=== PATIENT | male | born 1975 | race Caucasian/White ===

== ENCOUNTER 2016-06-30 02:16 | Inpatient (IN) ==
--- NOTE | 2016-06-30 02:20 | Emergency Department Note ---
Disposition Clinical Impression: Chronic schizophrenia Disposition: Still a Patient Condition: Fair Instructions: Depression (ED), Suicide Prevention for Adults (ED) Referrals: NO,PCP [Primary Care Provider] - Time of Disposition: 05:16 Psych HPI - General Chief Complaint: ED Psychiatric Symptoms Stated Complaint: psych Time Seen by Provider: 06/30/16 02:18 Source: patient Mode of arrival: private vehicle Limitations: no limitations Nursing Notes Reviewed: Yes Vital Signs Reviewed: Yes - History of Present Illness HPI Narrative: 40-year-old male presents to the emergency department with psychiatric complaints. Denies any suicidal or homicidal ideation. Patient states he is "having a rough time." Pt complaint: feels depressed, anxiety If medical clearance, reason: psychiatric condition Onset (ago): day(s) Duration: constant, getting worse History of similar episodes: Yes Improves with: none Worsens with: none Context: recent alcohol abuse Alleged intoxication: Yes Associated Psychiatric Symptoms: suicidal ideation, homicidal ideation, racing thoughts, anxiety Associated symptoms: Reports: denies other symptoms Traumatic symptoms: denies traumatic injury Treatments prior to arrival: none Self harm or harm to others: admits thoughts of self harm, admits thoughts of harming others - Related Data Previous Rx's Medication Instructions Recorded Naproxen [Naprosyn] 500 mg PO BID #20 tablet 06/19/15 Beclomethasone Diprop 40mcg [QVAR 2 puff IH BIDR inhaler 02/24/16 40 mcg] Methimazole [Tapazole] 5 mg PO DAILY #30 tablet 02/24/16 Pyridostigmine Br [Mestinon] 60 mg PO Q8HR #90 tablet 02/24/16 DiphenhydraMINE [Benadryl] 50 mg PO Q4HR #40 capsule 02/25/16 PredniSONE [Prednisone] 50 mg PO DAILY 5 Days 02/25/16 EPINEPHrine [Epipen] 0.3 mg IM ONCE PRN #1 kit 06/08/16 PredniSONE [Prednisone] 50 mg PO DAILY #5 tablet 06/08/16 Allergies Allergy/AdvReac Type Severity Reaction Status Date / Time Penicillins Allergy Hives Verified 06/08/16 19:49 codeine AdvReac Vomiting Verified 06/08/16 19:49 All systems ED: reviewed and negative except as stated. Constitutional: Denies: fever, chills Cardiovascular: Denies: chest pain Respiratory: Denies: cough, dyspnea, wheezes Gastrointestinal: Denies: abdominal pain, nausea, vomiting Musculoskeletal: Denies: back pain, neck pain Integumentary: Denies: rash, abrasion, lesions Neurological: Denies: headache Psychiatric: Reports: anxiety, depression, suicidal thoughts, homicidal thoughts Past Medical History - Past Medical History Attestation: Yes The following information was validated with the patient. Source: patient, nursing notes reviewed Medical history: Reports: hypertension, thyroid disease Surgical history: Reports: cholecystectomy Psychiatric history: Reports: prior suicide attempt, previous psychiatric hospitalization, other - Social History Smoking Status: Current every day smoker Smokeless Tobacco Status: Yes Alcohol use: Reports: occasionally Drug use: Reports: marijuana Physical Exam - General Limitations: altered mental status (slightly intoxicated with alcohol) General appearance: alert, in no apparent distress - Head Head exam: atraumatic, normocephalic, normal inspection - Eye Eye exam: Present: normal appearance, PERRL - Neck Neck exam: Present: normal inspection, full ROM, trachea midline - Chest Chest inspection: Present: normal inspection, symmetric chest wall rise - Respiratory Respiratory exam: Present: normal lung sounds bilaterally. Absent: respiratory distress - Cardiovascular Cardiovascular exam: Present: regular rate, normal rhythm, normal heart sounds - Extremities Exam Extremities exam: Present: normal inspection, full ROM. Absent: tenderness, pedal edema - Expanded Lower Extremity Exam Gait: observed and normal - Back Exam Back exam: Present: normal inspection, full ROM. Absent: tenderness - Neurological Exam Neurological exam: Present: alert, oriented X3 - Psychiatric Psychiatric exam: Present: depressed, agitated, anxious, homicidal ideation, suicidal ideation - Skin Skin exam: Present: warm, dry, intact, normal color Course Course Narrative: 40-year-old male with multiple delusions associated with the free m[employer] and other cult beliefs has multiple complaints and what appears to be multiple delusions. It is unsure if the patient is actually having delusions versus significant threats of harm to himself and his family. Patient has been seen here in the emergency department several times before for similar symptoms. He states that he has been abstaining from alcohol but drank this evening secondary to these recent concerns of threatening behavior. He denies any recent head trauma. He denies any recent illnesses. He does admit to smoking marijuana and drinking alcohol. He denies any current suicidal ideation, however throughout our discussions has stated that he does feel "everybody might be better off if I was gone." Additionally he notes "I do not know if I should just off myself or start a war with them." Workup here in the ER has been benign. Patient has an elevated blood alcohol level 182. Plan to redraw at 0 8:30 this morning. I have talked to the patient several times at the bedside and have informed him of the plan and care. Patient has verbalized understanding and agreement, however does remain agitated at times. Sedative medications and been ordered. Patient is compliant , however does appear to be a risk to staff. Patient feels extremely uncomfortable with security and police walking past the bedside, verbalized to them the importance of avoidance of this patient as long as he remains compliant and nonthreatening.[id number] Vital Signs Temperature 97.9 F 06/30/16 02:18 Pulse Rate 125 06/30/16 02:18 Respiratory Rate 18 06/30/16 02:18 Blood Pressure 132/89 06/30/16 02:18 O2 Sat by Pulse Oximetry 96 06/30/16 02:18 Temperature 97.9 F 06/30/16 02:18 Pulse Rate 106 06/30/16 04:30 Respiratory Rate 18 06/30/16 04:30 Blood Pressure 120/80 06/30/16 04:30 O2 Sat by Pulse Oximetry 96 06/30/16 04:30 Oxygen Delivery Oxygen Delivery Room Air Psych - Lab Data Lab results reviewed: Yes I reviewed the patient's lab results. Result diagrams: 06/30/16 02:48 06/30/16 02:48 Lab Results 06/30/16 06/30/16 06/30/16 Range/Units 02:47 02:47 02:48 WBC 11.8 H (4.3-11.1) K/mcL RBC 4.83 (4.19-5.50) M/mcL Hgb 14.5 (12.9-16.9) g/dL Hct 42.5 (37.5-50.1) % MCV 88.0 (83.0-100.0) fL MCH 30.0 (28.0-33.3) pg MCHC 34.1 (31.6-35.5) g/dL RDW 13.7 (11.5-14.5) % Plt Count 467 H (140-400) K/mcL MPV 10.1 (9.4-12.4) fL Immature Gran % 0.8 (0-4) % Seg Neutrophils % 59.8 % Lymphocytes % 33.2 % Monocytes % 4.4 % Eosinophils % 1.2 % Basophils % 0.6 % Neutrophils # 7.1 (1.6-8.9) K/mcL Lymphocytes # 3.9 (0.6-4.6) K/mcL Monocytes # 0.5 (0.0-1.3) K/mcL Eosinophils # 0.1 (0.0-0.6) K/mcL Basophils # 0.1 (0.0-0.2) K/mcL Sodium (136-145) mEq/L Potassium (3.5-4.5) mEq/L Chloride (98-109) mEq/L Carbon Dioxide (19-29) mEq/L BUN (8-26) mg/dL Creatinine (0.72-1.25) mg/dL Est GFR ( Amer) (> 60) Est GFR (Non-Af Amer) (> 60) BUN/Creatinine Ratio (6-26) Glucose (70-99) mg/dL Calculated Osmolality (280-300) Calcium (8.6-10.8) mg/dL Total Bilirubin (0.2-1.2) mg/dL Direct Bilirubin (0.0-0.5) mg/dL Indirect Bilirubin (0.0-1.2) mg/dL AST (5-34) Units/L ALT (0-55) Units/L Alkaline Phosphatase (38-126) Units/L Serum Total Protein (6.0-8.3) g/dL Albumin (3.5-5.0) g/dL Globulin (2.4-3.5) g/dL Albumin/Globulin Ratio (1.1-2.2) TSH (0.350-4.840) mcIU/mL Urine Color Yellow (Yellow) Urine Clarity Clear (Clear) Urine pH 5.5 (5.0-8.0) pH Units Ur Specific [place] 1.014 (1.010-1.025) Urine Protein Negative (Neg-Trace) mg/dL Urine Glucose (UA) Normal (Normal) mg/dL Urine Ketones Negative (Negative) mg/dL Urine Blood Negative (Negative) Urine Nitrite Negative (Negative) Urine Bilirubin Negative (Negative) Urine Urobilinogen Normal (Normal) mg/dL Ur Leukocyte Esterase Negative (Negative) Salicylates (15-30) mg/dL Urine Opiates Screen Negative (Wgnypr=440) ng/mL Acetaminophen (10-30) mcg/mL Ur Barbiturates Screen Negative (Htfylx=871) ng/mL Ur Phencyclidine Scrn Negative (Cutoff=25) ng/mL Ur Amphetamines Screen Negative (Ppacrx=5740) ng/mL U Benzodiazepines Scrn Negative (Egktpt=675) ng/mL Urine Cocaine Screen Negative (Cutoff= 300) ng/mL U Marijuana (THC) Screen Positive H (Cutoff = 50) ng/mL Ethyl Alcohol (0-10) mg/dL 06/30/16 Range/Units 02:48 WBC (4.3-11.1) K/mcL RBC (4.19-5.50) M/mcL Hgb (12.9-16.9) g/dL Hct (37.5-50.1) % MCV (83.0-100.0) fL MCH (28.0-33.3) pg MCHC (31.6-35.5) g/dL RDW (11.5-14.5) % Plt Count (140-400) K/mcL MPV (9.4-12.4) fL Immature Gran % (0-4) % Seg Neutrophils % % Lymphocytes % % Monocytes % % Eosinophils % % Basophils % % Neutrophils # (1.6-8.9) K/mcL Lymphocytes # (0.6-4.6) K/mcL Monocytes # (0.0-1.3) K/mcL Eosinophils # (0.0-0.6) K/mcL Basophils # (0.0-0.2) K/mcL Sodium 141 (136-145) mEq/L Potassium 3.7 (3.5-4.5) mEq/L Chloride 108 (98-109) mEq/L Carbon Dioxide 23 (19-29) mEq/L BUN 8 (8-26) mg/dL Creatinine 0.78 (0.72-1.25) mg/dL Est GFR ( Amer) > 60 (> 60) Est GFR (Non-Af Amer) > 60 (> 60) BUN/Creatinine Ratio 10 (6-26) Glucose 114 H (70-99) mg/dL Calculated Osmolality 291 (280-300) Calcium 9.3 (8.6-10.8) mg/dL Total Bilirubin 0.5 (0.2-1.2) mg/dL Direct Bilirubin 0.2 (0.0-0.5) mg/dL Indirect Bilirubin 0.3 (0.0-1.2) mg/dL AST 286 H (5-34) Units/L ALT 364 H (0-55) Units/L Alkaline Phosphatase 82 (38-126) Units/L Serum Total Protein 7.9 (6.0-8.3) g/dL Albumin 3.8 (3.5-5.0) g/dL Globulin 4.1 H (2.4-3.5) g/dL Albumin/Globulin Ratio 0.9 L (1.1-2.2) TSH 0.473 (0.350-4.840) mcIU/mL Urine Color (Yellow) Urine Clarity (Clear) Urine pH (5.0-8.0) pH Units Ur Specific [place] (1.010-1.025) Urine Protein (Neg-Trace) mg/dL Urine Glucose (UA) (Normal) mg/dL Urine Ketones (Negative) mg/dL Urine Blood (Negative) Urine Nitrite (Negative) Urine Bilirubin (Negative) Urine Urobilinogen (Normal) mg/dL Ur Leukocyte Esterase (Negative) Salicylates < 5.0 L (15-30) mg/dL Urine Opiates Screen (Obxmdw=206) ng/mL Acetaminophen < 1.0 L (10-30) mcg/mL Ur Barbiturates Screen (Dtcvsl=824) ng/mL Ur Phencyclidine Scrn (Cutoff=25) ng/mL Ur Amphetamines Screen (Braeei=5241) ng/mL U Benzodiazepines Scrn (Bydhkr=913) ng/mL Urine Cocaine Screen (Cutoff= 300) ng/mL U Marijuana (THC) Screen (Cutoff = 50) ng/mL Ethyl Alcohol 182 H (0-10) mg/dL Psychiatric Medical Clearance - Medical Clearance Checklist Medical History: No Social History Section defined Current Vitals: Last Vital Signs Temp 97.9 F 06/30/16 02:18 Pulse 106 06/30/16 04:30 Resp 18 06/30/16 04:30 BP 120/80 06/30/16 04:30 Pulse Ox 96 06/30/16 04:30 Psychiatric Lab Panel: Drug Levels and Toxicity 06/30/16 06/30/16 02:47 02:48 Urine Opiates Screen Negative Acetaminophen < 1.0 L Ur Barbiturates Screen Negative Ur Phencyclidine Scrn Negative Ur Amphetamines Screen Negative U Benzodiazepines Scrn Negative Urine Cocaine Screen Negative U Marijuana (THC) Screen Positive H Ethyl Alcohol 182 H Abnormal Labs: Abnormal lab results WBC 11.8 K/mcL (4.3-11.1) H 06/30/16 02:48 Plt Count 467 K/mcL (140-400) H 06/30/16 02:48 Glucose 114 mg/dL (70-99) H 06/30/16 02:48 AST 286 Units/L (5-34) H 06/30/16 02:48 ALT 364 Units/L (0-55) H 06/30/16 02:48 Globulin 4.1 g/dL (2.4-3.5) H 06/30/16 02:48 Albumin/Globulin Ratio 0.9 (1.1-2.2) L 06/30/16 02:48 Salicylates < 5.0 mg/dL (15-30) L 06/30/16 02:48 Acetaminophen < 1.0 mcg/mL (10-30) L 06/30/16 02:48 U Marijuana (THC) Screen Positive ng/mL (Cutoff = 50) H 06/30/16 02:47 Ethyl Alcohol 182 mg/dL (0-10) H 06/30/16 02:48 Statement of Medical Clearance: I have evaluated the patient, reviewed diagnostic information, and certify that the patient's medical condition is sufficiently stable that transfer to the psychiatric unit does not pose a significant risk of deterioration.
[2016-06-30 02:58] LABS: Bilirubin,Urine Negative (Negative); Blood,Urine Negative (Negative); Clarity,Urine Clear (Clear); Color,Urine Yellow (Yellow); Glucose,Urine (UA) Normal (Normal); Ketones,Urine Negative (Negative); Leukocyte Esterase,Urine Negative (Negative); Nitrite,Urine Negative (Negative); PH,Urine 5.5 pH Units (5.0-8.0); Protein,Urine Negative (Neg-Trace); Specific Gravity,Urine 1.014 (1.010-1.025); Urobilinogen,Urine Normal (Normal)
[2016-06-30 03:00] LABS: Amphetamine Screen,Urine Negative ng/mL (Cutoff=1000); Barbiturate Screen,Urine Negative ng/mL (Cutoff=200); Benzodiazepines Screen,Urine Negative ng/mL (Cutoff=200); Cannabinoid Screen,Urine Positive ng/mL (Cutoff = 50); Cocaine Screen,Urine Negative ng/mL (Cutoff= 300); Opiate Screen,Urine Negative ng/mL (Cutoff=300); Phencyclidine Screen,Urine Negative ng/mL (Cutoff=25)
[2016-06-30 03:04] LABS: Basophils # 0.1 K/mcL (0.0-0.2); Basophils % 0.6 %; Eosinophils # 0.1 K/mcL (0.0-0.6); Eosinophils % 1.2 %; Hematocrit 42.5 % (37.5-50.1); Hemoglobin 14.5 g/dL (12.9-16.9); Immature Granulocytes % 0.8 % (0-4); Lymphocytes # 3.9 K/mcL (0.6-4.6); Lymphocytes % 33.2 %; Mean Corpuscular HGB Conc 34.1 g/dL (31.6-35.5); Mean Platelet Volume 10.1 fL (9.4-12.4); Monocytes # 0.5 K/mcL (0.0-1.3); Monocytes % 4.4 %; Neutrophils # 7.1 K/mcL (1.6-8.9); Platelet Count 467 K/mcL (140-400); Red Blood Count 4.83 M/mcL (4.19-5.50); Red Cell Distribution Width 13.7 % (11.5-14.5); Segmented Neutrophils % 59.8 %
--- NOTE | 2016-06-30 03:19 | Emergency Department Note ---
START Narrative - START START: I examined this patient and my medical decision-making was reviewed with the DOG TR[employer]ENNEL MANAGER/PA/Advanced Practice Nurse/Resident Physician. I agree with the documented findings, disposition and treatment plan as described except to the extent set forth below. ED attending note: Patient seen with ED PA, YVETTE VERMA. Please see a copy of his note for details of the H&P, evaluation, management and disposition of this patient. We independently had [id number] contact with the patient Briefly: A 40-year-old male consulted to the expressing suicidal ideations. Neurologically nonfocal, afebrile. Physical examination is benign. Tox screen positive for THC. He admits to marijuana use. Patient will get medically cleared and then will have a consultation by the mental health service. Disposition pending. Patient stable
[2016-06-30 03:20] LABS: Acetaminophen < 1.0 mcg/mL (10-30); BUN/Creatinine Ratio 10 (6-26); Blood Urea Nitrogen 8 mg/dL (8-26); Calcium 9.3 mg/dL (8.6-10.8); Carbon Dioxide 23 mEq/L (19-29); Chloride 108 mEq/L (98-109); Ethanol 182 mg/dL (0-10); Glucose 114 mg/dL (70-99); Osmolality,Calculated 291 (280-300); Potassium 3.7 mEq/L (3.5-4.5); Salicylate < 5.0 mg/dL (15-30); Sodium 141 mEq/L (136-145); eGFR For African Americans > 60 (> 60); eGFR For Non-African Americans > 60 (> 60)
[2016-06-30 03:40] LABS: Alanine Aminotransferase 364 Units/L (0-55); Albumin 3.8 g/dL (3.5-5.0); Albumin/Globulin Ratio 0.9 (1.1-2.2); Alkaline Phosphatase 82 Units/L (38-126); Aspartate Amino Transferase 286 Units/L (5-34); Bilirubin,Direct 0.2 mg/dL (0.0-0.5); Bilirubin,Indirect 0.3 mg/dL (0.0-1.2); Bilirubin,Total 0.5 mg/dL (0.2-1.2); Globulin 4.1 g/dL (2.4-3.5); Total Protein 7.9 g/dL (6.0-8.3)
[2016-06-30 04:00] LABS: Thyroid Stimulating Hormone 0.473 mcIU/mL (0.350-4.840)
[2016-06-30] MEDS ORDERED: *HR* LORazepam 1 MG TABLET PO ONE (04:14)
--- NOTE | 2016-06-30 07:10 | Emergency Department Note ---
Disposition Clinical Impression: Chronic schizophrenia Disposition: Admitted As Inpatient Condition: Fair Time of Disposition: 12:00 Psych HPI - General Chief Complaint: ED Psychiatric Symptoms Stated Complaint: psych Time Seen by Provider: 06/30/16 02:18 Source: patient Mode of arrival: private vehicle Limitations: altered mental status Nursing Notes Reviewed: Yes Vital Signs Reviewed: Yes - History of Present Illness HPI Narrative: This is continuation of care from previous providers. Please merge these notes. There is no change in patient's condition. He remains cooperative at this time, sleeping in the room. Pt complaint: suicidal ideation, feels depressed, medical clearance request Duration: constant, getting worse Improves with: none Worsens with: none Associated symptoms: Reports: denies other symptoms Treatments prior to arrival: none - Related Data Home Medications Medication Instructions Recorded Confirmed Metoprolol XL (24 HR) Succ [Toprol 50 mg PO DAILY 06/30/16 06/30/16 XL] Mometasone Furoate [Asmanex Hfa] 2 puff IH BID 06/30/16 06/30/16 Previous Rx's Medication Instructions Recorded Methimazole [Tapazole] 5 mg PO DAILY #30 tablet 02/24/16 Pyridostigmine Br [Mestinon] 60 mg PO Q8HR #90 tablet 02/24/16 Allergies Allergy/AdvReac Type Severity Reaction Status Date / Time Penicillins Allergy Hives Verified 06/08/16 19:49 codeine AdvReac Vomiting Verified 06/08/16 19:49 Constitutional: Denies: fever, chills Cardiovascular: Denies: chest pain Respiratory: Denies: cough, dyspnea, wheezes Gastrointestinal: Denies: abdominal pain, nausea, vomiting Musculoskeletal: Denies: back pain, neck pain Integumentary: Denies: rash, abrasion, lesions Neurological: Denies: headache Psychiatric: Reports: anxiety, depression, suicidal thoughts, homicidal thoughts Past Medical History - Past Medical History Attestation: Yes The following information was validated with the patient. Source: patient, nursing notes reviewed Medical history: Reports: hypertension, thyroid disease Surgical history: Reports: cholecystectomy Psychiatric history: Reports: prior suicide attempt, previous psychiatric hospitalization, other - Social History Smoking Status: Current every day smoker Smokeless Tobacco Status: Yes Alcohol use: Reports: occasionally Drug use: Reports: marijuana Physical Exam - General Limitations: altered mental status (slightly intoxicated with alcohol) General appearance: alert, in no apparent distress - Head Head exam: atraumatic, normocephalic, normal inspection - Eye Eye exam: Present: normal appearance, PERRL, EOMI - ENT ENT exam: normal exam, normal oropharynx, mucous membranes moist - Neck Neck exam: Present: normal inspection, full ROM, trachea midline - Chest Chest inspection: Present: normal inspection, symmetric chest wall rise - Respiratory Respiratory exam: Present: normal lung sounds bilaterally - Cardiovascular Cardiovascular exam: Present: regular rate, normal rhythm, normal heart sounds - Extremities Exam Extremities exam: Present: normal inspection, full ROM. Absent: tenderness, pedal edema Course Vital Signs Temperature 97.9 F 06/30/16 02:18 Pulse Rate 125 06/30/16 02:18 Respiratory Rate 18 06/30/16 02:18 Blood Pressure 132/89 06/30/16 02:18 O2 Sat by Pulse Oximetry 96 06/30/16 02:18 Temperature 98.4 F 06/30/16 13:57 Pulse Rate 79 06/30/16 13:57 Respiratory Rate 20 06/30/16 13:57 Blood Pressure 114/76 06/30/16 13:57 O2 Sat by Pulse Oximetry 95 06/30/16 08:34 Oxygen Delivery Oxygen Delivery Room Air Psych - [facility] Narrative Medical decision making narrative: Spoke with Lb from [facility]. Patient is well known to them on the inpatient psych unit. Dr. Etienne, psychiatrist, was advised of patient's condition and he will follow the patient if we admit to the hospital for pancreatitis. His liver enzymes are elevated and at this time he is not having any pain. Will obtain Lipase first before decision to admit is determined. Discussed elevated liver enzymes with patient. He advised that he had abdominal pain 2-3 days ago, "that doubled me over", now having minimal epigastric pain with palpation, no radiation. [address] Merritt and he advised to have [facility] evaluate patient as the patient does not have pancreatitis. I spoke with Lb from [facility] and she will come and evaluate patient. 1100 - Lab Data Result diagrams: 06/30/16 02:48 06/30/16 02:48 Lab Results 06/30/16 06/30/16 06/30/16 Range/Units 02:47 02:47 02:48 WBC 11.8 H (4.3-11.1) K/mcL RBC 4.83 (4.19-5.50) M/mcL Hgb 14.5 (12.9-16.9) g/dL Hct 42.5 (37.5-50.1) % MCV 88.0 (83.0-100.0) fL MCH 30.0 (28.0-33.3) pg MCHC 34.1 (31.6-35.5) g/dL RDW 13.7 (11.5-14.5) % Plt Count 467 H (140-400) K/mcL MPV 10.1 (9.4-12.4) fL Immature Gran % 0.8 (0-4) % Seg Neutrophils % 59.8 % Lymphocytes % 33.2 % Monocytes % 4.4 % Eosinophils % 1.2 % Basophils % 0.6 % Neutrophils # 7.1 (1.6-8.9) K/mcL Lymphocytes # 3.9 (0.6-4.6) K/mcL Monocytes # 0.5 (0.0-1.3) K/mcL Eosinophils # 0.1 (0.0-0.6) K/mcL Basophils # 0.1 (0.0-0.2) K/mcL Sodium (136-145) mEq/L Potassium (3.5-4.5) mEq/L Chloride (98-109) mEq/L Carbon Dioxide (19-29) mEq/L BUN (8-26) mg/dL Creatinine (0.72-1.25) mg/dL Est GFR ( Amer) (> 60) Est GFR (Non-Af Amer) (> 60) BUN/Creatinine Ratio (6-26) Glucose (70-99) mg/dL Calculated Osmolality (280-300) Calcium (8.6-10.8) mg/dL Total Bilirubin (0.2-1.2) mg/dL Direct Bilirubin (0.0-0.5) mg/dL Indirect Bilirubin (0.0-1.2) mg/dL AST (5-34) Units/L ALT (0-55) Units/L Alkaline Phosphatase (38-126) Units/L Serum Total Protein (6.0-8.3) g/dL Albumin (3.5-5.0) g/dL Globulin (2.4-3.5) g/dL Albumin/Globulin Ratio (1.1-2.2) Lipase (8-78) Units/L TSH (0.350-4.840) mcIU/mL Urine Color Yellow (Yellow) Urine Clarity Clear (Clear) Urine pH 5.5 (5.0-8.0) pH Units Ur Specific [place] 1.014 (1.010-1.025) Urine Protein Negative (Neg-Trace) mg/dL Urine Glucose (UA) Normal (Normal) mg/dL Urine Ketones Negative (Negative) mg/dL Urine Blood Negative (Negative) Urine Nitrite Negative (Negative) Urine Bilirubin Negative (Negative) Urine Urobilinogen Normal (Normal) mg/dL Ur Leukocyte Esterase Negative (Negative) Salicylates (15-30) mg/dL Urine Opiates Screen Negative (Ffboel=317) ng/mL Acetaminophen (10-30) mcg/mL Ur Barbiturates Screen Negative (Vgfxyn=272) ng/mL Ur Phencyclidine Scrn Negative (Cutoff=25) ng/mL Ur Amphetamines Screen Negative (Pfqwod=6953) ng/mL U Benzodiazepines Scrn Negative (Zweris=940) ng/mL Urine Cocaine Screen Negative (Cutoff= 300) ng/mL U Marijuana (THC) Screen Positive H (Cutoff = 50) ng/mL Ethyl Alcohol (0-10) mg/dL 06/30/16 06/30/16 06/30/16 Range/Units 02:48 02:49 08:38 WBC (4.3-11.1) K/mcL RBC (4.19-5.50) M/mcL Hgb (12.9-16.9) g/dL Hct (37.5-50.1) % MCV (83.0-100.0) fL MCH (28.0-33.3) pg MCHC (31.6-35.5) g/dL RDW (11.5-14.5) % Plt Count (140-400) K/mcL MPV (9.4-12.4) fL Immature Gran % (0-4) % Seg Neutrophils % % Lymphocytes % % Monocytes % % Eosinophils % % Basophils % % Neutrophils # (1.6-8.9) K/mcL Lymphocytes # (0.6-4.6) K/mcL Monocytes # (0.0-1.3) K/mcL Eosinophils # (0.0-0.6) K/mcL Basophils # (0.0-0.2) K/mcL Sodium 141 (136-145) mEq/L Potassium 3.7 (3.5-4.5) mEq/L Chloride 108 (98-109) mEq/L Carbon Dioxide 23 (19-29) mEq/L BUN 8 (8-26) mg/dL Creatinine 0.78 (0.72-1.25) mg/dL Est GFR ( Amer) > 60 (> 60) Est GFR (Non-Af Amer) > 60 (> 60) BUN/Creatinine Ratio 10 (6-26) Glucose 114 H (70-99) mg/dL Calculated Osmolality 291 (280-300) Calcium 9.3 (8.6-10.8) mg/dL Total Bilirubin 0.5 (0.2-1.2) mg/dL Direct Bilirubin 0.2 (0.0-0.5) mg/dL Indirect Bilirubin 0.3 (0.0-1.2) mg/dL AST 286 H (5-34) Units/L ALT 364 H (0-55) Units/L Alkaline Phosphatase 82 (38-126) Units/L Serum Total Protein 7.9 (6.0-8.3) g/dL Albumin 3.8 (3.5-5.0) g/dL Globulin 4.1 H (2.4-3.5) g/dL Albumin/Globulin Ratio 0.9 L (1.1-2.2) Lipase (8-78) Units/L TSH 0.473 (0.350-4.840) mcIU/mL Urine Color (Yellow) Urine Clarity (Clear) Urine pH (5.0-8.0) pH Units Ur Specific [place] (1.010-1.025) Urine Protein (Neg-Trace) mg/dL Urine Glucose (UA) (Normal) mg/dL Urine Ketones (Negative) mg/dL Urine Blood (Negative) Urine Nitrite (Negative) Urine Bilirubin (Negative) Urine Urobilinogen (Normal) mg/dL Ur Leukocyte Esterase (Negative) Salicylates < 5.0 L (15-30) mg/dL Urine Opiates Screen (Ifichg=020) ng/mL Acetaminophen < 1.0 L (10-30) mcg/mL Ur Barbiturates Screen (Qbawbe=087) ng/mL Ur Phencyclidine Scrn (Cutoff=25) ng/mL Ur Amphetamines Screen (Vcbqby=9811) ng/mL U Benzodiazepines Scrn (Vysptw=542) ng/mL Urine Cocaine Screen (Cutoff= 300) ng/mL U Marijuana (THC) Screen (Cutoff = 50) ng/mL Ethyl Alcohol 182 H 178 H 51 H (0-10) mg/dL 06/30/16 Range/Units 08:38 WBC (4.3-11.1) K/mcL RBC (4.19-5.50) M/mcL Hgb (12.9-16.9) g/dL Hct (37.5-50.1) % MCV (83.0-100.0) fL MCH (28.0-33.3) pg MCHC (31.6-35.5) g/dL RDW (11.5-14.5) % Plt Count (140-400) K/mcL MPV (9.4-12.4) fL Immature Gran % (0-4) % Seg Neutrophils % % Lymphocytes % % Monocytes % % Eosinophils % % Basophils % % Neutrophils # (1.6-8.9) K/mcL Lymphocytes # (0.6-4.6) K/mcL Monocytes # (0.0-1.3) K/mcL Eosinophils # (0.0-0.6) K/mcL Basophils # (0.0-0.2) K/mcL Sodium (136-145) mEq/L Potassium (3.5-4.5) mEq/L Chloride (98-109) mEq/L Carbon Dioxide (19-29) mEq/L BUN (8-26) mg/dL Creatinine (0.72-1.25) mg/dL Est GFR ( Amer) (> 60) Est GFR (Non-Af Amer) (> 60) BUN/Creatinine Ratio (6-26) Glucose (70-99) mg/dL Calculated Osmolality (280-300) Calcium (8.6-10.8) mg/dL Total Bilirubin (0.2-1.2) mg/dL Direct Bilirubin (0.0-0.5) mg/dL Indirect Bilirubin (0.0-1.2) mg/dL AST (5-34) Units/L ALT (0-55) Units/L Alkaline Phosphatase (38-126) Units/L Serum Total Protein (6.0-8.3) g/dL Albumin (3.5-5.0) g/dL Globulin (2.4-3.5) g/dL Albumin/Globulin Ratio (1.1-2.2) Lipase 81 H (8-78) Units/L TSH (0.350-4.840) mcIU/mL Urine Color (Yellow) Urine Clarity (Clear) Urine pH (5.0-8.0) pH Units Ur Specific [place] (1.010-1.025) Urine Protein (Neg-Trace) mg/dL Urine Glucose (UA) (Normal) mg/dL Urine Ketones (Negative) mg/dL Urine Blood (Negative) Urine Nitrite (Negative) Urine Bilirubin (Negative) Urine Urobilinogen (Normal) mg/dL Ur Leukocyte Esterase (Negative) Salicylates (15-30) mg/dL Urine Opiates Screen (Rbrkuc=464) ng/mL Acetaminophen (10-30) mcg/mL Ur Barbiturates Screen (Yvkjnt=339) ng/mL Ur Phencyclidine Scrn (Cutoff=25) ng/mL Ur Amphetamines Screen (Xfxdxz=6283) ng/mL U Benzodiazepines Scrn (Otsugk=979) ng/mL Urine Cocaine Screen (Cutoff= 300) ng/mL U Marijuana (THC) Screen (Cutoff = 50) ng/mL Ethyl Alcohol (0-10) mg/dL Psychiatric Medical Clearance - Medical Clearance Checklist Does the patient have a NEW psychiatric condition?: No Any abnormalities indicating possible medical illness?: No Any history of medical issues?: No Medical History: No Social History Section defined Any abnormal vital signs prior to transfer?: No Current Vitals: Last Vital Signs Temp 98.4 F 06/30/16 13:57 Pulse 79 06/30/16 13:57 Resp 20 06/30/16 13:57 BP 114/76 06/30/16 13:57 Pulse Ox 95 06/30/16 08:34 Is the patient intoxicated or cognitively impaired?: Yes (will redraw Blood alcohol at 0830) Psychiatric Lab Panel: Drug Levels and Toxicity 06/30/16 06/30/16 06/30/16 02:47 02:48 02:49 Urine Opiates Screen Negative Acetaminophen < 1.0 L Ur Barbiturates Screen Negative Ur Phencyclidine Scrn Negative Ur Amphetamines Screen Negative U Benzodiazepines Scrn Negative Urine Cocaine Screen Negative U Marijuana (THC) Screen Positive H Ethyl Alcohol 182 H 178 H 06/30/16 08:38 Urine Opiates Screen Acetaminophen Ur Barbiturates Screen Ur Phencyclidine Scrn Ur Amphetamines Screen U Benzodiazepines Scrn Urine Cocaine Screen U Marijuana (THC) Screen Ethyl Alcohol 51 H Any abnormalities on the physical exam?: No Any abnormal labs?: Yes (elevated Blood alcohol initial draw ) Abnormal Labs: Abnormal lab results WBC 11.8 K/mcL (4.3-11.1) H 06/30/16 02:48 Plt Count 467 K/mcL (140-400) H 06/30/16 02:48 Glucose 114 mg/dL (70-99) H 06/30/16 02:48 AST 286 Units/L (5-34) H 06/30/16 02:48 ALT 364 Units/L (0-55) H 06/30/16 02:48 Globulin 4.1 g/dL (2.4-3.5) H 06/30/16 02:48 Albumin/Globulin Ratio 0.9 (1.1-2.2) L 06/30/16 02:48 Lipase 81 Units/L (8-78) H 06/30/16 08:38 Salicylates < 5.0 mg/dL (15-30) L 06/30/16 02:48 Acetaminophen < 1.0 mcg/mL (10-30) L 06/30/16 02:48 U Marijuana (THC) Screen Positive ng/mL (Cutoff = 50) H 06/30/16 02:47 Ethyl Alcohol 51 mg/dL (0-10) H 06/30/16 08:38 Does the patient require durable medical equiptment?: No Is the patient ambulatory?: Yes Is the patient a fall risk?: No Statement of Medical Clearance: I have evaluated the patient, reviewed diagnostic information, and certify that the patient's medical condition is sufficiently stable that transfer to the psychiatric unit does not pose a significant risk of deterioration. Attestation Statement - Attestation Attestation: Patient was seen with physician general office assistant. I reviewed the history, physical, assessment and plan, and agree with the findings. Patient was signed out as having been seen and waiting for admission to psychiatry department after alcohol was negative. There was some confusion during his stay with an area pancreatitis. His labs and exam do not support those findings. Psychiatry evaluated the patient, and agreed to admit him. Patient was admitted to psychiatric department for further evaluation and treatment in stable condition.
[2016-06-30] MEDS ORDERED: 0.9 % Sodium Chloride 1,000 ML IVC SCH (10:15)
[2016-06-30] MEDS ORDERED: Ibuprofen 400 MG TABLET PO PRN (13:48)
[2016-06-30] MEDS ORDERED: MOM Conc 10 ML UD.LIQ PO PRN (13:48)
[2016-06-30] MEDS ORDERED: *HR* LORazepam 2 MG/ML VIAL IM PRN (13:48)
[2016-06-30] MEDS ORDERED: *HR* LORazepam 1 MG TABLET PO PRN (13:48)
[2016-06-30] MEDS ORDERED: Haloperidol Lactate 5 MG/ML VIAL IM PRN (13:48)
[2016-06-30] MEDS: Nicotine 21 MG PATCH.TD24 TD SCH (15:26)
[2016-06-30] MEDS: methIMAzole 5 MG TABLET PO SCH (15:26)
[2016-06-30] MEDS ORDERED: Pyridostigmine Br 60 MG TABLET PO SCH (16:00)
[2016-06-30] MEDS: Pyridostigmine Br 60 MG TABLET PO SCH (23:16)
[2016-07-01] MEDS: Beclomethasone 80mcg MDI IH SCH ×3 (03:52→22:03)
[2016-07-01] MEDS: Nicotine 21 MG PATCH.TD24 TD SCH (08:23)
[2016-07-01] MEDS: methIMAzole 5 MG TABLET PO SCH (08:24)
[2016-07-01] MEDS: Metoprolol XL (24 HR) Succ 50 MG TAB.ER.24H PO SCH (08:24)
[2016-07-01] MEDS: Pyridostigmine Br 60 MG TABLET PO SCH ×3 (08:24→22:03)
--- NOTE | 2016-07-01 10:51 | Psychiatry History & Physical ---
Date of Encounter: 07/01/16 Time of Encounter: 10:51 History of Present Illness Patient Stated Chief Complaint: people trying to kill me Medicare Admission Attestation: For traditional Medicare patients the provided hospital inpatient services are reasonable and necessary and in the case of services not specified as inpatient -only under 42 CFR 419.22 (n), that they are appropriately provided as inpatient services in accordance 42 CFR 412.3. For Critical Access Hospital the patient may reasonably be expected to be discharged or transferred to a hospital within 96 hours after admission to the Critical Access Hospital. Admitted From: Emergency Dept History of Present Illness: Mr. Jalloh is a 40 year old male admitted from the emergency department where he presented there with some complaints including paranoid delusions and suicidal ideation and homicidal ideation. Patient believed that she is monitored by a group of people called "masons" and they may plan to kill him and his family there is no evidence to this points however he is occupied and thinking about hurting himself or killing somebody else. Patient has history of schizophrenia and bipolar disorder has been noncompliant with medication treatment for several months also he has been hospitalized in the past and attempted suicide in the past. He complained of poor sleep and anxiety preoccupation with this group. Patient also shows some somatic preoccupation token about being diagnosed with myasthenia gravis and thyroid problems. Past Med Surg Social Fam HX - Past Medical History Medical history: hypertension, thyroid disease - Past Psychiatric History Psychiatric history: Reports: prior suicide attempt, schizophrenia, previous psychiatric hospitalization Family psychiatric history: Unknown Family History of Suicide: Unknown - Past Surgical History Surgical History: cholecystectomy - Social History Smoking Status: Current every day smoker Smokeless Tobacco Status: Yes Alcohol use: occasionally Drug use: marijuana Medications & Allergies Methimazole [Tapazole] 5 mg PO DAILY #30 tablet 02/24/16 [Rx] Pyridostigmine Br [Mestinon] 60 mg PO Q8HR #90 tablet 02/24/16 [Rx] Metoprolol XL (24 HR) Succ [Toprol XL] 50 mg PO DAILY 06/30/16 [History] Mometasone Furoate [Asmanex Hfa] 2 puff IH BID 06/30/16 [History] Allergies Penicillins Allergy (Verified 06/08/16 19:49) Hives codeine Adverse Reaction (Verified 06/08/16 19:49) Vomiting Review of Systems Psychiatric: Reports: anxiety, suicidal ideation, homicidal ideation, confusion , hopelessness, irritability Mental Status Exam Patient orientation: Yes Person, Yes Time, Yes Place Level of alertness: Alert Patient appearance: Appropriate, Well Groomed Behavior: cooperative, anxious, restless, guarded, suspicious Psychomotor activity: Increased Eye contact: Minimal Contact Mood description: Anxious, Labile Affect description: labile, dysphoric, anxious Speech pattern: Disorganized, Excessive, Pressured Speech volume: Normal Thought process: Loose Associations, Tangential, Disorganized, Racing, Evasive Thought content: Yes Suicidal ideation, Yes Homicidal ideation, Yes Overt delusions, Yes Paranoid delusion Perceptual disturbances: Yes Auditory hallucinations Attention span: Unable to Sustain Attention Memory description: Remote Intact Patient reliability: Questionable Historian Intelligence estimate: Average Judgment: Limited Insight: Minimal Results - Vital Signs Vital signs: Temp Pulse Resp BP Pulse Ox 98 F 90 16 126/78 95 07/01/16 08:25 07/01/16 08:25 07/01/16 08:25 07/01/16 08:25 06/30/16 08:34 - Labs Labs: Laboratory Last Values WBC 11.8 K/mcL (4.3-11.1) H 06/30/16 02:48 RBC 4.83 M/mcL (4.19-5.50) 06/30/16 02:48 Hgb 14.5 g/dL (12.9-16.9) 06/30/16 02:48 Hct 42.5 % (37.5-50.1) 06/30/16 02:48 MCV 88.0 fL (83.0-100.0) 06/30/16 02:48 MCH 30.0 pg (28.0-33.3) 06/30/16 02:48 MCHC 34.1 g/dL (31.6-35.5) 06/30/16 02:48 RDW 13.7 % (11.5-14.5) 06/30/16 02:48 Plt Count 467 K/mcL (140-400) H 06/30/16 02:48 MPV 10.1 fL (9.4-12.4) 06/30/16 02:48 Immature Gran % 0.8 % (0-4) 06/30/16 02:48 Seg Neutrophils % 59.8 % 06/30/16 02:48 Lymphocytes % 33.2 % 06/30/16 02:48 Monocytes % 4.4 % 06/30/16 02:48 Eosinophils % 1.2 % 06/30/16 02:48 Basophils % 0.6 % 06/30/16 02:48 Neutrophils # 7.1 K/mcL (1.6-8.9) 06/30/16 02:48 Lymphocytes # 3.9 K/mcL (0.6-4.6) 06/30/16 02:48 Monocytes # 0.5 K/mcL (0.0-1.3) 06/30/16 02:48 Eosinophils # 0.1 K/mcL (0.0-0.6) 06/30/16 02:48 Basophils # 0.1 K/mcL (0.0-0.2) 06/30/16 02:48 Sodium 141 mEq/L (136-145) 06/30/16 02:48 Potassium 3.7 mEq/L (3.5-4.5) 06/30/16 02:48 Chloride 108 mEq/L (98-109) 06/30/16 02:48 Carbon Dioxide 23 mEq/L (19-29) 06/30/16 02:48 BUN 8 mg/dL (8-26) 06/30/16 02:48 Creatinine 0.78 mg/dL (0.72-1.25) 06/30/16 02:48 Est GFR ( Amer) > 60 (> 60) 06/30/16 02:48 Est GFR (Non-Af Amer) > 60 (> 60) 06/30/16 02:48 BUN/Creatinine Ratio 10 (6-26) 06/30/16 02:48 Glucose 114 mg/dL (70-99) H 06/30/16 02:48 Calculated Osmolality 291 (280-300) 06/30/16 02:48 Calcium 9.3 mg/dL (8.6-10.8) 06/30/16 02:48 Total Bilirubin 0.5 mg/dL (0.2-1.2) 06/30/16 02:48 Direct Bilirubin 0.2 mg/dL (0.0-0.5) 06/30/16 02:48 Indirect Bilirubin 0.3 mg/dL (0.0-1.2) 06/30/16 02:48 AST 286 Units/L (5-34) H 06/30/16 02:48 ALT 364 Units/L (0-55) H 06/30/16 02:48 Alkaline Phosphatase 82 Units/L (38-126) 06/30/16 02:48 Serum Total Protein 7.9 g/dL (6.0-8.3) 06/30/16 02:48 Albumin 3.8 g/dL (3.5-5.0) 06/30/16 02:48 Globulin 4.1 g/dL (2.4-3.5) H 06/30/16 02:48 Albumin/Globulin Ratio 0.9 (1.1-2.2) L 06/30/16 02:48 Lipase 81 Units/L (8-78) H 06/30/16 08:38 TSH 0.473 mcIU/mL (0.350-4.840) 06/30/16 02:48 Urine Color Yellow (Yellow) 06/30/16 02:47 Urine Clarity Clear (Clear) 06/30/16 02:47 Urine pH 5.5 pH Units (5.0-8.0) 06/30/16 02:47 Ur Specific [place] 1.014 (1.010-1.025) 06/30/16 02:47 Urine Protein Negative mg/dL (Neg-Trace) 06/30/16 02:47 Urine Glucose (UA) Normal mg/dL (Normal) 06/30/16 02:47 Urine Ketones Negative mg/dL (Negative) 06/30/16 02:47 Urine Blood Negative (Negative) 06/30/16 02:47 Urine Nitrite Negative (Negative) 06/30/16 02:47 Urine Bilirubin Negative (Negative) 06/30/16 02:47 Urine Urobilinogen Normal mg/dL (Normal) 06/30/16 02:47 Ur Leukocyte Esterase Negative (Negative) 06/30/16 02:47 Salicylates < 5.0 mg/dL (15-30) L 06/30/16 02:48 Urine Opiates Screen Negative ng/mL (Wlitir=010) 06/30/16 02:47 Acetaminophen < 1.0 mcg/mL (10-30) L 06/30/16 02:48 Ur Barbiturates Screen Negative ng/mL (Utlemh=375) 06/30/16 02:47 Ur Phencyclidine Scrn Negative ng/mL (Cutoff=25) 06/30/16 02:47 Ur Amphetamines Screen Negative ng/mL (Blcjvh=7917) 06/30/16 02:47 U Benzodiazepines Scrn Negative ng/mL (Dnoyhy=555) 06/30/16 02:47 Urine Cocaine Screen Negative ng/mL (Cutoff= 300) 06/30/16 02:47 U Marijuana (THC) Screen Positive ng/mL (Cutoff = 50) H 06/30/16 02:47 Ethyl Alcohol 51 mg/dL (0-10) H 06/30/16 08:38 Assessment and Plan (1) Chronic schizophrenia Current visit: Yes Status: Acute Plan: Admit inpatient for safety and stabilization, Close observation, Suicide Precautions per unit protocol, Encourage participation in unit milieu, Group Therapy, Monitor sleep, Monitor appetite Additional Plan: Treatment plan: Patient is experiencing delusional thinking paranoia having trouble with sleep has been noncompliant with medication. At this time I will start patient on Abilify 10 mg daily benefits and side effects discussed with the patient is agreeable to start. Other medication when necessary we will continue. Risks, benefits, side effects, alternatives discussed w/pt: Yes Patient agreeable to treatment: Yes
[2016-07-01] MEDS: ARIPiprazole 10 MG TABLET PO SCH (12:44)
[2016-07-01] MEDS ORDERED: methIMAzole 5 MG TABLET PO SCH (13:53)
[2016-07-01] MEDS: Nicotine 2 MG GUM BC PRN (14:29)
[2016-07-01] MEDS: traZODone 50 MG TABLET PO PRN (23:34)
[2016-07-02] MEDS: Pyridostigmine Br 60 MG TABLET PO SCH ×3 (07:16→23:04)
[2016-07-02] MEDS: Mag Hydrox/Al Hydrox/Simeth 30 ML UDC PO PRN (09:18)
[2016-07-02] MEDS: Beclomethasone 80mcg MDI IH SCH ×2 (09:19→23:05)
[2016-07-02] MEDS: methIMAzole 5 MG TABLET PO SCH (09:19)
[2016-07-02] MEDS: Metoprolol XL (24 HR) Succ 50 MG TAB.ER.24H PO SCH (09:19)
[2016-07-02] MEDS: ARIPiprazole 10 MG TABLET PO SCH (09:53)
--- NOTE | 2016-07-02 13:20 | Internal Medicine Consult Note ---
Date of Encounter: 07/02/16 Time of Encounter: 12:45 Internal Medicine - CN: HPI - Data of Consult Patient: new to practice Consult date: 07/02/16 Requesting Physician: Alberto Etienne MD - Consult Narrative Reason for consult: Elevated LFTs History of present illness: Mr. Jalloh is a 40 year old male who is admitted to [facility] mental health unit. Consult for elevated LFTs. Pt reports that he has had sharp, stabbing epigastric pain "that sometimes doubles me over" 3-4x/week for about a year. Sometimes food makes it worse and he reports n/v "at times". Pt denies alcohol intake for 2 years, but prior to that he drank whiskey, moonshine, and beer daily for 5 years. He describes intake as "excessive". Pt also reports fatigue as a symptom. - Constitutional Constitutional: fatigue, no chills, no fever(s), no night sweats - Cardiovascular Cardiovascular ROS IM: no chest pain, no dyspnea, no palpitations - Respiratory Respiratory: no cough, no dyspnea, no wheezing, no chest congestion, no pain with cough - Gastrointestinal Gastrointestinal: abdominal pain, dyspepsia, nausea, vomiting, no change in bowel habits, no coffee ground emesis, no diarrhea - Musculoskeletal Musculoskeletal ROS IM: back pain Additional comments: Pt states that while he was in retirement for 90 days that he had the worst back pain of his life, but has resolved since release on 06/06/16. Pt states that the pain was mid-back, but wasn't always associated with the epigastric pain. - Integumentary Integumentary IM: no pruritus, no rash Past Med Surg Social Fam HX - Past Medical History Medical history: hypertension, thyroid disease Psychiatric history: prior suicide attempt, schizophrenia, previous psychiatric hospitalization - Past Surgical History Surgical History: cholecystectomy - Social History Smoking Status: Current every day smoker Packs per day: 0 Smokeless Tobacco Status: Yes Alcohol use: occasionally Drug use: marijuana Internal Medicine - CN: Meds Methimazole [Tapazole] 5 mg PO DAILY #30 tablet 02/24/16 [Rx] Pyridostigmine Br [Mestinon] 60 mg PO Q8HR #90 tablet 02/24/16 [Rx] Metoprolol XL (24 HR) Succ [Toprol XL] 50 mg PO DAILY 06/30/16 [History] Mometasone Furoate [Asmanex Hfa] 2 puff IH BID 06/30/16 [History] Allergies Penicillins Allergy (Verified 06/08/16 19:49) Hives codeine Adverse Reaction (Verified 06/08/16 19:49) Vomiting Internal Medicine - CN: Exam - Constitutional Vitals: Temp Pulse Resp BP Pulse Ox 97.9 F 57 16 114/67 95 07/02/16 09:05 07/02/16 09:05 07/02/16 09:05 07/02/16 09:05 06/30/16 08:34 General appearance IM: Present: A&O X 3, no acute distress - Head Head exam: Present: normal inspection - Neck Neck exam general surgery: Present: full ROM, normal inspection. Absent: tenderness, thyromegaly - Respiratory Respiratory exam: Absent: accessory muscle use, chest wall tenderness, rales, wheezes - Cardiovascular Cardiovascular exam IM: Present: RRR, +S1, +S2. Absent: clicks, diastolic murmur, JVD, tachycardia - GI/Abdominal GI/Abdominal exam IM: Present: firm, normal bowel sounds, tenderness. Absent: pulsatile mass Additional comments: Pt with tenderness to epigastric area with palpation. - Expanded GI/Abdominal Exam GI/Abdominal exam: Absent: Ortiz's sign, Rovsing's sign, tenderness at McBurney 's Point - Extremities Exam Extremities exam IM: Absent: pedal edema - Back Exam Back exam: Absent: CVA tenderness (L), CVA tenderness (R) - Neurological Exam Neurological exam: Present: alert, oriented X3 Internal Medicine - CN: Reslt - Labs CBC & Chem 7: 07/02/16 13:48 07/02/16 13:48 - Assessment and Plan (1) Abdominal pain Current Visit: Yes Status: Chronic Assessment and plan: Pt reports 1 year history of abd pain, as per HPI. AST 286 u/L, Alt 364 u/L, Amylase 70 u/L WNL, and Lipase only slightly elevated at 81 u/L on admission. Repeat labs today including CBC, chemistry, LFTs and lipase reviewed. Improving tranaminitis. Lipase WNL. Abd is not acute on exam, epigastric pain probably due to GERD. Pt is on maalox, continue same. Recommend trial of H2 neo. There is no [facility] or surgical intervention needed at this time. Thank you for your consult, please consult us prn. Qualifiers: Abdominal location: epigastric Qualified Code(s): R10.13 - Epigastric pain Consult Discharge Plan - Plan Referrals: [facility] [Outside] - 07/15/16 9:30 am (The above appointment is with Shreya Yang, counselor at [facility]. Your first appointment will be very thorough and the total appointment time will take between two and three hours. You will be completing paperwork, meeting with a counselor and a nurse, and developing a treatment plan. You will receive follow- up appointments for on-going services , which could include counseling and community support. Please bring the following with you to your first visit to the clinic: 1) proof of household income (two consecutive pay stubs, social security award letter, bank statement , statement letter from [facility], child support statement, IRS 1040 or W2 form, or a statement from the person who financially supports you stating they help provide for your basic needs), 2) proof of residency (drivers license, a piece of mail showing your address, a statement from person you live with verifying you live at their address), 3) your social security number, and 4) your insurance card (if you have commercial insurance you must call to obtain a prior authorization number before you arrive to your first appointment). If you do not bring these items, you will not be seen.) [facility] [Outside] - 08/08/16 9:00 am (The above appointment is with psychiatric prescriber, Dr. Finch. Please arrive 15 minutes early for this appointment to complete paperwork. You may contact the office regularly to check for cancellations that may allow you to be seen sooner by the psychiatric prescriber.) Dejan May, PAC [Physician Firer [employer]] -
[2016-07-02 14:07] LABS: Basophils % 0.5 %; Eosinophils # 0.2 K/mcL (0.0-0.6); Eosinophils % 2.7 %; Hematocrit 40.9 % (37.5-50.1); Hemoglobin 13.8 g/dL (12.9-16.9); Immature Granulocytes % 0.5 % (0-4); Lymphocytes # 2.5 K/mcL (0.6-4.6); Mean Corpuscular HGB Conc 33.7 g/dL (31.6-35.5); Mean Corpuscular Hemoglobin 29.9 pg (28.0-33.3); Mean Corpuscular Volume 88.7 fL (83.0-100.0); Mean Platelet Volume 10.5 fL (9.4-12.4); Monocytes # 0.9 K/mcL (0.0-1.3); Monocytes % 10.2 %; Neutrophils # 4.9 K/mcL (1.6-8.9); Platelet Count 405 K/mcL (140-400); Red Blood Count 4.61 M/mcL (4.19-5.50); Red Cell Distribution Width 13.6 % (11.5-14.5); Segmented Neutrophils % 57.1 %
[2016-07-02 14:21] LABS: Alanine Aminotransferase 281 Units/L (0-55); Albumin 3.6 g/dL (3.5-5.0); Alkaline Phosphatase 87 Units/L (38-126); Aspartate Amino Transferase 153 Units/L (5-34); BUN/Creatinine Ratio 14 (6-26); Bilirubin,Total 0.6 mg/dL (0.2-1.2); Blood Urea Nitrogen 10 mg/dL (8-26); Calcium 9.7 mg/dL (8.6-10.8); Carbon Dioxide 28 mEq/L (19-29); Chloride 101 mEq/L (98-109); Globulin 3.7 g/dL (2.4-3.5); Glucose 78 mg/dL (70-99); Lipase 53 Units/L (8-78); Osmolality,Calculated 282 (280-300); Potassium 4.5 mEq/L (3.5-4.5); Sodium 137 mEq/L (136-145); Total Protein 7.3 g/dL (6.0-8.3); eGFR For African Americans > 60 (> 60); eGFR For Non-African Americans > 60 (> 60)
--- NOTE | 2016-07-02 16:02 | Psychiatry Progress Note ---
Date of Encounter: 07/02/16 Time of Encounter: 15:59 Subjective Interval history: Patient is seen for follow-up. Patient self report patient has been complaining of nausea and vomiting and medical consult was requested to evaluate his elevated LFTs. Results of the relapse are pending.. Patient to feel irritable and asked for medication to relax and he was advised to ask nursing staff to get when necessary medication. Otherwise he is not sharing any delusional thinking or paranoia as he did before he seemed guarded. Review of Systems Psychiatric: Reports: anxiety, suicidal ideation, homicidal ideation, hopelessness, irritability Objective: Exam Patient orientation: Yes Person, Yes Time, Yes Place Level of alertness: Alert Patient appearance: Appropriate, Well Groomed Behavior: cooperative, anxious, restless, guarded, suspicious Psychomotor activity: Increased Eye contact: Minimal Contact Mood description: Anxious, Labile Affect description: labile, dysphoric, anxious Speech pattern: Disorganized, Excessive, Pressured Speech volume: Normal Thought process: Loose Associations, Tangential, Disorganized, Racing, Evasive Thought content: Yes Suicidal ideation, Yes Homicidal ideation, Yes Overt delusions, Yes Paranoid delusion Perceptual disturbances: Yes Auditory hallucinations Judgment: Limited Insight: Minimal Results - Vital Signs Vital Signs: Temp Pulse Resp BP Pulse Ox 97.9 F 57 16 114/67 95 07/02/16 09:05 07/02/16 09:05 07/02/16 09:05 07/02/16 09:05 06/30/16 08:34 - Labs Labs: Laboratory Results - last 24 hr 07/02/16 07/02/16 13:48 13:48 WBC 8.6 RBC 4.61 Hgb 13.8 Hct 40.9 MCV 88.7 MCH 29.9 MCHC 33.7 RDW 13.6 Plt Count 405 H MPV 10.5 Immature Gran % 0.5 Seg Neutrophils % 57.1 Lymphocytes % 29.0 Monocytes % 10.2 Eosinophils % 2.7 Basophils % 0.5 Neutrophils # 4.9 Lymphocytes # 2.5 Monocytes # 0.9 Eosinophils # 0.2 Basophils # 0.0 Sodium 137 Potassium 4.5 Chloride 101 Carbon Dioxide 28 BUN 10 Creatinine 0.74 Est GFR ( Amer) > 60 Est GFR (Non-Af Amer) > 60 BUN/Creatinine Ratio 14 Glucose 78 Calculated Osmolality 282 Calcium 9.7 Total Bilirubin 0.6 AST 153 H ALT 281 H Alkaline Phosphatase 87 Serum Total Protein 7.3 Albumin 3.6 Globulin 3.7 H Albumin/Globulin Ratio 1.0 L Lipase 53 Assessment and Plan (1) Chronic schizophrenia Current visit: Yes Status: Acute Plan: Continue hospitalization, Close observation, Suicide Precautions per unit protocol, Encourage participation in unit milieu, Group Therapy, Monitor sleep, Monitor appetite Additional Plan: Patient was started on Abilify 10 mg yesterday to help with his psychotic symptoms and paranoia denied any side effects from the medicine and his compliance. Risks, benefits, side effects, alternatives discussed w/pt: Yes Patient agreeable to treatment: Yes (2) Cannabis abuse Current visit: Yes Status: Acute Plan: Continue hospitalization, Close observation, Suicide Precautions per unit protocol, Encourage participation in unit milieu, Group Therapy, Monitor sleep, Monitor appetite Risks, benefits, side effects, alternatives discussed w/pt: Yes Patient agreeable to treatment: Yes Consult Discharge Plan - Plan Referrals: [facility] [Outside] - 07/15/16 9:30 am (The above appointment is with Shreya Yang, counselor at [facility]. Your first appointment will be very thorough and the total appointment time will take between two and three hours. You will be completing paperwork, meeting with a counselor and a nurse, and developing a treatment plan. You will receive follow- up appointments for on-going services , which could include counseling and community support. Please bring the following with you to your first visit to the clinic: 1) proof of household income (two consecutive pay stubs, social security award letter, bank statement , statement letter from [facility], child support statement, IRS 1040 or W2 form, or a statement from the person who financially supports you stating they help provide for your basic needs), 2) proof of residency (drivers license, a piece of mail showing your address, a statement from person you live with verifying you live at their address), 3) your social security number, and 4) your insurance card (if you have commercial insurance you must call to obtain a prior authorization number before you arrive to your first appointment). If you do not bring these items, you will not be seen.) [facility] [Outside] - 08/08/16 9:00 am (The above appointment is with psychiatric prescriber, Dr. Finch. Please arrive 15 minutes early for this appointment to complete paperwork. You may contact the office regularly to check for cancellations that may allow you to be seen sooner by the psychiatric prescriber.) Dejan May, JOEY [Physician Security Administrator] - 07/10/16 10:30 am (The above appointment is with ABY Garzon at [facility]. This appointment is to establish you with a primary care provider. If you have needs related to psychiatric medication and/or Vivitrol, you will be assessed for these as well. Please arrive 15 minutes early to complete paperwork. Please bring your insurance card, photo ID and list of current medications to your first appointment.)
[2016-07-02] MEDS: *HR* LORazepam 1 MG TABLET PO PRN ×2 (16:54→23:05)
[2016-07-02] MEDS: Nicotine 2 MG GUM BC PRN (19:49)
[2016-07-03] MEDS: Pyridostigmine Br 60 MG TABLET PO SCH ×3 (07:10→22:11)
[2016-07-03] MEDS: methIMAzole 5 MG TABLET PO SCH (09:50)
[2016-07-03] MEDS: Metoprolol XL (24 HR) Succ 50 MG TAB.ER.24H PO SCH (09:50)
[2016-07-03] MEDS: Beclomethasone 80mcg MDI IH SCH ×2 (09:50→22:11)
[2016-07-03] MEDS: ARIPiprazole 10 MG TABLET PO SCH (09:50)
[2016-07-03] MEDS: *HR* LORazepam 1 MG TABLET PO PRN (10:08)
[2016-07-03] MEDS: Nicotine 2 MG GUM BC PRN (13:07)
--- NOTE | 2016-07-03 13:44 | Psychiatry Progress Note ---
Date of Encounter: 07/03/16 Time of Encounter: 13:41 Subjective Interval history: Patient is here for follow-up.. The nursing staff reported that she has been having complaint nausea and vomiting he was seen by medical consult and there were no recommendation changes ordered. Today patient told me that he believed that the Abilify medication is causing his nausea and vomiting also he had nausea and vomiting prior to admission. Discussed with him the benefit of the medication and he did not show interest and continues to the medicine however he was less paranoid and less preoccupied with his delusion and paranoia. Review of Systems Psychiatric: Reports: anxiety, suicidal ideation, homicidal ideation, hopelessness, irritability Objective: Exam Patient orientation: Yes Person, Yes Time, Yes Place Level of alertness: Alert Patient appearance: Appropriate, Well Groomed Behavior: cooperative, anxious, restless, guarded, suspicious Psychomotor activity: Increased Eye contact: Minimal Contact Mood description: Anxious, Labile Affect description: labile, dysphoric, anxious Speech pattern: Disorganized, Excessive, Pressured Speech volume: Normal Thought process: Loose Associations, Tangential, Disorganized, Racing, Evasive Thought content: Yes Suicidal ideation, Yes Homicidal ideation, Yes Overt delusions, Yes Paranoid delusion Perceptual disturbances: Yes Auditory hallucinations Judgment: Limited Insight: Minimal Results - Vital Signs Vital Signs: Temp Pulse Resp BP Pulse Ox 97.4 F L 71 16 109/67 95 07/03/16 08:49 07/03/16 08:49 07/03/16 08:49 07/03/16 08:49 06/30/16 08:34 - Labs Labs: Laboratory Results - last 24 hr 07/02/16 07/02/16 13:48 13:48 WBC 8.6 RBC 4.61 Hgb 13.8 Hct 40.9 MCV 88.7 MCH 29.9 MCHC 33.7 RDW 13.6 Plt Count 405 H MPV 10.5 Immature Gran % 0.5 Seg Neutrophils % 57.1 Lymphocytes % 29.0 Monocytes % 10.2 Eosinophils % 2.7 Basophils % 0.5 Neutrophils # 4.9 Lymphocytes # 2.5 Monocytes # 0.9 Eosinophils # 0.2 Basophils # 0.0 Sodium 137 Potassium 4.5 Chloride 101 Carbon Dioxide 28 BUN 10 Creatinine 0.74 Est GFR ( Amer) > 60 Est GFR (Non-Af Amer) > 60 BUN/Creatinine Ratio 14 Glucose 78 Calculated Osmolality 282 Calcium 9.7 Total Bilirubin 0.6 AST 153 H ALT 281 H Alkaline Phosphatase 87 Serum Total Protein 7.3 Albumin 3.6 Globulin 3.7 H Albumin/Globulin Ratio 1.0 L Lipase 53 Assessment and Plan (1) Chronic schizophrenia Current visit: Yes Status: Acute Additional Plan: At this time I will discontinue Abilify because of the patient complaining of nausea and vomiting and is not interested and taking on new medication at this time he will be monitored after discontinuation of Abilify. Risks, benefits, side effects, alternatives discussed w/pt: Yes Patient agreeable to treatment: Yes Consult Discharge Plan - Plan Referrals: [facility] [Outside] - 07/15/16 9:30 am (The above appointment is with Shreya Yang, counselor at [facility]. Your first appointment will be very thorough and the total appointment time will take between two and three hours. You will be completing paperwork, meeting with a counselor and a nurse, and developing a treatment plan. You will receive follow- up appointments for on-going services , which could include counseling and community support. Please bring the following with you to your first visit to the clinic: 1) proof of household income (two consecutive pay stubs, social security award letter, bank statement , statement letter from [facility], child support statement, IRS 1040 or W2 form, or a statement from the person who financially supports you stating they help provide for your basic needs), 2) proof of residency (drivers license, a piece of mail showing your address, a statement from person you live with verifying you live at their address), 3) your social security number, and 4) your insurance card (if you have commercial insurance you must call to obtain a prior authorization number before you arrive to your first appointment). If you do not bring these items, you will not be seen.) [facility] [Outside] - 08/08/16 9:00 am (The above appointment is with psychiatric prescriber, Dr. Finch. Please arrive 15 minutes early for this appointment to complete paperwork. You may contact the office regularly to check for cancellations that may allow you to be seen sooner by the psychiatric prescriber.) Dejan May, PAC [Physician Captain [employer]ishing [employer]] - 07/10/16 10:30 am (The above appointment is with ABY Garzon at [facility]. This appointment is to establish you with a primary care provider. If you have needs related to psychiatric medication and/or Vivitrol, you will be assessed for these as well. Please arrive 15 minutes early to complete paperwork. Please bring your insurance card, photo ID and list of current medications to your first appointment.)
[2016-07-03] MEDS: Mag Hydrox/Al Hydrox/Simeth 30 ML UDC PO PRN ×2 (13:58→20:39)
[2016-07-04] MEDS: Pyridostigmine Br 60 MG TABLET PO SCH ×3 (06:43→22:17)
[2016-07-04] MEDS: Metoprolol XL (24 HR) Succ 50 MG TAB.ER.24H PO SCH (08:57)
[2016-07-04] MEDS: methIMAzole 5 MG TABLET PO SCH (08:57)
[2016-07-04] MEDS: Beclomethasone 80mcg MDI IH SCH ×2 (09:46→22:17)
[2016-07-04] MEDS: *HR* LORazepam 1 MG TABLET PO PRN ×3 (09:52→22:17)
--- NOTE | 2016-07-04 10:47 | Discharge Summary ---
Date of Encounter: 07/05/16 Time of Encounter: 10:04 Diagnosis - Discharge Diagnosis (1) Chronic schizophrenia Priority: Primary Status: Acute (2) Acute psychosis Priority: Secondary Status: Acute Medications - Discharge Medications Prescriptions: Gabapentin [Neurontin] 200 mg PO TID #90 capsule Methimazole [Tapazole] 5 mg PO DAILY #30 tablet 02/24/16 [Rx] Pyridostigmine Br [Mestinon] 60 mg PO Q8HR #90 tablet 02/24/16 [Rx] Metoprolol XL (24 HR) Succ [Toprol Xl] 50 mg PO DAILY 06/30/16 [History] Mometasone Furoate [Asmanex Hfa] 2 puff IH BID 06/30/16 [History] Gabapentin [Neurontin] 200 mg PO TID #90 capsule 07/05/16 [Rx] Allergies Penicillins Allergy (Verified 06/08/16 19:49) Hives codeine Adverse Reaction (Verified 06/08/16 19:49) Vomiting Results Procedures and tests throughout hospitalization: Completed Lab Orders Category Date Time Status CBC [Complete Blood Count] [HEME] Stat Lab 07/02/16 13:48 Completed Comprehensive Metabolic Panel Stat Lab 07/02/16 13:48 Completed Lipase Stat Lab 07/02/16 13:48 Completed Provider Date of admission: 06/30/16 12:20 Primary care physician: PCP NO Consults: 07/02/16 11:00 Consult to Hospitalist [CONS] Routine Consulting Provider: Hospitalist [facility] Reason for Consult: elevated LFTS and [id number] Time Notified: 11:05 Call Completed: Yes Discharging clinician: Alberto Etienne Assessment and Plan - Patient/Caregiver Discharge Instructions Activity: resume usual activities as tolerated Diet: regular diet - Follow up Plan Follow up with: [facility] [Outside] - 07/15/16 9:30 am (The above appointment is with Shreya Yang, counselor at [facility]. Your first appointment will be very thorough and the total appointment time will take between two and three hours. You will be completing paperwork, meeting with a counselor and a nurse, and developing a treatment plan. You will receive follow- up appointments for on-going services , which could include counseling and community support. Please bring the following with you to your first visit to the clinic: 1) proof of household income (two consecutive pay stubs, social security award letter, bank statement , statement letter from [facility], child support statement, IRS 1040 or W2 form, or a statement from the person who financially supports you stating they help provide for your basic needs), 2) proof of residency (drivers license, a piece of mail showing your address, a statement from person you live with verifying you live at their address), 3) your social security number, and 4) your insurance card (if you have commercial insurance you must call to obtain a prior authorization number before you arrive to your first appointment). If you do not bring these items, you will not be seen.) [facility] [Outside] - 08/08/16 9:00 am (The above appointment is with psychiatric prescriber, Dr. Finch. Please arrive 15 minutes early for this appointment to complete paperwork. You may contact the office regularly to check for cancellations that may allow you to be seen sooner by the psychiatric prescriber.) Dejan May PAC [Physician Tobacco Sweeper] - 07/10/16 10:30 am (The above appointment is with ABY Garzon at [facility]. This appointment is to establish you with a primary care provider. If you have needs related to psychiatric medication and/or Vivitrol, you will be assessed for these as well. Please arrive 15 minutes early to complete paperwork. Please bring your insurance card, photo ID and list of current medications to your first appointment.) Disposition: Home, Self-Care Hospital Course Hospital course: Mr. Jalloh is a 40 year old male admitted from the emergency room for evaluation paranoia delusion and suicidal and homicidal ideation. For details of the admission please see H&P. After admission patient was started on Abilify 10 mg to address his delusions. Patient did not tolerate the medication and complained of nausea and vomiting, medical consultation was requested to evaluate his condition in addition to elevated LFTs did medical consultation provided no recommendation. Abilify was discontinued and he was started on gabapentin 200 mg 3 times a day patient tolerated this medication and felt it is controlling his anxiety and denied any problem or side effects on the medicine. Patient participated in activities on the unit and was compliant with his medication. Prior to discharge patient was medically stable, denied any suicidal or homicidal ideation did not present any delusional content he was anxious to be discharged and continue his outpatient follow-up is planned. - Time Spent with Patient Total time spent providing and/or coordinating discharge services: Less than 30 minutes Quality - Multiple Antipsychotics Patient discharged on 2 or more antipsychotic medications: No Procedures - Procedures Procedures: Medication Management, Crisis Stabilization, Supportive Therapy, Group Therapy, Psychoeducational Therapy Mental Status Exam - Mental Status Exam Patient orientation: Yes Person, Yes Time, Yes Place Level of alertness: Alert Patient appearance: Appropriate, Well Groomed Behavior: cooperative, anxious, guarded, suspicious Psychomotor activity: Increased Eye contact: Maintains Eye Contact Mood description: Anxious Affect description: dysphoric, anxious Speech pattern: Normal rate, Normal rhythm, Disorganized Speech Volume: Normal Thought process: Logical, Goal Oriented, Tangential Thought Content: No Suicidal ideation, No Homicidal ideation, No Overt delusions Perceptual Disturbances: No Auditory hallucinations Judgment: Good Insight: Partial
--- NOTE | 2016-07-04 10:51 | Psychiatry Progress Note ---
Date of Encounter: 07/04/16 Time of Encounter: 10:48 Subjective Interval history: Patient is seen for follow-up. The nursing staff report the patient had not had any nausea or vomiting episodes after discontinuation of Abilify. Otherwise he is participating in groups and denies any problem with his sleep. His discharge plans are made for follow-up as outpatient. He continued to ask for medication to help with his agitation or impulse control. In the past he was on Lamictal but has not been taking it. I discussed with him trial treatments with gabapentin and he is agreeable. Benefits and side effects were discussed. Review of Systems Psychiatric: Reports: anxiety, homicidal ideation, irritability, mood swings Objective: Exam Patient orientation: Yes Person, Yes Time, Yes Place Level of alertness: Alert Patient appearance: Appropriate, Well Groomed Behavior: cooperative, anxious, restless, guarded, suspicious Psychomotor activity: Normal Eye contact: Minimal Contact Mood description: Anxious, Labile Affect description: labile, dysphoric, anxious Speech pattern: Normal rate, Clear, Coherent, Disorganized, Limited Speech volume: Normal Thought process: Tangential, Racing, Evasive Thought content: No Suicidal ideation, No Homicidal ideation, Yes Overt delusions, Yes Paranoid delusion Perceptual disturbances: Yes Auditory hallucinations Judgment: Fair Insight: Partial Results - Vital Signs Vital Signs: Temp Pulse Resp BP Pulse Ox 97.8 F 75 18 115/78 95 07/04/16 08:27 07/04/16 08:27 07/04/16 08:27 07/04/16 08:27 06/30/16 08:34 Assessment and Plan (1) Chronic schizophrenia Current visit: Yes Status: Acute Plan: Continue hospitalization, Close observation, Suicide Precautions per unit protocol, Encourage participation in unit milieu, Group Therapy, Monitor sleep, Monitor appetite Additional Plan: Patient did not tolerate Abilify he had nausea and vomiting and Abilify was discontinued. At this time I will start patient on gabapentin 200 mg twice daily to help his anxiety and mood swings. Benefits and side effects were discussed. Risks, benefits, side effects, alternatives discussed w/pt: Yes Patient agreeable to treatment: Yes Consult Discharge Plan - Plan Referrals: [facility] [Outside] - 07/15/16 9:30 am (The above appointment is with Shreya Yang, counselor at [facility]. Your first appointment will be very thorough and the total appointment time will take between two and three hours. You will be completing paperwork, meeting with a counselor and a nurse, and developing a treatment plan. You will receive follow- up appointments for on-going services , which could include counseling and community support. Please bring the following with you to your first visit to the clinic: 1) proof of household income (two consecutive pay stubs, social security award letter, bank statement , statement letter from [facility], child support statement, IRS 1040 or W2 form, or a statement from the person who financially supports you stating they help provide for your basic needs), 2) proof of residency (drivers license, a piece of mail showing your address, a statement from person you live with verifying you live at their address), 3) your social security number, and 4) your insurance card (if you have commercial insurance you must call to obtain a prior authorization number before you arrive to your first appointment). If you do not bring these items, you will not be seen.) [facility] [Outside] - 08/08/16 9:00 am (The above appointment is with psychiatric prescriber, Dr. Finch. Please arrive 15 minutes early for this appointment to complete paperwork. You may contact the office regularly to check for cancellations that may allow you to be seen sooner by the psychiatric prescriber.) Dejan May, JOEY [Physician Per[employer]able Fruit Inspector] - 07/10/16 10:30 am (The above appointment is with ABY Garzon at [facility]. This appointment is to establish you with a primary care provider. If you have needs related to psychiatric medication and/or Vivitrol, you will be assessed for these as well. Please arrive 15 minutes early to complete paperwork. Please bring your insurance card, photo ID and list of current medications to your first appointment.)
[2016-07-04] MEDS: Gabapentin 100 MG CAPSULE PO SCH ×3 (11:37→20:13)
[2016-07-04] MEDS: Nicotine 2 MG GUM BC PRN ×2 (12:40→18:57)
[2016-07-04] MEDS: traZODone 50 MG TABLET PO PRN (23:13)
[2016-07-05] MEDS: Pyridostigmine Br 60 MG TABLET PO SCH (06:48)
[2016-07-05] MEDS: methIMAzole 5 MG TABLET PO SCH (09:04)
[2016-07-05] MEDS: Metoprolol XL (24 HR) Succ 50 MG TAB.ER.24H PO SCH (09:04)
[2016-07-05] MEDS: Gabapentin 100 MG CAPSULE PO SCH (09:04)
[2016-07-05] MEDS: Beclomethasone 80mcg MDI IH SCH (09:06)
[2016-07-05] MEDS: *HR* LORazepam 1 MG TABLET PO PRN (09:39)
[2016-07-05 12:01] VITALS: BP 104/68
== END 2016-07-05 13:10 | disposition home or self-care (01) | DRG 750 ==
LOC: EMEROO 02:16 → 1ANU 12:20
PROVIDERS: ADMIT Psychiatry & Neurology Psychiatry; ATTEND Psychiatry & Neurology Psychiatry

== ENCOUNTER 2016-09-16 15:45 | Inpatient (IN) ==
[2016-09-16 16:13] LABS: Basophils # 0.1 K/mcL (0.0-0.2); Basophils % 0.7 %; Eosinophils # 0.2 K/mcL (0.0-0.6); Hematocrit 40.7 % (37.5-50.1); Hemoglobin 13.8 g/dL (12.9-16.9); Immature Granulocytes % 0.1 % (0-4); Immature Platelets 5.7 % (1.1-6.1); Lymphocytes # 3.7 K/mcL (0.6-4.6); Lymphocytes % 42.1 %; Mean Corpuscular HGB Conc 33.9 g/dL (31.6-35.5); Mean Corpuscular Hemoglobin 28.9 pg (28.0-33.3); Mean Corpuscular Volume 85.3 fL (83.0-100.0); Mean Platelet Volume 10.4 fL (9.4-12.4); Monocytes # 0.8 K/mcL (0.0-1.3); Monocytes % 8.7 %; Platelet Count 373 K/mcL (140-400); Red Blood Count 4.77 M/mcL (4.19-5.50); Red Cell Distribution Width 13.1 % (11.5-14.5); Segmented Neutrophils % 46.4 %
[2016-09-16 16:32] LABS: BUN/Creatinine Ratio 12 (6-26); Blood Urea Nitrogen 10 mg/dL (8-26); Carbon Dioxide 19 mEq/L (19-29); Chloride 107 mEq/L (98-109); Glucose 100 mg/dL (70-99); Osmolality,Calculated 287 (280-300); Potassium 3.4 mEq/L (3.5-4.5); Sodium 139 mEq/L (136-145); eGFR For African Americans > 60 (> 60); eGFR For Non-African Americans > 60 (> 60)
[2016-09-16 16:34] LABS: Acetaminophen < 1.0 mcg/mL (10-30); Ethanol < 10 mg/dL (0-10); Salicylate < 5.0 mg/dL (15-30)
[2016-09-16] MEDS ORDERED: *HR* LORazepam 1 MG TABLET PO ONE ×3 (16:35→20:38)
[2016-09-16] MEDS ORDERED: Nicotine 21 MG PATCH.TD24 TD STA (16:35)
[2016-09-16 17:30] LABS: Bilirubin,Urine Small (Negative); Blood,Urine Negative (Negative); Clarity,Urine Clear (Clear); Color,Urine Yellow (Yellow); Glucose,Urine (UA) Normal (Normal); Ketones,Urine Trace mg/dL (Negative); Leukocyte Esterase,Urine Negative (Negative); Nitrite,Urine Negative (Negative); PH,Urine 6.5 pH Units (5.0-8.0); Protein,Urine Negative (Neg-Trace); Specific Gravity,Urine 1.022 (1.010-1.025); Urobilinogen,Urine Normal (Normal)
[2016-09-16 17:37] LABS: Amphetamine Screen,Urine Positive ng/mL (Cutoff=1000); Barbiturate Screen,Urine Negative ng/mL (Cutoff=200); Benzodiazepines Screen,Urine Negative ng/mL (Cutoff=200); Cannabinoid Screen,Urine Positive ng/mL (Cutoff = 50); Cocaine Screen,Urine Positive ng/mL (Cutoff= 300); Opiate Screen,Urine Negative ng/mL (Cutoff=300); Phencyclidine Screen,Urine Negative ng/mL (Cutoff=25)
--- NOTE | 2016-09-16 18:52 | Emergency Department Note ---
Disposition Clinical Impression: Bipolar disorder Qualifiers: Active/Remission status: currently active Current bipolar episode type: manic Current episode severity: moderate Qualified Code(s): F31.12 - Bipolar disorder , current episode manic without psychotic features, moderate Disposition: Admitted As Inpatient Condition: Good Time of Disposition: 18:54 Psych HPI - General Chief Complaint: ED Psychiatric Symptoms Stated Complaint: Psych Eval Time Seen by Provider: 09/16/16 16:08 Source: patient, EMS, police Nursing Notes Reviewed: Yes Vital Signs Reviewed: Yes - History of Present Illness HPI Narrative: Patient presents to emergency room acutely manic. Says that people are in the room that are not present and are telling him things that do not exist. Onset (ago): day(s) Improves with: none Worsens with: none Context: not taking psychiatric medications Associated Psychiatric Symptoms: none Associated symptoms: Reports: denies other symptoms Traumatic symptoms: denies traumatic injury Treatments prior to arrival: none - Related Data Home Medications Medication Instructions Recorded Confirmed Metoprolol XL (24 HR) Succ [Toprol 50 mg PO DAILY 06/30/16 09/16/16 Xl] Mometasone Furoate [Asmanex Hfa] 2 puff IH BID 06/30/16 09/17/16 Albuterol Sulfate [Ventolin Hfa] 2 puff IH Q4H PRN 09/16/16 09/16/16 EPINEPHrine [Epipen] 0.3 mg IM ONCE PRN 09/16/16 09/16/16 Pantoprazole Sodium [Protonix] 40 mg PO DAILY 09/16/16 09/16/16 Previous Rx's Medication Instructions Recorded Methimazole [Tapazole] 5 mg PO DAILY #30 tablet 02/24/16 Pyridostigmine Br [Mestinon] 60 mg PO Q8HR #90 tablet 02/24/16 Allergies Allergy/AdvReac Type Severity Reaction Status Date / Time Penicillins Allergy Hives Verified 06/08/16 19:49 codeine AdvReac Vomiting Verified 06/08/16 19:49 All systems ED: reviewed and negative except as stated. Constitutional: Denies: fever, chills, weakness Cardiovascular: Denies: chest pain, palpitations Respiratory: Denies: cough, dyspnea, wheezes Gastrointestinal: Denies: abdominal pain, nausea, vomiting Psychiatric: Reports: auditory hallucinations, visual hallucinations. Denies: suicidal thoughts, homicidal thoughts Past Medical History - Past Medical History Attestation: Yes The following information was validated with the patient. Source: patient Medical history: Reports: hypertension, thyroid disease, other Surgical history: Reports: cholecystectomy Psychiatric history: Reports: prior suicide attempt, schizophrenia, previous psychiatric hospitalization - Social History Smoking Status: Current every day smoker Smokeless Tobacco Status: Yes Alcohol use: Reports: occasionally Drug use: Reports: marijuana, methamphetamine Physical Exam - General Limitations: no limitations General appearance: alert, anxious - Head Head exam: atraumatic, normocephalic - Chest Chest inspection: Present: normal inspection, symmetric chest wall rise - Respiratory Respiratory exam: Present: normal lung sounds bilaterally - Cardiovascular Cardiovascular exam: Present: regular rate, normal rhythm, normal heart sounds - Abdominal Exam Abdominal exam: Present: soft, Non-Tender - Extremities Exam Extremities exam: Present: normal inspection, full ROM. Absent: tenderness - Neurological Exam Neurological exam: Present: alert - Skin Skin exam: Present: warm, dry, intact, normal color Course Course Narrative: Patient seen and examined at the time of arrival. See history of present illness. 40-year-old male presents emergency room in custody of the police for evaluation of manic episodes. Has not been taking his medications. No other acute medical issues at this time. Medical clearance to be completed. Vital signs reviewed and are stable. Physical exam is benign. Disposition treatment course to be completed by Dr. Agustin Vital Signs Temperature 98.5 F 09/16/16 15:50 Pulse Rate 99 09/16/16 15:50 Respiratory Rate 20 09/16/16 15:50 Blood Pressure 142/100 09/16/16 15:50 O2 Sat by Pulse Oximetry 98 09/16/16 15:50 Temperature 98.9 F 09/17/16 21:00 Pulse Rate 72 09/17/16 21:00 Respiratory Rate 14 09/17/16 21:00 Blood Pressure 98/60 09/17/16 21:00 O2 Sat by Pulse Oximetry 99 09/16/16 20:36 Oxygen Delivery Oxygen Delivery Room Air Psych - MDM Narrative Medical decision making narrative: manic episode - Lab Data Result diagrams: 09/16/16 16:05 09/16/16 16:05 Lab Results 09/16/16 09/16/16 09/16/16 Range/Units 16:05 16:05 17:06 WBC 8.7 (4.3-11.1) K/mcL RBC 4.77 (4.19-5.50) M/mcL Hgb 13.8 (12.9-16.9) g/dL Hct 40.7 (37.5-50.1) % MCV 85.3 (83.0-100.0) fL MCH 28.9 (28.0-33.3) pg MCHC 33.9 (31.6-35.5) g/dL RDW 13.1 (11.5-14.5) % Plt Count 373 (140-400) K/mcL MPV 10.4 (9.4-12.4) fL Immature Gran % 0.1 (0-4) % Seg Neutrophils % 46.4 % Lymphocytes % 42.1 % Monocytes % 8.7 % Eosinophils % 2.0 % Basophils % 0.7 % Neutrophils # 4.0 (1.6-8.9) K/mcL Lymphocytes # 3.7 (0.6-4.6) K/mcL Monocytes # 0.8 (0.0-1.3) K/mcL Eosinophils # 0.2 (0.0-0.6) K/mcL Basophils # 0.1 (0.0-0.2) K/mcL Immature Plt Fraction 5.7 (1.1-6.1) % Sodium 139 (136-145) mEq/L Potassium 3.4 L (3.5-4.5) mEq/L Chloride 107 (98-109) mEq/L Carbon Dioxide 19 (19-29) mEq/L BUN 10 (8-26) mg/dL Creatinine 0.82 (0.72-1.25) mg/dL Est GFR ( Amer) > 60 (> 60) Est GFR (Non-Af Amer) > 60 (> 60) BUN/Creatinine Ratio 12 (6-26) Glucose 100 H (70-99) mg/dL Calculated Osmolality 287 (280-300) Calcium 10.0 (8.6-10.8) mg/dL Urine Color Yellow (Yellow) Urine Clarity Clear (Clear) Urine pH 6.5 (5.0-8.0) pH Units Ur Specific [place] 1.022 (1.010-1.025) Urine Protein Negative (Neg-Trace) mg/dL Urine Glucose (UA) Normal (Normal) mg/dL Urine Ketones Trace H (Negative) mg/dL Urine Blood Negative (Negative) Urine Nitrite Negative (Negative) Urine Bilirubin Small H (Negative) Urine Urobilinogen Normal (Normal) mg/dL Ur Leukocyte Esterase Negative (Negative) Salicylates < 5.0 L (15-30) mg/dL Urine Opiates Screen (Ednjhn=211) ng/mL Acetaminophen < 1.0 L (10-30) mcg/mL Ur Barbiturates Screen (Kvtkrh=574) ng/mL Ur Phencyclidine Scrn (Cutoff=25) ng/mL Ur Amphetamines Screen (Ihxxac=6420) ng/mL U Benzodiazepines Scrn (Jqytnk=886) ng/mL Urine Cocaine Screen (Cutoff= 300) ng/mL U Marijuana (THC) Screen (Cutoff = 50) ng/mL Ethyl Alcohol < 10 (0-10) mg/dL 09/16/16 Range/Units 17:06 WBC (4.3-11.1) K/mcL RBC (4.19-5.50) M/mcL Hgb (12.9-16.9) g/dL Hct (37.5-50.1) % MCV (83.0-100.0) fL MCH (28.0-33.3) pg MCHC (31.6-35.5) g/dL RDW (11.5-14.5) % Plt Count (140-400) K/mcL MPV (9.4-12.4) fL Immature Gran % (0-4) % Seg Neutrophils % % Lymphocytes % % Monocytes % % Eosinophils % % Basophils % % Neutrophils # (1.6-8.9) K/mcL Lymphocytes # (0.6-4.6) K/mcL Monocytes # (0.0-1.3) K/mcL Eosinophils # (0.0-0.6) K/mcL Basophils # (0.0-0.2) K/mcL Immature Plt Fraction (1.1-6.1) % Sodium (136-145) mEq/L Potassium (3.5-4.5) mEq/L Chloride (98-109) mEq/L Carbon Dioxide (19-29) mEq/L BUN (8-26) mg/dL Creatinine (0.72-1.25) mg/dL Est GFR ( Amer) (> 60) Est GFR (Non-Af Amer) (> 60) BUN/Creatinine Ratio (6-26) Glucose (70-99) mg/dL Calculated Osmolality (280-300) Calcium (8.6-10.8) mg/dL Urine Color (Yellow) Urine Clarity (Clear) Urine pH (5.0-8.0) pH Units Ur Specific [place] (1.010-1.025) Urine Protein (Neg-Trace) mg/dL Urine Glucose (UA) (Normal) mg/dL Urine Ketones (Negative) mg/dL Urine Blood (Negative) Urine Nitrite (Negative) Urine Bilirubin (Negative) Urine Urobilinogen (Normal) mg/dL Ur Leukocyte Esterase (Negative) Salicylates (15-30) mg/dL Urine Opiates Screen Negative (Svfxob=628) ng/mL Acetaminophen (10-30) mcg/mL Ur Barbiturates Screen Negative (Zzgkdt=154) ng/mL Ur Phencyclidine Scrn Negative (Cutoff=25) ng/mL Ur Amphetamines Screen Positive H (Nzkubl=0155) ng/mL U Benzodiazepines Scrn Negative (Kiqvjy=769) ng/mL Urine Cocaine Screen Positive H (Cutoff= 300) ng/mL U Marijuana (THC) Screen Positive H (Cutoff = 50) ng/mL Ethyl Alcohol (0-10) mg/dL Psychiatric Medical Clearance - Medical Clearance Checklist Does the patient have a NEW psychiatric condition?: No Any abnormalities indicating possible medical illness?: No Any history of medical issues?: No Medical History: No Social History Section defined Any abnormal vital signs prior to transfer?: No Current Vitals: Last Vital Signs Temp 98.9 F 09/17/16 21:00 Pulse 72 09/17/16 21:00 Resp 14 09/17/16 21:00 BP 98/60 09/17/16 21:00 Pulse Ox 99 09/16/16 20:36 Is the patient intoxicated or cognitively impaired?: No Any abnormalities on the physical exam?: No Any abnormal labs?: No Abnormal Labs: Abnormal lab results Potassium 3.4 mEq/L (3.5-4.5) L 09/16/16 16:05 Glucose 100 mg/dL (70-99) H 09/16/16 16:05 Urine Ketones Trace mg/dL (Negative) H 09/16/16 17:06 Urine Bilirubin Small (Negative) H 09/16/16 17:06 Salicylates < 5.0 mg/dL (15-30) L 09/16/16 16:05 Acetaminophen < 1.0 mcg/mL (10-30) L 09/16/16 16:05 Ur Amphetamines Screen Positive ng/mL (Sarezx=7543) H 09/16/16 17:06 Urine Cocaine Screen Positive ng/mL (Cutoff= 300) H 09/16/16 17:06 U Marijuana (THC) Screen Positive ng/mL (Cutoff = 50) H 09/16/16 17:06 Does the patient require durable medical equiptment?: No Is the patient ambulatory?: Yes Is the patient a fall risk?: No Has the patient been medically cleared?: No Any acute medical condition require Tx prior to transfer?: No Attestation Statement - Attestation Attestation: I, Abisai Agustin, examined this patient and my medical decision-making was reviewed with the GRAVEL INSPECTOR/PA/Advanced Practice Nurse/Resident Physician. I agree with the documented findings, disposition and treatment plan as described except to the extent set forth below. 40-year-old male presents to emergency Department in a manic episode with visual hallucinations. Patient states he sees people walking around his backyard, he has tried to gallop them to go away but they do not speak back to him. Patient believes he is the target of the [employer] which is located in [facility]. Patient feels like his life is in danger while at home. Patient denies fever, chills, nausea, vomiting, chest pain, shortness of breath , headache. Patient does admit to using methamphetamines and polysubstance abuse within the past few weeks. Patient states that he had to do this to " play along" with the drug dealers in the area. Patient admits to having history of bipolar disorder but denies a history of schizophrenia. Patient is very anxious and agitated in emergency department. On physical exam he has no focal neurologic deficits. There is no evidence of clonus or rigidity. Patient was medically cleared, was seen by behavioral health who recommended admission to the hospital. Patient is comfortable with this plan.
[2016-09-16] MEDS ORDERED: Mag Hydrox/Al Hydrox/Simeth 30 ML UDC PO PRN (22:22)
[2016-09-16] MEDS ORDERED: *HR* LORazepam 1 MG TABLET PO PRN (22:22)
[2016-09-16] MEDS ORDERED: Acetaminophen 325 MG TABLET PO PRN (22:22)
[2016-09-16] MEDS ORDERED: MOM Conc 10 ML UD.LIQ PO PRN (22:22)
[2016-09-16] MEDS ORDERED: Haloperidol Lactate 5 MG/ML VIAL IM PRN (22:22)
[2016-09-16] MEDS ORDERED: *HR* LORazepam 2 MG/ML VIAL IM PRN (22:22)
[2016-09-16] MEDS: traZODone 50 MG TABLET PO PRN (23:21)
[2016-09-17] MEDS: Nicotine 21 MG PATCH.TD24 TD SCH ×2 (10:14→14:35)
--- NOTE | 2016-09-17 14:08 | Psychiatry History & Physical ---
Date of Encounter: 09/18/16 Time of Encounter: 13:30 History of Present Illness Patient Stated Chief Complaint: Suicidal and homicidal Medicare Admission Attestation: For traditional Medicare patients the provided hospital inpatient services are reasonable and necessary and in the case of services not specified as inpatient -only under 42 CFR 419.22 (n), that they are appropriately provided as inpatient services in accordance 42 CFR 412.3. For Critical Access Hospital the patient may reasonably be expected to be discharged or transferred to a hospital within 96 hours after admission to the Critical Access Hospital. Admitted From: Emergency Dept History of Present Illness: Mr. Jalloh is a 40 year old male admitted from the emergency department for evaluation of psychosis paranoia suicidal homicidal ideation, tox screen was positive for cocaine, amphetamine and THC. Patient is known to us and his most recent admission was in 2016 where he presented in a similar fashion and was discharged on medication including gabapentin and the follow-up plan he did not follow up or continue his medication and he is making excuses that she did not have transportation for the appointment. Patient also continue to ask me if I can give him Ritalin because he believes it helps him and I explained several times to him that this medication is not recommended for his condition. Patient is disorganized and paranoid he described his fear of being killed or kill somebody he believes there are people who are planning to kill him and kill his family he continue to be occupied with his stories and believe that she is helping the police arresting the bad lorna's. He reported poor sleep, irritability and anger and feeling paranoid and suspicious. Past Med Surg Social Fam HX - Past Medical History Medical history: hypertension, thyroid disease, other - Past Psychiatric History Psychiatric history: Reports: prior suicide attempt, schizophrenia, previous psychiatric hospitalization Past psychiatric history details: Most recent hospitalization 06/30/2016 for similar presentation - Past Surgical History Surgical History: cholecystectomy - Social History Smoking Status: Current every day smoker Smokeless Tobacco Status: Yes Alcohol use: occasionally Drug use: cocaine, marijuana, methamphetamine Medications & Allergies Methimazole [Tapazole] 5 mg PO DAILY #30 tablet 02/24/16 [Rx] Pyridostigmine Br [Mestinon] 60 mg PO Q8HR #90 tablet 02/24/16 [Rx] Metoprolol XL (24 HR) Succ [Toprol Xl] 50 mg PO DAILY 06/30/16 [History] Mometasone Furoate [Asmanex Hfa] 2 puff IH BID 06/30/16 [History] Albuterol Sulfate [Ventolin Hfa] 2 puff IH Q4H PRN 09/16/16 [History] EPINEPHrine [Epipen] 0.3 mg IM ONCE PRN 09/16/16 [History] Pantoprazole Sodium [Protonix] 40 mg PO DAILY 09/16/16 [History] Allergies Penicillins Allergy (Verified 06/08/16 19:49) Hives codeine Adverse Reaction (Verified 06/08/16 19:49) Vomiting Review of Systems Psychiatric: Reports: suicidal ideation, homicidal ideation, irritability, other (Paranoid delusion) Mental Status Exam Patient orientation: Yes Person, Yes Time, Yes Place Level of alertness: Alert Patient appearance: Appropriate, Well Groomed Behavior: cooperative, anxious, agitated, suspicious, talkative Psychomotor activity: Increased Eye contact: Maintains Eye Contact Mood description: Angry, Anxious, Labile, Irritable Affect description: congruent with mood, labile, dysphoric Speech pattern: Normal rate, Normal rhythm, Normal tone, Disorganized, Pressured Speech volume: Normal Thought process: Tangential, Flight of Ideas, Thought Blocking, Disorganized, Racing Thought content: Yes Suicidal ideation, Yes Homicidal ideation, Yes Overt delusions, Yes Ideas of reference, Yes Preoccupation, Yes Paranoid delusion, Yes Grandiose delusion, Yes Obsessive thoughts Perceptual disturbances: Yes Auditory hallucinations, Yes Visual hallucinations Attention span: Unable to Focus Memory description: Recent Impaired, Remote Impaired Patient reliability: Not Reliable Historian Intelligence estimate: Below Average Judgment: Limited Insight: Partial Results - Vital Signs Vital signs: Temp Pulse Resp BP Pulse Ox 97.4 F L 85 0 0/0 99 09/16/16 22:40 09/16/16 22:40 09/16/16 23:04 09/16/16 23:04 09/16/16 20:36 - Labs Labs: Laboratory Last Values WBC 8.7 K/mcL (4.3-11.1) 09/16/16 16:05 RBC 4.77 M/mcL (4.19-5.50) 09/16/16 16:05 Hgb 13.8 g/dL (12.9-16.9) 09/16/16 16:05 Hct 40.7 % (37.5-50.1) 09/16/16 16:05 MCV 85.3 fL (83.0-100.0) 09/16/16 16:05 MCH 28.9 pg (28.0-33.3) 09/16/16 16:05 MCHC 33.9 g/dL (31.6-35.5) 09/16/16 16:05 RDW 13.1 % (11.5-14.5) 09/16/16 16:05 Plt Count 373 K/mcL (140-400) 09/16/16 16:05 MPV 10.4 fL (9.4-12.4) 09/16/16 16:05 Immature Gran % 0.1 % (0-4) 09/16/16 16:05 Seg Neutrophils % 46.4 % 09/16/16 16:05 Lymphocytes % 42.1 % 09/16/16 16:05 Monocytes % 8.7 % 09/16/16 16:05 Eosinophils % 2.0 % 09/16/16 16:05 Basophils % 0.7 % 09/16/16 16:05 Neutrophils # 4.0 K/mcL (1.6-8.9) 09/16/16 16:05 Lymphocytes # 3.7 K/mcL (0.6-4.6) 09/16/16 16:05 Monocytes # 0.8 K/mcL (0.0-1.3) 09/16/16 16:05 Eosinophils # 0.2 K/mcL (0.0-0.6) 09/16/16 16:05 Basophils # 0.1 K/mcL (0.0-0.2) 09/16/16 16:05 Immature Plt Fraction 5.7 % (1.1-6.1) 09/16/16 16:05 Sodium 139 mEq/L (136-145) 09/16/16 16:05 Potassium 3.4 mEq/L (3.5-4.5) L 09/16/16 16:05 Chloride 107 mEq/L (98-109) 09/16/16 16:05 Carbon Dioxide 19 mEq/L (19-29) 09/16/16 16:05 BUN 10 mg/dL (8-26) 09/16/16 16:05 Creatinine 0.82 mg/dL (0.72-1.25) 09/16/16 16:05 Est GFR ( Amer) > 60 (> 60) 09/16/16 16:05 Est GFR (Non-Af Amer) > 60 (> 60) 09/16/16 16:05 BUN/Creatinine Ratio 12 (6-26) 09/16/16 16:05 Glucose 100 mg/dL (70-99) H 09/16/16 16:05 Calculated Osmolality 287 (280-300) 09/16/16 16:05 Calcium 10.0 mg/dL (8.6-10.8) 09/16/16 16:05 Urine Color Yellow (Yellow) 09/16/16 17:06 Urine Clarity Clear (Clear) 09/16/16 17:06 Urine pH 6.5 pH Units (5.0-8.0) 09/16/16 17:06 Ur Specific [place] 1.022 (1.010-1.025) 09/16/16 17:06 Urine Protein Negative mg/dL (Neg-Trace) 09/16/16 17:06 Urine Glucose (UA) Normal mg/dL (Normal) 09/16/16 17:06 Urine Ketones Trace mg/dL (Negative) H 09/16/16 17:06 Urine Blood Negative (Negative) 09/16/16 17:06 Urine Nitrite Negative (Negative) 09/16/16 17:06 Urine Bilirubin Small (Negative) H 09/16/16 17:06 Urine Urobilinogen Normal mg/dL (Normal) 09/16/16 17:06 Ur Leukocyte Esterase Negative (Negative) 09/16/16 17:06 Salicylates < 5.0 mg/dL (15-30) L 09/16/16 16:05 Urine Opiates Screen Negative ng/mL (Fpjznv=338) 09/16/16 17:06 Acetaminophen < 1.0 mcg/mL (10-30) L 09/16/16 16:05 Ur Barbiturates Screen Negative ng/mL (Ozeptq=311) 09/16/16 17:06 Ur Phencyclidine Scrn Negative ng/mL (Cutoff=25) 09/16/16 17:06 Ur Amphetamines Screen Positive ng/mL (Yqjvgw=6269) H 09/16/16 17:06 U Benzodiazepines Scrn Negative ng/mL (Oolmwz=642) 09/16/16 17:06 Urine Cocaine Screen Positive ng/mL (Cutoff= 300) H 09/16/16 17:06 U Marijuana (THC) Screen Positive ng/mL (Cutoff = 50) H 09/16/16 17:06 Ethyl Alcohol < 10 mg/dL (0-10) 09/16/16 16:05 Assessment and Plan (1) Paranoid type schizophrenia, chronic state with acute exacerbation Current visit: Yes Status: Acute Plan: Admit inpatient for safety and stabilization, Close observation, Suicide Precautions per unit protocol, Encourage participation in unit milieu, Group Therapy, Monitor sleep, Monitor appetite Additional Plan: Patient refuse to be on antipsychotics claiming he had side effects. We will start him on gabapentin 300 mg 3 times a day and Klonopin 1 mg 3 times daily and will continue to monitor Risks, benefits, side effects, alternatives discussed w/pt: Yes Patient agreeable to treatment: Yes (Refused treatment with antipsychotics) Estimated Length of Stay (Days): 5 (2) Polysubstance dependence Current visit: Yes Status: Acute Plan: Admit inpatient for safety and stabilization, Close observation, Suicide Precautions per unit protocol, Encourage participation in unit milieu, Group Therapy, Monitor sleep, Monitor appetite Additional Plan: Referral to rehabilitation from drugs including amphetamine, cocaine, THC. Patient is not agreeable Risks, benefits, side effects, alternatives discussed w/pt: Yes Patient agreeable to treatment: No
[2016-09-17] MEDS: Gabapentin 300 MG CAPSULE PO SCH ×2 (14:21→21:17)
[2016-09-17] MEDS ORDERED: *HR* EPINEPHrine 0.3 MG/0.3 ML (PEN) IM PRN (17:05)
[2016-09-17] MEDS: clonazePAM 1 MG TABLET PO PRN (17:21)
[2016-09-17] MEDS: methIMAzole 5 MG TABLET PO SCH (17:21)
[2016-09-17] MEDS: Metoprolol XL (24 HR) Succ 50 MG TAB.ER.24H PO SCH (17:21)
[2016-09-17] MEDS: Pyridostigmine Br 60 MG TABLET PO SCH (21:17)
[2016-09-17] MEDS: traZODone 50 MG TABLET PO PRN (21:17)
[2016-09-17] MEDS: Beclomethasone 80mcg MDI IH SCH (21:17)
[2016-09-18] MEDS: methIMAzole 5 MG TABLET PO SCH (08:46)
[2016-09-18] MEDS: Metoprolol XL (24 HR) Succ 50 MG TAB.ER.24H PO SCH (08:46)
[2016-09-18] MEDS: Gabapentin 300 MG CAPSULE PO SCH ×3 (08:46→21:04)
[2016-09-18] MEDS: Beclomethasone 80mcg MDI IH SCH ×3 (08:46→22:44)
[2016-09-18] MEDS: Nicotine 21 MG PATCH.TD24 TD SCH (08:47)
[2016-09-18] MEDS: clonazePAM 1 MG TABLET PO PRN ×3 (08:50→19:32)
[2016-09-18] MEDS: Pyridostigmine Br 60 MG TABLET PO SCH ×3 (09:22→22:50)
--- NOTE | 2016-09-18 14:44 | Psychiatry Progress Note ---
Date of Encounter: 09/18/16 Time of Encounter: 13:45 Subjective Interval history: Patient seen for follow-up. Self-report U continue to be occupied was paranoia and delusions about being followed by people who want to kill him. Patient continued to repeate a story about his fear for himself and for his family. He reports no major change from taking the medication although by staff report that he is less anxious and he had adequate sleep . patient acknowledges that he was using different drugs and substances before coming to hospital and realizes this may interfere with his treatment and delay results. He endorsed suicidal and homicidal ideation on and off he denies any intent to harm anyone at this time . Review of Systems Psychiatric: Reports: suicidal ideation, homicidal ideation, irritability, other (Paranoid delusion) Objective: Exam Patient orientation: Yes Person, Yes Time, Yes Place Level of alertness: Alert Patient appearance: Appropriate, Well Groomed Behavior: cooperative, anxious, suspicious, talkative Psychomotor activity: Increased Eye contact: Maintains Eye Contact Mood description: Anxious, Labile, Irritable Affect description: congruent with mood, labile, dysphoric Speech pattern: Normal rate, Normal rhythm, Normal tone, Disorganized, Pressured Speech volume: Normal Thought process: Tangential, Flight of Ideas, Thought Blocking, Disorganized, Racing Thought content: Yes Suicidal ideation, Yes Homicidal ideation, Yes Overt delusions, Yes Ideas of reference, Yes Preoccupation, Yes Paranoid delusion, Yes Grandiose delusion, Yes Obsessive thoughts Perceptual disturbances: Yes Auditory hallucinations, Yes Visual hallucinations Judgment: Limited Insight: Partial Results - Vital Signs Vital Signs: Temp Pulse Resp BP Pulse Ox 97.4 F L 80 16 110/76 99 09/18/16 08:46 09/18/16 08:46 09/18/16 08:46 09/18/16 08:46 09/16/16 20:36 Assessment and Plan (1) Paranoid type schizophrenia, chronic state with acute exacerbation Current visit: Yes Status: Acute Plan: Continue hospitalization, Close observation, Suicide Precautions per unit protocol, Encourage participation in unit milieu, Group Therapy, Monitor sleep, Monitor appetite Additional Plan: Patient reports history of positive response to Wellbutrin in the past. We will start him on Wellbutrin SR 150 mg daily and we will monitor. Risks, benefits, side effects, alternatives discussed w/pt: Yes Patient agreeable to treatment: Yes (Refused treatment with antipsychotics) (2) Polysubstance dependence Current visit: Yes Status: Acute Risks, benefits, side effects, alternatives discussed w/pt: Yes Patient agreeable to treatment: No Consult Discharge Plan - Plan Referrals: NO,PCP [Primary Care Provider] -
[2016-09-18] MEDS: BuPROPion SR (12 HR) 150 MG TABLET PO SCH (15:42)
[2016-09-18] MEDS: traZODone 50 MG TABLET PO PRN (21:04)
[2016-09-19] MEDS: Gabapentin 300 MG CAPSULE PO SCH ×2 (09:14→15:09)
[2016-09-19] MEDS: Nicotine 21 MG PATCH.TD24 TD SCH (09:14)
[2016-09-19] MEDS: BuPROPion SR (12 HR) 150 MG TABLET PO SCH (09:15)
[2016-09-19] MEDS: Metoprolol XL (24 HR) Succ 50 MG TAB.ER.24H PO SCH (09:15)
[2016-09-19] MEDS: methIMAzole 5 MG TABLET PO SCH (09:15)
[2016-09-19] MEDS: Beclomethasone 80mcg MDI IH SCH (09:15)
[2016-09-19] MEDS: Pyridostigmine Br 60 MG TABLET PO SCH ×2 (09:18→14:15)
[2016-09-19 09:28] VITALS: BP 106/66
[2016-09-19] MEDS: clonazePAM 1 MG TABLET PO PRN ×2 (09:54→14:15)
--- NOTE | 2016-09-19 13:54 | Psychiatry Progress Note ---
Date of Encounter: 09/19/16 Time of Encounter: 13:48 Subjective Interval history: Patient seen for follow-up. Staff reports he is less anxious and sleeping for extended time. He is tolerating his medication and denied any side effects ,he is not showing irritability or agitation. His delusional speech continued but less pressured. I discussed was the treatment team patient history of noncompliance and we are trying to find ways to improve his compliance. Patient did not give permission to protective services social worker to contact his family. He is not making any suicidal or homicidal threats but continued to be paranoid and refusing to take any antipsychotics. We will continue to stabilize him. Patient was anxious and irritable and was seen by and staff several times he was vague would not explain his reason for an anxiety and asking for medication, he was given several when necessary's to help him relax and he insisted on being discharged. Review of Systems Psychiatric: Reports: suicidal ideation, homicidal ideation, irritability, other (Paranoid delusion) Objective: Exam Patient orientation: Yes Person, Yes Time, Yes Place Level of alertness: Alert Patient appearance: Appropriate, Well Groomed Behavior: cooperative, anxious, suspicious, talkative Psychomotor activity: Increased Eye contact: Maintains Eye Contact Mood description: Anxious, Labile, Irritable Affect description: congruent with mood, labile, dysphoric Speech pattern: Normal rate, Normal rhythm, Normal tone, Disorganized, Pressured Speech volume: Normal Thought process: Tangential, Flight of Ideas, Thought Blocking, Disorganized, Racing Thought content: No Suicidal ideation, No Homicidal ideation, Yes Overt delusions, Yes Ideas of reference, Yes Preoccupation, Yes Paranoid delusion, Yes Grandiose delusion, Yes Obsessive thoughts Perceptual disturbances: No Auditory hallucinations, No Visual hallucinations Judgment: Limited Insight: Partial Results - Vital Signs Vital Signs: Temp Pulse Resp BP Pulse Ox 97.9 F 88 16 106/66 99 09/19/16 09:00 09/19/16 09:00 09/19/16 09:00 09/19/16 09:00 09/16/16 20:36 Assessment and Plan (1) Paranoid type schizophrenia, chronic state with acute exacerbation Status: Acute Plan: Continue hospitalization, Close observation, Suicide Precautions per unit protocol, Encourage participation in unit milieu, Group Therapy, Monitor sleep, Monitor appetite Risks, benefits, side effects, alternatives discussed w/pt: Yes Patient agreeable to treatment: No (Refused treatment with antipsychotics ) (2) Polysubstance dependence Status: Acute Plan: Continue hospitalization, Close observation, Suicide Precautions per unit protocol, Encourage participation in unit milieu, Group Therapy, Monitor sleep, Monitor appetite Additional Plan: We will increase Wellbutrin to Wellbutrin sr 150 mg twice daily to improve patient's response and help him stay away from stimulants drugs Risks, benefits, side effects, alternatives discussed w/pt: Yes Patient agreeable to treatment: No Consult Discharge Plan - Plan Instructions: Bipolar Disorder (DC), Depression (DC), Schizophrenia (DC) Additional Instructions: You are eligible for transportation to your medical appointments through [facility]. To set up your ride, call [phone] Friday through Friday from 8am - 5pm. Four (4) business days notice is required for your transportation to be scheduled. Referrals: [facility] [Outside] - 09/26/16 10:30 am (The above appointment is with Shreya Yang, counselor at [facility]. Your first appointment will be very thorough and the total appointment time will take between two and three hours. You will be completing paperwork, meeting with a counselor and a nurse, and developing a treatment plan. You will receive follow- up appointments for on-going services , which could include counseling and community support. Please bring the following with you to your first visit to the clinic: 1) proof of household income (two consecutive pay stubs, social security award letter, bank statement , statement letter from [facility], child support statement, IRS 1040 or W2 form, or a statement from the person who financially supports you stating they help provide for your basic needs), 2) proof of residency (drivers license, a piece of mail showing your address, a statement from person you live with verifying you live at their address), 3) your social security card, 4) photo ID, and 5) your insurance card (if you have commercial insurance you must call to obtain a prior authorization number before you arrive to your first appointment). If you do not bring these items, you will not be seen.) [facility] [Outside] - 10/22/16 3:00 pm (The above appointment is with Dr. Finch, psychiatrist. Please arrive 15 minutes early for this appointment to complete paperwork. If you cannot keep this appointment, please call with at least 24 hours notice. Due to a prior no-show, if you no-show this appointment you may not be rescheduled in the future.)
[2016-09-19] MEDS ORDERED: hydrOXYzine pamoate 25 MG CAPSULE PO PRN (14:26)
[2016-09-19] MEDS ORDERED: OLANZapine 10 MG TAB.RAPDIS PO ONE (15:01)
[2016-09-19] MEDS ORDERED: BuPROPion SR (12 HR) 150 MG TABLET PO SCH (21:00)
--- NOTE | 2016-09-20 09:28 | Discharge Summary ---
Date of Encounter: 09/19/16 Time of Encounter: 16:45 Diagnosis - Discharge Diagnosis (1) Paranoid type schizophrenia, chronic state with acute exacerbation Status: Acute (2) Polysubstance dependence Status: Acute Medications - Discharge Medications Methimazole [Tapazole] 5 mg PO DAILY #30 tablet 02/24/16 [Rx] Pyridostigmine Br [Mestinon] 60 mg PO Q8HR #90 tablet 02/24/16 [Rx] Metoprolol XL (24 HR) Succ [Toprol Xl] 50 mg PO DAILY 06/30/16 [History] Mometasone Furoate [Asmanex Hfa] 2 puff IH BID 06/30/16 [History] Albuterol Sulfate [Ventolin Hfa] 2 puff IH Q4H PRN 09/16/16 [History] EPINEPHrine [Epipen] 0.3 mg IM ONCE PRN 09/16/16 [History] Pantoprazole Sodium [Protonix] 40 mg PO DAILY 09/16/16 [History] Allergies Penicillins Allergy (Verified 06/08/16 19:49) Hives codeine Adverse Reaction (Verified 06/08/16 19:49) Vomiting Provider Date of admission: 09/16/16 22:19 Primary care physician: PCP NO Discharging clinician: Alberto Etienne Assessment and Plan - Patient/Caregiver Discharge Instructions Activity: resume usual activities as tolerated Diet: regular diet Additional Instructions: You are eligible for transportation to your medical appointments through [facility]. To set up your ride, call [phone] Friday through Friday from 8am - 5pm. Four (4) business days notice is required for your transportation to be scheduled. - Follow up Plan Follow up with: [facility] [Outside] - 09/26/16 10:30 am (The above appointment is with Shreya Yang, counselor at [facility]. Your first appointment will be very thorough and the total appointment time will take between two and three hours. You will be completing paperwork, meeting with a counselor and a nurse, and developing a treatment plan. You will receive follow- up appointments for on-going services , which could include counseling and community support. Please bring the following with you to your first visit to the clinic: 1) proof of household income (two consecutive pay stubs, social security award letter, bank statement , statement letter from [facility], child support statement, IRS 1040 or W2 form, or a statement from the person who financially supports you stating they help provide for your basic needs), 2) proof of residency (drivers license, a piece of mail showing your address, a statement from person you live with verifying you live at their address), 3) your social security card, 4) photo ID, and 5) your insurance card (if you have commercial insurance you must call to obtain a prior authorization number before you arrive to your first appointment). If you do not bring these items, you will not be seen.) [facility] [Outside] - 10/22/16 3:00 pm (The above appointment is with Dr. Finch, psychiatrist. Please arrive 15 minutes early for this appointment to complete paperwork. If you cannot keep this appointment, please call with at least 24 hours notice. Due to a prior no-show, if you no-show this appointment you may not be rescheduled in the future.) Functional capacity at discharge: independent ambulation Overall status at discharge: Stable Disposition: Home, Self-Care Hospital Course Hospital course: Mr. Jalloh is a 40 year old male admitted from the emergency room for evaluation SUICIDAL or homicidal ideation and paranoid delusions. For details of admission please see H&P On the unit patient was uncooperative with treatment plan refused to be on any antipsychotics claiming to have reactions. He was placed on gabapentin and the dose was increased to 300 mg 3 times a day and Klonopin 1 mg 3 times a day as needed and Ace on with added Wellbutrin SR 150 mg twice a day. Patient tolerated the medication but he was asking for more benzodiazepine claiming feeling angry. Patient refused to allow social media executive to contacts with family or other facilities for information to help was evaluation. He was reported by nursing staff acting inappropriate with female patients on the unit . On September 19 in the afternoon patient insisted on being discharged and refuses any suggestion to continue his stabilization and stated that he was concern about his family and he will. I met with him and the social media executive and the refinery operator reforming unit and was discussed with him that staying in the hospital is the safest option for him however he insisted on being discharged and was discharged stable condition. He denied any suicidal or homicidal ideation and was planning to continue his medication and to follow up his outpatient treatment. - Time Spent with Patient Total time spent providing and/or coordinating discharge services: Less than 30 minutes Quality - Multiple Antipsychotics Patient discharged on 2 or more antipsychotic medications: No Procedures - Procedures Procedures: Medication Management, Crisis Stabilization, Supportive Therapy, Group Therapy, Psychoeducational Therapy Mental Status Exam - Mental Status Exam Patient orientation: Yes Person, Yes Time, Yes Place Level of alertness: Alert Patient appearance: Appropriate, Well Groomed Behavior: cooperative, anxious, suspicious, talkative Psychomotor activity: Increased Eye contact: Maintains Eye Contact Mood description: Anxious, Labile Affect description: congruent with mood, euthymic Speech pattern: Normal rate, Normal rhythm, Normal tone Speech Volume: Normal Thought process: Tangential, Flight of Ideas, Thought Blocking, Disorganized, Racing Thought Content: No Suicidal ideation, No Homicidal ideation Perceptual Disturbances: No Auditory hallucinations, No Visual hallucinations Judgment: Limited Insight: Partial
== END 2016-09-19 17:15 | disposition home or self-care (01) | DRG 750 ==
LOC: EMEROO 15:45 → 1ANU 22:19
PROVIDERS: ADMIT Psychiatry & Neurology Psychiatry; ATTEND Psychiatry & Neurology Psychiatry

== ENCOUNTER 2016-11-26 22:27 | Inpatient (IN) ==
[2016-11-26] MEDS ORDERED: *HR* LORazepam 2 MG/ML VIAL IM ONE (22:52)
[2016-11-26 23:09] LABS: Basophils # 0.1 K/mcL (0.0-0.2); Basophils % 0.5 %; Eosinophils # 0.5 K/mcL (0.0-0.6); Eosinophils % 3.1 %; Hematocrit 39.1 % (37.5-50.1); Hemoglobin 13.5 g/dL (12.9-16.9); Immature Granulocytes % 0.6 % (0-4); Lymphocytes # 4.6 K/mcL (0.6-4.6); Lymphocytes % 26.7 %; Mean Corpuscular HGB Conc 34.5 g/dL (31.6-35.5); Mean Corpuscular Volume 83.9 fL (83.0-100.0); Mean Platelet Volume 10.1 fL (9.4-12.4); Monocytes # 1.7 K/mcL (0.0-1.3); Monocytes % 9.9 %; Neutrophils # 10.1 K/mcL (1.6-8.9); Platelet Count 368 K/mcL (140-400); Red Blood Count 4.66 M/mcL (4.19-5.50); Red Cell Distribution Width 13.2 % (11.5-14.5); Segmented Neutrophils % 59.2 %
--- NOTE | 2016-11-26 23:24 | Emergency Department Note ---
START Narrative - START START: I examined this patient and my medical decision-making was reviewed with the SALES OPERATIONS SPECIALIST/PA/Advanced Practice Nurse/Resident Physician. I agree with the documented findings, disposition and treatment plan as described except to the extent set forth below. ED attending note: Patient seen with emergency medicine resident Dr. Tran. Please see a copy of his note for details of the H&P, evaluation, management and disposition of this patient. We independently had [id number] contact with the patient Briefly: A 41-year-old male brought in by EMS for suicidal ideation. He has multiple prior visits for mental health-related issues including suicidal ideation substance abuse and addiction. History of violent behavior in the past. Patient was escorted in by edema police officers. We used a chemical calming agents of intramuscular Khanh lamp to help provide the patient some more comfort. Patient is currently awake and alert at baseline mental status GCS 15. Neurological mental medical clearance and evaluation by mental health services for disposition. Patient stable
[2016-11-26 23:25] LABS: Alanine Aminotransferase 80 Units/L (0-55); Albumin/Globulin Ratio 1.1 (1.1-2.2); Alkaline Phosphatase 66 Units/L (38-126); Aspartate Amino Transferase 71 Units/L (5-34); BUN/Creatinine Ratio 21 (6-26); Bilirubin,Direct 0.2 mg/dL (0.0-0.5); Bilirubin,Indirect 0.4 mg/dL (0.0-1.2); Bilirubin,Total 0.6 mg/dL (0.2-1.2); Blood Urea Nitrogen 19 mg/dL (8-26); Calcium 9.4 mg/dL (8.6-10.8); Carbon Dioxide 24 mEq/L (19-29); Chloride 104 mEq/L (98-109); Globulin 3.6 g/dL (2.4-3.5); Glucose 95 mg/dL (70-99); Osmolality,Calculated 290 (280-300); Potassium 3.6 mEq/L (3.5-4.5); Sodium 139 mEq/L (136-145); Total Protein 7.6 g/dL (6.0-8.3); eGFR For African Americans > 60 (> 60); eGFR For Non-African Americans > 60 (> 60)
[2016-11-26 23:26] LABS: Acetaminophen < 1.0 mcg/mL (10-30); Ethanol < 10 mg/dL (0-10); Salicylate < 5.0 mg/dL (15-30)
[2016-11-27] MEDS ORDERED: *HR* Midazolam HCl 5 MG/ML VIAL IVP ONE (00:46)
[2016-11-27 01:13] LABS: Bilirubin,Urine Negative (Negative); Blood,Urine Negative (Negative); Clarity,Urine Clear (Clear); Color,Urine Dark Yellow (Yellow); Glucose,Urine (UA) Normal (Normal); Ketones,Urine Trace mg/dL (Negative); Leukocyte Esterase,Urine Negative (Negative); Nitrite,Urine Negative (Negative); PH,Urine 5.5 pH Units (5.0-8.0); Protein,Urine Negative (Neg-Trace); Specific Gravity,Urine 1.029 (1.010-1.025); Urobilinogen,Urine Normal (Normal)
[2016-11-27 01:20] LABS: Amphetamine Screen,Urine Negative ng/mL (Cutoff=1000); Barbiturate Screen,Urine Negative ng/mL (Cutoff=200); Benzodiazepines Screen,Urine Negative ng/mL (Cutoff=200); Cannabinoid Screen,Urine Negative ng/mL (Cutoff = 50); Cocaine Screen,Urine Negative ng/mL (Cutoff= 300); Opiate Screen,Urine Negative ng/mL (Cutoff=300); Phencyclidine Screen,Urine Negative ng/mL (Cutoff=25)
--- NOTE | 2016-11-27 01:37 | Emergency Department Note ---
Disposition Clinical Impression: Intentional overdose of drug in tablet form, Suicide attempt Disposition: Admitted As Inpatient Condition: Fair Referrals: NO,PCP [Primary Care Provider] - Forms: ED Satisfaction Letter Psych HPI - General Chief Complaint: ED Psychiatric Symptoms Stated Complaint: SI Time Seen by Provider: 11/26/16 22:52 Source: patient, EMS Nursing Notes Reviewed: Yes Vital Signs Reviewed: Yes - History of Present Illness HPI Narrative: Jorge is a 41-year-old male with a known history of psychiatric illness, aggressive behavior and attempted overdose who presents to the ED after calling police stating he took up to 100 gabapentin and a handful of Wellbutrin in a suicide attempt. He informs me he was trying to kill himself as it "would make everyone happy." He reports attempted overdose in the past by taking pills. He denies any drug or alcohol ingestion recently. Currently he states he feels tingly in his fingertips and has a rapid heart beat but no other symptoms. He denies any abdominal pain, nausea or vomiting. Denies any headache, numbness or weakness in the extremities. - Related Data Home Medications Medication Instructions Recorded Confirmed Metoprolol XL (24 HR) Succ [Toprol 50 mg PO DAILY 06/30/16 09/16/16 Xl] Mometasone Furoate [Asmanex Hfa] 2 puff IH BID 06/30/16 09/17/16 Albuterol Sulfate [Ventolin Hfa] 2 puff IH Q4H PRN 09/16/16 09/16/16 EPINEPHrine [Epipen] 0.3 mg IM ONCE PRN 09/16/16 09/16/16 Pantoprazole Sodium [Protonix] 40 mg PO DAILY 09/16/16 09/16/16 Previous Rx's Medication Instructions Recorded Pyridostigmine Br [Mestinon] 60 mg PO Q8HR #90 tablet 02/24/16 methIMAzole [Tapazole] 5 mg PO DAILY #30 tablet 02/24/16 Tramadol HCl [Ultram] 50 mg PO TID #14 tab 11/15/16 Allergies Allergy/AdvReac Type Severity Reaction Status Date / Time Penicillins Allergy Hives Verified 11/26/16 22:29 codeine AdvReac Vomiting Verified 11/26/16 22:29 All systems ED: reviewed and negative except as stated. Eyes: Denies: vision change Cardiovascular: Reports: palpitations. Denies: chest pain Respiratory: Denies: cough, dyspnea Gastrointestinal: Denies: abdominal pain, nausea, vomiting Musculoskeletal: Denies: back pain, neck pain Neurological: Denies: headache, weakness, numbness Past Medical History - Past Medical History Medical history: Reports: hypertension, thyroid disease, other Surgical history: Reports: cholecystectomy Psychiatric history: Reports: depression, prior suicide attempt, schizophrenia, previous psychiatric hospitalization - Social History Smoking Status: Current every day smoker Smokeless Tobacco Status: No Alcohol use: Reports: occasionally Drug use: Reports: cocaine, marijuana, methamphetamine Physical Exam General: Presents by EMS and police escort, he standing and ambulating independently Cardiovascular: Tachycardic around 125 S1, S2. No murmurs, rubs or gallops. Respiratory: Breath sounds clear bilaterally. No wheezing, rales or rhonchi. No resp distress Abdomen: Soft, nontender. No guarding, rebound or rigidity. Normal bowel sounds throughout. No palpable organomegaly Eyes: Conjunctiva clear, pupils equally round and reactive to light, no nystagmus HENT: Normocephalic, no signs of head injury. No oral mucosal lesions. Moist mucous membranes Neuro: He does seem a bit confused but can answer all 3 questions appropriately. No numbness or weakness in the extremities. Stands independently. Awake and alert. GCS 14 with mild confusion Musculoskeletal: No joint tenderness or swelling Skin: No lesions, no signs of self-harm Psych: Confused, occasionally aggressive, tangential speech, rapid speech - General Limitations: no limitations General appearance: alert Course Course Narrative: Presents after intentional overdose. He took up to 100 gabapentin and a handful of Wellbutrin in a suicide attempt. I spoke with poison control who states Wellbutrin can cause seizure up to 24 hours after intervention initially monitored overnight. She states gabapentin cause GI symptoms but is relatively benign. They will follow up with the patient the morning. Patient has been in the ED for 4 hours and was given a total of 6 mg of IV Ativan with good response. His heart rate is down. He is more calm. Denies any new symptoms. However, he does read use repeat EKG at this time. Plan to admit for overdose for further monitoring and management. Discussed with the on-call hospitalist who accepts for admission. Patient will need a sitter and further psychiatric evaluation once medically cleared Vital Signs Temperature 98.7 F 11/26/16 22:29 Pulse Rate 129 11/26/16 22:29 Respiratory Rate 18 11/26/16 22:29 Blood Pressure 139/81 11/26/16 22:29 O2 Sat by Pulse Oximetry 96 11/26/16 22:29 Temperature 98.7 F 11/26/16 22:29 Pulse Rate 129 11/26/16 22:29 Respiratory Rate 18 11/26/16 22:29 Blood Pressure 139/81 11/26/16 22:29 O2 Sat by Pulse Oximetry 96 11/26/16 22:29 Oxygen Delivery Oxygen Delivery Room Air Psych - Lab Data Result diagrams: 11/26/16 23:00 11/26/16 23:00 Lab Results 11/26/16 11/26/16 11/27/16 Range/Units 23:00 23:00 01:01 WBC 17.1 H (4.3-11.1) K/mcL RBC 4.66 (4.19-5.50) M/mcL Hgb 13.5 (12.9-16.9) g/dL Hct 39.1 (37.5-50.1) % MCV 83.9 (83.0-100.0) fL MCH 29.0 (28.0-33.3) pg MCHC 34.5 (31.6-35.5) g/dL RDW 13.2 (11.5-14.5) % Plt Count 368 (140-400) K/mcL MPV 10.1 (9.4-12.4) fL Immature Gran % 0.6 (0-4) % Seg Neutrophils % 59.2 % Lymphocytes % 26.7 % Monocytes % 9.9 % Eosinophils % 3.1 % Basophils % 0.5 % Neutrophils # 10.1 H (1.6-8.9) K/mcL Lymphocytes # 4.6 (0.6-4.6) K/mcL Monocytes # 1.7 H (0.0-1.3) K/mcL Eosinophils # 0.5 (0.0-0.6) K/mcL Basophils # 0.1 (0.0-0.2) K/mcL Sodium 139 (136-145) mEq/L Potassium 3.6 (3.5-4.5) mEq/L Chloride 104 (98-109) mEq/L Carbon Dioxide 24 (19-29) mEq/L BUN 19 (8-26) mg/dL Creatinine 0.91 (0.72-1.25) mg/dL Est GFR ( Amer) > 60 (> 60) Est GFR (Non-Af Amer) > 60 (> 60) BUN/Creatinine Ratio 21 (6-26) Glucose 95 (70-99) mg/dL Calculated Osmolality 290 (280-300) Calcium 9.4 (8.6-10.8) mg/dL Total Bilirubin 0.6 (0.2-1.2) mg/dL Direct Bilirubin 0.2 (0.0-0.5) mg/dL Indirect Bilirubin 0.4 (0.0-1.2) mg/dL AST 71 H (5-34) Units/L ALT 80 H (0-55) Units/L Alkaline Phosphatase 66 (38-126) Units/L Serum Total Protein 7.6 (6.0-8.3) g/dL Albumin 4.0 (3.5-5.0) g/dL Globulin 3.6 H (2.4-3.5) g/dL Albumin/Globulin Ratio 1.1 (1.1-2.2) Urine Color Dark Yellow (Yellow) Urine Clarity Clear (Clear) Urine pH 5.5 (5.0-8.0) pH Units Ur Specific [place] 1.029 H (1.010-1.025) Urine Protein Negative (Neg-Trace) mg/dL Urine Glucose (UA) Normal (Normal) mg/dL Urine Ketones Trace H (Negative) mg/dL Urine Blood Negative (Negative) Urine Nitrite Negative (Negative) Urine Bilirubin Negative (Negative) Urine Urobilinogen Normal (Normal) mg/dL Ur Leukocyte Esterase Negative (Negative) Salicylates < 5.0 L (15-30) mg/dL Urine Opiates Screen (Noahvp=822) ng/mL Acetaminophen < 1.0 L (10-30) mcg/mL Ur Barbiturates Screen (Vllraa=533) ng/mL Ur Phencyclidine Scrn (Cutoff=25) ng/mL Ur Amphetamines Screen (Auseit=3731) ng/mL U Benzodiazepines Scrn (Xcrono=935) ng/mL Urine Cocaine Screen (Cutoff= 300) ng/mL U Marijuana (THC) Screen (Cutoff = 50) ng/mL Ethyl Alcohol < 10 (0-10) mg/dL 11/27/16 Range/Units 01:01 WBC (4.3-11.1) K/mcL RBC (4.19-5.50) M/mcL Hgb (12.9-16.9) g/dL Hct (37.5-50.1) % MCV (83.0-100.0) fL MCH (28.0-33.3) pg MCHC (31.6-35.5) g/dL RDW (11.5-14.5) % Plt Count (140-400) K/mcL MPV (9.4-12.4) fL Immature Gran % (0-4) % Seg Neutrophils % % Lymphocytes % % Monocytes % % Eosinophils % % Basophils % % Neutrophils # (1.6-8.9) K/mcL Lymphocytes # (0.6-4.6) K/mcL Monocytes # (0.0-1.3) K/mcL Eosinophils # (0.0-0.6) K/mcL Basophils # (0.0-0.2) K/mcL Sodium (136-145) mEq/L Potassium (3.5-4.5) mEq/L Chloride (98-109) mEq/L Carbon Dioxide (19-29) mEq/L BUN (8-26) mg/dL Creatinine (0.72-1.25) mg/dL Est GFR ( Amer) (> 60) Est GFR (Non-Af Amer) (> 60) BUN/Creatinine Ratio (6-26) Glucose (70-99) mg/dL Calculated Osmolality (280-300) Calcium (8.6-10.8) mg/dL Total Bilirubin (0.2-1.2) mg/dL Direct Bilirubin (0.0-0.5) mg/dL Indirect Bilirubin (0.0-1.2) mg/dL AST (5-34) Units/L ALT (0-55) Units/L Alkaline Phosphatase (38-126) Units/L Serum Total Protein (6.0-8.3) g/dL Albumin (3.5-5.0) g/dL Globulin (2.4-3.5) g/dL Albumin/Globulin Ratio (1.1-2.2) Urine Color (Yellow) Urine Clarity (Clear) Urine pH (5.0-8.0) pH Units Ur Specific [place] (1.010-1.025) Urine Protein (Neg-Trace) mg/dL Urine Glucose (UA) (Normal) mg/dL Urine Ketones (Negative) mg/dL Urine Blood (Negative) Urine Nitrite (Negative) Urine Bilirubin (Negative) Urine Urobilinogen (Normal) mg/dL Ur Leukocyte Esterase (Negative) Salicylates (15-30) mg/dL Urine Opiates Screen Negative (Gzpxgw=308) ng/mL Acetaminophen (10-30) mcg/mL Ur Barbiturates Screen Negative (Jtnfpl=695) ng/mL Ur Phencyclidine Scrn Negative (Cutoff=25) ng/mL Ur Amphetamines Screen Negative (Mcozgd=6651) ng/mL U Benzodiazepines Scrn Negative (Ldghgz=030) ng/mL Urine Cocaine Screen Negative (Cutoff= 300) ng/mL U Marijuana (THC) Screen Negative (Cutoff = 50) ng/mL Ethyl Alcohol (0-10) mg/dL - EKG Data EKG results narrative: EKG shows sinus tachycardia with a rate of 135 bpm. QTC is [address] changes. No ischemic T-wave changes. Previous EKG on 11/16/16 shows similar wave morphology without any acute ischemic changes. Psychiatric Medical Clearance - Medical Clearance Checklist Medical History: No Social History Section defined Current Vitals: Last Vital Signs Temp 98.7 F 11/26/16 22:29 Pulse 129 11/26/16 22:29 Resp 18 11/26/16 22:29 BP 139/81 11/26/16 22:29 Pulse Ox 96 11/26/16 22:29 Psychiatric Lab Panel: Drug Levels and Toxicity 11/26/16 11/27/16 23:00 01:01 Urine Opiates Screen Negative Acetaminophen < 1.0 L Ur Barbiturates Screen Negative Ur Phencyclidine Scrn Negative Ur Amphetamines Screen Negative U Benzodiazepines Scrn Negative Urine Cocaine Screen Negative U Marijuana (THC) Screen Negative Ethyl Alcohol < 10 Abnormal Labs: Abnormal lab results WBC 17.1 K/mcL (4.3-11.1) H 11/26/16 23:00 Neutrophils # 10.1 K/mcL (1.6-8.9) H 11/26/16 23:00 Monocytes # 1.7 K/mcL (0.0-1.3) H 11/26/16 23:00 AST 71 Units/L (5-34) H 11/26/16 23:00 ALT 80 Units/L (0-55) H 11/26/16 23:00 Globulin 3.6 g/dL (2.4-3.5) H 11/26/16 23:00 Ur Specific [place] 1.029 (1.010-1.025) H 11/27/16 01:01 Urine Ketones Trace mg/dL (Negative) H 11/27/16 01:01 Salicylates < 5.0 mg/dL (15-30) L 11/26/16 23:00 Acetaminophen < 1.0 mcg/mL (10-30) L 11/26/16 23:00 Statement of Medical Clearance: I have evaluated the patient, reviewed diagnostic information, and certify that the patient's medical condition is sufficiently stable that transfer to the psychiatric unit does not pose a significant risk of deterioration.
[2016-11-27] MEDS ORDERED: Ziprasidone injection 20 MG/ML VIAL IM ONE ×2 (03:05→03:18)
[2016-11-27] MEDS ORDERED: *HR* Midazolam HCl 5 MG/5 ML VIAL IVP ONE (03:06)
[2016-11-27] MEDS ORDERED: *HR* Midazolam HCl 2 MG/2 ML VIAL ONE (03:18)
[2016-11-27] MEDS ORDERED: Water for inj. (sterile) 10 ML IV ONE (03:19)
[2016-11-27] MEDS ORDERED: diazePAM 10 MG/2 ML SYRINGE IVP ONE (08:09)
[2016-11-27] MEDS ORDERED: Ondansetron 4 MG/2 ML VIAL IVP PRN (08:14)
--- NOTE | 2016-11-27 08:26 | Electrocardiograph Report ---
[address] [address] Test Date: 2016-11-26 Pat Name: Jorge Jalloh Department: 104 Room: 3B Gender: M Director Consumer Affairs: LEON : 1975 Requested By: Charlie Tran Order Number: [id number] Reading MD: Florin Correia MD Measurements Intervals [place] Rate: 135 P: 48 AK: 136 QRS: 1 QRSD: 84 T: 57 QT: 365 QTc: 444 Interpretive Statements SINUS TACHYCARDIA Electronically Signed On 11-27-2016 8:25:07 EDT by Florin Correia MD
--- NOTE | 2016-11-27 09:05 | Internal Med History&Physical ---
Date of Encounter: 11/27/16 Time of Encounter: 09:01 Assessment and Plan (1) Tobacco abuse Current visit: Yes Status: Acute We will prescribe nicotine replacement therapy. (2) DVT prophylaxis Current visit: Yes Status: Acute Fully ambulatory. No additional intervention needed. (3) Suicidal ideation Current visit: No Status: Acute One-to-one safety observation. Psychiatry consult. Involuntary commitment. (4) Depression Current visit: No Status: Acute Consult psychiatry. Hold all antidepressant medication for now. Qualifiers: Depression Type: major depressive disorder Major depression recurrence: recurrent Active/Remission status: currently active Major depression episode severity: severe Psychotic features: without psychotic features Qualified Code(s): F33.2 - Major depressive disorder, recurrent severe without psychotic features (5) Methamphetamine abuse Current visit: No Status: Acute (6) Intentional overdose of drug in tablet form Current visit: Yes Status: Acute Poison controlled was consulted from the ED. They recommended monitoring for seizures which could be secondary to Wellbutrin of overdose. Monitor mental status closely which could be depressed with gabapentin. (7) Suicide attempt Current visit: Yes Status: Acute Patient expresses suicidal ideation while I interviewed him. He is at very high self risk. I discussed the case with psychiatry. We will consult psychiatry. Constant direct one-to-one safety observation. I have filed involuntary commitment due to need for psychiatric treatment paperwork. He has high elopement risk. Internal Medicine - H&P: HPI Chief complaint: Drug overdose Admitted From: Emergency Dept Plans for Post Hospital Care: Transfer Psych Facility History of present illness: Mr. Jalloh is a 41 year old male with past psychiatric history significant for depression with suicidal attempts and aggressive behavior who was brought to the emergency department after he called [place] police department stating that he took a bunch of pills with the intention to end his life. He reported taking 100 tablets of gabapentin and Wellbutrin in a suicidal attempt. He currently tells me that he wants to [place] before and finish what he started. He wants to take an overdose of medication to end his life. He appears severely depressed and tearful. He has been agitated and security is at the bedside. History obtained from the patient is limited by agitation. He denies chest pain shortness of breath, nausea vomiting and abdominal pain. A 10 point review of systems was otherwise negative. Family history could not be obtained due to agitation. Social history: He reports being a nonsmoker but chews tobacco, denies excessive alcohol use. Denies intravenous drug use but states he uses methamphetamine and has been 40 days clean. Past Med Surg Social Fam HX - Past Medical History Medical history: hypertension, thyroid disease, other Psychiatric history: depression, prior suicide attempt, schizophrenia, previous psychiatric hospitalization - Past Surgical History Surgical History: cholecystectomy - Social History Smoking Status: Current every day smoker Smokeless Tobacco Status: No Alcohol use: occasionally Drug use: cocaine, marijuana, methamphetamine - Family History Father History Unknown: Yes Internal Medicine - H&P: Meds Pyridostigmine Br [Mestinon] 60 mg PO Q8HR #90 tablet 02/24/16 [Rx] methIMAzole [Tapazole] 5 mg PO DAILY #30 tablet 02/24/16 [Rx] Metoprolol XL (24 HR) Succ [Toprol Xl] 50 mg PO DAILY 06/30/16 [History] Albuterol Sulfate [Ventolin Hfa] 2 puff IH Q4H PRN 09/16/16 [History] EPINEPHrine [Epipen] 0.3 mg IM ONCE PRN 09/16/16 [History] Pantoprazole Sodium [Protonix] 40 mg PO DAILY 09/16/16 [History] BuPROPion SR (12 HR) [Wellbutrin SR] 150 mg PO BID 11/27/16 [History] Diclofenac Sodium [Voltaren] 50 mg PO Q8HR 11/27/16 [History] Fluticasone Propionate [Flovent Hfa] 1 puff IH BID 11/27/16 [History] Gabapentin [Neurontin] 400 mg PO QAM 11/27/16 [History] Gabapentin [Neurontin] 800 mg PO BID 11/27/16 [History] Tramadol HCl [Ultram] 50 mg PO TID PRN 11/27/16 [History] Allergies Penicillins Allergy (Verified 11/26/16 22:29) Hives codeine Adverse Reaction (Verified 11/26/16 22:29) Vomiting All Systems PM: A 10-system review of systems was performed and is negative for pertinent findings except as documented above in the HPI. - Constitutional Vitals: Temp Pulse Resp BP Pulse Ox 97.7 F 97 16 103/68 96 11/27/16 07:17 11/27/16 07:17 11/27/16 07:17 11/27/16 07:17 11/27/16 07:17 General appearance: Present: A&O X 3 (Agitated and tearful) - Eye Eye exam: Present: PERRL, conjuntiva pink, sclera anicteric Pupils: Present: PERRL - Respiratory Respiratory exam: Present: CTAB. Absent: accessory muscle use, rales, rhonchi, wheezes - Cardiovascular Cardiovascular exam: Present: RRR, +S1, +S2. Absent: diastolic murmur, gallop, rubs, systolic murmur - GI/Abdominal GI/Abdominal exam: Present: normal bowel sounds, soft, no peritoneal signs. Absent: distended, tenderness - Extremities Exam Extremities exam: Present: warm, radial pulses palpable and symetrical. Absent : calf tenderness, cyanotic, pedal edema - Neurological Exam Neurological exam: Present: CN II-XII intact, oriented X3, no focal deficits. Absent: pronater drift, facial droop, speech deficit - Psychiatric Psychiatric exam: Present: agitated, anxious, depressed (Tearful), suicidal ideation (He expresses suicidal ideation intent and planning) - Skin Skin exam: Present: dry, intact Internal Med - H&P Results - Labs CBC & Chem 7: 11/26/16 23:00 11/26/16 23:00 - EKG Data -: EKG Interpreted by Myself (Sinus tachycardia [address] BPM. Nonspecific rate related ST changes)
[2016-11-27] MEDS: Acetaminophen 325 MG TABLET PO PRN ×2 (10:04→17:03)
[2016-11-27] MEDS: *HR* LORazepam 2 MG/ML VIAL IVP PRN ×3 (11:41→23:30)
[2016-11-27] MEDS ORDERED: Ziprasidone injection 20 MG/ML VIAL IM STA (11:53)
[2016-11-27] MEDS: *HR* HYDROcodone/Acet 5/325 mg TABLET PO PRN ×2 (12:08→18:28)
[2016-11-27] MEDS: Nicotine 14 MG PATCH.TD24 TD SCH (12:24)
--- NOTE | 2016-11-27 15:30 | Psychiatry Progress Note ---
Date of Encounter: 11/27/16 Time of Encounter: 14:45 Subjective Interval history: Patient was admitted for evaluation and treatment of overdose on gabapentin and Wellbutrin allegedly for suicide attempts. Psych consultation requested to evaluate patient's and recommend admission to psychiatry. At this time patient is lethargic and sleeping after being medicated for agitation with Geodon and Ativan. He could not be awakened to be evaluated. Nursing staff was advised to notify us when patient is alert to be evaluated. Also patient is being medicated stabilized from his overdose and the medical treatment team are not in contact with poison control center. Objective: Exam Additional observations: Patient is lethargic and sleepy could not be awakened. He was medicated prior to my visit. Results - Vital Signs Vital Signs: Temp Pulse Resp BP Pulse Ox 97.7 F 106 18 125/87 96 11/27/16 09:17 11/27/16 09:17 11/27/16 09:17 11/27/16 09:17 11/27/16 09:17 Assessment and Plan (1) Suicidal ideation Current visit: No Status: Acute Plan: Continue hospitalization, Close observation, Suicide Precautions per unit protocol, Encourage participation in unit milieu, Group Therapy, Monitor sleep, Monitor appetite Additional Plan: Patient will be evaluated when he is alert and awake and medically stable. We will follow. Consult Discharge Plan - Plan Referrals: NO,PCP [Primary Care Provider] -
--- NOTE | 2016-11-27 19:43 | Electrocardiograph Report ---
[address] [address] Test Date: 2016-11-27 Pat Name: Jorge Jalloh Department: 113 Room: [facility] Gender: M [employer]: [id number] : 1975 Requested By: Charlie Tran Order Number: [id number] Reading MD: Florin Correia MD Measurements Intervals [place] Rate: 90 P: 52 ID: [id number] QRS: 14 QRSD: 92 T: 30 QT: 365 QTc: 412 Interpretive Statements SINUS RHYTHM Electronically Signed On 11-27-2016 19:41:36 EDT by Florin Correia MD
[2016-11-28] MEDS: *HR* HYDROcodone/Acet 5/325 mg TABLET PO PRN ×2 (00:31→08:30)
[2016-11-28] MEDS ORDERED: Ziprasidone injection 20 MG/ML VIAL IM ONE ×3 (02:37→09:25)
[2016-11-28] MEDS ORDERED: diazePAM 10 MG/2 ML SYRINGE IVP ONE (03:08)
[2016-11-28] MEDS ORDERED: diazePAM 10 MG/2 ML SYRINGE ONE ×2 (03:10→03:15)
[2016-11-28 06:29] LABS: Basophils # 0.1 K/mcL (0.0-0.2); Basophils % 0.6 %; Eosinophils # 0.8 K/mcL (0.0-0.6); Eosinophils % 6.6 %; Hematocrit 38.2 % (37.5-50.1); Immature Granulocytes % 0.3 % (0-4); Lymphocytes # 2.7 K/mcL (0.6-4.6); Lymphocytes % 22.7 %; Mean Corpuscular Hemoglobin 28.9 pg (28.0-33.3); Mean Corpuscular Volume 84.9 fL (83.0-100.0); Mean Platelet Volume 10.5 fL (9.4-12.4); Monocytes # 0.8 K/mcL (0.0-1.3); Monocytes % 6.8 %; Neutrophils # 7.5 K/mcL (1.6-8.9); Platelet Count 319 K/mcL (140-400); Red Cell Distribution Width 13.2 % (11.5-14.5)
[2016-11-28 06:46] LABS: BUN/Creatinine Ratio 14 (6-26); Blood Urea Nitrogen 11 mg/dL (8-26); Calcium 9.5 mg/dL (8.6-10.8); Carbon Dioxide 23 mEq/L (19-29); Chloride 102 mEq/L (98-109); Glucose 89 mg/dL (70-99); Osmolality,Calculated 281 (280-300); Potassium 3.6 mEq/L (3.5-4.5); Sodium 136 mEq/L (136-145); eGFR For African Americans > 60 (> 60); eGFR For Non-African Americans > 60 (> 60)
[2016-11-28 06:54] VITALS: BP 138/94
[2016-11-28] MEDS: Nicotine 14 MG PATCH.TD24 TD SCH (07:51)
[2016-11-28] MEDS: *HR* LORazepam 2 MG/ML VIAL IVP PRN (07:58)
--- NOTE | 2016-11-28 09:28 | Discharge Summary ---
Date of Encounter: 11/28/16 Time of Encounter: 08:45 - Discharge Diagnosis (1) Intentional overdose of drug in tablet form Priority: Primary Status: Acute (2) Suicide attempt Priority: Primary Status: Acute (3) Suicidal ideation Priority: Primary Status: Acute Comments: patient will not answer questions directly. Seen by Psychiatry who have accepted him down on their inpatient unit. Patient is medically cleared. (4) Depression Priority: Secondary Status: Chronic Qualifiers: Depression Type: major depressive disorder Major depression recurrence: recurrent Active/Remission status: currently active Major depression episode severity: severe Psychotic features: without psychotic features Qualified Code(s): F33.2 - Major depressive disorder, recurrent severe without psychotic features (5) Acute psychosis Priority: Primary Status: Acute (6) Mood disorder Priority: Secondary Status: Chronic (7) Methamphetamine abuse Priority: Secondary Status: Chronic Comments: Tox screen negative (8) Cannabis abuse Priority: Secondary Status: Chronic (9) Personality disorder Priority: Secondary Status: Chronic (10) Intermittent explosive disorder Priority: Secondary Status: Chronic (11) Chronic schizophrenia Priority: Secondary Status: Chronic (12) Bipolar disorder Priority: Secondary Status: Chronic (13) Paranoid type schizophrenia, chronic state with acute exacerbation Priority: Secondary Status: Chronic (14) Polysubstance dependence Priority: Secondary Status: Chronic (15) Tobacco abuse Priority: Secondary Status: Chronic (16) DVT prophylaxis Priority: Primary Status: Acute Comments: Observation patient. Up ad ozzie. - Discharge Medications Home Medications: Pyridostigmine Br [Mestinon] 60 mg PO Q8HR #90 tablet 02/24/16 [Rx] methIMAzole [Tapazole] 5 mg PO DAILY #30 tablet 02/24/16 [Rx] Metoprolol XL (24 HR) Succ [Toprol Xl] 50 mg PO DAILY 06/30/16 [History] Albuterol Sulfate [Ventolin Hfa] 2 puff IH Q4H PRN 09/16/16 [History] EPINEPHrine [Epipen] 0.3 mg IM ONCE PRN 09/16/16 [History] Pantoprazole Sodium [Protonix] 40 mg PO DAILY 09/16/16 [History] BuPROPion SR (12 HR) [Wellbutrin SR] 150 mg PO BID 11/27/16 [History] Diclofenac Sodium [Voltaren] 50 mg PO Q8HR 11/27/16 [History] Fluticasone Propionate [Flovent Hfa] 1 puff IH BID 11/27/16 [History] Gabapentin [Neurontin] 400 mg PO QAM 11/27/16 [History] Gabapentin [Neurontin] 800 mg PO BID 11/27/16 [History] Allergies/Adverse Reactions: Allergies Penicillins Allergy (Verified 11/26/16 22:29) Hives codeine Adverse Reaction (Verified 11/26/16 22:29) Vomiting Date of admission: 11/27/16 08:14 Primary care physician: PCP NO Consults: 11/27/16 08:19 Consult to Psychiatry [CONS] Stat Consulting Provider: Psychiatry [facility] Reason for Consult: OD on medication and siucidal ideation Time Notified: 08:20 Call Completed: Yes Discharging clinician: Johana Rogers (transferring down to Psych 1A) Anticipated date of discharge: 11/28/16 - Patient Status Disposition: Transfer Psychiatric Hosp Condition: Fair Functional capacity at discharge: independent ambulation Overall status at discharge: patient is progressing back to baseline - Discharge Instructions Follow Up With: NO,PCP [Primary Care Provider] - Additional Instructions: Transferring to inpatient psychiatry - Diet and Activity Activity: increase activity as tolerated Diet: regular diet Hospital course: Mr. Jalloh is a 41 year old male with significant past medical history of psychiatric issues including schizophrenia, previous psychiatric hospitalization , prior suicide attempt, aggressive behavior. Patient presented to the emergency department after he called the [place] [employer] stating that he took a bunch of pills with the intention to end his life. Patient stating that he took 100 tablets of gabapentin and a handful of Wellbutrin in an attempt to kill himself. Tox screen in the emergency department was negative -patient stating he has a history of IV drug abuse and methamphetamine abuse but states that he has been clean for 40 days prior to presentation. Patient was admitted to the hospitalist service for further evaluation and management. Poison control was on board during this admission. Recommendation was to watch the patient for seizure-like activity as this is a possibility for 24 hours after Wellbutrin ingestion. Poison control also stated the gabapentin could cause GI symptoms but stated this were benign. While in the emergency department and while admitted, patient required IV Ativan and IM Geodon due to violent outbursts in order to ensure patient and staff safety. He was admitted and observed overnight and he had no seizure-like activity. Psychiatry was brought on board and accepted him down in the inpatient psychiatric unit. Regarding suicidal ideation, patient refused to answer questions. Patient would continually walk around the unit and point at certain staff members and accuses them of "being in on it." Of note, OARRS report was reviewed. On , he was given 180 tablets of gabapentin 400 mg. No other current controlled substance prescriptions. He was discharged down to 1A inpatient psychiatric unit in stable condition. - Time Spent with Patient Total time spent providing and/or coordinating discharge services: - Constitutional Vitals: Temp Pulse Resp BP Pulse Ox 97.3 F L 91 16 138/94 95 11/28/16 06:52 11/28/16 06:52 11/28/16 06:52 11/28/16 06:52 11/28/16 06:52 General appearance: Present: disheveled, A&O X 3 (Agitated and tearful). Absent : cooperative, answers questions appropriately - Head Head exam: Present: atraumatic, normocephalic - Eye Eye exam: Present: PERRL, conjuntiva pink, sclera anicteric Pupils: Present: PERRL - Neck Neck exam general surgery: Present: supple, trachea midline. Absent: lymphadenopathy - Respiratory Respiratory exam: Present: CTAB. Absent: accessory muscle use, rales, respiratory distress, rhonchi, wheezes - Cardiovascular Cardiovascular exam: Present: RRR, +S1, +S2. Absent: diastolic murmur, gallop, rubs, systolic murmur - GI/Abdominal GI/Abdominal exam: Present: normal bowel sounds, soft, no peritoneal signs. Absent: distended, tenderness - Extremities Exam Extremities exam: Present: warm, radial pulses palpable and symetrical. Absent : calf tenderness, cyanotic, pedal edema - Neurological Exam Neurological exam: Present: alert, CN II-XII intact, normal gait, oriented X3, no focal deficits, strengths equal and symetr throughout. Absent: pronater drift, facial droop, speech deficit - Psychiatric Psychiatric exam: Present: agitated, anxious, manic, suicidal ideation. Absent : normal affect, normal mood - Expanded Psychiatric Exam Focused psych exam: Present: delusional, flight of ideas, loose associations, paranoid, perseverating, pressured speech, psychomotor agitation, restlessness - Skin Skin exam: Present: dry, intact, normal color, warm
== END 2016-11-28 12:25 | DRG 812 ==
LOC: EMEROO 22:27 → 3BNU 22:27
PROVIDERS: ADMIT Internal Medicine; ATTEND Nurse Practitioner Family

== ENCOUNTER 2016-11-28 12:05 | Inpatient (IN) ==
[2016-11-28] MEDS ORDERED: traZODone 50 MG TABLET PO PRN (12:59)
[2016-11-28] MEDS ORDERED: Haloperidol Lactate 5 MG/ML VIAL IM PRN (12:59)
[2016-11-28] MEDS ORDERED: *HR* LORazepam 2 MG/ML VIAL IM PRN (12:59)
[2016-11-28] MEDS ORDERED: Nicotine 2 MG GUM BC PRN (12:59)
[2016-11-28] MEDS ORDERED: Ibuprofen 400 MG TABLET PO PRN (12:59)
[2016-11-28] MEDS ORDERED: MOM Conc 10 ML UD.LIQ PO PRN (12:59)
[2016-11-28] MEDS ORDERED: Mag Hydrox/Al Hydrox/Simeth 30 ML UDC PO PRN (12:59)
[2016-11-28] MEDS ORDERED: Gabapentin 400 MG CAPSULE PO SCH (15:00)
[2016-11-28] MEDS: Pyridostigmine Br 60 MG TABLET PO SCH (17:40)
[2016-11-28] MEDS: Ziprasidone injection 20 MG/ML VIAL IM PRN (20:03)
[2016-11-28] MEDS: BuPROPion SR (12 HR) 150 MG TABLET PO SCH (20:49)
[2016-11-28] MEDS: hydrOXYzine pamoate 25 MG CAPSULE PO PRN (20:49)
[2016-11-28] MEDS: Beclomethasone 80mcg MDI IH SCH (21:16)
[2016-11-29] MEDS: Pyridostigmine Br 60 MG TABLET PO SCH ×3 (02:01→17:33)
[2016-11-29] MEDS: methIMAzole 5 MG TABLET PO SCH (08:46)
[2016-11-29] MEDS: Metoprolol XL (24 HR) Succ 50 MG TAB.ER.24H PO SCH (08:46)
[2016-11-29] MEDS: BuPROPion SR (12 HR) 150 MG TABLET PO SCH ×2 (08:46→17:42)
[2016-11-29] MEDS: Gabapentin 400 MG CAPSULE PO SCH ×4 (08:46→21:34)
[2016-11-29] MEDS ORDERED: Gabapentin 400 MG CAPSULE PO SCH (09:00)
[2016-11-29] MEDS: clonazePAM 1 MG TABLET PO PRN ×2 (10:36→21:34)
[2016-11-29] MEDS: Ziprasidone 20 MG CAPSULE PO PRN ×2 (10:55→23:03)
[2016-11-29] MEDS: *HR* LORazepam 1 MG TABLET PO PRN ×2 (11:11→23:06)
--- NOTE | 2016-11-29 12:09 | Psychiatry History & Physical ---
Date of Encounter: 11/29/16 Time of Encounter: 09:30 History of Present Illness Patient Stated Chief Complaint: Suicidal and homicidal ideation Medicare Admission Attestation: For traditional Medicare patients the provided hospital inpatient services are reasonable and necessary and in the case of services not specified as inpatient -only under 42 CFR 419.22 (n), that they are appropriately provided as inpatient services in accordance 42 CFR 412.3. For Critical Access Hospital the patient may reasonably be expected to be discharged or transferred to a hospital within 96 hours after admission to the Critical Access Hospital. Admitted From: Intrahospital Transfer (3B 52) History of Present Illness: Mr. Jalloh is a 41 year old male admitted from the medical for evaluation and treatment suicidal or homicidal ideation status post overdose on gabapentin and Wellbutrin suicide attempt. Patient had long history of psychiatric treatment diagnosis of bipolar schizoaffective disorder and long history of substance abuse including opiates and THC, benzodiazepine and methamphetamine. On the medical floor patient was seen in consultation and consultation follow-up , he was agitated and combative and threatening to leave the hospital AMA and requirements staff and security to keep him safe and controlled his behavior in addition to medication Geodon and Ativan. Patient continued to endorse suicidal ideation and intent to kill himself in different ways, also he threatened to kill certain people but would not reveal who they are. Past Med Surg Social Fam HX - Past Medical History Medical history: hypertension, thyroid disease, other - Past Psychiatric History Psychiatric history: Reports: bipolar, depression, prior suicide attempt, previous psychiatric hospitalization - Past Surgical History Surgical History: cholecystectomy - Social History Smoking Status: Current every day smoker Smokeless Tobacco Status: No Alcohol use: occasionally Drug use: cocaine, marijuana, methamphetamine Medications & Allergies Pyridostigmine Br [Mestinon] 60 mg PO Q8HR #90 tablet 02/24/16 [Rx] methIMAzole [Tapazole] 5 mg PO DAILY #30 tablet 02/24/16 [Rx] Metoprolol XL (24 HR) Succ [Toprol Xl] 50 mg PO DAILY 06/30/16 [History] Albuterol Sulfate [Ventolin Hfa] 2 puff IH Q4H PRN 09/16/16 [History] EPINEPHrine [Epipen] 0.3 mg IM ONCE PRN 09/16/16 [History] Pantoprazole Sodium [Protonix] 40 mg PO DAILY 09/16/16 [History] BuPROPion SR (12 HR) [Wellbutrin SR] 150 mg PO BID 11/27/16 [History] Diclofenac Sodium [Voltaren] 50 mg PO Q8HR 11/27/16 [History] Fluticasone Propionate [Flovent Hfa] 1 puff IH BID 11/27/16 [History] Gabapentin [Neurontin] 400 mg PO QAM 11/27/16 [History] Gabapentin [Neurontin] 800 mg PO BID 11/27/16 [History] Allergies Penicillins Allergy (Verified 11/26/16 22:29) Hives codeine Adverse Reaction (Verified 11/26/16 22:29) Vomiting Review of Systems Psychiatric: Reports: suicidal ideation, homicidal ideation, irritability Mental Status Exam Patient orientation: Yes Person, Yes Time, Yes Place Level of alertness: Alert Patient appearance: Appropriate, Unkempt, Bizarre Behavior: calm, cooperative, agitated, uncooperative, suspicious Psychomotor activity: Increased Eye contact: Minimal Contact Mood description: Angry, Anxious, Irritable Affect description: congruent with mood, labile, dysphoric Speech pattern: Normal rate, Normal rhythm, Normal tone, Rambling, Includes Profanity Speech volume: Loud Thought process: Linear, Goal Oriented Thought content: Yes Suicidal ideation, Yes Homicidal ideation, No Overt delusions Perceptual disturbances: No Auditory hallucinations, No Visual hallucinations Attention span: Capable of Focused Attention Memory description: Grossly Intact Patient reliability: Reliable Historian Intelligence estimate: Average Judgment: Limited Insight: Partial Results - Vital Signs Vital signs: Temp Pulse Resp BP 96.8 F L 91 18 122/88 11/29/16 09:00 11/29/16 09:00 11/29/16 09:00 11/29/16 09:00 Assessment and Plan (1) Bipolar disorder Current visit: No Status: Chronic Plan: Admit inpatient for safety and stabilization, Close observation, Suicide Precautions per unit protocol, Encourage participation in unit milieu, Group Therapy, Monitor sleep, Monitor appetite Additional Plan: Will restart medication and continue to monitor patient Risks, benefits, side effects, alternatives discussed w/pt: Yes Patient agreeable to treatment: Yes Estimated Length of Stay (Days): 5 Qualifiers: Active/Remission status: currently active Current bipolar episode type: depressed Current episode severity: severe Psychotic features: with psychotic features Qualified Code(s): F31.5 - Bipolar disorder, current episode depressed, severe, with psychotic features (2) Cannabis abuse Current visit: No Status: Chronic Plan: Admit inpatient for safety and stabilization, Close observation, Suicide Precautions per unit protocol, Encourage participation in unit milieu, Group Therapy, Monitor sleep, Monitor appetite
[2016-11-29] MEDS: Beclomethasone 80mcg MDI IH SCH ×2 (13:55→21:35)
[2016-11-29] MEDS: Ziprasidone injection 20 MG/ML VIAL IM PRN (14:37)
[2016-11-29] MEDS ORDERED: *HR* LORazepam 2 MG/ML VIAL IM ONE (14:37)
[2016-11-29] MEDS ORDERED: BuPROPion SR (12 HR) 150 MG TABLET PO SCH (21:00)
[2016-11-29] MEDS: hydrOXYzine pamoate 25 MG CAPSULE PO PRN (23:05)
[2016-11-30] MEDS: Pyridostigmine Br 60 MG TABLET PO SCH ×3 (00:23→15:22)
[2016-11-30] MEDS: BuPROPion SR (12 HR) 150 MG TABLET PO SCH ×3 (00:24→15:22)
[2016-11-30] MEDS: methIMAzole 5 MG TABLET PO SCH (08:38)
[2016-11-30] MEDS: Gabapentin 400 MG CAPSULE PO SCH (08:39)
[2016-11-30] MEDS: Metoprolol XL (24 HR) Succ 50 MG TAB.ER.24H PO SCH (08:39)
[2016-11-30] MEDS: clonazePAM 1 MG TABLET PO PRN ×2 (08:41→16:09)
[2016-11-30] MEDS: Beclomethasone 80mcg MDI IH SCH ×2 (09:34→21:02)
--- NOTE | 2016-11-30 10:04 | Psychiatry Progress Note ---
Date of Encounter: 11/30/16 Time of Encounter: 09:57 Subjective Interval history: Client reports he is no longer suicidal. Reports his OD and hanging attempt "were stupid things to do." Staff here are very familiar with him. Report he has been here 11 times in addition to multiple hospitalizations elsewhere. Staff feel comfortable contacting this lead technical writer for an order to reinstate 1:1 if it is discontinued at this time. Client is certainly at risk for suicide given his anger, impulsivity, drug use, and just by virtue of being male. However, he is future oriented, wants to go to [facility], and wants to start AOD counseling. Called the music sound light technician himself after taking pills at home. Recent attempts are likely disingenuous but he is still a risk given factors identified above. Will D/C 1:1 monitoring for now but still keep a close eye on him. Sleeping and eating well. Asking for controlled substances like Ritalin, Adderall, and Ativan. Refusing other medication interventions including but not limited to Depakote, Tegretol, Trileptal, Risperdal, Geodon, Abilify, all SSRIs, Buspar, and Vistaril. Agreeable to increase in Neurontin to help with mood stabilization. Review of Systems Constitutional: Denies: fever, chills Eyes: Denies: eye pain Ears, Nose, Throat: Denies: ear pain, hearing loss Cardiovascular: Denies: chest pain, palpitations, dyspnea on exertion Respiratory: Denies: cough, dyspnea Gastrointestinal: Denies: abdominal pain, nausea, vomiting, diarrhea Genitourinary male: Denies: urgency, dysuria Musculoskeletal: Denies: joint swelling, joint pain Integumentary: Denies: rash, lesions Neurological: Denies: headache, weakness, numbness, memory loss Psychiatric: Reports: suicidal ideation, homicidal ideation, irritability Endocrine: Denies: fatigue, heat or cold intolerance Hematologic/Lymphatic: Denies: easy bleeding, easy bruising Allergic/Immunologic: Denies: facial swelling, urticaria Objective: Exam Patient orientation: Yes Person, Yes Time, Yes Place Level of alertness: Alert Patient appearance: Appropriate Behavior: cooperative, restless Psychomotor activity: Normal Eye contact: Maintains Eye Contact Mood description: Angry, Irritable Affect description: congruent with mood Speech pattern: Normal rate, Normal rhythm, Normal tone Speech volume: Normal Thought process: Linear, Goal Oriented Thought content: No Suicidal ideation, No Homicidal ideation, No Overt delusions Perceptual disturbances: No Auditory hallucinations, No Visual hallucinations Judgment: Poor Insight: Minimal Results - Vital Signs Vital Signs: Temp Pulse Resp BP 98 F 91 18 114/82 11/29/16 21:00 11/29/16 21:00 11/29/16 21:00 11/29/16 21:00 Assessment and Plan (1) Suicidal ideation Current visit: No Status: Acute Plan: Continue hospitalization, Close observation, Suicide Precautions per unit protocol, Encourage participation in unit milieu, Group Therapy, Monitor sleep, Monitor appetite, Secure weapons Risks, benefits, side effects, alternatives discussed w/pt: Yes Patient agreeable to treatment: Yes Consult Discharge Plan - Plan [facility] 10:00 am (The above appointment is with Eulalia Dowling. Please bring the following with you to your first visit to the clinic: 1) proof of household income (two consecutive pay stubs, social security award letter, bank statement, statement letter from [facility], child support statement, IRS 1040 or W2 form, or a statement from the person who financially supports you stating they help provide for your basic needs), 2) proof of residency (drivers license, a piece of mail showing your address, a statement from person you live with verifying you live at their address), 3) your social security card, 4) photo ID, and 5) your insurance card (if you have commercial insurance you must call to obtain a prior authorization number before you arrive to your first appointment). If you do not bring these items, you will not be seen.)
[2016-11-30] MEDS: Ziprasidone 20 MG CAPSULE PO PRN ×2 (11:15→15:22)
[2016-11-30] MEDS: *HR* LORazepam 1 MG TABLET PO PRN ×2 (11:15→15:23)
[2016-11-30] MEDS: Gabapentin 300 MG CAPSULE PO SCH ×2 (15:22→21:01)
[2016-11-30] MEDS: hydrOXYzine pamoate 25 MG CAPSULE PO PRN (15:25)
[2016-11-30] MEDS ORDERED: Melatonin 3 MG TABLET PO PRN (22:07)
[2016-12-01] MEDS: Pyridostigmine Br 60 MG TABLET PO SCH ×2 (01:06→08:34)
[2016-12-01] MEDS: Metoprolol XL (24 HR) Succ 50 MG TAB.ER.24H PO SCH (08:34)
[2016-12-01] MEDS: BuPROPion SR (12 HR) 150 MG TABLET PO SCH (08:34)
[2016-12-01] MEDS: Gabapentin 300 MG CAPSULE PO SCH (08:35)
[2016-12-01 08:37] VITALS: BP 104/71
[2016-12-01] MEDS: clonazePAM 1 MG TABLET PO PRN (09:31)
[2016-12-01] MEDS: Beclomethasone 80mcg MDI IH SCH (09:31)
[2016-12-01] MEDS: methIMAzole 5 MG TABLET PO SCH (09:34)
--- NOTE | 2016-12-01 10:42 | Discharge Summary ---
Date of Encounter: 12/01/16 Time of Encounter: 10:35 Diagnosis - Discharge Diagnosis (1) Suicidal ideation Status: Acute Medications - Discharge Medications Prescriptions: BuPROPion SR (12 HR) [Wellbutrin SR] 150 mg PO 0900,1600 #60 tablet.er clonazePAM [Klonopin] 1 mg PO BID PRN #30 tablet PRN Reason: Anxiety Gabapentin [Neurontin] 600 mg PO TID #180 capsule Pyridostigmine Br [Mestinon] 60 mg PO Q8HR #90 tablet 02/24/16 [Rx] methIMAzole [Tapazole] 5 mg PO DAILY #30 tablet 02/24/16 [Rx] Metoprolol XL (24 HR) Succ [Toprol Xl] 50 mg PO DAILY 06/30/16 [History] Albuterol Sulfate [Ventolin Hfa] 2 puff IH Q4H PRN 09/16/16 [History] EPINEPHrine [Epipen] 0.3 mg IM ONCE PRN 09/16/16 [History] Pantoprazole Sodium [Protonix] 40 mg PO DAILY 09/16/16 [History] Diclofenac Sodium [Voltaren] 50 mg PO Q8HR 11/27/16 [History] Fluticasone Propionate [Flovent Hfa] 1 puff IH BID 11/27/16 [History] BuPROPion SR (12 HR) [Wellbutrin SR] 150 mg PO 0900,1600 #60 tablet.er 12/01/16 [Rx] Gabapentin [Neurontin] 600 mg PO TID #180 capsule 12/01/16 [Rx] clonazePAM [Klonopin] 1 mg PO BID PRN #30 tablet 12/01/16 [Rx] Allergies Penicillins Allergy (Verified 11/26/16 22:29) Hives codeine Adverse Reaction (Verified 11/26/16 22:29) Vomiting Provider Date of admission: 11/28/16 12:10 Primary care physician: PCP NO Discharging clinician: Maddison Pham Assessment and Plan - Patient/Caregiver Discharge Instructions Activity: resume usual activities as tolerated Diet: regular diet - Follow up Plan [facility]: [facility] - 12/10/16 10:00 am (The above appointment is with Eulalia Dowling. Please bring the following with you to your first visit to the clinic: 1) proof of household income (two consecutive pay stubs, social security award letter, bank statement, statement letter from [facility], child support statement, IRS 1040 or W2 form, or a statement from the person who financially supports you stating they help provide for your basic needs), 2) proof of residency (drivers license, a piece of mail showing your address, a statement from person you live with verifying you live at their address), 3) your social security card, 4) photo ID, and 5) your insurance card (if you have commercial insurance you must call to obtain a prior authorization number before you arrive to your first appointment). If you do not bring these items, you will not be seen.) Functional capacity at discharge: independent ambulation Overall status at discharge: Stable Disposition: Home, Self-Care Hospital Course Hospital course: Mr. Jalloh is a 41 year old male who was admitted secondary to SI. Agitated and threatening most of his stay. Never physically violent. Most of his presentation was for show. Placed on a 1:1 initially as he was observed making a noose out of a sheet in his room. 1:1 discontinued after Jorge became annoyed with the close observation and promised not to engage in suicidal gestures anymore. Worked himself up so that he could get prn injections. This worked for a day but he calmed down once he realized staff were only going to give him oral prns. Very familiar to staff on the unit. Frequent utilizer of psychiatric services. Multiple prior admissions. Has multiple people in the area he can stay with-parents, friends, and a girlfriend. Not a candidate for shelters or residential treatment given sex offender status. Already has a follow up appointment in place as he was recently inpatient at [facility] and they arranged his aftercare. Plans to seek treatment for AOD through [facility] and reported he has done this is the past. Denying SI on day of discharge. Knows how to access emergency services should SI return and he has no problem doing this. - Time Spent with Patient Total time spent providing and/or coordinating discharge services: Quality - Multiple Antipsychotics Patient discharged on 2 or more antipsychotic medications: No Procedures - Procedures Procedures: Medication Management, Crisis Stabilization, Supportive Therapy, Group Therapy Mental Status Exam - Mental Status Exam Patient orientation: Yes Person, Yes Time, Yes Place Level of alertness: Alert Patient appearance: Appropriate, Well-nourished Behavior: restless Psychomotor activity: Normal Eye contact: Maintains Eye Contact Mood description: Irritable Affect description: congruent with mood Speech pattern: Normal rate, Normal rhythm, Normal tone Speech Volume: Normal Thought process: Linear, Goal Oriented Thought Content: No Suicidal ideation, No Homicidal ideation, No Overt delusions Perceptual Disturbances: No Auditory hallucinations, No Visual hallucinations Judgment: Limited Insight: Minimal
== END 2016-12-01 11:35 | disposition home or self-care (01) | DRG 753 ==
LOC: SUATTDRO 12:10 → 1ANU 12:10
PROVIDERS: ADMIT Psychiatry & Neurology Psychiatry; ATTEND Psychiatry & Neurology Psychiatry

== ENCOUNTER 2016-12-01 15:26 | Inpatient (IN) ==
--- NOTE | 2016-12-01 16:26 | Emergency Department Note ---
Overdose - Lab Data Result diagrams: 12/01/16 16:37 12/01/16 16:37 Lab Results 12/01/16 12/01/16 12/01/16 Range/Units 16:18 16:18 16:37 WBC 11.8 H (4.3-11.1) K/mcL RBC 4.93 (4.19-5.50) M/mcL Hgb 14.1 (12.9-16.9) g/dL Hct 41.7 (37.5-50.1) % MCV 84.6 (83.0-100.0) fL MCH 28.6 (28.0-33.3) pg MCHC 33.8 (31.6-35.5) g/dL RDW 13.3 (11.5-14.5) % Plt Count 388 (140-400) K/mcL MPV 9.9 (9.4-12.4) fL Immature Gran % 0.7 (0-4) % Seg Neutrophils % 56.2 % Lymphocytes % 29.2 % Monocytes % 5.4 % Eosinophils % 7.4 % Basophils % 1.1 % Neutrophils # 6.7 (1.6-8.9) K/mcL Lymphocytes # 3.5 (0.6-4.6) K/mcL Monocytes # 0.6 (0.0-1.3) K/mcL Eosinophils # 0.9 H (0.0-0.6) K/mcL Basophils # 0.1 (0.0-0.2) K/mcL Sodium (136-145) mEq/L Potassium (3.5-4.5) mEq/L Chloride (98-109) mEq/L Carbon Dioxide (19-29) mEq/L BUN (8-26) mg/dL Creatinine (0.72-1.25) mg/dL Est GFR ( Amer) (> 60) Est GFR (Non-Af Amer) (> 60) BUN/Creatinine Ratio (6-26) Glucose (70-99) mg/dL Calculated Osmolality (280-300) Calcium (8.6-10.8) mg/dL Total Bilirubin (0.2-1.2) mg/dL Direct Bilirubin (0.0-0.5) mg/dL Indirect Bilirubin (0.0-1.2) mg/dL AST (5-34) Units/L ALT (0-55) Units/L Alkaline Phosphatase (38-126) Units/L Serum Total Protein (6.0-8.3) g/dL Albumin (3.5-5.0) g/dL Globulin (2.4-3.5) g/dL Albumin/Globulin Ratio (1.1-2.2) Urine Color Yellow (Yellow) Urine Clarity Clear (Clear) Urine pH 7.0 (5.0-8.0) pH Units Ur Specific [place] 1.014 (1.010-1.025) Urine Protein Negative (Neg-Trace) mg/dL Urine Glucose (UA) Normal (Normal) mg/dL Urine Ketones Negative (Negative) mg/dL Urine Blood Negative (Negative) Urine Nitrite Negative (Negative) Urine Bilirubin Negative (Negative) Urine Urobilinogen Normal (Normal) mg/dL Ur Leukocyte Esterase Negative (Negative) Salicylates (15-30) mg/dL Urine Opiates Screen Negative (Dmdzah=541) ng/mL Acetaminophen (10-30) mcg/mL Ur Barbiturates Screen Negative (Genqoa=333) ng/mL Ur Phencyclidine Scrn Negative (Cutoff=25) ng/mL Ur Amphetamines Screen Negative (Zxtadw=1200) ng/mL U Benzodiazepines Scrn Positive H (Rztcyi=379) ng/mL Urine Cocaine Screen Negative (Cutoff= 300) ng/mL U Marijuana (THC) Screen Negative (Cutoff = 50) ng/mL Ethyl Alcohol (0-10) mg/dL 12/01/16 Range/Units 16:37 WBC (4.3-11.1) K/mcL RBC (4.19-5.50) M/mcL Hgb (12.9-16.9) g/dL Hct (37.5-50.1) % MCV (83.0-100.0) fL MCH (28.0-33.3) pg MCHC (31.6-35.5) g/dL RDW (11.5-14.5) % Plt Count (140-400) K/mcL MPV (9.4-12.4) fL Immature Gran % (0-4) % Seg Neutrophils % % Lymphocytes % % Monocytes % % Eosinophils % % Basophils % % Neutrophils # (1.6-8.9) K/mcL Lymphocytes # (0.6-4.6) K/mcL Monocytes # (0.0-1.3) K/mcL Eosinophils # (0.0-0.6) K/mcL Basophils # (0.0-0.2) K/mcL Sodium 138 (136-145) mEq/L Potassium 4.2 (3.5-4.5) mEq/L Chloride 104 (98-109) mEq/L Carbon Dioxide 24 (19-29) mEq/L BUN 13 (8-26) mg/dL Creatinine 0.91 (0.72-1.25) mg/dL Est GFR ( Amer) > 60 (> 60) Est GFR (Non-Af Amer) > 60 (> 60) BUN/Creatinine Ratio 14 (6-26) Glucose 85 (70-99) mg/dL Calculated Osmolality 285 (280-300) Calcium 10.2 (8.6-10.8) mg/dL Total Bilirubin 0.4 (0.2-1.2) mg/dL Direct Bilirubin 0.2 (0.0-0.5) mg/dL Indirect Bilirubin 0.2 (0.0-1.2) mg/dL AST 80 H (5-34) Units/L ALT 109 H (0-55) Units/L Alkaline Phosphatase 64 (38-126) Units/L Serum Total Protein 7.9 (6.0-8.3) g/dL Albumin 4.1 (3.5-5.0) g/dL Globulin 3.8 H (2.4-3.5) g/dL Albumin/Globulin Ratio 1.1 (1.1-2.2) Urine Color (Yellow) Urine Clarity (Clear) Urine pH (5.0-8.0) pH Units Ur Specific [place] (1.010-1.025) Urine Protein (Neg-Trace) mg/dL Urine Glucose (UA) (Normal) mg/dL Urine Ketones (Negative) mg/dL Urine Blood (Negative) Urine Nitrite (Negative) Urine Bilirubin (Negative) Urine Urobilinogen (Normal) mg/dL Ur Leukocyte Esterase (Negative) Salicylates < 5.0 L (15-30) mg/dL Urine Opiates Screen (Anpawm=801) ng/mL Acetaminophen < 1.0 L (10-30) mcg/mL Ur Barbiturates Screen (Exuree=561) ng/mL Ur Phencyclidine Scrn (Cutoff=25) ng/mL Ur Amphetamines Screen (Tpllbc=4076) ng/mL U Benzodiazepines Scrn (Esuqel=662) ng/mL Urine Cocaine Screen (Cutoff= 300) ng/mL U Marijuana (THC) Screen (Cutoff = 50) ng/mL Ethyl Alcohol < 10 (0-10) mg/dL Overdose HPI - General Chief Complaint: ED Overdose Stated Complaint: OD Time Seen by Provider: 12/01/16 15:50 Source: patient, EMS Mode of arrival: ambulatory Limitations: altered mental status Nursing Notes Reviewed: Yes Vital Signs Reviewed: Yes - History of Present Illness HPI Narrative: She presents to the emergency department stating that he took an overdose of Klonopin 1 mg #30, Wellbutrin 150 mg XR #13, any's also stated that he obtained Percocet and Vicodin from the street and also took some of those but he is unsure as to how manymedications he took. He was just released from one a psychiatric unit this morning and indeed the Klonopin prescription is new and it the bottle was completely empty. None of the ingestion of medications were was observed by anyone. He became combative and abusive at home with serous department was called and devang was then called after that. He states that he wants to he would try to kill himself by taking the medications he is agitated he is cooperative at times he was combative with the EMS personnel on the way in to the hospital. We contacted poison control and they advised that he would need to be observed for 24 hours for possible seizure activity because of the overdose. However the Klonopin and Wellbutrin combination makes him at low risk. Pt Subjective Complaint: intentional overdose Onset (ago): Just [employer] Intent: suicide attempt Associated symptoms: depression Treatments Prior to Arrival: none - Related Data Home Medications Medication Instructions Recorded Confirmed Metoprolol XL (24 HR) Succ [Toprol 50 mg PO DAILY 06/30/16 11/28/16 Xl] Albuterol Sulfate [Ventolin Hfa] 2 puff IH Q4H PRN 09/16/16 11/28/16 EPINEPHrine [Epipen] 0.3 mg IM ONCE PRN 09/16/16 11/28/16 Pantoprazole Sodium [Protonix] 40 mg PO DAILY 09/16/16 11/28/16 Diclofenac Sodium [Voltaren] 50 mg PO Q8HR 11/27/16 11/28/16 Fluticasone Propionate [Flovent 1 puff IH BID 11/27/16 11/28/16 Hfa] Previous Rx's Medication Instructions Recorded Pyridostigmine Br [Mestinon] 60 mg PO Q8HR #90 tablet 02/24/16 methIMAzole [Tapazole] 5 mg PO DAILY #30 tablet 02/24/16 BuPROPion SR (12 HR) [Wellbutrin 150 mg PO 0900,1600 #60 tablet.er 12/01/16 SR] Gabapentin [Neurontin] 600 mg PO TID #180 capsule 12/01/16 clonazePAM [Klonopin] 1 mg PO BID PRN #30 tablet 12/01/16 Allergies Allergy/AdvReac Type Severity Reaction Status Date / Time Penicillins Allergy Hives Verified 11/26/16 22:29 codeine AdvReac Vomiting Verified 11/26/16 22:29 All systems ED: reviewed and negative except as stated. Constitutional: Denies: fever, chills, weakness, weight change Past Medical History - Past Medical History Attestation: Yes The following information was validated with the patient. Source: patient, nursing notes reviewed Medical history: Reports: hypertension, thyroid disease, other Surgical history: Reports: cholecystectomy Psychiatric history: Reports: depression, prior suicide attempt, schizophrenia, previous psychiatric hospitalization - Social History Smoking Status: Current every day smoker Smokeless Tobacco Status: No Alcohol use: Reports: occasionally Drug use: Reports: cocaine, marijuana, methamphetamine Physical Exam - General Limitations: altered mental status General appearance: anxious - Head Head exam: atraumatic, normocephalic, normal inspection - Eye Eye exam: Present: normal appearance, PERRL, EOMI - Neck Neck exam: Present: normal inspection, full ROM, trachea midline - Chest Chest inspection: Present: normal inspection, symmetric chest wall rise - Respiratory Respiratory exam: Present: normal lung sounds bilaterally - Cardiovascular Cardiovascular exam: Present: regular rate, normal rhythm, normal heart sounds - Abdominal Exam Abdominal exam: Present: soft, Non-Tender. Absent: tenderness, distention, guarding, rebound, rigidity - Extremities Exam Extremities exam: Present: normal inspection, full ROM. Absent: tenderness, pedal edema - Back Exam Back exam: Present: normal inspection, full ROM. Absent: tenderness - Neurological Exam Neurological exam: Present: alert, oriented X3, CN II-XII intact, normal gait, reflexes normal - Psychiatric Psychiatric exam: Present: depressed, agitated, anxious, suicidal ideation - Skin Skin exam: Present: warm, dry, intact, normal color Course - Consultations Consultation #1: spoke with Lia Nicole, hospitalist, she will accept for 24 obs for seizure precautions. Time: 17:42 Vital Signs Temperature 98.3 F 12/01/16 15:27 Pulse Rate 97 12/01/16 15:27 Respiratory Rate 20 12/01/16 15:27 Blood Pressure 122/66 12/01/16 15:27 O2 Sat by Pulse Oximetry 97 12/01/16 15:27 Temperature 98.3 F 12/01/16 17:41 Pulse Rate 97 12/01/16 17:41 Respiratory Rate 20 12/01/16 18:34 Blood Pressure 120/89 12/01/16 18:34 O2 Sat by Pulse Oximetry 97 12/01/16 17:41 Oxygen Delivery Oxygen Delivery Room Air Disposition Clinical Impression: Suicide attempt by multiple drug overdose Qualifiers: Encounter type: initial encounter Qualified Code(s): T50.902A - Poisoning by unspecified drugs, medicaments and biological substances, intentional self-harm , initial encounter Disposition: Admitted As Inpatient Condition: Fair Time of Disposition: 19:02
[2016-12-01 16:42] LABS: Bilirubin,Urine Negative (Negative); Blood,Urine Negative (Negative); Clarity,Urine Clear (Clear); Color,Urine Yellow (Yellow); Glucose,Urine (UA) Normal (Normal); Ketones,Urine Negative (Negative); Leukocyte Esterase,Urine Negative (Negative); Nitrite,Urine Negative (Negative); Protein,Urine Negative (Neg-Trace); Specific Gravity,Urine 1.014 (1.010-1.025); Urobilinogen,Urine Normal (Normal)
[2016-12-01 16:47] LABS: Amphetamine Screen,Urine Negative ng/mL (Cutoff=1000); Barbiturate Screen,Urine Negative ng/mL (Cutoff=200); Benzodiazepines Screen,Urine Positive ng/mL (Cutoff=200); Cannabinoid Screen,Urine Negative ng/mL (Cutoff = 50); Cocaine Screen,Urine Negative ng/mL (Cutoff= 300); Opiate Screen,Urine Negative ng/mL (Cutoff=300); Phencyclidine Screen,Urine Negative ng/mL (Cutoff=25)
[2016-12-01 16:48] LABS: Basophils # 0.1 K/mcL (0.0-0.2); Basophils % 1.1 %; Eosinophils # 0.9 K/mcL (0.0-0.6); Eosinophils % 7.4 %; Hematocrit 41.7 % (37.5-50.1); Hemoglobin 14.1 g/dL (12.9-16.9); Immature Granulocytes % 0.7 % (0-4); Lymphocytes # 3.5 K/mcL (0.6-4.6); Lymphocytes % 29.2 %; Mean Corpuscular HGB Conc 33.8 g/dL (31.6-35.5); Mean Corpuscular Hemoglobin 28.6 pg (28.0-33.3); Mean Corpuscular Volume 84.6 fL (83.0-100.0); Mean Platelet Volume 9.9 fL (9.4-12.4); Monocytes # 0.6 K/mcL (0.0-1.3); Monocytes % 5.4 %; Neutrophils # 6.7 K/mcL (1.6-8.9); Platelet Count 388 K/mcL (140-400); Red Blood Count 4.93 M/mcL (4.19-5.50); Red Cell Distribution Width 13.3 % (11.5-14.5); Segmented Neutrophils % 56.2 %
[2016-12-01 17:04] LABS: Alanine Aminotransferase 109 Units/L (0-55); Albumin 4.1 g/dL (3.5-5.0); Albumin/Globulin Ratio 1.1 (1.1-2.2); Alkaline Phosphatase 64 Units/L (38-126); Aspartate Amino Transferase 80 Units/L (5-34); BUN/Creatinine Ratio 14 (6-26); Bilirubin,Direct 0.2 mg/dL (0.0-0.5); Bilirubin,Indirect 0.2 mg/dL (0.0-1.2); Bilirubin,Total 0.4 mg/dL (0.2-1.2); Blood Urea Nitrogen 13 mg/dL (8-26); Calcium 10.2 mg/dL (8.6-10.8); Carbon Dioxide 24 mEq/L (19-29); Chloride 104 mEq/L (98-109); Globulin 3.8 g/dL (2.4-3.5); Glucose 85 mg/dL (70-99); Osmolality,Calculated 285 (280-300); Potassium 4.2 mEq/L (3.5-4.5); Sodium 138 mEq/L (136-145); Total Protein 7.9 g/dL (6.0-8.3); eGFR For African Americans > 60 (> 60); eGFR For Non-African Americans > 60 (> 60)
[2016-12-01 17:23] LABS: Ethanol < 10 mg/dL (0-10); Salicylate < 5.0 mg/dL (15-30)
[2016-12-01] MEDS ORDERED: OLANZapine 10 MG TAB.RAPDIS PO STA (17:27)
[2016-12-01] MEDS ORDERED: OLANZapine 10 MG VIAL IM ONE (17:33)
[2016-12-01 18:11] LABS: Acetaminophen < 1.0 mcg/mL (10-30)
[2016-12-01] MEDS ORDERED: Naloxone 0.4 MG/ML INJ IVP PRN (21:04)
--- NOTE | 2016-12-01 21:09 | Internal Med History&Physical ---
Date of Encounter: 12/01/16 Time of Encounter: 20:30 Assessment and Plan (1) Suicide attempt by multiple drug overdose Current visit: Yes Status: Acute Pt apparently had overdose of Klonopin 1 mg #30, Wellbutrin 150 mg XR #13. Will monitor for seizures; suicide precautions. Psychiatry consult Qualifiers: Encounter type: initial encounter Qualified Code(s): T50.902A - Poisoning by unspecified drugs, medicaments and biological substances, intentional self- harm, initial encounter (2) Combative behavior Current visit: Yes Status: Acute Pt was given zyprexa in the ER. WIll monitor and provide supportive care. may need restraints (Apprently was combative during his recent hospitalization (3) Bipolar disorder Current visit: Yes Status: Chronic Psychiatry consult Qualifiers: Active/Remission status: currently active Current bipolar episode type: depressed Current episode severity: severe Psychotic features: with psychotic features Qualified Code(s): F31.5 - Bipolar disorder, current episode depressed, severe, with psychotic features (4) Polysubstance dependence Current visit: Yes Status: Chronic Supportive care (5) Tobacco abuse Current visit: Yes Status: Chronic Will student services counselor when the pt is awake and co-operative Internal Medicine - H&P: HPI Chief complaint: Overdose of medications Admitted From: Emergency Dept Plans for Post Hospital Care: Transfer Psych Facility History of present illness: Pt was given Zyprexa in the ER and is somnolent and not responsive to verbal stimuli. Hx is obtained from the reviewing the ER notes and prior admission records. Mr. Jalloh is a 41 year old male with h/o bipolar disorder and cannabis abuse and recent hospitalization and discharged today from psychiatry unit (1A) . he was discharged home with klonipin. He presented to the ER with h/o an overdose of Klonopin 1 mg #30, Wellbutrin 150 mg XR #13. He apparently obtained Percocet and Vicodin from the street and also took some of those but he is unsure as to how many medications he took. He apparently was combative and abusive at home. He was combative in the ER and was given Zyprexa and was started on restraints. ER physician contacted poison control and they advised to observe the pt for 24 hours for possible seizure activity because of the overdose. However the Klonopin and Wellbutrin combination makes him at low risk. He is admitted to the hospitalist service for further management. Past Med Surg Social Fam HX - Past Medical History Medical history: hypertension, thyroid disease, other Psychiatric history: depression, prior suicide attempt, schizophrenia, previous psychiatric hospitalization - Past Surgical History Surgical History: cholecystectomy - Social History Smoking Status: Current every day smoker Smokeless Tobacco Status: No Alcohol use: occasionally Drug use: cocaine, marijuana, methamphetamine - Additional Family History Additional family history: Could not obtain family Hx due to mental state ? somnulent Internal Medicine - H&P: Meds Pyridostigmine Br [Mestinon] 60 mg PO Q8HR #90 tablet 02/24/16 [Rx] methIMAzole [Tapazole] 5 mg PO DAILY #30 tablet 02/24/16 [Rx] Metoprolol XL (24 HR) Succ [Toprol Xl] 50 mg PO DAILY 06/30/16 [History] Albuterol Sulfate [Ventolin Hfa] 2 puff IH Q4H PRN 09/16/16 [History] EPINEPHrine [Epipen] 0.3 mg IM ONCE PRN 09/16/16 [History] Pantoprazole Sodium [Protonix] 40 mg PO DAILY 09/16/16 [History] Diclofenac Sodium [Voltaren] 50 mg PO Q8HR 11/27/16 [History] Fluticasone Propionate [Flovent Hfa] 1 puff IH BID 11/27/16 [History] BuPROPion SR (12 HR) [Wellbutrin SR] 150 mg PO 0900,1600 #60 tablet.er 12/01/16 [Rx] Gabapentin [Neurontin] 600 mg PO TID #180 capsule 12/01/16 [Rx] clonazePAM [Klonopin] 1 mg PO BID PRN #30 tablet 12/01/16 [Rx] Allergies Penicillins Allergy (Verified 11/26/16 22:29) Hives codeine Adverse Reaction (Verified 11/26/16 22:29) Vomiting ROS unobtainable: due to mental status - Constitutional Vitals: Temp Pulse Resp BP Pulse Ox 96.7 F L 82 15 103/67 95 12/01/16 21:00 12/01/16 21:00 12/01/16 21:00 12/01/16 21:00 12/01/16 21:00 Exam: General: Patient is sedated. Not responsive to verbal stimuli HEENT: Oral mucosa is dry. No conjunctival palor or scleral icterus Neck: No obvious neck swellings Lungs: Clear to auscultation Cardiac: Regular rate and rhythm. No significant murmurs Abdomen: Soft, non tender. Bowel sounds present Genitourinary: No coreas catheter Neurological: Patient is sedated. Not responsive to verbal stimuli Psych: Patient is sedated. Not responsive to verbal stimuli Extremities: no significant leg edema Skin: No generalized rash Internal Med - H&P Results - Labs CBC & Chem 7: 12/01/16 16:37 12/01/16 16:37 - EKG Data -: EKG Interpreted by Myself EKG shows normal: sinus rhythm - EKG Data EKG comments: RBBB, QTc: 380 ms 12/02/16 08:48
[2016-12-01] MEDS ORDERED: 0.9 % Sodium Chloride 1,000 ML IVC SCH (21:15)
[2016-12-02 03:09] VITALS: BP 117/74
[2016-12-02] MEDS ORDERED: HydrOXYzine 100 MG/2 ML VIAL IM ONE (04:17)
[2016-12-02] MEDS ORDERED: Haloperidol Lactate 5 MG/ML VIAL IM ONE (04:17)
[2016-12-02] MEDS ORDERED: Haloperidol Lactate 5 MG/ML VIAL IVP PRN (08:15)
[2016-12-02] MEDS ORDERED: Metoprolol XL (24 HR) Succ 50 MG TAB.ER.24H PO SCH (09:00)
[2016-12-02] MEDS ORDERED: methIMAzole 5 MG TABLET PO SCH (09:00)
[2016-12-02] MEDS ORDERED: Beclomethasone 40mcg MDI IH SCH (09:00)
[2016-12-02 13:28] LABS: Alanine Aminotransferase 106 Units/L (0-55); Albumin 3.6 g/dL (3.5-5.0); Albumin/Globulin Ratio 1.1 (1.1-2.2); Alkaline Phosphatase 62 Units/L (38-126); Aspartate Amino Transferase 78 Units/L (5-34); BUN/Creatinine Ratio 13 (6-26); Bilirubin,Total 0.6 mg/dL (0.2-1.2); Blood Urea Nitrogen 12 mg/dL (8-26); Calcium 9.4 mg/dL (8.6-10.8); Carbon Dioxide 25 mEq/L (19-29); Chloride 108 mEq/L (98-109); Globulin 3.4 g/dL (2.4-3.5); Glucose 99 mg/dL (70-99); Osmolality,Calculated 292 (280-300); Potassium 4.1 mEq/L (3.5-4.5); Sodium 141 mEq/L (136-145); eGFR For African Americans > 60 (> 60); eGFR For Non-African Americans > 60 (> 60)
--- NOTE | 2016-12-02 14:38 | Consult Note ---
Date of Encounter: 12/02/16 Time of Encounter: 14:26 Assessment & Recommendation (1) Suicidal ideation Current visit: No Status: Acute Assessment & Recommendation: Will clear from Psychiatry standpoint.....legal consequences cannot be enforced if he remains on a pink slip. Still needs medically cleared due to elevated liver enzymes. Best plan of action would be to have a mental health case opened with [employer] while client is incarcerated. Mr. Jalloh would benefit from case management and the hospital would benefit from having community providers who know Mr. Jalloh. Coordinating between inpatient and outpatient providers will be essential in his case. Mr. Jalloh will continue his current pattern of behaviors provided he knows he can get what he wants (injections, hospital admission) by acting out. However, with a coordinated plan of care between a community based mental health agency and ER/ inpatient services hopefully the cycle can be broken. History of Present Illness Requesting Physician: Arleth Duque MD Reason for consult: overdose History of present illness: Mr. Jalloh is a 41 year old male who was discharged from yesterday. After discharge he apparently overdosed on his prescribed Klonopin. Called emergency services himself (overdose unwitnessed). Admitted to a medical floor. Has been threatening and combative since arrival. Currently in restraints. On eval today he is sedated but cooperative. He denies SI. Doesn' t know why he took overdose. Asking to leave. No psychosis. Presentation is highly behavioral. There have been several meetings today between legal administration, medical personnel, and law enforcement as to best plan of action. Mr. Jalloh has been in and out of the hospital both here and the [facility] area for months/years. He presents to ERs and becomes agitated in order to obtain injections. Denies SI/HI when he wants to leave and then repeats cycle. Lack of consequences has reinforced this pattern. He is very high risk as he will often overdose or act aggressively in order to get his needs met. While this usually lands him in the hospital it could certainly have the unintended consequence of injury or . However, allowing his current pattern of behavior to continue is creating risk to other patients, staff, and the system at large. Medical staff are currently documenting all of the threats he is making (telling staff he will wait for them in the parking lot , will follow them home, etc.). May end up charged with a Felony. Assisted has been updated as to his behavior and at this time they are willing to take him and try to maintain him if charges are pressed (historically Mr. Jalloh will endorse SI while incarcerated and end up back in the hospital). CC: Arleth Duque MD Past Med Surg Social Fam HX - Past Medical History Medical history: hypertension, thyroid disease, other - Past Psychiatric History Psychiatric history: Reports: prior suicide attempt, previous psychiatric hospitalization Family psychiatric history: Unknown Family History of Suicide: Unknown - Past Surgical History Surgical History: cholecystectomy - Social History Smoking Status: Current every day smoker Smokeless Tobacco Status: No Alcohol use: occasionally Drug use: cocaine, marijuana, methamphetamine Medications & Allergies Pyridostigmine Br [Mestinon] 60 mg PO Q8HR #90 tablet 02/24/16 [Rx] methIMAzole [Tapazole] 5 mg PO DAILY #30 tablet 02/24/16 [Rx] Metoprolol XL (24 HR) Succ [Toprol Xl] 50 mg PO DAILY 06/30/16 [History] Albuterol Sulfate [Ventolin Hfa] 2 puff IH Q4H PRN 09/16/16 [History] EPINEPHrine [Epipen] 0.3 mg IM ONCE PRN 09/16/16 [History] Pantoprazole Sodium [Protonix] 40 mg PO DAILY 09/16/16 [History] Diclofenac Sodium [Voltaren] 50 mg PO Q8HR 11/27/16 [History] Fluticasone Propionate [Flovent Hfa] 1 puff IH BID 11/27/16 [History] BuPROPion SR (12 HR) [Wellbutrin SR] 150 mg PO 0900,1600 #60 tablet.er 12/01/16 [Rx] Gabapentin [Neurontin] 600 mg PO TID #180 capsule 12/01/16 [Rx] clonazePAM [Klonopin] 1 mg PO BID PRN #30 tablet 12/01/16 [Rx] Allergies Penicillins Allergy (Verified 11/26/16 22:29) Hives codeine Adverse Reaction (Verified 11/26/16 22:29) Vomiting Review of Systems Constitutional: Denies: fever, chills, weakness, weight change Eyes: Denies: eye pain, vision change Ears, Nose, Throat: Denies: ear pain, throat pain, dental pain, hearing loss, congestion Cardiovascular: Denies: chest pain, palpitations, dyspnea on exertion Respiratory: Denies: cough, dyspnea, wheezes Gastrointestinal: Denies: abdominal pain, nausea, vomiting, diarrhea, constipation Genitourinary male: Denies: urgency, dysuria, frequency, genital lesions Genitourinary female: Denies: urgency, dysuria, frequency, abnormal menses, dyspareunia Musculoskeletal: Denies: joint swelling, joint pain Integumentary: Denies: rash, lesions, pruritus Neurological: Denies: headache, weakness, numbness, memory loss Psychiatric: Reports: irritability, mood swings Endocrine: Denies: fatigue, heat or cold intolerance Hematologic/Lymphatic: Denies: easy bruising, lymphadenopathy Allergic/Immunologic: Denies: urticaria, itchy eyes Mental Status Exam Patient orientation: Yes Person, Yes Time, Yes Place Level of alertness: Sedated Patient appearance: Appropriate Behavior: agitated Psychomotor activity: Slowed Eye contact: Minimal Contact Mood description: Irritable Affect description: congruent with mood Speech pattern: Normal rate, Normal rhythm, Normal tone Speech volume: Soft/Quiet Thought process: Linear Thought content: No Suicidal ideation, No Homicidal ideation, No Overt delusions Perceptual disturbances: No Auditory hallucinations, No Visual hallucinations Attention span: Capable of Focused Attention Memory description: Grossly Intact Patient reliability: Questionable Historian Intelligence estimate: Below Average Judgment: Poor Insight: Minimal Results - Vital Signs Vital signs: Temp Pulse Resp BP Pulse Ox 97.5 F L 78 18 117/74 97 12/02/16 09:30 12/02/16 09:30 12/02/16 09:30 12/02/16 09:30 12/02/16 09:30 - Labs Labs: Laboratory Last Values WBC 11.8 K/mcL (4.3-11.1) H 12/01/16 16:37 RBC 4.93 M/mcL (4.19-5.50) 12/01/16 16:37 Hgb 14.1 g/dL (12.9-16.9) 12/01/16 16:37 Hct 41.7 % (37.5-50.1) 12/01/16 16:37 MCV 84.6 fL (83.0-100.0) 12/01/16 16:37 MCH 28.6 pg (28.0-33.3) 12/01/16 16:37 MCHC 33.8 g/dL (31.6-35.5) 12/01/16 16:37 RDW 13.3 % (11.5-14.5) 12/01/16 16:37 Plt Count 388 K/mcL (140-400) 12/01/16 16:37 MPV 9.9 fL (9.4-12.4) 12/01/16 16:37 Immature Gran % 0.7 % (0-4) 12/01/16 16:37 Seg Neutrophils % 56.2 % 12/01/16 16:37 Lymphocytes % 29.2 % 12/01/16 16:37 Monocytes % 5.4 % 12/01/16 16:37 Eosinophils % 7.4 % 12/01/16 16:37 Basophils % 1.1 % 12/01/16 16:37 Neutrophils # 6.7 K/mcL (1.6-8.9) 12/01/16 16:37 Lymphocytes # 3.5 K/mcL (0.6-4.6) 12/01/16 16:37 Monocytes # 0.6 K/mcL (0.0-1.3) 12/01/16 16:37 Eosinophils # 0.9 K/mcL (0.0-0.6) H 12/01/16 16:37 Basophils # 0.1 K/mcL (0.0-0.2) 12/01/16 16:37 Sodium 141 mEq/L (136-145) 12/02/16 12:19 Potassium 4.1 mEq/L (3.5-4.5) 12/02/16 12:19 Chloride 108 mEq/L (98-109) 12/02/16 12:19 Carbon Dioxide 25 mEq/L (19-29) 12/02/16 12:19 BUN 12 mg/dL (8-26) 12/02/16 12:19 Creatinine 0.93 mg/dL (0.72-1.25) 12/02/16 12:19 Est GFR ( Amer) > 60 (> 60) 12/02/16 12:19 Est GFR (Non-Af Amer) > 60 (> 60) 12/02/16 12:19 BUN/Creatinine Ratio 13 (6-26) 12/02/16 12:19 Glucose 99 mg/dL (70-99) 12/02/16 12:19 Calculated Osmolality 292 (280-300) 12/02/16 12:19 Calcium 9.4 mg/dL (8.6-10.8) 12/02/16 12:19 Total Bilirubin 0.6 mg/dL (0.2-1.2) 12/02/16 12:19 Direct Bilirubin 0.2 mg/dL (0.0-0.5) 12/01/16 16:37 Indirect Bilirubin 0.2 mg/dL (0.0-1.2) 12/01/16 16:37 AST 78 Units/L (5-34) H 12/02/16 12:19 ALT 106 Units/L (0-55) H 12/02/16 12:19 Alkaline Phosphatase 62 Units/L (38-126) 12/02/16 12:19 Serum Total Protein 7.0 g/dL (6.0-8.3) 12/02/16 12:19 Albumin 3.6 g/dL (3.5-5.0) 12/02/16 12:19 Globulin 3.4 g/dL (2.4-3.5) 12/02/16 12:19 Albumin/Globulin Ratio 1.1 (1.1-2.2) 12/02/16 12:19 Urine Color Yellow (Yellow) 12/01/16 16:18 Urine Clarity Clear (Clear) 12/01/16 16:18 Urine pH 7.0 pH Units (5.0-8.0) 12/01/16 16:18 Ur Specific [place] 1.014 (1.010-1.025) 12/01/16 16:18 Urine Protein Negative mg/dL (Neg-Trace) 12/01/16 16:18 Urine Glucose (UA) Normal mg/dL (Normal) 12/01/16 16:18 Urine Ketones Negative mg/dL (Negative) 12/01/16 16:18 Urine Blood Negative (Negative) 12/01/16 16:18 Urine Nitrite Negative (Negative) 12/01/16 16:18 Urine Bilirubin Negative (Negative) 12/01/16 16:18 Urine Urobilinogen Normal mg/dL (Normal) 12/01/16 16:18 Ur Leukocyte Esterase Negative (Negative) 12/01/16 16:18 Salicylates < 5.0 mg/dL (15-30) L 12/01/16 16:37 Urine Opiates Screen Negative ng/mL (Iaejsm=719) 12/01/16 16:18 Acetaminophen < 1.0 mcg/mL (10-30) L 12/01/16 16:37 Ur Barbiturates Screen Negative ng/mL (Fdwnem=168) 12/01/16 16:18 Ur Phencyclidine Scrn Negative ng/mL (Cutoff=25) 12/01/16 16:18 Ur Amphetamines Screen Negative ng/mL (Faszvp=2884) 12/01/16 16:18 U Benzodiazepines Scrn Positive ng/mL (Syybyp=323) H 12/01/16 16:18 Urine Cocaine Screen Negative ng/mL (Cutoff= 300) 12/01/16 16:18 U Marijuana (THC) Screen Negative ng/mL (Cutoff = 50) 12/01/16 16:18 Ethyl Alcohol < 10 mg/dL (0-10) 12/01/16 16:37 Specimen Rejected Clotted 12/02/16 12:19 Consult Discharge Plan - Plan Referrals: NO,PCP [Primary Care Provider] -
[2016-12-02] MEDS ORDERED: Pyridostigmine Br 60 MG TABLET PO SCH (16:00)
--- NOTE | 2016-12-02 16:03 | Discharge Summary ---
Date of Encounter: 12/02/16 Time of Encounter: 13:00 - Discharge Diagnosis (1) Drug overdose Priority: Primary Status: Acute Qualifiers: Encounter type: subsequent encounter Injury intent: intentional self-harm Qualified Code(s): T50.902D - Poisoning by unspecified drugs, medicaments and biological substances, intentional self-harm, subsequent encounter (2) Suicidal ideation Priority: Primary Status: Acute (3) Depression Priority: Secondary Status: Chronic Qualifiers: Depression Type: major depressive disorder Major depression recurrence: recurrent Active/Remission status: currently active Major depression episode severity: severe Psychotic features: without psychotic features Qualified Code(s): F33.2 - Major depressive disorder, recurrent severe without psychotic features (4) Mood disorder Priority: Secondary Status: Chronic (5) Personality disorder Priority: Secondary Status: Chronic (6) Intermittent explosive disorder Priority: Secondary Status: Chronic - Discharge Medications Home Medications: Pyridostigmine Br [Mestinon] 60 mg PO Q8HR #90 tablet 02/24/16 [Rx] methIMAzole [Tapazole] 5 mg PO DAILY #30 tablet 02/24/16 [Rx] Metoprolol XL (24 HR) Succ [Toprol Xl] 50 mg PO DAILY 06/30/16 [History] Albuterol Sulfate [Ventolin Hfa] 2 puff IH Q4H PRN 09/16/16 [History] EPINEPHrine [Epipen] 0.3 mg IM ONCE PRN 09/16/16 [History] Pantoprazole Sodium [Protonix] 40 mg PO DAILY 09/16/16 [History] Diclofenac Sodium [Voltaren] 50 mg PO Q8HR 11/27/16 [History] Fluticasone Propionate [Flovent Hfa] 1 puff IH BID 11/27/16 [History] BuPROPion SR (12 HR) [Wellbutrin SR] 150 mg PO 0900,1600 #60 tablet.er 12/01/16 [Rx] Gabapentin [Neurontin] 600 mg PO TID #180 capsule 12/01/16 [Rx] clonazePAM [Klonopin] 1 mg PO BID PRN #30 tablet 12/01/16 [Rx] Allergies/Adverse Reactions: Allergies Penicillins Allergy (Verified 11/26/16 22:29) Hives codeine Adverse Reaction (Verified 11/26/16 22:29) Vomiting Procedures/tests Complete & Pending: Procedures Performed prior 72 hours Category Date Time Status ECG 12 lead ECG [ECG] Routine Y 12/02/16 00:08 Completed - Notes to Outpatient Provider F/up AST/ALT, Hepatitis workup Date of admission: 12/01/16 21:04 Primary care physician: PCP NO Consults: 12/01/16 21:06 Consult to Psychiatry [CONS] Routine Consulting Provider: Donell Dukes Reason for Consult: Overdose of clonazepam Call Completed: No Discharging clinician: Arleth Duque Anticipated date of discharge: 12/02/16 - Patient Status Disposition: Home, Self-Care Condition: Fair Functional capacity at discharge: independent ambulation Overall status at discharge: patient is progressing back to baseline - Discharge Instructions Instructions: Suicide Prevention for Adults (DC), Suicide Prevention for Adults (GEN) Follow Up With: NO,PCP [Primary Care Provider] - Additional Instructions: F/up with [facility] as scheduled; patient requires close outpatient monitoring to prevent readmits; F/up with PCP in 2-3 weeks - Diet and Activity Activity: resume usual activities as tolerated Diet: advance to your usual diet, regular diet Hospital course: Mr. Jalloh is a 41 year old male with significant psychiatric history including mood disorder, intermittent explosive disorder, depression and suicidal ideation in the past, was admitted after presenting with reported overdose on benzodiazepines, unwitnessed. Poison control was contacted and recommended 24-hour observation. His labs were essentially normal except mildly elevated AST/ALT. Review of previous labs show that patient has had intermittent elevation in AST/ALT and he also has history of substance abuse, which could be contributing to this. Patient is noted to have extremely aggressive and violent outbursts while in the hospital, especially directed towards nursing staff/security staff. Previous notes from inpatient psychiatric report patient may be malingering just to get what he wants like IV medications and hospitalization. Patient was evaluated by psychiatry during this hospitalization and cleared for discharge with outpatient follow-up. Patient does require close outpatient follow-up and coordination between inpatient and outpatient care providers to avoid multiple hospitalizations with similar complaints. He needs to follow up with primary care provider for hyperthyroidism and to monitor his liver enzymes. - Time Spent with Patient Total time spent providing and/or coordinating discharge services: Greater than 30 minutes (45 min) - Constitutional Vitals: Temp Pulse Resp BP Pulse Ox 97.5 F L 78 18 117/74 97 12/02/16 09:30 12/02/16 09:30 12/02/16 09:30 12/02/16 09:30 12/02/16 09:30 General appearance: Present: A&O X 3 - Respiratory Respiratory exam: Present: CTAB. Absent: accessory muscle use, rales, rhonchi, wheezes - Cardiovascular Cardiovascular exam: Present: RRR, +S1, +S2. Absent: diastolic murmur, gallop, rubs, systolic murmur
--- NOTE | 2016-12-02 17:55 | Electrocardiograph Report ---
[place] [id number] Test Date: 2016-12-01 Pat Name: Jorge Jalloh Department: 105 Room: 3B22 Gender: M Stonemason: [place] : 1975 Requested By: Noreen Davey Order Number: [id number] Reading MD: Florin Correia MD Measurements Intervals [place] Rate: 97 P: 142 SC: 131 QRS: 173 QRSD: 94 T: 152 QT: 326 QTc: 380 Interpretive Statements SINUS RHYTHM ARM LEADS REVERSED Electronically Signed On 12-02-2016 17:52:58 EDT by Florin Correia MD
--- NOTE | 2016-12-02 18:02 | Electrocardiograph Report ---
[place] [id number] Test Date: 2016-12-02 Pat Name: Jorge Jalloh Department: 113 Room: 3B22 Gender: M Gyro Compass Tester: [id number] : 1975 Requested By: Renata Duque Order Number: [id number] Reading MD: Florin Correia MD Measurements Intervals [place] Rate: 96 P: 60 RI: 128 QRS: 6 QRSD: 105 T: 31 QT: 352 QTc: 406 Interpretive Statements SINUS RHYTHM BASELINE ARTIFACT Electronically Signed On 12-02-2016 18:00:20 EDT by Florin Correia MD
== END 2016-12-02 17:20 | disposition home or self-care (01) | DRG 812 ==
LOC: EMEROO 15:26 → 3BNU 15:26 → SUATTDRO 21:04
PROVIDERS: ADMIT Nurse Practitioner Family; ATTEND Internal Medicine

== ENCOUNTER 2016-12-05 09:26 | Observation (INO) ==
--- NOTE | 2016-12-05 09:34 | Emergency Department Note ---
Disposition Clinical Impression: Suicidal ideation Disposition: Still a Patient Condition: Fair Forms: ED Satisfaction Letter Time of Disposition: 11:08 Psych HPI - General Chief Complaint: ED Psychiatric Symptoms Stated Complaint: SI Time Seen by Provider: 12/05/16 09:28 Source: patient Mode of arrival: private vehicle Limitations: no limitations Nursing Notes Reviewed: Yes Vital Signs Reviewed: Yes - History of Present Illness HPI Narrative: 41-year-old male patient presents to the emergency department again with complaint of suicidal ideation. Patient is a frequent visitor of the emergency department who has chronic substance abuse issues. Patient states that he drank a fifth of whiskey and did meth yesterday and an attempt to hurt himself. He currently states that he does have fleeting suicidal ideations but denies any specific plan. This is not the first visit for this patient for this similar complaint. He has been evaluated extensively in the past. He has become agitated and angry with staff. Pt complaint: suicidal ideation ( ) If medical clearance, reason: intoxication Onset (ago): Just WE[employer] DRI[employer]PER[employer] CABLE TOOL Duration: intermittent History of similar episodes: Yes Improves with: none Worsens with: alcohol, drug use Context: recent alcohol abuse, recent drug abuse Alleged intoxication: Yes Associated Psychiatric Symptoms: suicidal ideation, racing thoughts Associated symptoms: Reports: denies other symptoms Traumatic symptoms: denies traumatic injury Treatments prior to arrival: none Self harm or harm to others: admits thoughts of self harm, denies thoughts of harming self/others - Related Data Home Medications Medication Instructions Recorded Confirmed Metoprolol XL (24 HR) Succ [Toprol 50 mg PO DAILY 06/30/16 12/02/16 Xl] Albuterol Sulfate [Ventolin Hfa] 2 puff IH Q4H PRN 09/16/16 12/02/16 EPINEPHrine [Epipen] 0.3 mg IM ONCE PRN 09/16/16 12/02/16 Pantoprazole Sodium [Protonix] 40 mg PO DAILY 09/16/16 12/02/16 Diclofenac Sodium [Voltaren] 50 mg PO Q8HR 11/27/16 12/02/16 Fluticasone Propionate [Flovent 1 puff IH BID 11/27/16 12/02/16 Hfa] Previous Rx's Medication Instructions Recorded Pyridostigmine Br [Mestinon] 60 mg PO Q8HR #90 tablet 02/24/16 methIMAzole [Tapazole] 5 mg PO DAILY #30 tablet 02/24/16 BuPROPion SR (12 HR) [Wellbutrin 150 mg PO 0900,1600 #60 tablet.er 12/01/16 SR] Gabapentin [Neurontin] 600 mg PO TID #180 capsule 12/01/16 clonazePAM [Klonopin] 1 mg PO BID PRN #30 tablet 12/01/16 Allergies Allergy/AdvReac Type Severity Reaction Status Date / Time Penicillins Allergy Hives Verified 12/02/16 22:22 codeine AdvReac Vomiting Verified 12/02/16 22:22 Past Medical History - Past Medical History Medical history: Reports: hypertension, thyroid disease, other Surgical history: Reports: cholecystectomy Psychiatric history: Reports: prior suicide attempt, previous psychiatric hospitalization - Social History Smoking Status: Current every day smoker Smokeless Tobacco Status: No Alcohol use: Reports: occasionally, recent Drug use: Reports: cocaine, marijuana, methamphetamine Course Course Narrative: Care transferred to Dr. Bearden and Dr. Nieves @ 1100. Psychiatric Medical Clearance - Medical Clearance Checklist Medical History: No Social History Section defined Statement of Medical Clearance: I have evaluated the patient, reviewed diagnostic information, and certify that the patient's medical condition is sufficiently stable that transfer to the psychiatric unit does not pose a significant risk of deterioration.
[2016-12-05 10:15] LABS: Basophils # 0.1 K/mcL (0.0-0.2); Basophils % 0.8 %; Eosinophils # 0.3 K/mcL (0.0-0.6); Eosinophils % 2.5 %; Hematocrit 46.6 % (37.5-50.1); Hemoglobin 15.4 g/dL (12.9-16.9); Immature Granulocytes % 0.4 % (0-4); Lymphocytes # 2.9 K/mcL (0.6-4.6); Lymphocytes % 28.8 %; Mean Corpuscular Hemoglobin 28.6 pg (28.0-33.3); Mean Corpuscular Volume 86.5 fL (83.0-100.0); Mean Platelet Volume 9.8 fL (9.4-12.4); Monocytes # 0.7 K/mcL (0.0-1.3); Monocytes % 7.3 %; Platelet Count 482 K/mcL (140-400); Red Blood Count 5.39 M/mcL (4.19-5.50); Red Cell Distribution Width 13.7 % (11.5-14.5); Segmented Neutrophils % 60.2 %
[2016-12-05 10:32] LABS: BUN/Creatinine Ratio 24 (6-26); Blood Urea Nitrogen 22 mg/dL (8-26); Calcium 9.7 mg/dL (8.6-10.8); Carbon Dioxide 24 mEq/L (19-29); Chloride 103 mEq/L (98-109); Ethanol 43 mg/dL (0-10); Glucose 92 mg/dL (70-99); Osmolality,Calculated 287 (280-300); Potassium 4.4 mEq/L (3.5-4.5); Sodium 137 mEq/L (136-145); eGFR For African Americans > 60 (> 60); eGFR For Non-African Americans > 60 (> 60)
[2016-12-05 10:34] LABS: Acetaminophen < 1.0 mcg/mL (10-30); Salicylate < 5.0 mg/dL (15-30)
[2016-12-05 10:37] LABS: Bilirubin,Urine Negative (Negative); Blood,Urine Negative (Negative); Clarity,Urine Clear (Clear); Color,Urine Dark Yellow (Yellow); Glucose,Urine (UA) Normal (Normal); Ketones,Urine 40 mg/dL (Negative); Leukocyte Esterase,Urine Negative (Negative); Nitrite,Urine Negative (Negative); PH,Urine 5.5 pH Units (5.0-8.0); Protein,Urine Negative (Neg-Trace); Specific Gravity,Urine 1.025 (1.010-1.025); Urobilinogen,Urine Normal (Normal)
[2016-12-05 11:15] LABS: Amphetamine Screen,Urine Positive ng/mL (Cutoff=1000); Barbiturate Screen,Urine Negative ng/mL (Cutoff=200); Benzodiazepines Screen,Urine Positive ng/mL (Cutoff=200); Cannabinoid Screen,Urine Positive ng/mL (Cutoff = 50); Cocaine Screen,Urine Negative ng/mL (Cutoff= 300); Opiate Screen,Urine Negative ng/mL (Cutoff=300); Phencyclidine Screen,Urine Negative ng/mL (Cutoff=25)
--- NOTE | 2016-12-05 11:22 | Emergency Department Note ---
Disposition Clinical Impression: Suicidal ideation, Visual hallucinations Disposition: Admitted As Inpatient Condition: Good Referrals: NO,PCP [Primary Care Provider] - Forms: ED Satisfaction Letter Psych HPI - General Chief Complaint: ED Psychiatric Symptoms Stated Complaint: SI Time Seen by Provider: 12/05/16 09:28 Source: patient Mode of arrival: private vehicle Limitations: no limitations Nursing Notes Reviewed: Yes Vital Signs Reviewed: Yes - History of Present Illness HPI Narrative: 41-year-old male presents to the ER with a chief complaint of attempted suicide last night as well as current suicidal ideation. Patient reports that last night he shot up 2 g of meth in his left arm took some Xanax and also drinks some alcohol in an attempt to harm himself. He states today that he still has thoughts of hurting himself but no specific plan. He reports visual hallucinations of seeing his girlfriend. He reports that he has been seen at this facility as well as many others for similar issues. He denies any recent changes in medications. No other complaints. Pt complaint: suicidal ideation Onset (ago): day(s) Duration: intermittent History of similar episodes: Yes Improves with: none Worsens with: alcohol, drug use Context: recent alcohol abuse, recent drug abuse Alleged intoxication: No Associated Psychiatric Symptoms: depression, suicidal ideation, visual hallucinations, anxiety Associated symptoms: Reports: denies other symptoms Traumatic symptoms: denies traumatic injury Treatments prior to arrival: none Self harm or harm to others: admits thoughts of self harm - Related Data Home Medications Medication Instructions Recorded Confirmed Metoprolol XL (24 HR) Succ [Toprol 50 mg PO DAILY 06/30/16 12/02/16 Xl] Albuterol Sulfate [Ventolin Hfa] 2 puff IH Q4H PRN 09/16/16 12/02/16 EPINEPHrine [Epipen] 0.3 mg IM ONCE PRN 09/16/16 12/02/16 Pantoprazole Sodium [Protonix] 40 mg PO DAILY 09/16/16 12/02/16 Diclofenac Sodium [Voltaren] 50 mg PO Q8HR 11/27/16 12/02/16 Fluticasone Propionate [Flovent 1 puff IH BID 11/27/16 12/02/16 Hfa] Previous Rx's Medication Instructions Recorded Pyridostigmine Br [Mestinon] 60 mg PO Q8HR #90 tablet 02/24/16 methIMAzole [Tapazole] 5 mg PO DAILY #30 tablet 02/24/16 BuPROPion SR (12 HR) [Wellbutrin 150 mg PO 0900,1600 #60 tablet.er 12/01/16 SR] Gabapentin [Neurontin] 600 mg PO TID #180 capsule 12/01/16 clonazePAM [Klonopin] 1 mg PO BID PRN #30 tablet 12/01/16 Allergies Allergy/AdvReac Type Severity Reaction Status Date / Time Penicillins Allergy Hives Verified 12/05/16 09:47 codeine AdvReac Vomiting Verified 12/05/16 09:47 All systems ED: reviewed and negative except as stated. Cardiovascular: Denies: chest pain Respiratory: Denies: dyspnea Gastrointestinal: Denies: abdominal pain Psychiatric: Reports: anxiety, depression, suicidal thoughts, visual hallucinations. Denies: homicidal thoughts, auditory hallucinations Past Medical History - Past Medical History Attestation: Yes The following information was validated with the patient. Source: patient Medical history: Reports: hypertension, thyroid disease, other Surgical history: Reports: cholecystectomy Psychiatric history: Reports: prior suicide attempt, previous psychiatric hospitalization - Social History Smoking Status: Current every day smoker Smokeless Tobacco Status: No Alcohol use: Reports: occasionally, recent Drug use: Reports: cocaine, marijuana, methamphetamine Physical Exam - General Limitations: no limitations General appearance: alert, in no apparent distress - Head Head exam: atraumatic, normocephalic, normal inspection - Eye Eye exam: Present: normal appearance, EOMI - ENT ENT exam: normal exam - Neck Neck exam: Present: normal inspection - Chest Chest inspection: Present: normal inspection, symmetric chest wall rise - Respiratory Respiratory exam: Present: normal lung sounds bilaterally - Cardiovascular Cardiovascular exam: Present: normal rhythm, tachycardia, normal heart sounds - Abdominal Exam Abdominal exam: Present: soft, Non-Tender. Absent: tenderness - Extremities Exam Extremities exam: Present: normal inspection, full ROM - Expanded Upper Extremity Exam Shoulder exam: Present: normal inspection, full ROM Arm exam: Present: normal inspection, full ROM Elbow exam: Present: normal inspection, full ROM Forearm/Wrist exam: Present: normal inspection, full ROM Hand exam: Present: normal inspection, full ROM - Expanded Lower Extremity Exam Hip/Pelvis exam: Present: normal inspection, full ROM Upper leg exam: Present: normal inspection, full ROM Knee exam: Present: normal inspection, full ROM Lower leg exam: Present: normal inspection, full ROM Ankle exam: Present: normal inspection, full ROM Foot/toe exam: Present: normal inspection, full ROM Neurovascular/Tendon exam: Absent: motor deficit, sensory deficit - Neurological Exam Neurological exam: Present: alert, other (Nonfocal neurologic exam. GCS 15. Moves all extremities.) - Psychiatric Psychiatric exam: Present: anxious - Skin Skin exam: Present: warm, dry, intact, normal color Course Course Narrative: Patient seen and examined. Vital signs reviewed. We will get medical clearance labs for psychiatric evaluation. Patient currently endorses suicidal thoughts and will be pink slipped. Vital Signs Temperature 97.8 F 12/05/16 09:27 Pulse Rate 109 12/05/16 09:27 Respiratory Rate 16 12/05/16 09:27 Blood Pressure 118/70 12/05/16 09:27 O2 Sat by Pulse Oximetry 96 12/05/16 09:27 Temperature 97.8 F 12/05/16 09:27 Pulse Rate 101 12/05/16 14:36 Respiratory Rate 16 12/05/16 14:36 Blood Pressure 111/70 12/05/16 14:36 O2 Sat by Pulse Oximetry 96 12/05/16 14:36 Oxygen Delivery Oxygen Delivery Room Air Psych - MDM Narrative Medical decision making narrative: 41-year-old male presents to the ER due to suicidal ideation and alleged suicide attempt last night. Medically cleared here and evaluated by psychiatric service. He is accepted by the psychiatric team for admission and for inpatient management. - Lab Data Lab results reviewed: Yes I reviewed the patient's lab results. Result diagrams: 12/05/16 10:07 12/05/16 10:07 Lab Results 12/05/16 12/05/16 12/05/16 Range/Units 10:07 10:07 10:25 WBC 9.9 (4.3-11.1) K/mcL RBC 5.39 (4.19-5.50) M/mcL Hgb 15.4 (12.9-16.9) g/dL Hct 46.6 (37.5-50.1) % MCV 86.5 (83.0-100.0) fL MCH 28.6 (28.0-33.3) pg MCHC 33.0 (31.6-35.5) g/dL RDW 13.7 (11.5-14.5) % Plt Count 482 H (140-400) K/mcL MPV 9.8 (9.4-12.4) fL Immature Gran % 0.4 (0-4) % Seg Neutrophils % 60.2 % Lymphocytes % 28.8 % Monocytes % 7.3 % Eosinophils % 2.5 % Basophils % 0.8 % Neutrophils # 6.0 (1.6-8.9) K/mcL Lymphocytes # 2.9 (0.6-4.6) K/mcL Monocytes # 0.7 (0.0-1.3) K/mcL Eosinophils # 0.3 (0.0-0.6) K/mcL Basophils # 0.1 (0.0-0.2) K/mcL Sodium 137 (136-145) mEq/L Potassium 4.4 (3.5-4.5) mEq/L Chloride 103 (98-109) mEq/L Carbon Dioxide 24 (19-29) mEq/L BUN 22 D (8-26) mg/dL Creatinine 0.90 (0.72-1.25) mg/dL Est GFR ( Amer) > 60 (> 60) Est GFR (Non-Af Amer) > 60 (> 60) BUN/Creatinine Ratio 24 (6-26) Glucose 92 (70-99) mg/dL Calculated Osmolality 287 (280-300) Calcium 9.7 (8.6-10.8) mg/dL Urine Color Dark Yellow (Yellow) Urine Clarity Clear (Clear) Urine pH 5.5 (5.0-8.0) pH Units Ur Specific [place] 1.025 (1.010-1.025) Urine Protein Negative (Neg-Trace) mg/dL Urine Glucose (UA) Normal (Normal) mg/dL Urine Ketones 40 H (Negative) mg/dL Urine Blood Negative (Negative) Urine Nitrite Negative (Negative) Urine Bilirubin Negative (Negative) Urine Urobilinogen Normal (Normal) mg/dL Ur Leukocyte Esterase Negative (Negative) Salicylates < 5.0 L (15-30) mg/dL Urine Opiates Screen (Vgsivu=672) ng/mL Acetaminophen < 1.0 L (10-30) mcg/mL Ur Barbiturates Screen (Goriaq=143) ng/mL Ur Phencyclidine Scrn (Cutoff=25) ng/mL Ur Amphetamines Screen (Muxyuo=2062) ng/mL U Benzodiazepines Scrn (Zrgffo=229) ng/mL Urine Cocaine Screen (Cutoff= 300) ng/mL U Marijuana (THC) Screen (Cutoff = 50) ng/mL Ethyl Alcohol 43 H (0-10) mg/dL 12/05/16 Range/Units 10:25 WBC (4.3-11.1) K/mcL RBC (4.19-5.50) M/mcL Hgb (12.9-16.9) g/dL Hct (37.5-50.1) % MCV (83.0-100.0) fL MCH (28.0-33.3) pg MCHC (31.6-35.5) g/dL RDW (11.5-14.5) % Plt Count (140-400) K/mcL MPV (9.4-12.4) fL Immature Gran % (0-4) % Seg Neutrophils % % Lymphocytes % % Monocytes % % Eosinophils % % Basophils % % Neutrophils # (1.6-8.9) K/mcL Lymphocytes # (0.6-4.6) K/mcL Monocytes # (0.0-1.3) K/mcL Eosinophils # (0.0-0.6) K/mcL Basophils # (0.0-0.2) K/mcL Sodium (136-145) mEq/L Potassium (3.5-4.5) mEq/L Chloride (98-109) mEq/L Carbon Dioxide (19-29) mEq/L BUN (8-26) mg/dL Creatinine (0.72-1.25) mg/dL Est GFR ( Amer) (> 60) Est GFR (Non-Af Amer) (> 60) BUN/Creatinine Ratio (6-26) Glucose (70-99) mg/dL Calculated Osmolality (280-300) Calcium (8.6-10.8) mg/dL Urine Color (Yellow) Urine Clarity (Clear) Urine pH (5.0-8.0) pH Units Ur Specific [place] (1.010-1.025) Urine Protein (Neg-Trace) mg/dL Urine Glucose (UA) (Normal) mg/dL Urine Ketones (Negative) mg/dL Urine Blood (Negative) Urine Nitrite (Negative) Urine Bilirubin (Negative) Urine Urobilinogen (Normal) mg/dL Ur Leukocyte Esterase (Negative) Salicylates (15-30) mg/dL Urine Opiates Screen Negative (Hvhpwq=042) ng/mL Acetaminophen (10-30) mcg/mL Ur Barbiturates Screen Negative (Vgzhgf=451) ng/mL Ur Phencyclidine Scrn Negative (Cutoff=25) ng/mL Ur Amphetamines Screen Positive H (Hbzuyu=2935) ng/mL U Benzodiazepines Scrn Positive H (Vgxdsx=254) ng/mL Urine Cocaine Screen Negative (Cutoff= 300) ng/mL U Marijuana (THC) Screen Positive H (Cutoff = 50) ng/mL Ethyl Alcohol (0-10) mg/dL Psychiatric Medical Clearance - Medical Clearance Checklist Medical History: No Social History Section defined Current Vitals: Last Vital Signs Temp 97.8 F 12/05/16 09:27 Pulse 101 12/05/16 14:36 Resp 16 12/05/16 14:36 BP 111/70 12/05/16 14:36 Pulse Ox 96 12/05/16 14:36 Psychiatric Lab Panel: Drug Levels and Toxicity 12/05/16 12/05/16 10:07 10:25 Urine Opiates Screen Negative Acetaminophen < 1.0 L Ur Barbiturates Screen Negative Ur Phencyclidine Scrn Negative Ur Amphetamines Screen Positive H U Benzodiazepines Scrn Positive H Urine Cocaine Screen Negative U Marijuana (THC) Screen Positive H Ethyl Alcohol 43 H Abnormal Labs: Abnormal lab results Plt Count 482 K/mcL (140-400) H 12/05/16 10:07 Urine Ketones 40 mg/dL (Negative) H 12/05/16 10:25 Salicylates < 5.0 mg/dL (15-30) L 12/05/16 10:07 Acetaminophen < 1.0 mcg/mL (10-30) L 12/05/16 10:07 Ur Amphetamines Screen Positive ng/mL (Mxaikd=8914) H 12/05/16 10:25 U Benzodiazepines Scrn Positive ng/mL (Clkmim=592) H 12/05/16 10:25 U Marijuana (THC) Screen Positive ng/mL (Cutoff = 50) H 12/05/16 10:25 Ethyl Alcohol 43 mg/dL (0-10) H 12/05/16 10:07 Attestation Statement - Attestation Attestation: I examined this patient and my medical decision-making was reviewed with the SAFETY DIRECTOR/PA/Advanced Practice Nurse/Resident Physician. I agree with the documented findings, disposition and treatment plan as described except to the extent set forth below. Patient to emergency Department with suicidal thoughts. Patient states he used methamphetamine and drank liquor to try to kill himself. Long-standing history of suicidal ideation and substance abuse. Exam nonfocal. Plan. Patient has been evaluated by [facility]. Awaiting placement. Patient admitted to [facility]
--- NOTE | 2016-12-05 15:52 | Psychiatry History & Physical ---
Date of Encounter: 12/05/16 Time of Encounter: 15:45 History of Present Illness Patient Stated Chief Complaint: suicidal ideation Medicare Admission Attestation: For traditional Medicare patients the provided hospital inpatient services are reasonable and necessary and in the case of services not specified as inpatient -only under 42 CFR 419.22 (n), that they are appropriately provided as inpatient services in accordance 42 CFR 412.3. For Critical Access Hospital the patient may reasonably be expected to be discharged or transferred to a hospital within 96 hours after admission to the Critical Access Hospital. Admitted From: Home Plans for Post Hospital Care: Home History of Present Illness: Mr. Jalloh is a 41 year old male who was admitted on an observational status after he re-presented to the ER endorsing SI. He was discharged from less then a week ago. Within hours of leaving he had taken all of his Klonopin and re-presented to the ER. Admitted to a medical floor and became so threatening the hospital debated pressing legal charges. He was discharged from the medical floor and then showed back up at the ER with meth in his system and a broken rib. Discharged again and now he is back with SI. Given his history Jorge is not welcome at any AOD treatment facilities nor any respite care beds. Staff are trying to get him an intake appointment with [facility] tomorrow. What he really needs is intensive outpatient services. He needs a community treatment team who knows him and can liaison with hospital staff to help Jorge stop his revolving door cycle. Discussed this with Jorge today. He is agreeable. Queried about his ability to be safe and he responded with "you won't have any trouble with me tonight." Plan will be to discharge him to intake appointment with [facility] tomorrow morning. Past Med Surg Social Fam HX - Past Medical History Medical history: hypertension, thyroid disease, other - Past Psychiatric History Psychiatric history: Reports: bipolar, prior suicide attempt, previous psychiatric hospitalization Family psychiatric history: Unknown Family History of Suicide: Unknown - Past Surgical History Surgical History: cholecystectomy - Social History Smoking Status: Current every day smoker Smokeless Tobacco Status: No Alcohol use: occasionally, recent Drug use: cocaine, marijuana, methamphetamine Medications & Allergies Pyridostigmine Br [Mestinon] 60 mg PO Q8HR #90 tablet 02/24/16 [Rx] methIMAzole [Tapazole] 5 mg PO DAILY #30 tablet 02/24/16 [Rx] Metoprolol XL (24 HR) Succ [Toprol Xl] 50 mg PO DAILY 06/30/16 [History] Albuterol Sulfate [Ventolin Hfa] 2 puff IH Q4H PRN 09/16/16 [History] EPINEPHrine [Epipen] 0.3 mg IM ONCE PRN 09/16/16 [History] Pantoprazole Sodium [Protonix] 40 mg PO DAILY 09/16/16 [History] Diclofenac Sodium [Voltaren] 50 mg PO BID 11/27/16 [History] Fluticasone Propionate [Flovent Hfa] 1 puff IH BID 11/27/16 [History] BuPROPion SR (12 HR) [Wellbutrin SR] 150 mg PO 0900,1600 #60 tablet.er 12/01/16 [Rx] clonazePAM [Klonopin] 1 mg PO BID PRN #30 tablet 12/01/16 [Rx] Gabapentin [Neurontin] 800 mg PO TID 12/05/16 [History] Allergies Penicillins Allergy (Verified 12/05/16 09:47) Hives codeine Adverse Reaction (Verified 12/05/16 09:47) Vomiting Review of Systems Constitutional: Denies: fever, chills, weakness, weight change Eyes: Denies: eye pain, vision change Ears, Nose, Throat: Denies: ear pain, throat pain, dental pain, hearing loss, congestion Cardiovascular: Denies: chest pain, palpitations, dyspnea on exertion Respiratory: Denies: cough, dyspnea, wheezes Gastrointestinal: Denies: abdominal pain, nausea, vomiting, diarrhea, constipation Genitourinary male: Denies: urgency, dysuria, frequency, genital lesions Genitourinary female: Denies: urgency, dysuria, frequency, abnormal menses, dyspareunia Musculoskeletal: Reports: other Integumentary: Denies: rash, lesions, pruritus Neurological: Denies: headache, weakness, numbness, memory loss Endocrine: Denies: fatigue, heat or cold intolerance Hematologic/Lymphatic: Denies: easy bruising, lymphadenopathy Allergic/Immunologic: Denies: urticaria, itchy eyes Mental Status Exam Patient orientation: Yes Person, Yes Time, Yes Place Level of alertness: Alert Patient appearance: Appropriate Behavior: calm, cooperative Psychomotor activity: Normal Eye contact: Maintains Eye Contact Mood description: Depressed Affect description: tearful Speech pattern: Normal rate, Normal rhythm, Normal tone Speech volume: Normal Thought process: Linear, Goal Oriented Thought content: No Suicidal ideation, No Homicidal ideation, No Overt delusions Perceptual disturbances: No Auditory hallucinations, No Visual hallucinations Attention span: Capable of Focused Attention Memory description: Grossly Intact Patient reliability: Questionable Historian Intelligence estimate: Average Judgment: Poor Insight: Minimal Exam - HEENT Head exam IM: Present: atraumatic Eye exam IM: Present: EOMI ENT exam IM: Present: mucous membranes moist - Neurological Neurological exam IM: Present: alert - Respiratory Respiratory exam IM: Present: CTAB - GI/Abdominal GI/Abdominal exam IM: Present: normal bowel sounds - Extremities Extremities exam IM: Present: full ROM - Skin Skin exam IM: Present: normal color Results - Vital Signs Vital signs: Temp Pulse Resp BP Pulse Ox 97.8 F 101 16 111/70 96 12/05/16 09:27 12/05/16 14:36 12/05/16 14:36 12/05/16 14:36 12/05/16 14:36 - Labs Labs: Laboratory Last Values WBC 9.9 K/mcL (4.3-11.1) 12/05/16 10:07 RBC 5.39 M/mcL (4.19-5.50) 12/05/16 10:07 Hgb 15.4 g/dL (12.9-16.9) 12/05/16 10:07 Hct 46.6 % (37.5-50.1) 12/05/16 10:07 MCV 86.5 fL (83.0-100.0) 12/05/16 10:07 MCH 28.6 pg (28.0-33.3) 12/05/16 10:07 MCHC 33.0 g/dL (31.6-35.5) 12/05/16 10:07 RDW 13.7 % (11.5-14.5) 12/05/16 10:07 Plt Count 482 K/mcL (140-400) H 12/05/16 10:07 MPV 9.8 fL (9.4-12.4) 12/05/16 10:07 Immature Gran % 0.4 % (0-4) 12/05/16 10:07 Seg Neutrophils % 60.2 % 12/05/16 10:07 Lymphocytes % 28.8 % 12/05/16 10:07 Monocytes % 7.3 % 12/05/16 10:07 Eosinophils % 2.5 % 12/05/16 10:07 Basophils % 0.8 % 12/05/16 10:07 Neutrophils # 6.0 K/mcL (1.6-8.9) 12/05/16 10:07 Lymphocytes # 2.9 K/mcL (0.6-4.6) 12/05/16 10:07 Monocytes # 0.7 K/mcL (0.0-1.3) 12/05/16 10:07 Eosinophils # 0.3 K/mcL (0.0-0.6) 12/05/16 10:07 Basophils # 0.1 K/mcL (0.0-0.2) 12/05/16 10:07 Sodium 137 mEq/L (136-145) 12/05/16 10:07 Potassium 4.4 mEq/L (3.5-4.5) 12/05/16 10:07 Chloride 103 mEq/L (98-109) 12/05/16 10:07 Carbon Dioxide 24 mEq/L (19-29) 12/05/16 10:07 BUN 22 mg/dL (8-26) D 12/05/16 10:07 Creatinine 0.90 mg/dL (0.72-1.25) 12/05/16 10:07 Est GFR ( Amer) > 60 (> 60) 12/05/16 10:07 Est GFR (Non-Af Amer) > 60 (> 60) 12/05/16 10:07 BUN/Creatinine Ratio 24 (6-26) 12/05/16 10:07 Glucose 92 mg/dL (70-99) 12/05/16 10:07 Calculated Osmolality 287 (280-300) 12/05/16 10:07 Calcium 9.7 mg/dL (8.6-10.8) 12/05/16 10:07 Urine Color Dark Yellow (Yellow) 12/05/16 10:25 Urine Clarity Clear (Clear) 12/05/16 10:25 Urine pH 5.5 pH Units (5.0-8.0) 12/05/16 10:25 Ur Specific [place] 1.025 (1.010-1.025) 12/05/16 10:25 Urine Protein Negative mg/dL (Neg-Trace) 12/05/16 10:25 Urine Glucose (UA) Normal mg/dL (Normal) 12/05/16 10:25 Urine Ketones 40 mg/dL (Negative) H 12/05/16 10:25 Urine Blood Negative (Negative) 12/05/16 10:25 Urine Nitrite Negative (Negative) 12/05/16 10:25 Urine Bilirubin Negative (Negative) 12/05/16 10:25 Urine Urobilinogen Normal mg/dL (Normal) 12/05/16 10:25 Ur Leukocyte Esterase Negative (Negative) 12/05/16 10:25 Salicylates < 5.0 mg/dL (15-30) L 12/05/16 10:07 Urine Opiates Screen Negative ng/mL (Ywwlwl=580) 12/05/16 10:25 Acetaminophen < 1.0 mcg/mL (10-30) L 12/05/16 10:07 Ur Barbiturates Screen Negative ng/mL (Icdjkg=149) 12/05/16 10:25 Ur Phencyclidine Scrn Negative ng/mL (Cutoff=25) 12/05/16 10:25 Ur Amphetamines Screen Positive ng/mL (Tlusqk=6290) H 12/05/16 10:25 U Benzodiazepines Scrn Positive ng/mL (Zgkfhc=793) H 12/05/16 10:25 Urine Cocaine Screen Negative ng/mL (Cutoff= 300) 12/05/16 10:25 U Marijuana (THC) Screen Positive ng/mL (Cutoff = 50) H 12/05/16 10:25 Ethyl Alcohol 43 mg/dL (0-10) H 12/05/16 10:07 Assessment and Plan (1) Bipolar disorder Current visit: No Status: Chronic Plan: Admit inpatient for safety and stabilization, Close observation, Suicide Precautions per unit protocol, Encourage participation in unit milieu, Group Therapy, Monitor sleep, Monitor appetite, Family/Supportive other meeting Risks, benefits, side effects, alternatives discussed w/pt: Yes Patient agreeable to treatment: Yes Plans for Post Hospital Care: Home Estimated Length of Stay (Days): 2 Qualifiers: Active/Remission status: currently active Current bipolar episode type: depressed Current episode severity: severe Psychotic features: without psychotic features Qualified Code(s): F31.4 - Bipolar disorder, current episode depressed, severe, without psychotic features
[2016-12-05] MEDS ORDERED: Haloperidol Lactate 5 MG/ML VIAL IM PRN (15:55)
[2016-12-05] MEDS ORDERED: Mag Hydrox/Al Hydrox/Simeth 30 ML UDC PO PRN (15:55)
[2016-12-05] MEDS ORDERED: Nicotine 2 MG GUM BC PRN (15:55)
[2016-12-05] MEDS ORDERED: hydrOXYzine pamoate 25 MG CAPSULE PO PRN (15:55)
[2016-12-05] MEDS ORDERED: Ibuprofen 400 MG TABLET PO PRN (15:55)
[2016-12-05] MEDS ORDERED: traZODone 50 MG TABLET PO PRN (15:55)
[2016-12-05] MEDS ORDERED: MOM Conc 10 ML UD.LIQ PO PRN (15:55)
[2016-12-05] MEDS: Gabapentin 400 MG CAPSULE PO SCH (20:57)
[2016-12-05] MEDS: Fluticasone Propionate Nasal 50 MCG/SPRAY BOTTLE NS SCH (20:58)
[2016-12-05] MEDS: Pyridostigmine Br 60 MG TABLET PO SCH (23:00)
[2016-12-06] MEDS: Gabapentin 400 MG CAPSULE PO SCH (08:01)
[2016-12-06] MEDS: Pyridostigmine Br 60 MG TABLET PO SCH (08:01)
[2016-12-06] MEDS: Fluticasone Propionate Nasal 50 MCG/SPRAY BOTTLE NS SCH (08:02)
[2016-12-06 08:06] VITALS: BP 128/80
[2016-12-06] MEDS ORDERED: methIMAzole 5 MG TABLET PO SCH (09:00)
[2016-12-06] MEDS ORDERED: Metoprolol XL (24 HR) Succ 50 MG TAB.ER.24H PO SCH (09:00)
[2016-12-06] MEDS ORDERED: BuPROPion SR (12 HR) 150 MG TABLET PO SCH (09:00)
--- NOTE | 2016-12-06 12:31 | Discharge Summary ---
Date of Encounter: 12/06/16 Time of Encounter: 12:26 Diagnosis - Discharge Diagnosis (1) Bipolar disorder Status: Chronic Qualifiers: Active/Remission status: currently active Current bipolar episode type: depressed Current episode severity: severe Psychotic features: without psychotic features Qualified Code(s): F31.4 - Bipolar disorder, current episode depressed, severe, without psychotic features Medications - Discharge Medications Pyridostigmine Br [Mestinon] 60 mg PO Q8HR #90 tablet 02/24/16 [Rx] methIMAzole [Tapazole] 5 mg PO DAILY #30 tablet 02/24/16 [Rx] Metoprolol XL (24 HR) Succ [Toprol Xl] 50 mg PO DAILY 06/30/16 [History] Albuterol Sulfate [Ventolin Hfa] 2 puff IH Q4H PRN 09/16/16 [History] EPINEPHrine [Epipen] 0.3 mg IM ONCE PRN 09/16/16 [History] Pantoprazole Sodium [Protonix] 40 mg PO DAILY 09/16/16 [History] Diclofenac Sodium [Voltaren] 50 mg PO BID 11/27/16 [History] Fluticasone Propionate [Flovent Hfa] 1 puff IH BID 11/27/16 [History] BuPROPion SR (12 HR) [Wellbutrin SR] 150 mg PO 0900,1600 #60 tablet.er 12/01/16 [Rx] clonazePAM [Klonopin] 1 mg PO BID PRN #30 tablet 12/01/16 [Rx] Gabapentin [Neurontin] 800 mg PO TID 12/05/16 [History] Allergies Penicillins Allergy (Verified 12/05/16 09:47) Hives codeine Adverse Reaction (Verified 12/05/16 09:47) Vomiting Provider Date of admission: 12/05/16 15:27 Primary care physician: PCP NO Discharging clinician: Maddison Pham Assessment and Plan - Patient/Caregiver Discharge Instructions Activity: resume usual activities as tolerated Diet: regular diet - Follow up Plan Follow up with: [facility] [Outside] - 12/06/16 9:00 am (The above appointment is with Lynnette Dowling counselor at [facility]. Your first appointment will be very thorough and you will be completing paperwork, meeting with a counselor, and developing a treatment plan for ongoing mental health and substance abuse services. You will receive follow- up appointments for on-going services, which could include case management, counseling, psychiatric medication management, Vivitrol, and other services deemed appropriate.) Overall status at discharge: Stable Disposition: Home, Self-Care Hospital Course Hospital course: Mr. Jalloh is a 41 year old male who was admitted overnight for observation after he presented to the ER with SI. Mr. Jalloh had been discharged from less then a week prior. He had also presented to the ER multiple times during the week after discharge and at one point he was admitted medically due to overdosing on his Klonopin. During his medical stay he had to be physically restrained as he became agitated and threatening toward the staff. It was discussed whether or not to press Felony charges against Mr. Jalloh at that time but he was discharged instead. He then re-presented to the ER and staff had several meetings as to the best way to intervene. Mr. Jalloh does not qualify for AOD treatment or respite care due to his criminal history. Staff talked to him about the necessity of outpatient community support and having a family caseworker to work with who might be able to intervene in times of crisis. Staff set up an intake appointment with [facility] for the morning after admission and Jorge was compliant with being discharged to that appointment. He had been cooperative overnight. He reported his baseline SI at the time of discharge and denied intent or plan. He seemed hopeful that there might be something in the community for him and he was future oriented thinking about the services he might be able to access. - Time Spent with Patient Total time spent providing and/or coordinating discharge services: Quality - Multiple Antipsychotics Patient discharged on 2 or more antipsychotic medications: No Procedures - Procedures Procedures: Medication Management, Crisis Stabilization, Supportive Therapy, Group Therapy Mental Status Exam - Mental Status Exam Patient orientation: Yes Person, Yes Time, Yes Place Level of alertness: Alert Patient appearance: Appropriate Behavior: calm, cooperative Psychomotor activity: Normal Eye contact: Maintains Eye Contact Mood description: Depressed Affect description: congruent with mood, full range Speech pattern: Normal rate, Normal rhythm, Normal tone Speech Volume: Normal Thought process: Linear, Goal Oriented Thought Content: Yes Suicidal ideation, No Homicidal ideation, No Overt delusions Perceptual Disturbances: No Auditory hallucinations, No Visual hallucinations Judgment: Limited Insight: Partial
== END 2016-12-06 08:16 | disposition home or self-care (01) ==
LOC: EMEROO 09:26 → 1ANU 09:26
PROVIDERS: ADMIT Psychiatry & Neurology Psychiatry; ATTEND Psychiatry & Neurology Psychiatry

== ENCOUNTER 2016-12-06 17:52 | Inpatient (IN) ==
[2016-12-06 19:13] LABS: Basophils % 0.3 %; Eosinophils # 0.3 K/mcL (0.0-0.6); Eosinophils % 2.3 %; Hematocrit 40.8 % (37.5-50.1); Immature Granulocytes % 0.3 % (0-4); Lymphocytes # 3.5 K/mcL (0.6-4.6); Lymphocytes % 30.1 %; Mean Corpuscular HGB Conc 34.3 g/dL (31.6-35.5); Mean Corpuscular Hemoglobin 29.1 pg (28.0-33.3); Mean Corpuscular Volume 84.8 fL (83.0-100.0); Mean Platelet Volume 9.8 fL (9.4-12.4); Monocytes # 0.6 K/mcL (0.0-1.3); Monocytes % 5.3 %; Neutrophils # 7.3 K/mcL (1.6-8.9); Platelet Count 432 K/mcL (140-400); Red Blood Count 4.81 M/mcL (4.19-5.50); Red Cell Distribution Width 13.2 % (11.5-14.5); Segmented Neutrophils % 61.7 %
[2016-12-06 19:30] LABS: Alanine Aminotransferase 76 Units/L (0-55); Albumin 3.8 g/dL (3.5-5.0); Alkaline Phosphatase 76 Units/L (38-126); Aspartate Amino Transferase 51 Units/L (5-34); BUN/Creatinine Ratio 11 (6-26); Bilirubin,Total 0.5 mg/dL (0.2-1.2); Calcium 9.5 mg/dL (8.6-10.8); Carbon Dioxide 20 mEq/L (19-29); Chloride 106 mEq/L (98-109); Globulin 3.9 g/dL (2.4-3.5); Glucose 132 mg/dL (70-99); Osmolality,Calculated 284 (280-300); Potassium 4.2 mEq/L (3.5-4.5); Sodium 137 mEq/L (136-145); Total Protein 7.7 g/dL (6.0-8.3); eGFR For African Americans > 60 (> 60); eGFR For Non-African Americans > 60 (> 60)
[2016-12-06 19:31] LABS: Acetaminophen < 1.0 mcg/mL (10-30); Blood Urea Nitrogen 8 mg/dL (8-26); Salicylate < 5.0 mg/dL (15-30)
[2016-12-06 19:32] LABS: Ethanol 140 mg/dL (0-10)
[2016-12-06 19:59] LABS: Bilirubin,Urine Negative (Negative); Clarity,Urine Clear (Clear); Color,Urine Yellow (Yellow); Glucose,Urine (UA) Normal (Normal); Ketones,Urine Negative (Negative)
[2016-12-06 20:00] LABS: Blood,Urine Negative (Negative); Leukocyte Esterase,Urine Negative (Negative); Nitrite,Urine Negative (Negative); PH,Urine 6.5 pH Units (5.0-8.0); Protein,Urine Negative (Neg-Trace); Specific Gravity,Urine 1.007 (1.010-1.025); Urobilinogen,Urine Normal (Normal)
[2016-12-06 20:00] LABS: Amphetamine Screen,Urine Negative ng/mL (Cutoff=1000); Barbiturate Screen,Urine Negative ng/mL (Cutoff=200); Benzodiazepines Screen,Urine Negative ng/mL (Cutoff=200); Cannabinoid Screen,Urine Negative ng/mL (Cutoff = 50); Cocaine Screen,Urine Negative ng/mL (Cutoff= 300); Opiate Screen,Urine Negative ng/mL (Cutoff=300); Phencyclidine Screen,Urine Negative ng/mL (Cutoff=25)
[2016-12-06] MEDS ORDERED: Acetaminophen 325 MG TABLET PO ONE (20:18)
[2016-12-06] MEDS ORDERED: *HR* LORazepam 1 MG TABLET PO ONE (21:14)
--- NOTE | 2016-12-06 21:31 | Emergency Department Note ---
Disposition Clinical Impression: Suicidal ideation Disposition: Admitted As Inpatient Condition: Fair Referrals: NO,PCP [Primary Care Provider] - Forms: ED Satisfaction Letter Time of Disposition: 03:17 Psych HPI - General Chief Complaint: ED Psychiatric Symptoms Stated Complaint: SI Time Seen by Provider: 12/06/16 20:18 Source: patient Mode of arrival: ambulatory Limitations: no limitations Nursing Notes Reviewed: Yes Vital Signs Reviewed: Yes - History of Present Illness HPI Narrative: 41-year-old male presents to the emergency department with suicidal ideation and "wants to get clean." Patient was recently admitted to our psychiatric facility and discharged home this morning. Patient has a long-standing history of substance abuse issues and states that he wants to get clean. His only known drug allergies are to penicillin and codeine. He is well-known to the emergency department. He is currently cool and calm, but does have a history of erratic behavior and anger issues. Pt complaint: suicidal ideation, feels depressed If medical clearance, reason: intoxication, psychiatric condition Onset (ago): week(s) Duration: constant, getting worse History of similar episodes: Yes Improves with: none Worsens with: none Context: recent alcohol abuse Alleged intoxication: Yes Associated Psychiatric Symptoms: suicidal ideation, racing thoughts Associated symptoms: Reports: denies other symptoms Traumatic symptoms: denies traumatic injury Treatments prior to arrival: none Self harm or harm to others: admits thoughts of self harm - Related Data Home Medications Medication Instructions Recorded Confirmed Metoprolol XL (24 HR) Succ [Toprol 50 mg PO DAILY 06/30/16 12/05/16 Xl] Albuterol Sulfate [Ventolin Hfa] 2 puff IH Q4H PRN 09/16/16 12/05/16 EPINEPHrine [Epipen] 0.3 mg IM ONCE PRN 09/16/16 12/05/16 Pantoprazole Sodium [Protonix] 40 mg PO DAILY 09/16/16 12/05/16 Diclofenac Sodium [Voltaren] 50 mg PO BID 11/27/16 12/05/16 Fluticasone Propionate [Flovent 1 puff IH BID 11/27/16 12/05/16 Hfa] Gabapentin [Neurontin] 800 mg PO TID 12/05/16 12/05/16 Previous Rx's Medication Instructions Recorded Pyridostigmine Br [Mestinon] 60 mg PO Q8HR #90 tablet 02/24/16 methIMAzole [Tapazole] 5 mg PO DAILY #30 tablet 02/24/16 BuPROPion SR (12 HR) [Wellbutrin 150 mg PO 0900,1600 #60 tablet.er 12/01/16 SR] clonazePAM [Klonopin] 1 mg PO BID PRN #30 tablet 12/01/16 Allergies Allergy/AdvReac Type Severity Reaction Status Date / Time Penicillins Allergy Hives Verified 12/06/16 18:31 codeine AdvReac Vomiting Verified 12/06/16 18:31 All systems ED: reviewed and negative except as stated. Constitutional: Denies: fever Cardiovascular: Denies: chest pain Respiratory: Denies: cough, dyspnea Gastrointestinal: Denies: abdominal pain, nausea, vomiting Musculoskeletal: Denies: back pain, neck pain Integumentary: Denies: rash, abrasion Neurological: Denies: headache Psychiatric: Reports: anxiety, depression, suicidal thoughts. Denies: homicidal thoughts, auditory hallucinations, visual hallucinations Endocrine: Denies: fatigue, heat or cold intolerance Past Medical History - Past Medical History Attestation: Yes The following information was validated with the patient. Source: patient, nursing notes reviewed Medical history: Reports: hypertension, thyroid disease, other Surgical history: Reports: cholecystectomy Psychiatric history: Reports: bipolar, prior suicide attempt, previous psychiatric hospitalization - Social History Smoking Status: Current every day smoker Smokeless Tobacco Status: No Alcohol use: Reports: occasionally, recent Drug use: Reports: cocaine, marijuana, methamphetamine, prescription drug abuse Physical Exam - General Limitations: no limitations General appearance: alert - Head Head exam: atraumatic, normocephalic, normal inspection - Eye Eye exam: Present: normal appearance, PERRL - Neck Neck exam: Present: normal inspection, full ROM, trachea midline - Chest Chest inspection: Present: normal inspection, symmetric chest wall rise - Respiratory Respiratory exam: Present: normal lung sounds bilaterally. Absent: respiratory distress - Cardiovascular Cardiovascular exam: Present: regular rate, normal rhythm, normal heart sounds - Extremities Exam Extremities exam: Present: normal inspection, full ROM. Absent: tenderness, pedal edema - Expanded Lower Extremity Exam Neurovascular/Tendon exam: Present: normal capillary refill, pulse deficit, motor deficit Gait: observed and normal - Back Exam Back exam: Present: normal inspection, full ROM. Absent: tenderness - Neurological Exam Neurological exam: Present: alert, oriented X3 - Psychiatric Psychiatric exam: Present: normal affect, normal mood - Skin Skin exam: Present: warm, dry, intact, normal color Course Vital Signs Temperature 97.8 F 12/06/16 18:31 Pulse Rate 96 12/06/16 18:31 Respiratory Rate 20 12/06/16 18:31 Blood Pressure 112/77 12/06/16 18:31 O2 Sat by Pulse Oximetry 96 12/06/16 18:31 Temperature 97.8 F 12/06/16 18:31 Pulse Rate 96 12/06/16 18:31 Respiratory Rate 20 12/06/16 18:31 Blood Pressure 112/77 12/06/16 18:31 O2 Sat by Pulse Oximetry 96 12/06/16 18:31 Oxygen Delivery Oxygen Delivery Room Air Psych - Lab Data Result diagrams: 12/06/16 19:07 12/06/16 19:07 Lab Results 12/06/16 12/06/16 12/06/16 Range/Units 18:36 19:07 19:07 WBC 11.8 H (4.3-11.1) K/mcL RBC 4.81 (4.19-5.50) M/mcL Hgb 14.0 (12.9-16.9) g/dL Hct 40.8 (37.5-50.1) % MCV 84.8 (83.0-100.0) fL MCH 29.1 (28.0-33.3) pg MCHC 34.3 (31.6-35.5) g/dL RDW 13.2 (11.5-14.5) % Plt Count 432 H (140-400) K/mcL MPV 9.8 (9.4-12.4) fL Immature Gran % 0.3 (0-4) % Seg Neutrophils % 61.7 % Lymphocytes % 30.1 % Monocytes % 5.3 % Eosinophils % 2.3 % Basophils % 0.3 % Neutrophils # 7.3 (1.6-8.9) K/mcL Lymphocytes # 3.5 (0.6-4.6) K/mcL Monocytes # 0.6 (0.0-1.3) K/mcL Eosinophils # 0.3 (0.0-0.6) K/mcL Basophils # 0.0 (0.0-0.2) K/mcL Sodium 137 (136-145) mEq/L Potassium 4.2 (3.5-4.5) mEq/L Chloride 106 (98-109) mEq/L Carbon Dioxide 20 (19-29) mEq/L BUN 8 D (8-26) mg/dL Creatinine 0.76 (0.72-1.25) mg/dL Est GFR ( Amer) > 60 (> 60) Est GFR (Non-Af Amer) > 60 (> 60) BUN/Creatinine Ratio 11 (6-26) Glucose 132 H (70-99) mg/dL Calculated Osmolality 284 (280-300) Calcium 9.5 (8.6-10.8) mg/dL Total Bilirubin 0.5 (0.2-1.2) mg/dL AST 51 H (5-34) Units/L ALT 76 H (0-55) Units/L Alkaline Phosphatase 76 (38-126) Units/L Serum Total Protein 7.7 (6.0-8.3) g/dL Albumin 3.8 (3.5-5.0) g/dL Globulin 3.9 H (2.4-3.5) g/dL Albumin/Globulin Ratio 1.0 L (1.1-2.2) Urine Color (Yellow) Urine Clarity (Clear) Urine pH (5.0-8.0) pH Units Ur Specific [place] (1.010-1.025) Urine Protein (Neg-Trace) mg/dL Urine Glucose (UA) (Normal) mg/dL Urine Ketones (Negative) mg/dL Urine Blood (Negative) Urine Nitrite (Negative) Urine Bilirubin (Negative) Urine Urobilinogen (Normal) mg/dL Ur Leukocyte Esterase (Negative) Ur Culture Indicated? (NO) Salicylates < 5.0 L (15-30) mg/dL Urine Opiates Screen Negative (Jmyezq=648) ng/mL Acetaminophen < 1.0 L (10-30) mcg/mL Ur Barbiturates Screen Negative (Yvpznv=885) ng/mL Ur Phencyclidine Scrn Negative (Cutoff=25) ng/mL Ur Amphetamines Screen Negative (Ebhyiq=9644) ng/mL U Benzodiazepines Scrn Negative (Exyghe=846) ng/mL Urine Cocaine Screen Negative (Cutoff= 300) ng/mL U Marijuana (THC) Screen Negative (Cutoff = 50) ng/mL Ethyl Alcohol 140 H (0-10) mg/dL 12/06/16 12/07/16 Range/Units 19:35 00:30 WBC (4.3-11.1) K/mcL RBC (4.19-5.50) M/mcL Hgb (12.9-16.9) g/dL Hct (37.5-50.1) % MCV (83.0-100.0) fL MCH (28.0-33.3) pg MCHC (31.6-35.5) g/dL RDW (11.5-14.5) % Plt Count (140-400) K/mcL MPV (9.4-12.4) fL Immature Gran % (0-4) % Seg Neutrophils % % Lymphocytes % % Monocytes % % Eosinophils % % Basophils % % Neutrophils # (1.6-8.9) K/mcL Lymphocytes # (0.6-4.6) K/mcL Monocytes # (0.0-1.3) K/mcL Eosinophils # (0.0-0.6) K/mcL Basophils # (0.0-0.2) K/mcL Sodium (136-145) mEq/L Potassium (3.5-4.5) mEq/L Chloride (98-109) mEq/L Carbon Dioxide (19-29) mEq/L BUN (8-26) mg/dL Creatinine (0.72-1.25) mg/dL Est GFR ( Amer) (> 60) Est GFR (Non-Af Amer) (> 60) BUN/Creatinine Ratio (6-26) Glucose (70-99) mg/dL Calculated Osmolality (280-300) Calcium (8.6-10.8) mg/dL Total Bilirubin (0.2-1.2) mg/dL AST (5-34) Units/L ALT (0-55) Units/L Alkaline Phosphatase (38-126) Units/L Serum Total Protein (6.0-8.3) g/dL Albumin (3.5-5.0) g/dL Globulin (2.4-3.5) g/dL Albumin/Globulin Ratio (1.1-2.2) Urine Color Yellow (Yellow) Urine Clarity Clear (Clear) Urine pH 6.5 (5.0-8.0) pH Units Ur Specific [place] 1.007 L (1.010-1.025) Urine Protein Negative (Neg-Trace) mg/dL Urine Glucose (UA) Normal (Normal) mg/dL Urine Ketones Negative (Negative) mg/dL Urine Blood Negative (Negative) Urine Nitrite Negative (Negative) Urine Bilirubin Negative (Negative) Urine Urobilinogen Normal (Normal) mg/dL Ur Leukocyte Esterase Negative (Negative) Ur Culture Indicated? NO (NO) Salicylates (15-30) mg/dL Urine Opiates Screen (Qtdsqv=484) ng/mL Acetaminophen (10-30) mcg/mL Ur Barbiturates Screen (Lzxzod=348) ng/mL Ur Phencyclidine Scrn (Cutoff=25) ng/mL Ur Amphetamines Screen (Ltjfqk=3475) ng/mL U Benzodiazepines Scrn (Jzxmue=536) ng/mL Urine Cocaine Screen (Cutoff= 300) ng/mL U Marijuana (THC) Screen (Cutoff = 50) ng/mL Ethyl Alcohol < 10 (0-10) mg/dL Psychiatric Medical Clearance - Medical Clearance Checklist Medical History: No Social History Section defined Current Vitals: Last Vital Signs Temp 97.8 F 12/06/16 18:31 Pulse 96 12/06/16 18:31 Resp 20 12/06/16 18:31 BP 112/77 12/06/16 18:31 Pulse Ox 96 12/06/16 18:31 Psychiatric Lab Panel: Drug Levels and Toxicity 12/06/16 12/06/16 12/07/16 18:36 19:07 00:30 Urine Opiates Screen Negative Acetaminophen < 1.0 L Ur Barbiturates Screen Negative Ur Phencyclidine Scrn Negative Ur Amphetamines Screen Negative U Benzodiazepines Scrn Negative Urine Cocaine Screen Negative U Marijuana (THC) Screen Negative Ethyl Alcohol 140 H < 10 Abnormal Labs: Abnormal lab results WBC 11.8 K/mcL (4.3-11.1) H 12/06/16 19:07 Plt Count 432 K/mcL (140-400) H 12/06/16 19:07 Glucose 132 mg/dL (70-99) H 12/06/16 19:07 AST 51 Units/L (5-34) H 12/06/16 19:07 ALT 76 Units/L (0-55) H 12/06/16 19:07 Globulin 3.9 g/dL (2.4-3.5) H 12/06/16 19:07 Albumin/Globulin Ratio 1.0 (1.1-2.2) L 12/06/16 19:07 Ur Specific [place] 1.007 (1.010-1.025) L 12/06/16 19:35 Salicylates < 5.0 mg/dL (15-30) L 12/06/16 19:07 Acetaminophen < 1.0 mcg/mL (10-30) L 12/06/16 19:07 Statement of Medical Clearance: I have evaluated the patient, reviewed diagnostic information, and certify that the patient's medical condition is sufficiently stable that transfer to the psychiatric unit does not pose a significant risk of deterioration.
[2016-12-06] MEDS ORDERED: cloNIDine HCl 0.1 MG TABLET PO ONE (23:40)
[2016-12-07] MEDS ORDERED: Metoclopramide 10 MG/10 ML UD.LIQ PO ONE ×2 (00:10→23:41)
[2016-12-07] MEDS ORDERED: Haloperidol Lactate 5 MG/ML VIAL IM PRN (03:46)
[2016-12-07] MEDS ORDERED: Mag Hydrox/Al Hydrox/Simeth 30 ML UDC PO PRN (03:46)
[2016-12-07] MEDS ORDERED: MOM Conc 10 ML UD.LIQ PO PRN (03:46)
--- NOTE | 2016-12-07 03:50 | Emergency Department Note ---
Attestation Statement - Attestation Attestation: I, Cristian Mayberry MD, personally evaluated this patient and discussed their management with the midlevel provicer, PAC/CERTIFIED NOVELL ADMINISTRATOR. I reviewed the midlevel provider 's note and agree with the documented findings, medical decision making, and plan of care. 41-year-old male presents to the emergency department complaining of suicidal ideation and problems with substance abuse. Requesting admission to [facility] psychiatry unit. On examination patient is well-developed well-nourished male in no acute distress. Alert and oriented. No cyanosis or diaphoresis. Multiple tattoos. Labs reviewed. [facility] psychiatry service was consulted and evaluated patient in the emergency Department patient is being admitted to the [facility] psychiatry service.
[2016-12-07] MEDS ORDERED: Ibuprofen 400 MG TABLET PO PRN (03:59)
[2016-12-07] MEDS ORDERED: Nicotine 2 MG GUM BC PRN (03:59)
[2016-12-07] MEDS ORDERED: traZODone 50 MG TABLET PO PRN (03:59)
[2016-12-07] MEDS ORDERED: *HR* EPINEPHrine 0.3 MG/0.3 ML (PEN) IM PRN (04:30)
[2016-12-07] MEDS: Gabapentin 400 MG CAPSULE PO SCH ×3 (08:57→20:24)
[2016-12-07] MEDS: Metoprolol XL (24 HR) Succ 50 MG TAB.ER.24H PO SCH (08:57)
[2016-12-07] MEDS: methIMAzole 5 MG TABLET PO SCH (08:57)
[2016-12-07] MEDS: Pyridostigmine Br 60 MG TABLET PO SCH ×2 (08:57→15:03)
[2016-12-07] MEDS: BuPROPion SR (12 HR) 150 MG TABLET PO SCH ×2 (08:58→15:02)
[2016-12-07] MEDS ORDERED: NON-FORMULARY MEDICATION 1 EACH EACH (Fluticasone Propionate [Flovent Hfa] 1 PUFF) IH SCH (09:00)
[2016-12-07] MEDS: clonazePAM 1 MG TABLET PO PRN ×2 (10:26→17:34)
--- NOTE | 2016-12-07 10:39 | Psychiatry History & Physical ---
Date of Encounter: 12/07/16 Time of Encounter: 10:05 History of Present Illness Patient Stated Chief Complaint: I am suicidal and I will kill myself Medicare Admission Attestation: For traditional Medicare patients the provided hospital inpatient services are reasonable and necessary and in the case of services not specified as inpatient -only under 42 CFR 419.22 (n), that they are appropriately provided as inpatient services in accordance 42 CFR 412.3. For Critical Access Hospital the patient may reasonably be expected to be discharged or transferred to a hospital within 96 hours after admission to the Critical Access Hospital. Admitted From: Emergency Dept Plans for Post Hospital Care: Transfer Other History of Present Illness: Mr. Jalloh is a 41 year old male who was discharged from on the 2014 later returned to the ED on the same day with complaints of suicidal ideation with a plan to overdose and kill himself. Patient is well known to us from prior multiple hospitalizations. Patient was discharged twice a mental hospital according to patient account he went for his intake appointment and was told that he will be transferred to a rehabilitation facility in [place] and later he was informed that they do not have any beds and asked to come back in a day or 2. Patient reported that he felt extremely disappointed and depressed finding out that he will not be transferred to an inpatient rehabilitation and as he has no place to go and he became extremely suicidal return back to the emergency department and verbalizing hopeless helpless feelings and suicidal ideations. He was unable to contract for safety and was posing a threat to himself it was decided to hospitalize him at the psychiatric unit for further stabilization and for safety concerns. Past Med Surg Social Fam HX - Past Medical History Medical history: hypertension, thyroid disease, other - Past Psychiatric History Psychiatric history: Reports: depression, previous psychiatric hospitalization Past psychiatric history details: Patient has extensive history of mental illness and has had multiple prior psychiatric hospitalizations. He was discharged yesterday and later returned back to the emergency department. review of records reveals that patient has been utilizing emergency department services unnecessarily and excessively. Family psychiatric history: Unknown Family History of Suicide: None - Past Surgical History Surgical History: cholecystectomy - Social History Smoking Status: Current every day smoker Smokeless Tobacco Status: No Alcohol use: occasionally, recent Drug use: cocaine, marijuana, methamphetamine, prescription drug abuse Occupational status: unemployed Current living situation: Homeless Activity Level: Independent ambulation Recent Out of Country Travel Within the Last 8 Weeks: No Exposure or Possible Exposure to Illness During Travel: No Additional social history: Patient is unemployed and is currently homeless. Medications & Allergies Pyridostigmine Br [Mestinon] 60 mg PO Q8HR #90 tablet 02/24/16 [Rx] methIMAzole [Tapazole] 5 mg PO DAILY #30 tablet 02/24/16 [Rx] Metoprolol XL (24 HR) Succ [Toprol Xl] 50 mg PO DAILY 06/30/16 [History] Albuterol Sulfate [Ventolin Hfa] 2 puff IH Q4H PRN 09/16/16 [History] EPINEPHrine [Epipen] 0.3 mg IM ONCE PRN 09/16/16 [History] Pantoprazole Sodium [Protonix] 40 mg PO DAILY 09/16/16 [History] Diclofenac Sodium [Voltaren] 50 mg PO BID 11/27/16 [History] Fluticasone Propionate [Flovent Hfa] 1 puff IH BID 11/27/16 [History] BuPROPion SR (12 HR) [Wellbutrin SR] 150 mg PO 0900,1600 #60 tablet.er 12/01/16 [Rx] clonazePAM [Klonopin] 1 mg PO BID PRN #30 tablet 12/01/16 [Rx] Gabapentin [Neurontin] 800 mg PO TID 12/05/16 [History] Allergies Penicillins Allergy (Verified 12/06/16 18:31) Hives codeine Adverse Reaction (Verified 12/06/16 18:31) Vomiting Review of Systems Psychiatric: Reports: depression, suicidal ideation, hopelessness, mood swings Mental Status Exam Patient orientation: Yes Person, Yes Time, Yes Place Level of alertness: Alert Patient appearance: Appropriate, Well Groomed Behavior: calm, cooperative Psychomotor activity: Normal Eye contact: Maintains Eye Contact Mood description: Depressed, Anxious Affect description: constricted, dysphoric Speech pattern: Normal rate, Normal rhythm, Normal tone Speech volume: Normal Thought process: Linear, Goal Oriented Thought content: Yes Suicidal ideation, No Homicidal ideation, No Overt delusions Perceptual disturbances: No Auditory hallucinations, No Visual hallucinations Attention span: Capable of Focused Attention Memory description: Grossly Intact Patient reliability: Questionable Historian Intelligence estimate: Average Judgment: Limited Insight: Minimal Exam - HEENT Head exam IM: Present: atraumatic, normal inspection Eye exam IM: Present: normal appearance ENT exam IM: Present: normal exam - Neurological Neurological exam IM: Present: CN II-XII intact, normal gait, oriented X3, reflexes normal, no focal deficits. Absent: motor sensory deficit - Respiratory Respiratory exam IM: Absent: accessory muscle use, chest wall tenderness, rales , respiratory distress, rhonchi, stridor, wheezes, tachypnea - GI/Abdominal GI/Abdominal exam IM: Present: soft. Absent: tenderness - Extremities Extremities exam IM: Present: full ROM, normal inspection - Skin Skin exam IM: Present: intact Results - Vital Signs Vital signs: Temp Pulse Resp BP Pulse Ox 97.8 F 78 16 105/73 97 12/07/16 09:00 12/07/16 09:00 12/07/16 09:00 12/07/16 09:00 12/07/16 03:45 - Labs Labs: Laboratory Last Values WBC 11.8 K/mcL (4.3-11.1) H 12/06/16 19:07 RBC 4.81 M/mcL (4.19-5.50) 12/06/16 19:07 Hgb 14.0 g/dL (12.9-16.9) 12/06/16 19:07 Hct 40.8 % (37.5-50.1) 12/06/16 19:07 MCV 84.8 fL (83.0-100.0) 12/06/16 19:07 MCH 29.1 pg (28.0-33.3) 12/06/16 19:07 MCHC 34.3 g/dL (31.6-35.5) 12/06/16 19:07 RDW 13.2 % (11.5-14.5) 12/06/16 19:07 Plt Count 432 K/mcL (140-400) H 12/06/16 19:07 MPV 9.8 fL (9.4-12.4) 12/06/16 19:07 Immature Gran % 0.3 % (0-4) 12/06/16 19:07 Seg Neutrophils % 61.7 % 12/06/16 19:07 Lymphocytes % 30.1 % 12/06/16 19:07 Monocytes % 5.3 % 12/06/16 19:07 Eosinophils % 2.3 % 12/06/16 19:07 Basophils % 0.3 % 12/06/16 19:07 Neutrophils # 7.3 K/mcL (1.6-8.9) 12/06/16 19:07 Lymphocytes # 3.5 K/mcL (0.6-4.6) 12/06/16 19:07 Monocytes # 0.6 K/mcL (0.0-1.3) 12/06/16 19:07 Eosinophils # 0.3 K/mcL (0.0-0.6) 12/06/16 19:07 Basophils # 0.0 K/mcL (0.0-0.2) 12/06/16 19:07 Sodium 137 mEq/L (136-145) 12/06/16 19:07 Potassium 4.2 mEq/L (3.5-4.5) 12/06/16 19:07 Chloride 106 mEq/L (98-109) 12/06/16 19:07 Carbon Dioxide 20 mEq/L (19-29) 12/06/16 19:07 BUN 8 mg/dL (8-26) D 12/06/16 19:07 Creatinine 0.76 mg/dL (0.72-1.25) 12/06/16 19:07 Est GFR ( Amer) > 60 (> 60) 12/06/16 19:07 Est GFR (Non-Af Amer) > 60 (> 60) 12/06/16 19:07 BUN/Creatinine Ratio 11 (6-26) 12/06/16 19:07 Glucose 132 mg/dL (70-99) H 12/06/16 19:07 Calculated Osmolality 284 (280-300) 12/06/16 19:07 Calcium 9.5 mg/dL (8.6-10.8) 12/06/16 19:07 Total Bilirubin 0.5 mg/dL (0.2-1.2) 12/06/16 19:07 AST 51 Units/L (5-34) H 12/06/16 19:07 ALT 76 Units/L (0-55) H 12/06/16 19:07 Alkaline Phosphatase 76 Units/L (38-126) 12/06/16 19:07 Serum Total Protein 7.7 g/dL (6.0-8.3) 12/06/16 19:07 Albumin 3.8 g/dL (3.5-5.0) 12/06/16 19:07 Globulin 3.9 g/dL (2.4-3.5) H 12/06/16 19:07 Albumin/Globulin Ratio 1.0 (1.1-2.2) L 12/06/16 19:07 Urine Color Yellow (Yellow) 12/06/16 19:35 Urine Clarity Clear (Clear) 12/06/16 19:35 Urine pH 6.5 pH Units (5.0-8.0) 12/06/16 19:35 Ur Specific [place] 1.007 (1.010-1.025) L 12/06/16 19:35 Urine Protein Negative mg/dL (Neg-Trace) 12/06/16 19:35 Urine Glucose (UA) Normal mg/dL (Normal) 12/06/16 19:35 Urine Ketones Negative mg/dL (Negative) 12/06/16 19:35 Urine Blood Negative (Negative) 12/06/16 19:35 Urine Nitrite Negative (Negative) 12/06/16 19:35 Urine Bilirubin Negative (Negative) 12/06/16 19:35 Urine Urobilinogen Normal mg/dL (Normal) 12/06/16 19:35 Ur Leukocyte Esterase Negative (Negative) 12/06/16 19:35 Ur Culture Indicated? NO (NO) 12/06/16 19:35 Salicylates < 5.0 mg/dL (15-30) L 12/06/16 19:07 Urine Opiates Screen Negative ng/mL (Uskmgg=496) 12/06/16 18:36 Acetaminophen < 1.0 mcg/mL (10-30) L 12/06/16 19:07 Ur Barbiturates Screen Negative ng/mL (Vlqfom=507) 12/06/16 18:36 Ur Phencyclidine Scrn Negative ng/mL (Cutoff=25) 12/06/16 18:36 Ur Amphetamines Screen Negative ng/mL (Pszdoc=8565) 12/06/16 18:36 U Benzodiazepines Scrn Negative ng/mL (Hovgwb=835) 12/06/16 18:36 Urine Cocaine Screen Negative ng/mL (Cutoff= 300) 12/06/16 18:36 U Marijuana (THC) Screen Negative ng/mL (Cutoff = 50) 12/06/16 18:36 Ethyl Alcohol < 10 mg/dL (0-10) 12/07/16 00:30 Assessment and Plan (1) Mood disorder Current visit: No Status: Chronic Plan: Admit inpatient for safety and stabilization, Close observation, Suicide Precautions per unit protocol, Encourage participation in unit milieu, Group Therapy, Monitor sleep, Monitor appetite Additional Plan: The patient will be resumed on his discharge medications and he has he is readmitted within the same day of this discharge. His discharge medications included Wellbutrin SR 150 mg twice a day and Neurontin 800 mg 3 times a day patient will also be continued on metoprolol for his blood pressure Risks, benefits, side effects, alternatives discussed w/pt: Yes Patient agreeable to treatment: Yes Plans for Post Hospital Care: Transfer Other Estimated Length of Stay (Days): 3 (2) Personality disorder Current visit: No Status: Chronic Plan: Admit inpatient for safety and stabilization, Close observation, Suicide Precautions per unit protocol, Encourage participation in unit milieu, Group Therapy, Monitor sleep, Monitor appetite Risks, benefits, side effects, alternatives discussed w/pt: Yes Patient agreeable to treatment: Yes Plans for Post Hospital Care: Transfer Other Estimated Length of Stay (Days): 3 (3) Polysubstance dependence Current visit: Yes Status: Acute Plan: Admit inpatient for safety and stabilization, Close observation, Suicide Precautions per unit protocol, Encourage participation in unit milieu, Group Therapy, Monitor sleep, Monitor appetite Additional Plan: Patient will be counseled extensively regarding his drug use and psychological and physiological impact and will be helped to identify triggers and develop a relapse prevention plan. Patient's chart review indicated that patient has burned all the bridges and no AOD facility is willing to accept patient. We will try to reach out to distant facilities since explode if patient will be an appropriate candidate for placement Risks, benefits, side effects, alternatives discussed w/pt: Yes Patient agreeable to treatment: Yes Plans for Post Hospital Care: Transfer Inp Rehab Fac Estimated Length of Stay (Days): 3
[2016-12-08] MEDS: Pyridostigmine Br 60 MG TABLET PO SCH ×4 (00:12→23:14)
[2016-12-08] MEDS: Metoprolol XL (24 HR) Succ 50 MG TAB.ER.24H PO SCH (09:09)
[2016-12-08] MEDS: Gabapentin 400 MG CAPSULE PO SCH ×3 (09:09→20:25)
[2016-12-08] MEDS: methIMAzole 5 MG TABLET PO SCH (09:10)
[2016-12-08] MEDS: BuPROPion SR (12 HR) 150 MG TABLET PO SCH ×2 (09:10→15:02)
--- NOTE | 2016-12-08 10:14 | Psychiatry Progress Note ---
Date of Encounter: 12/08/16 Time of Encounter: 10:15 Subjective Interval history: Patient seen and interviewed. He appears extremely restless and nervous and anxious. Worrying about his disposition and fearing that if he does not get into a rehabilitation he will relapse again and the whole idea of using drugs again is extremely anxiety provoking and depressing for the patient. He is endorsing hopelessness and helplessness feelings. He is unable to verbalize a safety plan. He is tolerating medications fairly well. Slept better appetite is good. Encouraged to attend groups and work on a relapse prevention and safety plan. Review of Systems Psychiatric: Reports: depression, suicidal ideation, hopelessness, mood swings Objective: Exam Patient orientation: Yes Person, Yes Time, Yes Place Level of alertness: Alert Patient appearance: Appropriate Behavior: nervous, anxious, restless Psychomotor activity: Agitated Eye contact: Maintains Eye Contact Mood description: Depressed, Anxious, Irritable Affect description: constricted, dysphoric Speech pattern: Normal rate, Normal rhythm, Normal tone Speech volume: Normal Thought process: Intact Thought content: Yes Suicidal ideation Perceptual disturbances: No Auditory hallucinations, No Visual hallucinations Judgment: Limited Insight: Minimal Results - Vital Signs Vital Signs: Temp Pulse Resp BP Pulse Ox 98.0 F 85 16 130/85 97 12/07/16 20:06 12/07/16 20:06 12/07/16 20:06 12/07/16 20:06 12/07/16 03:45 Assessment and Plan (1) Psychoactive substance-induced mood disorder Current visit: Yes Status: Acute Plan: Continue hospitalization, Close observation, Suicide Precautions per unit protocol, Encourage participation in unit milieu, Group Therapy, Monitor sleep, Monitor appetite Additional Plan: Continue with current medications Risks, benefits, side effects, alternatives discussed w/pt: Yes Patient agreeable to treatment: Yes Qualifiers: Causal substance: other psychostimulant-induced Qualified Code(s): F15.94 - Other stimulant use, unspecified with stimulant-induced mood disorder (2) Personality disorder Current visit: No Status: Chronic Risks, benefits, side effects, alternatives discussed w/pt: Yes Patient agreeable to treatment: Yes (3) Polysubstance dependence Current visit: Yes Status: Acute Risks, benefits, side effects, alternatives discussed w/pt: Yes Patient agreeable to treatment: Yes Consult Discharge Plan - Plan Referrals: NO,PCP [Primary Care Provider] -
[2016-12-08] MEDS: clonazePAM 1 MG TABLET PO PRN ×2 (10:21→13:14)
[2016-12-08] MEDS ORDERED: Melatonin 3 MG TABLET PO SCH (21:00)
[2016-12-09] MEDS: Pyridostigmine Br 60 MG TABLET PO SCH ×2 (08:46→15:00)
[2016-12-09] MEDS: methIMAzole 5 MG TABLET PO SCH (08:48)
[2016-12-09] MEDS: Gabapentin 400 MG CAPSULE PO SCH ×2 (08:48→14:56)
[2016-12-09] MEDS: Metoprolol XL (24 HR) Succ 50 MG TAB.ER.24H PO SCH (08:49)
[2016-12-09] MEDS: BuPROPion SR (12 HR) 150 MG TABLET PO SCH ×2 (08:52→15:01)
[2016-12-09] MEDS: clonazePAM 1 MG TABLET PO PRN ×2 (09:21→12:34)
[2016-12-09 09:53] VITALS: BP 113/82
--- NOTE | 2016-12-09 14:41 | Discharge Summary ---
Date of Encounter: 12/09/16 Time of Encounter: 14:30 Diagnosis - Discharge Diagnosis (1) Suicidal ideation Status: Acute Medications - Discharge Medications Pyridostigmine Br [Mestinon] 60 mg PO Q8HR #90 tablet 02/24/16 [Rx] methIMAzole [Tapazole] 5 mg PO DAILY #30 tablet 02/24/16 [Rx] Metoprolol XL (24 HR) Succ [Toprol Xl] 50 mg PO DAILY 06/30/16 [History] Albuterol Sulfate [Ventolin Hfa] 2 puff IH Q4H PRN 09/16/16 [History] EPINEPHrine [Epipen] 0.3 mg IM ONCE PRN 09/16/16 [History] Pantoprazole Sodium [Protonix] 40 mg PO DAILY 09/16/16 [History] Diclofenac Sodium [Voltaren] 50 mg PO BID 11/27/16 [History] Fluticasone Propionate [Flovent Hfa] 1 puff IH BID 11/27/16 [History] BuPROPion SR (12 HR) [Wellbutrin SR] 150 mg PO 0900,1600 #60 tablet.er 12/01/16 [Rx] clonazePAM [Klonopin] 1 mg PO BID PRN #30 tablet 12/01/16 [Rx] Gabapentin [Neurontin] 800 mg PO TID 12/05/16 [History] Allergies Penicillins Allergy (Verified 12/06/16 18:31) Hives codeine Adverse Reaction (Verified 12/06/16 18:31) Vomiting Provider Date of admission: 12/07/16 03:20 Primary care physician: PCP GARRISON Discharging clinician: Alberto Etienne Assessment and Plan - Patient/Caregiver Discharge Instructions Activity: resume usual activities as tolerated Diet: regular diet - Follow up Plan Follow up with: NO,PCP [Primary Care Provider] - Functional capacity at discharge: independent ambulation Overall status at discharge: Stable Disposition: Home, Self-Care Hospital Course Hospital course: Mr. Jalloh is a 41 year old male admitted for suicidal ideation. For details admission please see H&P This is one of multiple admissions in the last several weeks, patient was started on his medication, he was occasionally irritable and agitated and endorsing suicidal ideation, later he showed some improvement and was scheduled for case management appointments. He was denying suicidal ideation and show an interest in getting his appointments for case management and drug treatments. His discharge plans were reviewed and discussed with aids social worker. On discharge he was medically stable and planning to attend to his case management appointments and also her outpatient appointments. - Time Spent with Patient Total time spent providing and/or coordinating discharge services: Less than 30 minutes Quality - Multiple Antipsychotics Patient discharged on 2 or more antipsychotic medications: No Procedures - Procedures Procedures: Medication Management, Crisis Stabilization, Supportive Therapy, Group Therapy, Psychoeducational Therapy Mental Status Exam - Mental Status Exam Patient orientation: Yes Person, Yes Time, Yes Place Level of alertness: Alert Patient appearance: Appropriate, Well Groomed Behavior: calm, cooperative Psychomotor activity: Normal Eye contact: Maintains Eye Contact Mood description: Euthymic/stable Affect description: congruent with mood, full range Speech pattern: Normal rate, Normal rhythm, Normal tone Speech Volume: Normal Thought process: Linear, Goal Oriented Thought Content: No Suicidal ideation, No Homicidal ideation, No Overt delusions Perceptual Disturbances: No Auditory hallucinations, No Visual hallucinations Judgment: Limited Insight: Partial
== END 2016-12-09 16:00 | disposition home or self-care (01) | DRG 774 ==
LOC: EMEROO 17:52 → SUATTDRO 12-07 03:20 → 1ANU 12-07 03:20
PROVIDERS: ADMIT Psychiatry & Neurology Psychiatry; ATTEND Psychiatry & Neurology Psychiatry

== ENCOUNTER 2017-01-27 19:46 | Observation (INO) ==
[2017-01-27] MEDS ORDERED: 0.9 % Sodium Chloride 1,000 ML IVC ONE ×3 (20:07→22:08)
[2017-01-27 20:29] LABS: Basophils # 0.1 K/mcL (0.0-0.2); Basophils % 0.6 %; Eosinophils # 0.2 K/mcL (0.0-0.6); Eosinophils % 1.9 %; Hematocrit 39.5 % (37.5-50.1); Hemoglobin 13.4 g/dL (12.9-16.9); Immature Granulocytes % 0.2 % (0-4); Lymphocytes # 4.3 K/mcL (0.6-4.6); Lymphocytes % 33.3 %; Mean Corpuscular HGB Conc 33.9 g/dL (31.6-35.5); Mean Corpuscular Hemoglobin 28.4 pg (28.0-33.3); Mean Corpuscular Volume 83.7 fL (83.0-100.0); Mean Platelet Volume 9.9 fL (9.4-12.4); Monocytes % 7.5 %; Neutrophils # 7.3 K/mcL (1.6-8.9); Platelet Count 315 K/mcL (140-400); Red Blood Count 4.72 M/mcL (4.19-5.50); Segmented Neutrophils % 56.5 %
[2017-01-27 20:42] LABS: Alanine Aminotransferase 88 Units/L (0-55); Albumin 4.3 g/dL (3.5-5.0); Albumin/Globulin Ratio 1.3 (1.1-2.2); Alkaline Phosphatase 68 Units/L (38-126); Aspartate Amino Transferase 75 Units/L (5-34); BUN/Creatinine Ratio 15 (6-26); Bilirubin,Direct 0.5 mg/dL (0.0-0.5); Blood Urea Nitrogen 13 mg/dL (8-26); Calcium 9.7 mg/dL (8.6-10.8); Carbon Dioxide 23 mEq/L (19-29); Chloride 108 mEq/L (98-109); Globulin 3.4 g/dL (2.4-3.5); Glucose 97 mg/dL (70-99); Osmolality,Calculated 288 (280-300); Potassium 3.5 mEq/L (3.5-4.5); Sodium 139 mEq/L (136-145); Total Protein 7.7 g/dL (6.0-8.3); eGFR For African Americans > 60 (> 60); eGFR For Non-African Americans > 60 (> 60)
[2017-01-27 20:43] LABS: Acetaminophen < 1.0 mcg/mL (10-30); Ethanol < 10 mg/dL (0-10); Salicylate < 5.0 mg/dL (15-30)
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
[2017-01-27] MEDS ORDERED: Ondansetron 4 MG/2 ML VIAL IVP ONE (20:50)
[2017-01-27 20:57] LABS: Bilirubin,Urine Small (Negative); Blood,Urine Negative (Negative); Clarity,Urine Clear (Clear); Color,Urine Dark Yellow (Yellow); Glucose,Urine (UA) Normal (Normal); Ketones,Urine 40 mg/dL (Negative); Leukocyte Esterase,Urine Negative (Negative); Nitrite,Urine Negative (Negative); PH,Urine 6.5 pH Units (5.0-8.0); Protein,Urine Trace mg/dL (Neg-Trace); Urobilinogen,Urine Normal (Normal)
[2017-01-27 20:59] LABS: Bacteria,Urine None Seen per hpf (None-Few); Hyaline Casts,Urine None Seen per lpf (None-Few); Squamous Epithelial Cell,Urine Moderate per lpf (None-Few)
[2017-01-27 21:03] LABS: Amphetamine Screen,Urine Negative ng/mL (Cutoff=1000); Barbiturate Screen,Urine Negative ng/mL (Cutoff=200); Benzodiazepines Screen,Urine Negative ng/mL (Cutoff=200); Cannabinoid Screen,Urine Negative ng/mL (Cutoff = 50); Cocaine Screen,Urine Negative ng/mL (Cutoff= 300); Opiate Screen,Urine Negative ng/mL (Cutoff=300); Phencyclidine Screen,Urine Negative ng/mL (Cutoff=25)
[2017-01-27 22:03] LABS: Creatine Kinase 1409 Units/L (30-200)
[2017-01-27] MEDS ORDERED: Acetaminophen 325 MG TABLET PO PRN (23:29)
[2017-01-27] MEDS ORDERED: Naloxone 0.4 MG/ML INJ IVP PRN (23:29)
--- NOTE | 2017-01-27 23:39 | Internal Med History&Physical ---
Date of Encounter: 01/27/17 Time of Encounter: 23:37 Assessment and Plan (1) Paranoid schizophrenia Current visit: Yes Status: Acute Continue chronic psych meds. Consult psychiatry. (2) Polysubstance abuse Current visit: Yes Status: Acute Check urine drug screen. Social service consult for detox guidance. (3) Elevated LFTs Current visit: Yes Status: Acute We will check hepatitis AB and C panel. (4) Tobacco abuse Current visit: No Status: Chronic We will provide nicotine replacement therapy. (5) Rhabdomyolysis Current visit: Yes Status: Acute IV fluids normal saline. Repeat CPK in the morning. Qualifiers: Rhabdomyolysis type: non-traumatic Qualified Code(s): M62.82 - Rhabdomyolysis (6) Suicidal ideation Current visit: Yes Status: Acute Consult to psychiatry. (7) Myasthenia gravis Current visit: Yes Status: Acute Continue Mestinon. Internal Medicine - H&P: HPI Chief complaint: Shortness of breath Admitted From: Emergency Dept Plans for Post Hospital Care: Home History of present illness: Mr. Jalloh is a 41 year old male with past medical history of depression and schizophrenia and myasthenia gravis who was brought to the hospital by EMS for evaluation of shortness of breath. Patient has multiple vague complaints including shortness of breath, lightheadedness, abdominal pain, decreased appetite. He is a disorganized historian, states he was released from a psych facility 5 days ago. Denies chest pain, admits to mild nonproductive cough and moderate shortness of breath with ambulation. Per emergency department physician's report he verbalized suicidal ideation while in the ED. A 10 point review of systems was otherwise negative. Past Med Surg Social Fam HX - Past Medical History Medical history: hypertension, thyroid disease, other Psychiatric history: depression, schizophrenia, previous psychiatric hospitalization - Past Surgical History Surgical History: cholecystectomy, orthopedic, other - Social History Smoking Status: Former smoker Smokeless Tobacco Status: Yes Alcohol use: none Drug use: cocaine, marijuana, methamphetamine, prescription drug abuse - Family History Father Hx Family Cardiac Disorders: Yes Hx Family Endocrine Disorder: Yes (DM) Mother Hx Family Cancer: Yes (cervical) Hx Family Endocrine Disorder: Yes (thyroid) Internal Medicine - H&P: Meds Pyridostigmine Br [Mestinon] 60 mg PO Q8HR #90 tablet 02/24/16 [Rx] methIMAzole [Tapazole] 5 mg PO DAILY #30 tablet 02/24/16 [Rx] Metoprolol XL (24 HR) Succ [Toprol Xl] 50 mg PO DAILY 06/30/16 [History] EPINEPHrine [Epipen] 0.3 mg IM ONCE PRN 09/16/16 [History] Pantoprazole Sodium [Protonix] 40 mg PO DAILY 09/16/16 [History] Diclofenac Sodium [Voltaren] 50 mg PO BID 11/27/16 [History] Fluticasone Propionate [Flovent Hfa] 1 puff IH BID 11/27/16 [History] BuPROPion SR (12 HR) [Wellbutrin SR] 150 mg PO 0900,1600 #60 tablet.er 12/01/16 [Rx] clonazePAM [Klonopin] 1 mg PO BID PRN #30 tablet 12/01/16 [Rx] Gabapentin [Neurontin] 800 mg PO TID 12/05/16 [History] Albuterol Sulfate [Ventolin Hfa] 8 gm IH Q4-6H PRN #1 hfa.aer.ad 12/12/16 [Rx] Allergies Penicillins Allergy (Verified 12/06/16 18:31) Hives codeine Adverse Reaction (Verified 12/06/16 18:31) Vomiting All Systems PM: A 10-system review of systems was performed and is negative for pertinent findings except as documented above in the HPI. - Constitutional Vitals: Temp Pulse Resp BP Pulse Ox 97.5 F L 71 16 99/62 96 01/27/17 23:29 01/27/17 23:29 01/27/17 23:29 01/27/17 23:29 01/27/17 23:29 - Neck Neck exam general surgery: Present: supple, trachea midline. Absent: lymphadenopathy - Respiratory Respiratory exam: Present: CTAB. Absent: accessory muscle use, rales, rhonchi, wheezes - Cardiovascular Cardiovascular exam: Present: RRR, +S1, +S2. Absent: diastolic murmur, gallop, rubs, systolic murmur - Neurological Exam Neurological exam: Present: CN II-XII intact, oriented X3, no focal deficits. Absent: pronater drift, facial droop, speech deficit - Skin Skin exam: Present: dry, intact Internal Med - H&P Results - Labs CBC & Chem 7: 01/27/17 20:18 01/27/17 20:18
[2017-01-27] MEDS: *HR* OxyCODONE Immed Rel 5 MG TABLET PO PRN (23:53)
[2017-01-27] MEDS: Pyridostigmine Br 60 MG TABLET PO SCH (23:55)
[2017-01-27] MEDS: 0.9 % Sodium Chloride 1,000 ML IVC SCH (23:56)
[2017-01-28] MEDS ORDERED: 0.9 % Sodium Chloride 1,000 ML IVC ONE (00:29)
[2017-01-28] MEDS: Ketorolac 30 MG/ML VIAL IVP PRN ×2 (05:03→23:26)
[2017-01-28] MEDS: *HR* OxyCODONE Immed Rel 5 MG TABLET PO PRN ×3 (05:56→18:12)
[2017-01-28 06:54] LABS: Basophils # 0.1 K/mcL (0.0-0.2); Basophils % 0.8 %; Eosinophils # 0.3 K/mcL (0.0-0.6); Eosinophils % 3.6 %; Hematocrit 34.4 % (37.5-50.1); Immature Granulocytes % 0.2 % (0-4); Lymphocytes # 3.8 K/mcL (0.6-4.6); Lymphocytes % 43.6 %; Mean Corpuscular HGB Conc 33.1 g/dL (31.6-35.5); Mean Corpuscular Hemoglobin 28.6 pg (28.0-33.3); Mean Corpuscular Volume 86.4 fL (83.0-100.0); Mean Platelet Volume 10.4 fL (9.4-12.4); Monocytes # 0.9 K/mcL (0.0-1.3); Monocytes % 10.1 %; Neutrophils # 3.6 K/mcL (1.6-8.9); Platelet Count 258 K/mcL (140-400); Red Blood Count 3.98 M/mcL (4.19-5.50); Red Cell Distribution Width 13.2 % (11.5-14.5); Segmented Neutrophils % 41.7 %
[2017-01-28 06:56] LABS: Hemoglobin 11.4 g/dL (12.9-16.9)
[2017-01-28 07:09] LABS: Alanine Aminotransferase 60 Units/L (0-55); Albumin/Globulin Ratio 1.3 (1.1-2.2); Alkaline Phosphatase 49 Units/L (38-126); Aspartate Amino Transferase 49 Units/L (5-34); BUN/Creatinine Ratio 14 (6-26); Bilirubin,Total 1.2 mg/dL (0.2-1.2); Blood Urea Nitrogen 10 mg/dL (8-26); Carbon Dioxide 22 mEq/L (19-29); Chloride 112 mEq/L (98-109); Creatine Kinase 742 Units/L (30-200); Globulin 2.4 g/dL (2.4-3.5); Glucose 84 mg/dL (70-99); Magnesium 1.8 mg/dL (1.6-2.6); Osmolality,Calculated 286 (280-300); Potassium 3.9 mEq/L (3.5-4.5); Sodium 139 mEq/L (136-145); eGFR For African Americans > 60 (> 60); eGFR For Non-African Americans > 60 (> 60)
[2017-01-28 07:23] LABS: Albumin 3.1 g/dL (3.5-5.0); Calcium 7.7 mg/dL (8.6-10.8); Total Protein 5.5 g/dL (6.0-8.3)
[2017-01-28] MEDS: Metoprolol XL (24 HR) Succ 50 MG TAB.ER.24H PO SCH (09:28)
[2017-01-28] MEDS: 0.9 % Sodium Chloride 1,000 ML IVC SCH ×2 (09:50→18:13)
[2017-01-28] MEDS: Gabapentin 400 MG CAPSULE PO SCH ×3 (09:51→20:06)
[2017-01-28] MEDS: methIMAzole 5 MG TABLET PO SCH (09:51)
[2017-01-28] MEDS: BuPROPion SR (12 HR) 150 MG TABLET PO SCH ×2 (09:52→16:38)
[2017-01-28] MEDS: clonazePAM 1 MG TABLET PO PRN (09:52)
[2017-01-28] MEDS: Pyridostigmine Br 60 MG TABLET PO SCH ×3 (09:53→23:29)
[2017-01-28 10:36] LABS: Hepatitis B Surface Antigen Nonreactive (Nonreactive)
[2017-01-28 10:54] LABS: Bilirubin,Indirect 0.8 mg/dL (0.0-1.2); Bilirubin,Total 1.3 mg/dL (0.2-1.2)
--- NOTE | 2017-01-28 13:36 | Consult Note ---
Date of Encounter: 01/28/17 Time of Encounter: 12:05 Assessment & Recommendation (1) Bipolar affect, depressed Current visit: Yes Status: Acute Assessment & Recommendation: continue gabapentin and monitor closely for suicidal ideas. Qualifiers: Current episode severity: severe Psychotic features: without psychotic features Qualified Code(s): F31.4 - Bipolar disorder, current episode depressed, severe, without psychotic features (2) Suicidal ideation Current visit: No Status: Acute (3) Methamphetamine abuse Current visit: No Status: Chronic (4) Cannabis abuse Current visit: No Status: Chronic (5) Personality disorder Current visit: No Status: Chronic History of Present Illness Requesting Physician: Johana Miranda Reason for consult: suicidal ideations, History of present illness: Mr. Jalloh is a 41 year old male consulted today for suicidal ideation and paranoid schizophrenia. Mr. Pradip cuellar was seen today at medical floor in his room , he has h/o bipolar , depression , amphetamine induced psychosis and poly substance use. he has h/o multiple psych hospitalizations and last one was [facility] , he was dc 5 days ago . he was bought in by EMS c/o lightheadedness and suicidal ideation. [facility] and had altercation and was taken to prison , after his release he came to ED. He was dc with 1200 mg gabapentin tid, buspar 10 mg bid, he still has the prescriptions, states he had filled some scripts and was taking his meds and didnot relapse, he is upset, depressed, unhappy and continously has suicidal ideation with plan to od, or other things which he has tried before. He denies any psychosis , no auditory or visual hallucnations, has high anxiety which sometimes make him paranoid , he denies paranoia at present. Past Psych. History: significant for depression , anxiety , bipolar , substance use , multiple suicide attempts , 3 psych hospital at AND 1 AT [facility] THIS YEAR. LEGAL HE HAS H/O INCARCERATION 4 TIMES IN HIS LIFETIME, LAST ONE FOR 14 MONTHS AND RELEASED IN 05/30.denies any recent. he lives with his parents,has 2 children who are with their mothers. recent stress of finding out has hep. C an B. Plan continue 1:1 for continuity of care needs to go back to [place] as needs psych. inpatient. continue meds . Thanks for consult. CC: Johana Miranda Past Med Surg Social Fam HX - Past Medical History Medical history: hypertension, thyroid disease, other - Past Psychiatric History Psychiatric history: Reports: anxiety, bipolar, depression, prior suicide attempt, previous psychiatric hospitalization Family psychiatric history: Yes Family History of Suicide: Unknown - Past Surgical History Surgical History: cholecystectomy - Social History Smoking Status: Former smoker Smokeless Tobacco Status: Yes Alcohol use: none, occasionally Drug use: cocaine, marijuana, methamphetamine, prescription drug abuse - Family History Father Hx Family Cardiac Disorders: Yes Hx Family Endocrine Disorder: Yes (DM) Mother Hx Family Cancer: Yes (cervical) Hx Family Endocrine Disorder: Yes (thyroid) Medications & Allergies Pyridostigmine Br [Mestinon] 60 mg PO Q8HR #90 tablet 02/24/16 [Rx] methIMAzole [Tapazole] 5 mg PO DAILY #30 tablet 02/24/16 [Rx] Metoprolol XL (24 HR) Succ [Toprol Xl] 50 mg PO DAILY 06/30/16 [History] EPINEPHrine [Epipen] 0.3 mg IM ONCE PRN 09/16/16 [History] Pantoprazole Sodium [Protonix] 40 mg PO DAILY 09/16/16 [History] Diclofenac Sodium [Voltaren] 50 mg PO BID 11/27/16 [History] Fluticasone Propionate [Flovent Hfa] 1 puff IH BID 11/27/16 [History] BuPROPion SR (12 HR) [Wellbutrin SR] 150 mg PO 0900,1600 #60 tablet.er 12/01/16 [Rx] clonazePAM [Klonopin] 1 mg PO BID PRN #30 tablet 12/01/16 [Rx] Gabapentin [Neurontin] 800 mg PO TID 12/05/16 [History] Albuterol Sulfate [Ventolin Hfa] 8 gm IH Q4-6H PRN #1 hfa.aer.ad 12/12/16 [Rx] Allergies Penicillins Allergy (Verified 12/06/16 18:31) Hives codeine Adverse Reaction (Verified 12/06/16 18:31) Vomiting Review of Systems Psychiatric: Reports: depression, anxiety, suicidal ideation, hopelessness, mood swings Mental Status Exam Patient orientation: Yes Person, Yes Time, Yes Place Level of alertness: Alert Patient appearance: Disheveled Behavior: cooperative Psychomotor activity: Slowed Eye contact: Maintains Eye Contact Mood description: Depressed, Anxious Affect description: congruent with mood, dysphoric Speech pattern: Normal rate, Normal rhythm, Normal tone Speech volume: Normal Thought process: Intact Thought content: Yes Suicidal ideation, Yes Guilt Attention span: Capable of Focused Attention Memory description: Grossly Intact Patient reliability: Questionable Historian Intelligence estimate: Average Judgment: Poor Insight: Minimal Results - Vital Signs Vital signs: Temp Pulse Resp BP Pulse Ox 97.8 F 69 16 105/67 97 01/28/17 11:59 01/28/17 11:59 01/28/17 11:59 01/28/17 11:59 01/28/17 11:59 - Labs Labs: Laboratory Last Values WBC 8.6 K/mcL (4.3-11.1) 01/28/17 06:06 RBC 3.98 M/mcL (4.19-5.50) L 01/28/17 06:06 Hgb 11.4 g/dL (12.9-16.9) L D 01/28/17 06:06 Hct 34.4 % (37.5-50.1) L 01/28/17 06:06 MCV 86.4 fL (83.0-100.0) 01/28/17 06:06 MCH 28.6 pg (28.0-33.3) 01/28/17 06:06 MCHC 33.1 g/dL (31.6-35.5) 01/28/17 06:06 RDW 13.2 % (11.5-14.5) 01/28/17 06:06 Plt Count 258 K/mcL (140-400) 01/28/17 06:06 MPV 10.4 fL (9.4-12.4) 01/28/17 06:06 Immature Gran % 0.2 % (0-4) 01/28/17 06:06 Seg Neutrophils % 41.7 % 01/28/17 06:06 Lymphocytes % 43.6 % 01/28/17 06:06 Monocytes % 10.1 % 01/28/17 06:06 Eosinophils % 3.6 % 01/28/17 06:06 Basophils % 0.8 % 01/28/17 06:06 Neutrophils # 3.6 K/mcL (1.6-8.9) 01/28/17 06:06 Lymphocytes # 3.8 K/mcL (0.6-4.6) 01/28/17 06:06 Monocytes # 0.9 K/mcL (0.0-1.3) 01/28/17 06:06 Eosinophils # 0.3 K/mcL (0.0-0.6) 01/28/17 06:06 Basophils # 0.1 K/mcL (0.0-0.2) 01/28/17 06:06 Sodium 139 mEq/L (136-145) 01/28/17 06:06 Potassium 3.9 mEq/L (3.5-4.5) 01/28/17 06:06 Chloride 112 mEq/L (98-109) H 01/28/17 06:06 Carbon Dioxide 22 mEq/L (19-29) 01/28/17 06:06 BUN 10 mg/dL (8-26) 01/28/17 06:06 Creatinine 0.72 mg/dL (0.72-1.25) 01/28/17 06:06 Est GFR ( Amer) > 60 (> 60) 01/28/17 06:06 Est GFR (Non-Af Amer) > 60 (> 60) 01/28/17 06:06 BUN/Creatinine Ratio 14 (6-26) 01/28/17 06:06 Glucose 84 mg/dL (70-99) 01/28/17 06:06 Calculated Osmolality 286 (280-300) 01/28/17 06:06 Calcium 7.7 mg/dL (8.6-10.8) L D 01/28/17 06:06 Magnesium 1.8 mg/dL (1.6-2.6) 01/28/17 06:06 Total Bilirubin 1.2 mg/dL (0.2-1.2) 01/28/17 06:06 Direct Bilirubin 0.5 mg/dL (0.0-0.5) 01/27/17 20:18 Indirect Bilirubin 0.8 mg/dL (0.0-1.2) 01/27/17 20:18 AST 49 Units/L (5-34) H 01/28/17 06:06 ALT 60 Units/L (0-55) H 01/28/17 06:06 Alkaline Phosphatase 49 Units/L (38-126) 01/28/17 06:06 Creatine Kinase 742 Units/L (30-200) H 01/28/17 06:06 Serum Total Protein 5.5 g/dL (6.0-8.3) L D 01/28/17 06:06 Albumin 3.1 g/dL (3.5-5.0) L D 01/28/17 06:06 Globulin 2.4 g/dL (2.4-3.5) 01/28/17 06:06 Albumin/Globulin Ratio 1.3 (1.1-2.2) 01/28/17 06:06 Urine Color Dark Yellow (Yellow) 01/27/17 20:20 Urine Clarity Clear (Clear) 01/27/17 20:20 Urine pH 6.5 pH Units (5.0-8.0) 01/27/17 20:20 Ur Specific [place] 1.030 (1.010-1.025) H 01/27/17 20:20 Urine Protein Trace mg/dL (Neg-Trace) 01/27/17 20:20 Urine Glucose (UA) Normal mg/dL (Normal) 01/27/17 20:20 Urine Ketones 40 mg/dL (Negative) H 01/27/17 20:20 Urine Blood Negative (Negative) 01/27/17 20:20 Urine Nitrite Negative (Negative) 01/27/17 20:20 Urine Bilirubin Small (Negative) H 01/27/17 20:20 Urine Urobilinogen Normal mg/dL (Normal) 01/27/17 20:20 Ur Leukocyte Esterase Negative (Negative) 01/27/17 20:20 Urine Microscopic RBC 3-5 per hpf (0-3) H 01/27/17 20:20 Urine Microscopic WBC 3-5 per hpf (0-3) H 01/27/17 20:20 Ur Squamous Epith Cells Moderate per lpf (None-Few) H 01/27/17 20:20 Urine Bacteria None Seen per hpf (None-Few) 01/27/17 20:20 Hyaline Casts None Seen per lpf (None-Few) 01/27/17 20:20 Salicylates < 5.0 mg/dL (15-30) L 01/27/17 20:18 Urine Opiates Screen Negative ng/mL (Cdpoev=721) 01/27/17 20:20 Acetaminophen < 1.0 mcg/mL (10-30) L 01/27/17 20:18 Ur Barbiturates Screen Negative ng/mL (Vkfjtt=512) 01/27/17 20:20 Ur Phencyclidine Scrn Negative ng/mL (Cutoff=25) 01/27/17 20:20 Ur Amphetamines Screen Negative ng/mL (Bglnnm=0794) 01/27/17 20:20 U Benzodiazepines Scrn Negative ng/mL (Sltcck=094) 01/27/17 20:20 Urine Cocaine Screen Negative ng/mL (Cutoff= 300) 01/27/17 20:20 U Marijuana (THC) Screen Negative ng/mL (Cutoff = 50) 01/27/17 20:20 Ethyl Alcohol < 10 mg/dL (0-10) 01/27/17 20:18 Hep Bs Antigen Nonreactive (Nonreactive) 01/28/17 06:06 Consult Discharge Plan - Plan Referrals: NONE,PCP [Primary Care Provider] -
--- NOTE | 2017-01-28 17:38 | Internal Med Progress Note ---
Date of Encounter: 01/28/17 Time of Encounter: 10:55 - Assessment and plan (1) Rhabdomyolysis Current Visit: Yes Status: Acute Assessment and plan: Acute rhabdomyolysis - now improving Continue IV fluids Repeat CK levels in a.m., renal function within normal limits Qualifiers: Rhabdomyolysis type: traumatic Encounter type: initial encounter Qualified Code(s): T79.6XXA - Traumatic ischemia of muscle, initial encounter (2) Suicidal ideation Current Visit: No Status: Acute Assessment and plan: Inpatient psych evaluation recommended, continue current meds Continue patient sitter, close monitoring (3) Depression Current Visit: Yes Status: Chronic Assessment and plan: Continue current meds, psychiatry consult, recommendation reviewed Qualifiers: Depression Type: major depressive disorder Major depression recurrence: recurrent Active/Remission status: currently active Major depression episode severity: severe Psychotic features: without psychotic features Qualified Code(s): F33.2 - Major depressive disorder, recurrent severe without psychotic features (4) Myasthenia gravis Current Visit: Yes Status: Chronic Assessment and plan: Continue Mestinon - no acute symptoms (5) Cannabis abuse Current Visit: No Status: Chronic Assessment and plan: Counseled about cessation (6) Paranoid schizophrenia Current Visit: Yes Status: Chronic Assessment and plan: Psychiatry consult - recommendations reviewed (7) Tobacco abuse Current Visit: No Status: Chronic Assessment and plan: Counseled about cessation, refusing nicotine patch (8) Bipolar affect, depressed Current Visit: Yes Status: Acute Assessment and plan: Continue gabapentin as per psychiatry recommendation Qualifiers: Current episode severity: severe Psychotic features: without psychotic features Qualified Code(s): F31.4 - Bipolar disorder, current episode depressed, severe, without psychotic features (9) DVT prophylaxis Current Visit: No Status: Acute Assessment and plan: Continue SCDs, ambulate - Time Spent With Patient 25 - 35 minutes - Subjective Interval history: Examined this morning. Patient awake and alert. Not in any distress. Tolerating oral diet well. Denies chest pain or shortness of breath. No fever. Hemodynamically stable. He is admitted for lightheadedness and suicidal ideation. No other acute events or complaints. - Constitutional Vitals: Temp Pulse Resp BP Pulse Ox 97.9 F 76 18 124/88 96 01/28/17 16:10 01/28/17 16:10 01/28/17 16:10 01/28/17 16:10 01/28/17 16:10 General appearance: Present: cooperative, A&O X 3, pleasant, no acute distress, answers questions appropriately - Head Head exam: Present: atraumatic - Eye Eye exam: Present: EOMI - ENT ENT exam: Present: mucous membranes moist - Neck Neck exam general surgery: Present: supple - Respiratory Respiratory exam: Present: CTAB. Absent: rales, rhonchi, wheezes, tachypnea - Cardiovascular Cardiovascular exam: Present: RRR, +S1, +S2 - GI/Abdominal GI/Abdominal exam: Present: soft. Absent: distended, firm, guarding, tenderness - Extremities Exam Extremities exam: Present: radial pulses palpable and symmetrical. Absent: cyanotic, pedal edema - Neurological Exam Neurological exam: Present: alert, oriented X3, no focal deficits Internal Medicine: Result - Labs CBC & Chem 7: 01/28/17 06:06 01/28/17 06:06 Labs: Short CBC 01/28/17 Range/Units 06:06 WBC 8.6 (4.3-11.1) K/mcL Hgb 11.4 L D (12.9-16.9) g/dL Hct 34.4 L (37.5-50.1) % Plt Count 258 (140-400) K/mcL Neutrophils # 3.6 (1.6-8.9) K/mcL BMP 01/28/17 06:06 Sodium 139 Potassium 3.9 Chloride 112 H Carbon Dioxide 22 BUN 10 Creatinine 0.72 Glucose 84 Calcium 7.7 L D Liver Function 01/28/17 Range/Units 06:06 Total Bilirubin 1.2 (0.2-1.2) mg/dL AST 49 H (5-34) Units/L ALT 60 H (0-55) Units/L Alkaline Phosphatase 49 (38-126) Units/L Albumin 3.1 L D (3.5-5.0) g/dL Consult Discharge Plan - Plan Referrals: NONE,PCP [Primary Care Provider] -
[2017-01-29 04:58] LABS: BUN/Creatinine Ratio 11 (6-26); Blood Urea Nitrogen 8 mg/dL (8-26); Carbon Dioxide 27 mEq/L (19-29); Chloride 108 mEq/L (98-109); Creatine Kinase 384 Units/L (30-200); Glucose 120 mg/dL (70-99); Osmolality,Calculated 292 (280-300); Potassium 3.6 mEq/L (3.5-4.5); Sodium 141 mEq/L (136-145); eGFR For African Americans > 60 (> 60); eGFR For Non-African Americans > 60 (> 60)
[2017-01-29] MEDS: 0.9 % Sodium Chloride 1,000 ML IVC SCH ×2 (06:08→15:33)
[2017-01-29] MEDS: *HR* OxyCODONE Immed Rel 5 MG TABLET PO PRN ×3 (06:10→20:03)
[2017-01-29] MEDS: Pyridostigmine Br 60 MG TABLET PO SCH ×2 (08:24→15:32)
[2017-01-29] MEDS: methIMAzole 5 MG TABLET PO SCH (08:24)
[2017-01-29] MEDS: Gabapentin 400 MG CAPSULE PO SCH ×3 (08:24→20:03)
[2017-01-29] MEDS: Metoprolol XL (24 HR) Succ 50 MG TAB.ER.24H PO SCH (08:25)
[2017-01-29] MEDS: BuPROPion SR (12 HR) 150 MG TABLET PO SCH ×2 (08:25→15:32)
[2017-01-29] MEDS: clonazePAM 1 MG TABLET PO PRN ×2 (08:25→17:15)
[2017-01-29] MEDS: Ketorolac 30 MG/ML VIAL IVP PRN ×2 (08:26→16:44)
[2017-01-29 10:10] LABS: Hepatitis A Antibody IgM Nonreactive (Nonreactive)
[2017-01-29 10:13] LABS: Hepatitis B Core IgM Reactive (Nonreactive); Hepatitis C Virus Antibody Reactive (Nonreactive)
--- NOTE | 2017-01-29 13:54 | Electrocardiograph Report ---
[address] [address] Test Date: 2017-01-27 Pat Name: Jorge Jalloh Department: 105 Room: 3B54 Gender: M Research Quality Assurance Analyst: : 1975 Requested By: Johana Rogers Order Number: [id number] Reading MD: Florin Correia MD Measurements Intervals [place] Rate: 79 P: 35 VT: 130 QRS: 0 QRSD: 94 T: 17 QT: 373 QTc: 407 Interpretive Statements SINUS RHYTHM Electronically Signed On 01-29-2017 13:52:19 EDT by Florin Correia MD
--- NOTE | 2017-01-29 16:22 | Consult Note ---
Date of Encounter: 01/29/17 Time of Encounter: 16:00 Assessment & Recommendation (1) Bipolar affect, depressed Current visit: Yes Status: Acute Qualifiers: Current episode severity: severe Psychotic features: without psychotic features Qualified Code(s): F31.4 - Bipolar disorder, current episode depressed, severe, without psychotic features (2) Suicidal ideation Current visit: No Status: Acute (3) Methamphetamine abuse Current visit: No Status: Chronic (4) Cannabis abuse Current visit: No Status: Chronic (5) Personality disorder Current visit: No Status: Chronic History of Present Illness Requesting Physician: Jhoana Miranda Reason for consult: follow up /suicidal ideas History of present illness: Mr. Jalloh is a 41 year old male seen today for follow up , pt is still depressed, i am very much depress, i have enough on my mind,thoughts to hurt my self come and go , when i have them i want to do something, i am not sleeping well as i have pain. he is unable to sign safety contract. patient remains suicidal and depressed. need in patient hospitalization and continue 1:1. CC: Johana Miranda Past Med Surg Social Fam HX - Past Medical History Medical history: hypertension, thyroid disease, other - Past Psychiatric History Psychiatric history: Reports: anxiety, depression, prior suicide attempt, previous psychiatric hospitalization Family psychiatric history: Yes Family History of Suicide: Unknown - Past Surgical History Surgical History: cholecystectomy - Social History Smoking Status: Former smoker Smokeless Tobacco Status: Yes Alcohol use: none, occasionally Drug use: cocaine, marijuana, methamphetamine, prescription drug abuse - Family History Father Hx Family Cardiac Disorders: Yes Hx Family Endocrine Disorder: Yes (DM) Mother Hx Family Cancer: Yes (cervical) Hx Family Endocrine Disorder: Yes (thyroid) Medications & Allergies Pyridostigmine Br [Mestinon] 60 mg PO Q8HR #90 tablet 02/24/16 [Rx] methIMAzole [Tapazole] 5 mg PO DAILY #30 tablet 02/24/16 [Rx] Metoprolol XL (24 HR) Succ [Toprol Xl] 50 mg PO DAILY 06/30/16 [History] EPINEPHrine [Epipen] 0.3 mg IM ONCE PRN 09/16/16 [History] Pantoprazole Sodium [Protonix] 40 mg PO DAILY 09/16/16 [History] Diclofenac Sodium [Voltaren] 50 mg PO BID 11/27/16 [History] Fluticasone Propionate [Flovent Hfa] 1 puff IH BID 11/27/16 [History] BuPROPion SR (12 HR) [Wellbutrin SR] 150 mg PO 0900,1600 #60 tablet.er 12/01/16 [Rx] clonazePAM [Klonopin] 1 mg PO BID PRN #30 tablet 12/01/16 [Rx] Gabapentin [Neurontin] 800 mg PO TID 12/05/16 [History] Albuterol Sulfate [Ventolin Hfa] 8 gm IH Q4-6H PRN #1 hfa.aer.ad 12/12/16 [Rx] Penicillins Allergy (Verified 12/06/16 18:31) Hives codeine Adverse Reaction (Verified 12/06/16 18:31) Vomiting Review of Systems Psychiatric: Reports: depression, anxiety, suicidal ideation, hopelessness, mood swings Mental Status Exam Patient orientation: Yes Person, Yes Time, Yes Place Level of alertness: Alert Patient appearance: Unkempt Behavior: withdrawn Psychomotor activity: Slowed Eye contact: Minimal Contact Mood description: Depressed, Anxious Affect description: constricted Speech pattern: Slowed Speech volume: Soft/Quiet Thought process: Slowed Thinking Thought content: Yes Suicidal ideation, Yes Nihilistic delusion Attention span: Unable to Sustain Attention Memory description: Grossly Intact Patient reliability: Questionable Historian Intelligence estimate: Average Judgment: Poor Insight: Minimal Results - Vital Signs Vital signs: Temp Pulse Resp BP Pulse Ox 97.5 F L 69 18 118/81 99 01/29/17 15:45 01/29/17 15:45 01/29/17 15:45 01/29/17 15:45 01/29/17 15:45 - Labs Labs: Laboratory Last Values WBC 8.6 K/mcL (4.3-11.1) 01/28/17 06:06 RBC 3.98 M/mcL (4.19-5.50) L 01/28/17 06:06 Hgb 11.4 g/dL (12.9-16.9) L D 01/28/17 06:06 Hct 34.4 % (37.5-50.1) L 01/28/17 06:06 MCV 86.4 fL (83.0-100.0) 01/28/17 06:06 MCH 28.6 pg (28.0-33.3) 01/28/17 06:06 MCHC 33.1 g/dL (31.6-35.5) 01/28/17 06:06 RDW 13.2 % (11.5-14.5) 01/28/17 06:06 Plt Count 258 K/mcL (140-400) 01/28/17 06:06 MPV 10.4 fL (9.4-12.4) 01/28/17 06:06 Immature Gran % 0.2 % (0-4) 01/28/17 06:06 Seg Neutrophils % 41.7 % 01/28/17 06:06 Lymphocytes % 43.6 % 01/28/17 06:06 Monocytes % 10.1 % 01/28/17 06:06 Eosinophils % 3.6 % 01/28/17 06:06 Basophils % 0.8 % 01/28/17 06:06 Neutrophils # 3.6 K/mcL (1.6-8.9) 01/28/17 06:06 Lymphocytes # 3.8 K/mcL (0.6-4.6) 01/28/17 06:06 Monocytes # 0.9 K/mcL (0.0-1.3) 01/28/17 06:06 Eosinophils # 0.3 K/mcL (0.0-0.6) 01/28/17 06:06 Basophils # 0.1 K/mcL (0.0-0.2) 01/28/17 06:06 Sodium 141 mEq/L (136-145) 01/29/17 03:49 Potassium 3.6 mEq/L (3.5-4.5) 01/29/17 03:49 Chloride 108 mEq/L (98-109) 01/29/17 03:49 Carbon Dioxide 27 mEq/L (19-29) 01/29/17 03:49 BUN 8 mg/dL (8-26) 01/29/17 03:49 Creatinine 0.74 mg/dL (0.72-1.25) 01/29/17 03:49 Est GFR ( Amer) > 60 (> 60) 01/29/17 03:49 Est GFR (Non-Af Amer) > 60 (> 60) 01/29/17 03:49 BUN/Creatinine Ratio 11 (6-26) 01/29/17 03:49 Glucose 120 mg/dL (70-99) H 01/29/17 03:49 Calculated Osmolality 292 (280-300) 01/29/17 03:49 Calcium 9.0 mg/dL (8.6-10.8) D 01/29/17 03:49 Magnesium 1.8 mg/dL (1.6-2.6) 01/28/17 06:06 Total Bilirubin 1.2 mg/dL (0.2-1.2) 01/28/17 06:06 Direct Bilirubin 0.5 mg/dL (0.0-0.5) 01/27/17 20:18 Indirect Bilirubin 0.8 mg/dL (0.0-1.2) 01/27/17 20:18 AST 49 Units/L (5-34) H 01/28/17 06:06 ALT 60 Units/L (0-55) H 01/28/17 06:06 Alkaline Phosphatase 49 Units/L (38-126) 01/28/17 06:06 Creatine Kinase 384 Units/L (30-200) H 01/29/17 03:49 Serum Total Protein 5.5 g/dL (6.0-8.3) L D 01/28/17 06:06 Albumin 3.1 g/dL (3.5-5.0) L D 01/28/17 06:06 Globulin 2.4 g/dL (2.4-3.5) 01/28/17 06:06 Albumin/Globulin Ratio 1.3 (1.1-2.2) 01/28/17 06:06 Urine Color Dark Yellow (Yellow) 01/27/17 20:20 Urine Clarity Clear (Clear) 01/27/17 20:20 Urine pH 6.5 pH Units (5.0-8.0) 01/27/17 20:20 Ur Specific [place] 1.030 (1.010-1.025) H 01/27/17 20:20 Urine Protein Trace mg/dL (Neg-Trace) 01/27/17 20:20 Urine Glucose (UA) Normal mg/dL (Normal) 01/27/17 20:20 Urine Ketones 40 mg/dL (Negative) H 01/27/17 20:20 Urine Blood Negative (Negative) 01/27/17 20:20 Urine Nitrite Negative (Negative) 01/27/17 20:20 Urine Bilirubin Small (Negative) H 01/27/17 20:20 Urine Urobilinogen Normal mg/dL (Normal) 01/27/17 20:20 Ur Leukocyte Esterase Negative (Negative) 01/27/17 20:20 Urine Microscopic RBC 3-5 per hpf (0-3) H 01/27/17 20:20 Urine Microscopic WBC 3-5 per hpf (0-3) H 01/27/17 20:20 Ur Squamous Epith Cells Moderate per lpf (None-Few) H 01/27/17 20:20 Urine Bacteria None Seen per hpf (None-Few) 01/27/17 20:20 Hyaline Casts None Seen per lpf (None-Few) 01/27/17 20:20 Salicylates < 5.0 mg/dL (15-30) L 01/27/17 20:18 Urine Opiates Screen Negative ng/mL (Zgiqaa=917) 01/27/17 20:20 Acetaminophen < 1.0 mcg/mL (10-30) L 01/27/17 20:18 Ur Barbiturates Screen Negative ng/mL (Gqhlnr=253) 01/27/17 20:20 Ur Phencyclidine Scrn Negative ng/mL (Cutoff=25) 01/27/17 20:20 Ur Amphetamines Screen Negative ng/mL (Gcasgr=2918) 01/27/17 20:20 U Benzodiazepines Scrn Negative ng/mL (Uegwzy=460) 01/27/17 20:20 Urine Cocaine Screen Negative ng/mL (Cutoff= 300) 01/27/17 20:20 U Marijuana (THC) Screen Negative ng/mL (Cutoff = 50) 01/27/17 20:20 Ethyl Alcohol < 10 mg/dL (0-10) 01/27/17 20:18 Hepatitis A IgM Ab Nonreactive (Nonreactive) 01/28/17 06:06 Hep Bs Antigen Nonreactive (Nonreactive) 01/28/17 06:06 Hep B Core IgM Ab Reactive (Nonreactive) H 01/28/17 06:06 Hepatitis C Ab Screen Reactive (Nonreactive) H 01/28/17 06:06 - Impressions Impressions Abdomen/Pelvis CT 01/29/17 14:30 IMPRESSION: 1. Mild lymphadenopathy in the derrick hepatis. This may correlate to chronic liver disease or perhaps underlying hepatitis. Please correlate with liver function studies. 2. No focal hepatic lesions are identified on this noncontrast exam. The biliary ducts are normal. 3. Stable hyperdense left renal cyst. D/ / Kevin Cleary MD / Kevin Cleary MD Interpreting Provider: Kevin Cleary MD Consult Discharge Plan - Plan Referrals: NONE,PCP [Primary Care Provider] -
[2017-01-29] MEDS ORDERED: *HR* HYDROmorphone (PF) 1 MG/ML SYRINGE IVP ONE (18:00)
--- NOTE | 2017-01-29 18:42 | Internal Med Progress Note ---
Date of Encounter: 01/29/17 Time of Encounter: 10:50 - Assessment and plan (1) Rhabdomyolysis Current Visit: Yes Status: Acute Assessment and plan: Acute rhabdomyolysis - improved Continue IV fluids Anticipated discharge to psych facility in a.m. Qualifiers: Rhabdomyolysis type: traumatic Encounter type: initial encounter Qualified Code(s): T79.6XXA - Traumatic ischemia of muscle, initial encounter (2) Suicidal ideation Current Visit: No Status: Acute Assessment and plan: Inpatient psych evaluation recommended, continue current meds Psych consult - recommendations reviewed Continue patient sitter, close monitoring Patient has been pink slipped (3) Abdominal pain Current Visit: Yes Status: Acute Assessment and plan: Acute epigastric pain - unclear etiology CT abdomen/pelvis - mild lymphadenopathy and derrick hepatis, chronic liver disease, no acute findings otherwise Continue IV fluids, IV Toradol as needed Labs in a.m., anticipate discharge to psych facility in a.m. Qualifiers: Abdominal location: epigastric Qualified Code(s): R10.13 - Epigastric pain (4) Depression Current Visit: Yes Status: Chronic Assessment and plan: Continue current meds, psychiatry consult, recommendation reviewed Qualifiers: Depression Type: major depressive disorder Major depression recurrence: recurrent Active/Remission status: currently active Major depression episode severity: severe Psychotic features: without psychotic features Qualified Code(s): F33.2 - Major depressive disorder, recurrent severe without psychotic features (5) Myasthenia gravis Current Visit: Yes Status: Chronic Assessment and plan: Continue Mestinon - no acute symptoms (6) Cannabis abuse Current Visit: No Status: Chronic Assessment and plan: Counseled about cessation (7) Paranoid schizophrenia Current Visit: Yes Status: Chronic Assessment and plan: Psychiatry consult - recommendations reviewed (8) Tobacco abuse Current Visit: No Status: Chronic Assessment and plan: Counseled about cessation, refusing nicotine patch (9) Bipolar affect, depressed Current Visit: Yes Status: Acute Assessment and plan: Continue gabapentin as per psychiatry recommendation Qualifiers: Current episode severity: severe Psychotic features: without psychotic features Qualified Code(s): F31.4 - Bipolar disorder, current episode depressed, severe, without psychotic features (10) DVT prophylaxis Current Visit: No Status: Acute Assessment and plan: Continue SCDs, ambulate - Time Spent With Patient 25 - 35 minutes - Subjective Interval history: Examined this morning. Patient awake and alert. Not in any distress. Tolerating oral diet well. Complains of severe epigastric pain. Describes it as sharp and constant. No vomiting. No diarrhea. Rates it 10 out of 10. States he needs stronger pain medication. Denies chest pain or shortness of breath. No fever. Hemodynamically stable. Continues to have suicidal ideation. No other acute events or complaints. - Constitutional Vitals: Temp Pulse Resp BP Pulse Ox 97.6 F 78 18 137/89 97 01/29/17 18:10 01/29/17 18:10 01/29/17 18:10 01/29/17 18:10 01/29/17 18:10 General appearance: Present: cooperative, A&O X 3, pleasant, no acute distress, answers questions appropriately - Head Head exam: Present: atraumatic - Eye Eye exam: Present: EOMI - ENT ENT exam: Present: mucous membranes moist - Neck Neck exam general surgery: Present: supple - Respiratory Respiratory exam: Present: CTAB. Absent: rales, rhonchi, wheezes, tachypnea - Cardiovascular Cardiovascular exam: Present: RRR, +S1, +S2 - GI/Abdominal GI/Abdominal exam: Present: soft, tenderness (Mild epigastric tenderness). Absent: distended, firm, guarding - Extremities Exam Extremities exam: Present: radial pulses palpable and symmetrical. Absent: cyanotic, pedal edema - Neurological Exam Neurological exam: Present: alert, oriented X3, no focal deficits. Absent: facial droop, speech deficit Internal Medicine: Result - Labs CBC & Chem 7: 01/28/17 06:06 01/29/17 03:49 Labs: BMP 01/29/17 03:49 Sodium 141 Potassium 3.6 Chloride 108 Carbon Dioxide 27 BUN 8 Creatinine 0.74 Glucose 120 H Calcium 9.0 D - Impressions Impressions Abdomen/Pelvis CT 01/29/17 14:30 IMPRESSION: 1. Mild lymphadenopathy in the derrick hepatis. This may correlate to chronic liver disease or perhaps underlying hepatitis. Please correlate with liver function studies. 2. No focal hepatic lesions are identified on this noncontrast exam. The biliary ducts are normal. 3. Stable hyperdense left renal cyst. D/ / Kevin Cleary MD / Kevin Cleary MD Interpreting Provider: Kevin Cleary MD Consult Discharge Plan - Plan Referrals: NONE,PCP [Primary Care Provider] -
[2017-01-30] MEDS: Pyridostigmine Br 60 MG TABLET PO SCH ×3 (00:02→14:48)
[2017-01-30] MEDS: Ketorolac 30 MG/ML VIAL IVP PRN (00:02)
[2017-01-30] MEDS: *HR* OxyCODONE Immed Rel 5 MG TABLET PO PRN ×3 (02:48→21:11)
[2017-01-30] MEDS: 0.9 % Sodium Chloride 1,000 ML IVC SCH (03:50)
[2017-01-30 06:24] LABS: Alanine Aminotransferase 59 Units/L (0-55); Albumin 3.4 g/dL (3.5-5.0); Albumin/Globulin Ratio 1.2 (1.1-2.2); Alkaline Phosphatase 67 Units/L (38-126); Aspartate Amino Transferase 36 Units/L (5-34); BUN/Creatinine Ratio 8 (6-26); Bilirubin,Total 0.3 mg/dL (0.2-1.2); Blood Urea Nitrogen 6 mg/dL (8-26); Calcium 9.1 mg/dL (8.6-10.8); Carbon Dioxide 25 mEq/L (19-29); Chloride 107 mEq/L (98-109); Creatine Kinase 239 Units/L (30-200); Globulin 2.9 g/dL (2.4-3.5); Glucose 97 mg/dL (70-99); Osmolality,Calculated 284 (280-300); Potassium 3.7 mEq/L (3.5-4.5); Sodium 138 mEq/L (136-145); Total Protein 6.3 g/dL (6.0-8.3); eGFR For African Americans > 60 (> 60); eGFR For Non-African Americans > 60 (> 60)
[2017-01-30] MEDS: Gabapentin 400 MG CAPSULE PO SCH ×3 (09:10→21:11)
[2017-01-30] MEDS: methIMAzole 5 MG TABLET PO SCH (09:10)
[2017-01-30] MEDS: Metoprolol XL (24 HR) Succ 50 MG TAB.ER.24H PO SCH (09:10)
[2017-01-30] MEDS: BuPROPion SR (12 HR) 150 MG TABLET PO SCH ×2 (09:10→14:48)
[2017-01-30] MEDS: clonazePAM 1 MG TABLET PO PRN (09:18)
--- NOTE | 2017-01-30 10:24 | Internal Med Progress Note ---
Date of Encounter: 01/30/17 Time of Encounter: 09:05 - Assessment and plan (1) Rhabdomyolysis Current Visit: Yes Status: Acute Assessment and plan: Acute rhabdomyolysis - Improved CK level now to 39 Stable for discharge to inpatient psych facility today Qualifiers: Rhabdomyolysis type: traumatic Encounter type: initial encounter Qualified Code(s): T79.6XXA - Traumatic ischemia of muscle, initial encounter (2) Suicidal ideation Current Visit: No Status: Acute Assessment and plan: Inpatient psych evaluation recommended, continue current meds Psych consult - recommendations reviewed Continue patient sitter, close monitoring Patient has been pink slipped (3) Abdominal pain Current Visit: Yes Status: Acute Assessment and plan: Acute epigastric pain - unclear etiology - now resolved CT abdomen/pelvis - mild lymphadenopathy and derrick hepatis, chronic liver disease, no acute findings otherwise Stable for discharge to psych facility today Qualifiers: Abdominal location: epigastric Qualified Code(s): R10.13 - Epigastric pain (4) Depression Current Visit: Yes Status: Chronic Assessment and plan: Continue current meds, psychiatry consult, recommendation reviewed Qualifiers: Depression Type: major depressive disorder Major depression recurrence: recurrent Active/Remission status: currently active Major depression episode severity: severe Psychotic features: without psychotic features Qualified Code(s): F33.2 - Major depressive disorder, recurrent severe without psychotic features (5) Myasthenia gravis Current Visit: Yes Status: Chronic Assessment and plan: Continue Mestinon - no acute symptoms (6) Cannabis abuse Current Visit: No Status: Chronic Assessment and plan: Counseled about cessation (7) Paranoid schizophrenia Current Visit: Yes Status: Chronic Assessment and plan: Psychiatry consult - recommendations reviewed (8) Tobacco abuse Current Visit: No Status: Chronic Assessment and plan: Counseled about cessation, refusing nicotine patch (9) Bipolar affect, depressed Current Visit: Yes Status: Acute Assessment and plan: Continue gabapentin as per psychiatry recommendation Qualifiers: Current episode severity: severe Psychotic features: without psychotic features Qualified Code(s): F31.4 - Bipolar disorder, current episode depressed, severe, without psychotic features (10) DVT prophylaxis Current Visit: No Status: Acute Assessment and plan: Continue SCDs, ambulating well - Time Spent With Patient 25 - 35 minutes - Subjective Interval history: Examined this morning. Patient awake and alert. Not in any distress. Tolerating oral diet well. Denies chest pain or shortness of breath. States his abdominal pain has now improved. CT of the abdomen and pelvis shows mild lymphadenopathy in the derrick hepatis likely chronic liver disease with underlying hepatitis. No focal hepatic lesions seen. Patient has been explained that he will need to follow up with gastroenterology/hepatology as outpatient. Ambulating independently. No fever. Hemodynamically stable. No other acute events or complaints. CK level has now improved. Stable for discharge to inpatient psych facility. - Constitutional Vitals: Temp Pulse Resp BP Pulse Ox 97.5 F L 87 14 117/81 98 01/30/17 09:01 01/30/17 09:01 01/30/17 09:01 01/30/17 09:01 01/30/17 09:10 General appearance: Present: cooperative, A&O X 3, pleasant, no acute distress, answers questions appropriately - Head Head exam: Present: atraumatic - Eye Eye exam: Present: EOMI - ENT ENT exam: Present: mucous membranes moist - Neck Neck exam general surgery: Present: supple - Respiratory Respiratory exam: Present: CTAB. Absent: rales, rhonchi, wheezes, tachypnea - Cardiovascular Cardiovascular exam: Present: RRR, +S1, +S2 - GI/Abdominal GI/Abdominal exam: Present: soft. Absent: distended, firm, guarding, tenderness - Extremities Exam Extremities exam: Present: radial pulses palpable and symmetrical. Absent: cyanotic, pedal edema - Neurological Exam Neurological exam: Present: alert, oriented X3, no focal deficits. Absent: facial droop, speech deficit Internal Medicine: Result - Labs CBC & Chem 7: 01/28/17 06:06 01/30/17 04:39 Labs: BMP 01/30/17 04:39 Sodium 138 Potassium 3.7 Chloride 107 Carbon Dioxide 25 BUN 6 L Creatinine 0.76 Glucose 97 Calcium 9.1 Liver Function 01/30/17 Range/Units 04:39 Total Bilirubin 0.3 (0.2-1.2) mg/dL AST 36 H (5-34) Units/L ALT 59 H (0-55) Units/L Alkaline Phosphatase 67 (38-126) Units/L Albumin 3.4 L (3.5-5.0) g/dL - Impressions Impressions Abdomen/Pelvis CT 01/29/17 14:30 IMPRESSION: 1. Mild lymphadenopathy in the derrick hepatis. This may correlate to chronic liver disease or perhaps underlying hepatitis. Please correlate with liver function studies. 2. No focal hepatic lesions are identified on this noncontrast exam. The biliary ducts are normal. 3. Stable hyperdense left renal cyst. D/ / Kevin Cleary MD / Kevin Cleary MD Interpreting Provider: Kevin Cleary MD Consult Discharge Plan - Plan Referrals: NONE,PCP [Primary Care Provider] -
[2017-01-30] MEDS ORDERED: *HR* HYDROmorphone (PF) 1 MG/ML SYRINGE IVP ONE (11:13)
[2017-01-30] MEDS ORDERED: Haloperidol Lactate 5 MG/ML VIAL IM PRN (11:13)
[2017-01-30 14:37] VITALS: BP 136/86
[2017-01-30 14:53] LABS: Alanine Aminotransferase 65 Units/L (0-55); Albumin 3.7 g/dL (3.5-5.0); Albumin/Globulin Ratio 1.2 (1.1-2.2); Alkaline Phosphatase 74 Units/L (38-126); Aspartate Amino Transferase 41 Units/L (5-34); BUN/Creatinine Ratio 8 (6-26); Bilirubin,Total 0.3 mg/dL (0.2-1.2); Blood Urea Nitrogen 7 mg/dL (8-26); Calcium 9.6 mg/dL (8.6-10.8); Carbon Dioxide 24 mEq/L (19-29); Chloride 107 mEq/L (98-109); Creatine Kinase 254 Units/L (30-200); Globulin 3.2 g/dL (2.4-3.5); Glucose 121 mg/dL (70-99); Osmolality,Calculated 283 (280-300); Potassium 4.5 mEq/L (3.5-4.5); Sodium 137 mEq/L (136-145); Total Protein 6.9 g/dL (6.0-8.3); eGFR For African Americans > 60 (> 60); eGFR For Non-African Americans > 60 (> 60)
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
== END 2017-01-30 22:00 ==
LOC: EMEROO 19:46 → 3BNU 19:46
PROVIDERS: ADMIT Internal Medicine; ATTEND Nurse Practitioner Family

== ENCOUNTER 2017-02-05 09:40 | Observation (INO) ==
[2017-02-05] MEDS ORDERED: *HR* LORazepam 2 MG/ML VIAL IM ONE ×3 (09:57→12:44)
[2017-02-05] MEDS ORDERED: ChlorproMAZINE 25 MG/ML AMPUL IM ONE (09:57)
--- NOTE | 2017-02-05 10:17 | Emergency Department Note ---
Disposition Clinical Impression: Suicidal ideations Drug-induced psychotic disorder Qualifiers: Complication of substance-induced condition: with unspecified complication Qualified Code(s): F19.959 - Other psychoactive substance use, unspecified with psychoactive substance-induced psychotic disorder, unspecified Disposition: Admitted As Inpatient Condition: Fair Referrals: NONE,PCP [Primary Care Provider] - Forms: ED Satisfaction Letter Time of Disposition: 19:01 General Adult HPI - General Chief complaint: ED Psychiatric Symptoms Stated complaint: SI Time Seen by Provider: 02/05/17 09:44 Source: EMS Limitations: no limitations Nursing Notes Reviewed: Yes Vital Signs Reviewed: Yes - History of Present Illness HPI Narrative: Patient sates he took 2 g of methamphetamine this morning to kill himself. He is aggressive on arrival. He has no other complaints. He is short when he speaks with me. He does not answer several questions. He is very vague. Pain Scale: 0 - Related Data Home Medications Medication Instructions Recorded Confirmed Metoprolol XL (24 HR) Succ [Toprol 50 mg PO DAILY 06/30/16 02/05/17 Xl] EPINEPHrine [Epipen] 0.3 mg IM ONCE PRN 09/16/16 02/05/17 Pantoprazole Sodium [Protonix] 40 mg PO DAILY 09/16/16 02/05/17 Fluticasone Propionate [Flovent 1 puff IH BID 11/27/16 02/05/17 Hfa] Albuterol Sulfate [Ventolin Hfa] 2 puff IH Q4-6H PRN 02/05/17 02/05/17 Gabapentin [Neurontin] 300 mg PO TID 02/05/17 02/05/17 Previous Rx's Medication Instructions Recorded Pyridostigmine Br [Mestinon] 60 mg PO Q8HR #90 tablet 02/24/16 methIMAzole [Tapazole] 5 mg PO DAILY #30 tablet 02/24/16 BuPROPion SR (12 HR) [Wellbutrin 150 mg PO 0900,1600 #60 tablet.er 12/01/16 SR] clonazePAM [Klonopin] 1 mg PO BID PRN #30 tablet 12/01/16 Allergies Allergy/AdvReac Type Severity Reaction Status Date / Time Penicillins Allergy Hives Verified 02/05/17 09:55 codeine AdvReac Vomiting Verified 02/05/17 09:55 Limitations: ROS unobtainable due to patients medical condition (Patient is not very cooperative and only answers few questions.) Constitutional: Denies: fever, chills Psychiatric: Reports: suicidal thoughts. Denies: homicidal thoughts Past Medical History - Past Medical History Attestation: Yes The following information was validated with the patient. Source: patient Medical history: Reports: hypertension, thyroid disease, other Surgical history: Reports: cholecystectomy Psychiatric history: Reports: anxiety, depression, prior suicide attempt, previous psychiatric hospitalization - Social History Smoking Status: Former smoker Smokeless Tobacco Status: Yes Alcohol use: Reports: none, occasionally Drug use: Reports: cocaine, marijuana, methamphetamine, prescription drug abuse Physical Exam - General Limitations: no limitations General appearance: alert, in no apparent distress - Head Head exam: atraumatic, normocephalic, normal inspection - Eye Eye exam: Present: normal appearance, PERRL, EOMI - ENT ENT exam: normal exam, normal oropharynx, mucous membranes moist - Neck Neck exam: Present: normal inspection, full ROM, trachea midline - Chest Chest inspection: Present: normal inspection, symmetric chest wall rise - Respiratory Respiratory exam: Absent: respiratory distress - Extremities Exam Extremities exam: Present: normal inspection, full ROM - Neurological Exam Neurological exam: Present: alert, oriented X3, normal gait - Psychiatric Psychiatric exam: Present: agitated - Skin Skin exam: Present: warm, dry, intact, normal color. Absent: rash Course Course Narrative: [facility] complaining of taking 2 g of meth earlier this morning to kill himself. He states he wanted to "off himself. " However this did not work. Standing up whenever I arrived to the room playing loud music on his cell phone. When asked to turn it down he does turn his bone down minimally. I asked him to turn it down more and he looks at me. He states that He can hear me fine. When asked if he feels like he should still kill himself he is very evasive. He states he will "leave it up to me." He states that he was very disturbed when he did not "off himself" This morning. Patient is very abrasive during my exam. Policy is to have the patient in a gown. He does have a metal chain to his right hip. He frequently puts on it takes off his gown. As I attempt to discuss that we will need his cell phone and belongings he gets very agitated. When I discussed that we will treat him appropriately and he needs to calm down he becomes more aggressive. He puffs out his chest and states that I should just call the extra people and now. Patient is very aggressive at this time. We will sedate patient. He is pink slipped at this time for his suicide attempt this morning. - Reevaluation(s) Reevaluation #1: Patient was given Benadryl. On reevaluation he is mumbling at bedside. Patient does have his underwear on and tobacco has fallen out of them. We will administer Narcan the patient in case he had drugs on his body or in his body prior to arrival here and then ingested them since he has been here. Time: 15:24 Reevaluation #2: Patient reassessed. He is sleeping at this time. Awaiting 1A to assess patient. We will admit patient for methamphetamine use. Time: 17:21 Vital Signs Temperature 98.3 F 02/05/17 09:46 Pulse Rate 125 02/05/17 09:46 Respiratory Rate 18 02/05/17 09:46 Blood Pressure 154/101 02/05/17 09:46 O2 Sat by Pulse Oximetry 96 02/05/17 09:46 Temperature 98.3 F 02/05/17 09:55 Pulse Rate 111 02/05/17 14:05 Respiratory Rate 16 02/05/17 14:05 Blood Pressure 120/82 02/05/17 14:05 O2 Sat by Pulse Oximetry 92 02/05/17 14:05 Oxygen Delivery Oxygen Delivery Room Air Medical Decision Making - Medical Records Medical records reviewed: Yes I reviewed the patient's medical records. - Lab Data Lab results reviewed: Yes I reviewed the patient's lab results. Result diagrams: 02/05/17 10:14 02/05/17 10:14 Lab Results 02/05/17 02/05/17 02/05/17 Range/Units 10:14 10:14 10:30 WBC 13.9 H (4.3-11.1) K/mcL RBC 5.52 H (4.19-5.50) M/mcL Hgb 15.2 (12.9-16.9) g/dL Hct 45.3 (37.5-50.1) % MCV 82.1 L (83.0-100.0) fL MCH 27.5 L (28.0-33.3) pg MCHC 33.6 (31.6-35.5) g/dL RDW 12.5 (11.5-14.5) % Plt Count 388 (140-400) K/mcL MPV 10.1 (9.4-12.4) fL Immature Gran % 0.5 (0-4) % Seg Neutrophils % 64.3 % Lymphocytes % 25.9 % Monocytes % 8.5 % Eosinophils % 0.4 % Basophils % 0.4 % Neutrophils # 8.9 (1.6-8.9) K/mcL Lymphocytes # 3.6 (0.6-4.6) K/mcL Monocytes # 1.2 (0.0-1.3) K/mcL Eosinophils # 0.1 (0.0-0.6) K/mcL Basophils # 0.1 (0.0-0.2) K/mcL VBG pH (7.32-7.42) pH Units VBG pCO2 (41-51) mmHg VBG pO2 (25-40) mmHg VBG HCO3 (21-27) mEq/L Sodium 134 L (136-145) mEq/L Potassium 4.1 (3.5-4.5) mEq/L Chloride 98 (98-109) mEq/L Carbon Dioxide 26 (19-29) mEq/L BUN 10 (8-26) mg/dL Creatinine 0.99 (0.72-1.25) mg/dL Est GFR ( Amer) > 60 (> 60) Est GFR (Non-Af Amer) > 60 (> 60) BUN/Creatinine Ratio 10 (6-26) Glucose 115 H (70-99) mg/dL Calculated Osmolality 278 L (280-300) Calcium 10.5 (8.6-10.8) mg/dL Urine Color Yellow (Yellow) Urine Clarity Clear (Clear) Urine pH 7.0 (5.0-8.0) pH Units Ur Specific Agate 1.008 L (1.010-1.025) Urine Protein Negative (Neg-Trace) mg/dL Urine Glucose (UA) Normal (Normal) mg/dL Urine Ketones Negative (Negative) mg/dL Urine Blood Negative (Negative) Urine Nitrite Negative (Negative) Urine Bilirubin Negative (Negative) Urine Urobilinogen Normal (Normal) mg/dL Ur Leukocyte Esterase Negative (Negative) Salicylates < 5.0 L (15-30) mg/dL Urine Opiates Screen (Cghrof=171) ng/mL Acetaminophen < 1.0 L (10-30) mcg/mL Ur Barbiturates Screen (Tcoqwq=990) ng/mL Ur Phencyclidine Scrn (Cutoff=25) ng/mL Ur Amphetamines Screen (Snflyj=1517) ng/mL U Benzodiazepines Scrn (Jwbhou=851) ng/mL Urine Cocaine Screen (Cutoff= 300) ng/mL U Marijuana (THC) Screen (Cutoff = 50) ng/mL Ethyl Alcohol < 10 (0-10) mg/dL 02/05/17 02/05/17 Range/Units 10:30 15:07 WBC (4.3-11.1) K/mcL RBC (4.19-5.50) M/mcL Hgb (12.9-16.9) g/dL Hct (37.5-50.1) % MCV (83.0-100.0) fL MCH (28.0-33.3) pg MCHC (31.6-35.5) g/dL RDW (11.5-14.5) % Plt Count (140-400) K/mcL MPV (9.4-12.4) fL Immature Gran % (0-4) % Seg Neutrophils % % Lymphocytes % % Monocytes % % Eosinophils % % Basophils % % Neutrophils # (1.6-8.9) K/mcL Lymphocytes # (0.6-4.6) K/mcL Monocytes # (0.0-1.3) K/mcL Eosinophils # (0.0-0.6) K/mcL Basophils # (0.0-0.2) K/mcL VBG pH 7.44 H (7.32-7.42) pH Units VBG pCO2 38 L (41-51) mmHg VBG pO2 112 H (25-40) mmHg VBG HCO3 25.8 (21-27) mEq/L Sodium (136-145) mEq/L Potassium (3.5-4.5) mEq/L Chloride (98-109) mEq/L Carbon Dioxide (19-29) mEq/L BUN (8-26) mg/dL Creatinine (0.72-1.25) mg/dL Est GFR ( Amer) (> 60) Est GFR (Non-Af Amer) (> 60) BUN/Creatinine Ratio (6-26) Glucose (70-99) mg/dL Calculated Osmolality (280-300) Calcium (8.6-10.8) mg/dL Urine Color (Yellow) Urine Clarity (Clear) Urine pH (5.0-8.0) pH Units Ur Specific Agate (1.010-1.025) Urine Protein (Neg-Trace) mg/dL Urine Glucose (UA) (Normal) mg/dL Urine Ketones (Negative) mg/dL Urine Blood (Negative) Urine Nitrite (Negative) Urine Bilirubin (Negative) Urine Urobilinogen (Normal) mg/dL Ur Leukocyte Esterase (Negative) Salicylates (15-30) mg/dL Urine Opiates Screen Negative (Tbstbx=520) ng/mL Acetaminophen (10-30) mcg/mL Ur Barbiturates Screen Negative (Xnetwh=033) ng/mL Ur Phencyclidine Scrn Negative (Cutoff=25) ng/mL Ur Amphetamines Screen Positive H (Kgqgbe=7373) ng/mL U Benzodiazepines Scrn Negative (Wrjnni=441) ng/mL Urine Cocaine Screen Negative (Cutoff= 300) ng/mL U Marijuana (THC) Screen Negative (Cutoff = 50) ng/mL Ethyl Alcohol (0-10) mg/dL - Radiology Data Radiology results reviewed: Yes I reviewed the patient's radiology results. Head CT 02/05/17 14:30 IMPRESSION: No acute intracranial abnormality. D/ / Mickey Centeno MD / Mickey Centeno MD Interpreting Provider: Mickey Centeno MD Attestation Statement - Attestation Attestation: I examined this patient and my medical decision-making was reviewed with the Resident Physician. I agree with the documented findings, disposition and treatment plan as described except to the extent set forth below. In summary this is a 41-year-old male who presented agitated and aggressive following suicidal ideations with methamphetamine. He admits to injecting 2 g of methamphetamine. He has sympathomimetic intoxication on arrival. His vital signs are stable but due to ongoing agitation and methamphetamine intoxication he required multiple sedatives. Ultimately he had ongoing agitation requiring additional sedatives. His underwear was found on him with subsequent findings of tobacco paraphernalia when he went to CAT scan. He was given Narcan at this time. I do believe he is suffering from acute methamphetamine intoxication will require admission to hospital for medical clearance pending formal psychiatric evaluation by jane Lock of which he was admitted to previously.
[2017-02-05 10:21] LABS: Basophils # 0.1 K/mcL (0.0-0.2); Basophils % 0.4 %; Eosinophils # 0.1 K/mcL (0.0-0.6); Eosinophils % 0.4 %; Hematocrit 45.3 % (37.5-50.1); Hemoglobin 15.2 g/dL (12.9-16.9); Immature Granulocytes % 0.5 % (0-4); Lymphocytes # 3.6 K/mcL (0.6-4.6); Lymphocytes % 25.9 %; Mean Corpuscular HGB Conc 33.6 g/dL (31.6-35.5); Mean Corpuscular Hemoglobin 27.5 pg (28.0-33.3); Mean Corpuscular Volume 82.1 fL (83.0-100.0); Mean Platelet Volume 10.1 fL (9.4-12.4); Monocytes # 1.2 K/mcL (0.0-1.3); Monocytes % 8.5 %; Neutrophils # 8.9 K/mcL (1.6-8.9); Platelet Count 388 K/mcL (140-400); Red Blood Count 5.52 M/mcL (4.19-5.50); Red Cell Distribution Width 12.5 % (11.5-14.5); Segmented Neutrophils % 64.3 %
[2017-02-05 10:33] LABS: BUN/Creatinine Ratio 10 (6-26); Blood Urea Nitrogen 10 mg/dL (8-26); Calcium 10.5 mg/dL (8.6-10.8); Carbon Dioxide 26 mEq/L (19-29); Chloride 98 mEq/L (98-109); Glucose 115 mg/dL (70-99); Osmolality,Calculated 278 (280-300); Potassium 4.1 mEq/L (3.5-4.5); Sodium 134 mEq/L (136-145); eGFR For African Americans > 60 (> 60); eGFR For Non-African Americans > 60 (> 60)
[2017-02-05 10:35] LABS: Acetaminophen < 1.0 mcg/mL (10-30); Ethanol < 10 mg/dL (0-10); Salicylate < 5.0 mg/dL (15-30)
[2017-02-05 10:37] LABS: Bilirubin,Urine Negative (Negative); Blood,Urine Negative (Negative); Clarity,Urine Clear (Clear); Color,Urine Yellow (Yellow); Glucose,Urine (UA) Normal (Normal); Ketones,Urine Negative (Negative); Leukocyte Esterase,Urine Negative (Negative); Nitrite,Urine Negative (Negative); Protein,Urine Negative (Neg-Trace); Specific Gravity,Urine 1.008 (1.010-1.025); Urobilinogen,Urine Normal (Normal)
[2017-02-05 10:43] LABS: Amphetamine Screen,Urine Positive ng/mL (Cutoff=1000); Barbiturate Screen,Urine Negative ng/mL (Cutoff=200); Benzodiazepines Screen,Urine Negative ng/mL (Cutoff=200); Cannabinoid Screen,Urine Negative ng/mL (Cutoff = 50); Cocaine Screen,Urine Negative ng/mL (Cutoff= 300); Opiate Screen,Urine Negative ng/mL (Cutoff=300); Phencyclidine Screen,Urine Negative ng/mL (Cutoff=25)
[2017-02-05] MEDS ORDERED: Ziprasidone injection 20 MG/ML VIAL IM ONE ×2 (12:44→21:44)
[2017-02-05] MEDS ORDERED: 0.9 % Sodium Chloride 1,000 ML IVC ONE (14:31)
[2017-02-05 15:19] LABS: VBG HCO3 25.8 mEq/L (21-27); VBG PH 7.44 pH Units (7.32-7.42)
[2017-02-05] MEDS ORDERED: Naloxone 0.4 MG/ML INJ IVP PRN (19:48)
[2017-02-05] MEDS ORDERED: Ondansetron 4 MG/2 ML VIAL IVP PRN (19:48)
[2017-02-05] MEDS ORDERED: Acetaminophen 325 MG TABLET PO PRN (19:48)
--- NOTE | 2017-02-05 20:28 | Internal Med History&Physical ---
<YuenikolelisaAbelardo conway - Last Filed: 02/05/17 22:42> Date of Encounter: 02/05/17 Time of Encounter: 19:00 Assessment and Plan (1) Suicide attempt Current visit: Yes Status: Acute Patient presents with acute suicide attempt via overdose on 2 gm of methamphetamine. When lucid, patient reported history of cocaine, marijuana, methamphetamine, and prescription drug abuse. Mr. Jalloh has a prior history of suicide attempts and psychiatric hospitalizations. Patient would benefit from inpatient psychiatric admission at a facility with a drug rehabilitation program due to his history. Psychiatric consult and sitter ordered. SW consult ordered to assess for rehabilitation programs. (2) Drug overdose Current visit: Yes Status: Acute Patient presents with acute drug overdose that he reported was from 2 gm of methamphetamine. Narcan ordered PRN. Will monitor patient for signs of drug withdrawal and administer Ativan 4 mg IVP Q4 PRN. Dysphagia screen ordered. Patient to be NPO until dysphagia screen ordered. Psychiatric consult ordered. Sitter ordered. SW consult ordered to assess for rehabilitation services. Qualifiers: Encounter type: subsequent encounter Injury intent: intentional self-harm Qualified Code(s): T50.902D - Poisoning by unspecified drugs, medicaments and biological substances, intentional self-harm, subsequent encounter (3) Suicidal ideations Current visit: Yes Status: Acute Patient presents with acute on chronic suicidal ideations. Patient presents to the ED today with overdose of meth to "off himself". Patient has a history of prior suicide attempts and prior psychiatric hospitalizations. Psychiatric consult ordered as well as sitter. (4) Combative behavior Current visit: Yes Status: Acute Patient presents with history of acute on chronic combative behavior. Patient has history of drug abuse and suicidal ideations and became agitated and aggressive while in the ED on admission, requiring ativan, Geodon, and thorazine in intervals to address his combative behavior. Patient became somnolent and was monitored. IVP Ativan 4 mg Q4 PRN ordered. Sitter ordered. Will monitor patient post-Ativan administration for agitation, cardiac, and/or respiratory distress. (5) HTN (hypertension) Current visit: Yes Status: Chronic Patient presents with history of chronic hypertension. Will monitor patient and vital signs and continue his metoprolol. (6) Thyroid disease Current visit: Yes Status: Chronic Patient presents with history of chronic thyroid disease. Will continue patient' s Tapazole. TSH ordered to assess for hyperthyroidism which can present with anxiety, irritability, and mood swings. (7) Polysubstance dependence Current visit: Yes Status: Chronic Patient present with history of chronic polysubstance abuse. Patient came to ED today following overdose on 2 gm of meth. Patient reports history of cocaine, marijuana, methamphetamine, and prescription drug abuse. SW consult ordered to assess patient for rehabilitation needs and services. (8) DVT prophylaxis Current visit: Yes Status: Acute Patient to be placed on DVT prophylaxis due to current admission protocol and bed rest status. Heparin 5,000 units SQ Q8 ordered. Internal Medicine - H&P: HPI Chief complaint: Attempted Suicide from Overdose Admitted From: Emergency Dept Plans for Post Hospital Care: Home History of present illness: Mr. Jalloh is a 41 year old male who presents from the ED today due to attempted suicide from overdose. Upon admission to the ED, he stated that he took 2 gm of meth in order to "off himself". Patient has a history of prior suicide attempts and prior psychiatric hospitalizations. Patient became agitated and aggressive and was given Geodon, Thorazine, and Ativan in the ED due to aggression and agitation. Patient was monitored closely for patent airway , SpO2 monitoring, and cardiac monitoring. Upon examination, patient is somnolent but rousable. Patient is able to answer some questions in short answers then returns to somnolence. Patient's tox screen in the ED was positive for amphetamines. Patient has known allergies to penecillins and codeine. Patient's medical history includes hypertension and thyroid disease. Mr. Jalloh's psychiatric history includes anxiety, depression, prior suicide attempts, and prior psychiatric hospitalizations. Patient reports drug use that includes cocaine, methamphetamine, marijuana, and prescription drug abuse. Patient is at high risk for morbidity based on current symptoms, overdose, and suicidal ideations and will be placed as observation status with orders for psychiatric consult, sitter, continuous cardiac telemetry, supplemental O2 with continuous SpO2 monitoring, 2-View CXR, and falls/safety precautions. Patient to be NPO due to somnolence. Will need to pass a dysphagia screen prior to diet being ordered. Ativan 4 mg IVP Q4 PRN for agitation/aggression. SW consult ordered to assess for rehabilitation. Patient to be monitored closely for signs of cardiac and/or respiratory distress. Time spent with patient >30 minutes. Past Med Surg Social Fam HX - Past Medical History Source: old records reviewed Medical history: hypertension, thyroid disease, other Psychiatric history: anxiety, depression, prior suicide attempt, previous psychiatric hospitalization - Past Surgical History Surgical History: cholecystectomy - Social History Smoking Status: Former smoker Smokeless Tobacco Status: Yes Alcohol use: none, occasionally Drug use: cocaine, marijuana, methamphetamine, prescription drug abuse Activity Level: Independent ambulation Recent Out of Country Travel Within the Last 8 Weeks: No Exposure or Possible Exposure to Illness During Travel: No - Family History Father Hx Family Cardiac Disorders: Yes Hx Family Endocrine Disorder: Yes (DM) Mother Hx Family Cancer: Yes (cervical) Hx Family Endocrine Disorder: Yes (thyroid) Internal Medicine - H&P: Meds Pyridostigmine Br [Mestinon] 60 mg PO Q8HR #90 tablet 02/24/16 [Rx] methIMAzole [Tapazole] 5 mg PO DAILY #30 tablet 02/24/16 [Rx] Metoprolol XL (24 HR) Succ [Toprol Xl] 50 mg PO DAILY 06/30/16 [History] EPINEPHrine [Epipen] 0.3 mg IM ONCE PRN 09/16/16 [History] Pantoprazole Sodium [Protonix] 40 mg PO DAILY 09/16/16 [History] Fluticasone Propionate [Flovent Hfa] 1 puff IH BID 11/27/16 [History] BuPROPion SR (12 HR) [Wellbutrin SR] 150 mg PO 0900,1600 #60 tablet.er 12/01/16 [Rx] clonazePAM [Klonopin] 1 mg PO BID PRN #30 tablet 12/01/16 [Rx] Albuterol Sulfate [Ventolin Hfa] 2 puff IH Q4-6H PRN 02/05/17 [History] Gabapentin [Neurontin] 300 mg PO TID 02/05/17 [History] 3 Allergy/AdvReac Type Severity Reaction Status Date / Time Penicillins Allergy Hives Verified 02/05/17 09:55 codeine AdvReac Vomiting Verified 02/05/17 09:55 ROS unobtainable: due to mental status All Systems PM: A 10-system review of systems was performed and is negative for pertinent findings except as documented above in the HPI. - Constitutional Vitals: Temp Pulse Resp BP Pulse Ox 98.3 F 81 16 107/74 97 02/05/17 09:55 02/05/17 19:00 02/05/17 19:00 02/05/17 19:00 02/05/17 19:00 General appearance: Present: A&O X 0, disheveled, obese - Head Head exam: Present: atraumatic, normocephalic - Eye Eye exam: Present: conjuntiva pink, sclera anicteric - ENT ENT exam: Present: normal exam, normal external ear exam - Neck Neck exam general surgery: Present: normal inspection - Respiratory Respiratory exam: Present: CTAB. Absent: accessory muscle use, rales, rhonchi, wheezes - Cardiovascular Cardiovascular exam: Present: RRR, +S1, +S2. Absent: diastolic murmur, gallop, rubs, systolic murmur - GI/Abdominal GI/Abdominal exam: Present: normal bowel sounds, soft, no peritoneal signs. Absent: distended, tenderness - Rectal Rectal exam: Present: deferred - Additional comments: exam deferred. - Extremities Exam Extremities exam: Present: warm, radial pulses palpable and symmetrical. Absent : calf tenderness, cyanotic, pedal edema - Back Exam Back exam: Present: normal inspection - Neurological Exam Neurological exam: Present: altered - Psychiatric Psychiatric exam: Present: suicidal ideation - Skin Skin exam: Present: dry, intact Internal Med - H&P Results - Labs CBC & Chem 7: 02/05/17 10:14 02/05/17 10:14 - EKG Data EKG shows normal: sinus rhythm - EKG Data Prior EKG available for review: no EKG comments: 02/05/17 20:50 EKG dated 02/05/17 shows sinus rhythm with short NC intervals. - Impressions ITS Impressions Chest X-Ray 02/05/17 19:43 IMPRESSION: Negative portable supine expiratory chest. D/ / Riley Silva MD / Riley Silva MD Interpreting Provider: Riley Silva MD - Diagnostic Studies CT scan - head Additional comments: Impressions Head CT 02/05/17 14:30 IMPRESSION: No acute intracranial abnormality. D/ / 02/05/2017 15:53:42 Mickey Centeno MD / garcia Interpreting Provider: Mickey Centeno MD Chest x-ray Additional comments: Impressions Chest X-Ray 02/05/17 19:43 IMPRESSION: Negative portable supine expiratory chest. D/ / Riley Silva MD / Riley Silva MD Interpreting Provider: Riley Silva MD <Lee Ibarra - Last Filed: 02/05/17 22:59> Date of Encounter: 02/05/17 Internal Medicine - H&P: HPI History of present illness: Mr. Jalloh is a 41 year old male All Systems PM: A 10-system review of systems was performed and is negative for pertinent findings except as documented above in the HPI. - Constitutional Vitals: Temp Pulse Resp BP Pulse Ox 97.4 F L 90 16 129/87 98 02/05/17 22:43 02/05/17 22:43 02/05/17 22:43 02/05/17 22:43 02/05/17 22:43 Internal Med - H&P Results - Labs CBC & Chem 7: 02/05/17 10:14 02/05/17 10:14 Labs: Cardiac Enzymes 02/05/17 Range/Units 20:11 Troponin I 0.02 (0-0.03) ng/mL - Impressions ITS Impressions Chest X-Ray 02/05/17 19:43 IMPRESSION: Negative portable supine expiratory chest. D/ / Riley Silva MD / Riley Silva MD Interpreting Provider: Riley Silva MD - Attending Attestation I independently obtained history and examined this patient and my medical decision-making was reviewed with the nurse practitioner, Abelardo Marie. I agree with the documented findings, disposition and treatment plan as described. My findings are summarized below: Patient is currently sedated, arousable in no acute distress. He is protecting his airway. Vital signs are stable Heart exam reveals regular S1-S2 non-tachycardic, no murmurs rubs or gallops, lungs are clear. Assessment: Polysubstance abuse and suicidal ideation currently status post sedation administered because the patient was combative and belligerent. Plan: Suicidal watch. Heart monitor due to methamphetamine abuse and risk for myocardial infarction. if the patient becomes combative we will repeat Geodon and Ativan. He is at high risk for morbidity mortality and complications due to administration of multiple doses of parenteral controlled substances.
[2017-02-05] MEDS: Pantoprazole 40 MG VIAL IVP SCH (20:43)
[2017-02-05] MEDS ORDERED: clonazePAM 1 MG TABLET PO PRN (20:59)
[2017-02-05] MEDS ORDERED: Ipratropium/Albuterol Neb 3 ML IH PRN (21:03)
[2017-02-05] MEDS ORDERED: Water for inj. (sterile) 10 ML IV ONE (21:25)
[2017-02-05] MEDS ORDERED: *HR* LORazepam 2 MG/ML VIAL IM STA (21:44)
[2017-02-05] MEDS: *HR* LORazepam 2 MG/ML VIAL IVP PRN (22:00)
--- NOTE | 2017-02-05 22:15 | Event Note ---
<Abelardo Marie - Last Filed: 02/05/17 22:45> Date of Encounter: 02/05/17 Time of Encounter: 21:45 Patient became agitated when he was brought the the 3B unit and was threatening and combative. Security called. Orders placed for 4 mg Ativan IM and 20 mg Geodon IM. I went to see the patient who was in the room with two security guards and several hospital personnel. Mr. Jalloh was pacing back and forth stating that he wanted his things that he brought to the ED, especially his phone that he uses to listen to music to calm him down when he is agitated. Patient expressed feelings that he distrusted the hospitals where he was admitted previously for psychiatric care and wanted to go to [facility]. I told the patient that the consult for [facility] was ordered and he would see them tomorrow. I asked patient to get in bed so he could be given medication to calm him down. Patient continued to pace and finally agreed to have the IVP 4 mg Ativan administered. Patient seems to be calming down presently and is in bed. Sitter to continue. Will continue Ativan 4 mg Q4 PRN and will keep the orders for Ativan 4 mg IM and 20 mg Geodon IM active if needed overnight for the safety of the patient as well as hospital personnel. Patient to be monitored closely. <Lee Ibarra - Last Filed: 02/05/17 23:01> Date of Encounter: 02/05/17 I independently obtained history and examined this patient and my medical decision-making was reviewed with the nurse practitioner, Abelardo Marie. I agree with the documented findings, disposition and treatment plan as described.
[2017-02-05] MEDS: Gabapentin 300 MG CAPSULE PO SCH (22:21)
--- NOTE | 2017-02-05 22:26 | Event Note ---
<Abelardo Marie - Last Filed: 02/05/17 22:46> Date of Encounter: 02/05/17 Time of Encounter: 22:15 After administration of the IVP 4 mg Ativan, patient became extremely aggressive and combative with personnel requiring the administration of 4 mg IM Ativan and 20 mg IM Geodon. Patient was placed in UE/LE polypropylene restraints due to his combativeness and will be assessed Q4 followed by Q8 by physician and have his wrists and ankles checked Q1 by nurses for any signs of excoriation or skin breakdown. Sitter to continue. Restraints may be removed when assessment shows patient is no longer a threat to himself, continuation of his treatment, or hospital personnel. <Lee Ibarra - Last Filed: 02/05/17 23:01> Date of Encounter: 02/05/17 I independently obtained history and examined this patient and my medical decision-making was reviewed with the nurse practitioner, Abelardo Marie. I agree with the documented findings, disposition and treatment plan as described.
[2017-02-05] MEDS: *HR* Heparin 5,000 UNIT/ML VIAL SQ SCH (23:02)
[2017-02-06] MEDS: Nicotine 21 MG PATCH.TD24 TD SCH ×2 (05:08→08:03)
[2017-02-06] MEDS ORDERED: Water for inj. (sterile) 10 ML IV ONE ×2 (05:43→12:03)
[2017-02-06] MEDS: *HR* LORazepam 2 MG/ML VIAL IVP PRN ×2 (05:48→12:06)
[2017-02-06] MEDS: *HR* Heparin 5,000 UNIT/ML VIAL SQ SCH ×3 (05:50→21:23)
[2017-02-06 06:08] LABS: Hemoglobin A1C 5.2 %
[2017-02-06 06:10] LABS: Basophils # 0.1 K/mcL (0.0-0.2); Basophils % 0.6 %; Eosinophils # 0.4 K/mcL (0.0-0.6); Eosinophils % 4.2 %; Hemoglobin 13.7 g/dL (12.9-16.9); Immature Granulocytes % 0.5 % (0-4); Lymphocytes # 2.5 K/mcL (0.6-4.6); Lymphocytes % 29.6 %; Mean Corpuscular HGB Conc 32.6 g/dL (31.6-35.5); Mean Corpuscular Hemoglobin 27.1 pg (28.0-33.3); Mean Platelet Volume 10.6 fL (9.4-12.4); Monocytes # 0.8 K/mcL (0.0-1.3); Monocytes % 9.7 %; Neutrophils # 4.6 K/mcL (1.6-8.9); Platelet Count 309 K/mcL (140-400); Red Blood Count 5.06 M/mcL (4.19-5.50); Red Cell Distribution Width 13.1 % (11.5-14.5); Segmented Neutrophils % 55.4 %
[2017-02-06 06:28] LABS: BUN/Creatinine Ratio 16 (6-26); Blood Urea Nitrogen 12 mg/dL (8-26); Calcium 9.3 mg/dL (8.6-10.8); Carbon Dioxide 23 mEq/L (19-29); Chloride 103 mEq/L (98-109); Chol/HDL Ratio 4.5 (0-4.9); Cholesterol 139 mg/dL (< 200); Glucose 94 mg/dL (70-99); HDL Cholesterol 31 mg/dL (40-59); LDL Cholesterol,Calculated 83 mg/dL (0-99); Magnesium 2.1 mg/dL (1.6-2.6); Osmolality,Calculated 284 (280-300); Potassium 4.2 mEq/L (3.5-4.5); Sodium 137 mEq/L (136-145); Triglycerides 125 mg/dL (< 150); eGFR For African Americans > 60 (> 60); eGFR For Non-African Americans > 60 (> 60)
--- NOTE | 2017-02-06 06:55 | Event Note ---
Date of Encounter: 02/06/17 Time of Encounter: 06:51 Patient was assessed at the bedside. He is currently awake alert and oriented calm and cooperative. He denies headache chest pain and confusion. At this point the patient does not appear to be a threat to himself or the staff. He asks to be released from his restraints. I advised the patient that I will remove the restraints. I advised the patient that he is not allowed to leave the room. He remains at high risk for elopement and he is currently on suicidal precautions. I did advise the patient that he is not allowed to have a cell phone per hospital protocol.. We summoned security outside the room and remove the restraints. We will continue with one-to-one suicidal watch and will consult psychiatry.
--- NOTE | 2017-02-06 07:25 | Electrocardiograph Report ---
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
[2017-02-06] MEDS: Pantoprazole 40 MG VIAL IVP SCH (08:03)
[2017-02-06] MEDS: BuPROPion SR (12 HR) 150 MG TABLET PO SCH ×2 (08:04→15:02)
[2017-02-06] MEDS: *HR* LORazepam 1 MG TABLET PO PRN ×3 (08:04→21:23)
[2017-02-06] MEDS: Pyridostigmine Br 60 MG TABLET PO SCH ×3 (08:04→23:37)
[2017-02-06] MEDS: methIMAzole 5 MG TABLET PO SCH (08:04)
[2017-02-06] MEDS: Gabapentin 300 MG CAPSULE PO SCH ×3 (08:04→21:23)
[2017-02-06] MEDS: Metoprolol XL (24 HR) Succ 50 MG TAB.ER.24H PO SCH (08:04)
[2017-02-06] MEDS ORDERED: NON-FORMULARY MEDICATION 1 EACH EACH (Fluticasone Propionate [Flovent Hfa] 1 PUFF) IH SCH (09:00)
--- NOTE | 2017-02-06 10:34 | Internal Med Progress Note ---
Date of Encounter: 02/06/17 Time of Encounter: 09:15 - Assessment and plan (1) Drug-induced psychotic disorder Current Visit: Yes Status: Acute Assessment and plan: Patient stating he took 2 g of meth in an attempt to kill himself. When directly asked to be still suicidal, patient will not directly answer that question. We will continue suicide precautions. Patient is pacing around his room and asking for his phone and asking for more sedated medications. We will give him back as phone at this time and he is aware that if he raises his voice to staff ordered anybody on the phone, his final being immediately taken away from him again. He was alert nor asked 3 and cooperative during my interaction with him. He is a bit on the paranoid side he states that the "night man" who "run the [employer]" are aware that he is here. He states that he would never mess with anybody from the [employer] whom he believes runs this city. At this time, he is calm and cooperative without the use of chemical or physical restraints. We will monitor closely throughout the day. We are still attempting to place him to long-term inpatient psychiatric care. (2) Intentional overdose of drug in tablet form Current Visit: No Status: Acute (3) Suicide attempt Current Visit: Yes Status: Acute (4) Bipolar disorder Current Visit: No Status: Chronic Qualifiers: Active/Remission status: currently active Current bipolar episode type: depressed Current episode severity: severe Psychotic features: without psychotic features Qualified Code(s): F31.4 - Bipolar disorder, current episode depressed, severe, without psychotic features (5) Chronic schizophrenia Current Visit: No Status: Chronic (6) Combative behavior Current Visit: Yes Status: Chronic (7) HTN (hypertension) Current Visit: Yes Status: Chronic Assessment and plan: Controlled, we will continue to trend Qualifiers: Hypertension type: essential hypertension Qualified Code(s): I10 - Essential (primary) hypertension (8) Intermittent explosive disorder Current Visit: No Status: Chronic (9) Methamphetamine abuse Current Visit: No Status: Chronic (10) Myasthenia gravis Current Visit: No Status: Chronic Assessment and plan: No weakness present on examination. Follow-up outpatient (11) Paranoid schizophrenia Current Visit: No Status: Chronic (12) Polysubstance abuse Current Visit: No Status: Chronic (13) Thyroid disease Current Visit: Yes Status: Chronic Assessment and plan: TSH drawn this am- still awaiting results (14) Tobacco abuse Current Visit: No Status: Chronic Assessment and plan: Declines counseling, continue nicotine patch (15) DVT prophylaxis Current Visit: Yes Status: Acute Assessment and plan: Subcutaneous heparin - Subjective Interval history: Patient seen and examined. On examination, patient is pacing around his room. Patient stating that he is very upset that he cannot have his phone. Patient is calm and cooperative and was tearful at times. When directly asked if he is still suicidal or homicidal, patient would not answer these questions. He is continually asking for his phone and continually asking for more medications to "bring me back down." - Constitutional Vitals: Temp Pulse Resp BP Pulse Ox 97.3 F L 126 19 132/77 97 02/06/17 06:25 02/06/17 06:25 02/06/17 06:25 02/06/17 06:25 02/06/17 06:25 General appearance: Present: cooperative, disheveled, A&O X 3, pleasant, no acute distress, answers questions appropriately - Head Head exam: Present: atraumatic, normocephalic - Eye Eye exam: Present: PERRL, conjuntiva pink, sclera anicteric Pupils: Present: PERRL - Neck Neck exam general surgery: Present: supple, trachea midline. Absent: lymphadenopathy - Respiratory Respiratory exam: Present: decreased breath sounds. Absent: accessory muscle use, rales, respiratory distress, rhonchi, wheezes - Cardiovascular Cardiovascular exam: Present: RRR, +S1, +S2. Absent: diastolic murmur, gallop, rubs, systolic murmur - GI/Abdominal GI/Abdominal exam: Present: normal bowel sounds, soft, no peritoneal signs. Absent: distended, tenderness - Extremities Exam Extremities exam: Present: warm, radial pulses palpable and symmetrical. Absent : calf tenderness, cyanotic, pedal edema - Neurological Exam Neurological exam: Present: alert, CN II-XII intact, normal gait, oriented X3, no focal deficits, strengths equal and symetr throughout. Absent: pronater drift, facial droop, speech deficit - Psychiatric Psychiatric exam: Present: agitated, manic, suicidal ideation. Absent: homicidal ideation - Expanded Psychiatric Exam Focused psych exam: Present: delusional, flight of ideas, perseverating, psychomotor agitation, restlessness - Skin Skin exam: Present: dry, intact, normal color, warm Internal Medicine: Result - Labs CBC & Chem 7: 02/06/17 05:13 02/06/17 05:13 Labs: Short CBC 02/06/17 Range/Units 05:13 WBC 8.3 (4.3-11.1) K/mcL Hgb 13.7 D (12.9-16.9) g/dL Hct 42.0 (37.5-50.1) % Plt Count 309 (140-400) K/mcL Neutrophils # 4.6 (1.6-8.9) K/mcL BMP 02/06/17 05:13 Sodium 137 Potassium 4.2 Chloride 103 Carbon Dioxide 23 BUN 12 Creatinine 0.77 Glucose 94 Calcium 9.3 Cardiac Enzymes 02/05/17 Range/Units 20:11 Troponin I 0.02 (0-0.03) ng/mL - Impressions Impressions Chest X-Ray 02/05/17 19:43 IMPRESSION: Negative portable supine expiratory chest. D/ / Riley Silva MD / Riley Silva MD Interpreting Provider: Riley Silva MD Consult Discharge Plan - Plan Referrals: NONE,PCP [Primary Care Provider] -
[2017-02-06] MEDS: Beclomethasone 40mcg MDI IH SCH ×2 (11:32→20:04)
[2017-02-06 11:44] LABS: Thyroid Stimulating Hormone 1.424 mcIU/mL (0.350-4.840)
[2017-02-06 12:20] LABS: Hepatitis B Surface Antigen Nonreactive (Nonreactive)
--- NOTE | 2017-02-06 13:38 | Event Note ---
Date of Encounter: 02/06/17 Time of Encounter: 13:00 Patient noted to be leaving his room and becoming progressively more agitated. We will treat with Goldy MARY as needed but only for today as the methamphetamines clear his system. After today, will try to avoid sedating medications and set strict limits. According to his care at [place], he was only given sedated medications on the first day and after that, he was not given any benzodiazepines or other sedated medications. Per report, patient was also admitted for 2 months prior to this admission at [place] and he was not given clonazepam at that time either. Continue to set strict limits. He has been advised of this plan of care and appears slightly more calm but is still pacing around in his room. He did state that he wanted to leave to go take care of business. He was informed that he is pink slipped for at least 72 hours and he will not be allowed to leave.
--- NOTE | 2017-02-06 14:54 | Consult Note ---
Date of Encounter: 02/06/17 Time of Encounter: 14:00 Assessment & Recommendation (1) Methamphetamine abuse Current visit: No Status: Chronic (2) Suicidal ideation Current visit: No Status: Acute Assessment & Recommendation: Suicide precautions and hospitalization at state facilities. (3) Personality disorder Current visit: No Status: Chronic History of Present Illness Requesting Physician: Princess Aldridge MD Reason for consult: Suicidal ideation History of present illness: Mr. Jalloh is a 41 year old male admitted to the medical 4 medical stabilization after an overdose on methamphetamine in his suicide attempts according to him. Patient is well-known to the hospital and psychiatric units from previous admissions has a long history of substance abuse and mood disorder bipolar disorder. He also has a long history of noncompliance and disruptive behavior on the unit and on the medical floor. Psychiatric consultation was requested to evaluate suicidal ideation and help with disposition. Records reviewed and most recent psych [facility] was [facility] and I reviewed them. At this time the patient is pink slipped and he is monitoring one to one he is pacing, in his room and attempting to leave the room and having intermittent episodes of agitation and combativeness and required physical restraints at different times since admission. I went to see the patient he was pacing around his room and monitored by staff he was irritable and easily agitated, he would not answer my question related to suicidal ideation, he say "" I do not know what I am going to do. He repeatedly requested Klonopin 2 to calm him down and I explained that Klonopin would not be given to him since he overdosed on medication before. This same was done at the [facility] when he had his last hospitalization recently. I agree with the medical team treatment plan of sitting limits to behavior and limiting medication and not providing any benzodiazepine. CC: Princess Aldridge MD Past Med Surg Social Fam HX - Past Medical History Medical history: hypertension, thyroid disease, other - Past Psychiatric History Psychiatric history: Reports: prior suicide attempt, previous psychiatric hospitalization, other (Polysubstance dependence including methamphetamine, opiates, marijuana, benzodiazepine) - Past Surgical History Surgical History: cholecystectomy - Social History Smoking Status: Former smoker Smokeless Tobacco Status: Yes Alcohol use: none, occasionally Drug use: cocaine, marijuana, methamphetamine, prescription drug abuse - Family History Father Hx Family Cardiac Disorders: Yes Hx Family Endocrine Disorder: Yes (DM) Mother Hx Family Cancer: Yes (cervical) Hx Family Endocrine Disorder: Yes (thyroid) Medications & Allergies Pyridostigmine Br [Mestinon] 60 mg PO Q8HR #90 tablet 02/24/16 [Rx] methIMAzole [Tapazole] 5 mg PO DAILY #30 tablet 02/24/16 [Rx] Metoprolol XL (24 HR) Succ [Toprol Xl] 50 mg PO DAILY 06/30/16 [History] EPINEPHrine [Epipen] 0.3 mg IM ONCE PRN 09/16/16 [History] Pantoprazole Sodium [Protonix] 40 mg PO DAILY 09/16/16 [History] Fluticasone Propionate [Flovent Hfa] 1 puff IH BID 11/27/16 [History] BuPROPion SR (12 HR) [Wellbutrin SR] 150 mg PO 0900,1600 #60 tablet.er 12/01/16 [Rx] clonazePAM [Klonopin] 1 mg PO BID PRN #30 tablet 12/01/16 [Rx] Albuterol Sulfate [Ventolin Hfa] 2 puff IH Q4-6H PRN 02/05/17 [History] Gabapentin [Neurontin] 300 mg PO TID 02/05/17 [History] 3 Allergy/AdvReac Type Severity Reaction Status Date / Time Penicillins Allergy Hives Verified 02/05/17 09:55 codeine AdvReac Vomiting Verified 02/05/17 09:55 Review of Systems Psychiatric: Reports: suicidal ideation, irritability Mental Status Exam Patient orientation: Yes Person, Yes Time, Yes Place Level of alertness: Alert Patient appearance: Unkempt, Inappropriate Additional observations: wearing underwear and no shirt or pants Behavior: agitated, aggressive, hostile, restless, uncooperative, impulsive, other ( pacing) Psychomotor activity: Agitated Eye contact: Fleeting Contact Mood description: Angry, Labile, Irritable Affect description: labile, dysphoric, inappropriate to situation Speech pattern: Normal rate, Normal rhythm, Normal tone, Inappropriate to situation, Rambling, Repetitive, Includes Profanity Speech volume: Loud Thought process: Linear, Goal Oriented Thought content: Yes Suicidal ideation, No Homicidal ideation, No Overt delusions Perceptual disturbances: No Auditory hallucinations, No Visual hallucinations Attention span: Capable of Focused Attention Memory description: Grossly Intact Patient reliability: Reliable Historian Intelligence estimate: Average Judgment: Limited Insight: Partial Results - Vital Signs Vital signs: Temp Pulse Resp BP Pulse Ox 97.4 F L 114 16 117/87 97 02/06/17 14:20 02/06/17 14:20 02/06/17 14:20 02/06/17 14:20 02/06/17 14:20 - Labs Labs: Laboratory Last Values WBC 8.3 K/mcL (4.3-11.1) 02/06/17 05:13 RBC 5.06 M/mcL (4.19-5.50) 02/06/17 05:13 Hgb 13.7 g/dL (12.9-16.9) D 02/06/17 05:13 Hct 42.0 % (37.5-50.1) 02/06/17 05:13 MCV 83.0 fL (83.0-100.0) 02/06/17 05:13 MCH 27.1 pg (28.0-33.3) L 02/06/17 05:13 MCHC 32.6 g/dL (31.6-35.5) 02/06/17 05:13 RDW 13.1 % (11.5-14.5) 02/06/17 05:13 Plt Count 309 K/mcL (140-400) 02/06/17 05:13 MPV 10.6 fL (9.4-12.4) 02/06/17 05:13 Immature Gran % 0.5 % (0-4) 02/06/17 05:13 Seg Neutrophils % 55.4 % 02/06/17 05:13 Lymphocytes % 29.6 % 02/06/17 05:13 Monocytes % 9.7 % 02/06/17 05:13 Eosinophils % 4.2 % 02/06/17 05:13 Basophils % 0.6 % 02/06/17 05:13 Neutrophils # 4.6 K/mcL (1.6-8.9) 02/06/17 05:13 Lymphocytes # 2.5 K/mcL (0.6-4.6) 02/06/17 05:13 Monocytes # 0.8 K/mcL (0.0-1.3) 02/06/17 05:13 Eosinophils # 0.4 K/mcL (0.0-0.6) 02/06/17 05:13 Basophils # 0.1 K/mcL (0.0-0.2) 02/06/17 05:13 VBG pH 7.44 pH Units (7.32-7.42) H 02/05/17 15:07 VBG pCO2 38 mmHg (41-51) L 02/05/17 15:07 VBG pO2 112 mmHg (25-40) H 02/05/17 15:07 VBG HCO3 25.8 mEq/L (21-27) 02/05/17 15:07 Sodium 137 mEq/L (136-145) 02/06/17 05:13 Potassium 4.2 mEq/L (3.5-4.5) 02/06/17 05:13 Chloride 103 mEq/L (98-109) 02/06/17 05:13 Carbon Dioxide 23 mEq/L (19-29) 02/06/17 05:13 BUN 12 mg/dL (8-26) 02/06/17 05:13 Creatinine 0.77 mg/dL (0.72-1.25) 02/06/17 05:13 Est GFR ( Amer) > 60 (> 60) 02/06/17 05:13 Est GFR (Non-Af Amer) > 60 (> 60) 02/06/17 05:13 BUN/Creatinine Ratio 16 (6-26) 02/06/17 05:13 Glucose 94 mg/dL (70-99) 02/06/17 05:13 Est Mean Plasma Glucose 103 mg/dl 02/06/17 05:13 Hemoglobin A1c 5.2 % (-5.6) 02/06/17 05:13 Calculated Osmolality 284 (280-300) 02/06/17 05:13 Calcium 9.3 mg/dL (8.6-10.8) 02/06/17 05:13 Magnesium 2.1 mg/dL (1.6-2.6) 02/06/17 05:13 Troponin I 0.02 ng/mL (0-0.03) 02/05/17 20:11 Triglycerides 125 mg/dL (< 150) 02/06/17 05:13 Cholesterol 139 mg/dL (< 200) 02/06/17 05:13 LDL Cholesterol, Calc 83 mg/dL (0-99) 02/06/17 05:13 VLDL Cholesterol, Calc 25 mg/dL (< 31) 02/06/17 05:13 HDL Cholesterol 31 mg/dL (40-59) L 02/06/17 05:13 Cholesterol/HDL Ratio 4.5 (0-4.9) 02/06/17 05:13 TSH 1.424 mcIU/mL (0.350-4.840) 02/06/17 05:13 Urine Color Yellow (Yellow) 02/05/17 10:30 Urine Clarity Clear (Clear) 02/05/17 10:30 Urine pH 7.0 pH Units (5.0-8.0) 02/05/17 10:30 Ur Specific [place] 1.008 (1.010-1.025) L 02/05/17 10:30 Urine Protein Negative mg/dL (Neg-Trace) 02/05/17 10:30 Urine Glucose (UA) Normal mg/dL (Normal) 02/05/17 10:30 Urine Ketones Negative mg/dL (Negative) 02/05/17 10:30 Urine Blood Negative (Negative) 02/05/17 10:30 Urine Nitrite Negative (Negative) 02/05/17 10:30 Urine Bilirubin Negative (Negative) 02/05/17 10:30 Urine Urobilinogen Normal mg/dL (Normal) 02/05/17 10:30 Ur Leukocyte Esterase Negative (Negative) 02/05/17 10:30 Salicylates < 5.0 mg/dL (15-30) L 02/05/17 10:14 Urine Opiates Screen Negative ng/mL (Jrpqwm=040) 02/05/17 10:30 Acetaminophen < 1.0 mcg/mL (10-30) L 02/05/17 10:14 Ur Barbiturates Screen Negative ng/mL (Hhszaq=860) 02/05/17 10:30 Ur Phencyclidine Scrn Negative ng/mL (Cutoff=25) 02/05/17 10:30 Ur Amphetamines Screen Positive ng/mL (Gjvpwh=7639) H 02/05/17 10:30 U Benzodiazepines Scrn Negative ng/mL (Itfsbw=600) 02/05/17 10:30 Urine Cocaine Screen Negative ng/mL (Cutoff= 300) 02/05/17 10:30 U Marijuana (THC) Screen Negative ng/mL (Cutoff = 50) 02/05/17 10:30 Ethyl Alcohol < 10 mg/dL (0-10) 02/05/17 10:14 Hep Bs Antigen Nonreactive (Nonreactive) 02/06/17 05:13 - Impressions Impressions Chest X-Ray 02/05/17 19:43 IMPRESSION: Negative portable supine expiratory chest. D/ / Riley Silva MD / Riley Silva MD Interpreting Provider: Riley Silva MD Consult Discharge Plan - Plan Referrals: NONE,PCP [Primary Care Provider] -
[2017-02-06] MEDS: Ziprasidone injection 20 MG/ML VIAL IM PRN (17:25)
--- NOTE | 2017-02-06 18:07 | Electrocardiograph Report ---
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
[2017-02-07] MEDS ORDERED: traMADol 50 MG TABLET PO PRN (01:13)
[2017-02-07] MEDS: *HR* LORazepam 1 MG TABLET PO PRN ×2 (04:19→10:07)
[2017-02-07] MEDS: *HR* Heparin 5,000 UNIT/ML VIAL SQ SCH (05:27)
[2017-02-07] MEDS: Ziprasidone injection 20 MG/ML VIAL IM PRN (05:28)
[2017-02-07] MEDS: Beclomethasone 40mcg MDI IH SCH (08:38)
--- NOTE | 2017-02-07 09:20 | Discharge Summary ---
Date of Encounter: 02/07/17 Time of Encounter: 09:15 - Discharge Diagnosis (1) Drug-induced psychotic disorder Priority: Primary Status: Acute Comments: Patient stating he took 2 g of meth in an attempt to kill himself. When directly asked to be still suicidal, patient will not directly answer that question. Was on suicide precautions with a sitter while admitted. Did require restraints both chemical and physical twice during this 2 night admission. He has been accepted at [facility] (2) Intentional overdose of drug in tablet form Priority: Primary Status: Acute (3) Suicide attempt Priority: Primary Status: Acute (4) Bipolar disorder Priority: Secondary Status: Chronic Qualifiers: Active/Remission status: currently active Current bipolar episode type: depressed Current episode severity: severe Psychotic features: without psychotic features Qualified Code(s): F31.4 - Bipolar disorder, current episode depressed, severe, without psychotic features (5) Chronic schizophrenia Priority: Secondary Status: Chronic (6) Combative behavior Priority: Secondary Status: Chronic (7) HTN (hypertension) Priority: Secondary Status: Chronic Comments: Controlled, follow up outpatient Qualifiers: Hypertension type: essential hypertension Qualified Code(s): I10 - Essential (primary) hypertension (8) Intermittent explosive disorder Priority: Secondary Status: Chronic (9) Methamphetamine abuse Priority: Secondary Status: Chronic (10) Myasthenia gravis Priority: Secondary Status: Chronic Comments: No signs of weakness or dysphagia (11) Paranoid schizophrenia Priority: Secondary Status: Chronic (12) Polysubstance abuse Priority: Secondary Status: Chronic (13) Thyroid disease Priority: Secondary Status: Chronic Comments: TSH normal (14) Tobacco abuse Priority: Secondary Status: Chronic Comments: Declined counseling (15) DVT prophylaxis Priority: Primary Status: Acute Comments: Subcutaneous heparin while admitted - Discharge Medications Home Medications: Pyridostigmine Br [Mestinon] 60 mg PO Q8HR #90 tablet 02/24/16 [Rx] methIMAzole [Tapazole] 5 mg PO DAILY #30 tablet 02/24/16 [Rx] Metoprolol XL (24 HR) Succ [Toprol Xl] 50 mg PO DAILY 06/30/16 [History] EPINEPHrine [Epipen] 0.3 mg IM ONCE PRN 09/16/16 [History] Pantoprazole Sodium [Protonix] 40 mg PO DAILY 09/16/16 [History] Fluticasone Propionate [Flovent Hfa] 1 puff IH BID 11/27/16 [History] BuPROPion SR (12 HR) [Wellbutrin SR] 150 mg PO 0900,1600 #60 tablet.er 12/01/16 [Rx] Albuterol Sulfate [Ventolin Hfa] 2 puff IH Q4-6H PRN 02/05/17 [History] Gabapentin [Neurontin] 300 mg PO TID 02/05/17 [History] Allergies/Adverse Reactions: 3 Allergy/AdvReac Type Severity Reaction Status Date / Time Penicillins Allergy Hives Verified 02/05/17 09:55 codeine AdvReac Vomiting Verified 02/05/17 09:55 Procedures/tests Complete & Pending: Procedures Performed prior 72 hours Category Date Time Status ECG 12 lead ECG [ECG] Stat Y 02/05/17 19:48 Completed Date of admission: 02/05/17 19:10 Primary care physician: PCP NONE Consults: 02/05/17 19:50 Consult to Outdoor Education Teacher [CONS] Routine Reason for SW Consult: Patient presents with suicide attempt via overdose of meth. Pt. has hx of prior suicide attempts and previous psychiatric hospitalizations. Assess for drug rehab placement/referral for psych treatment. 02/05/17 20:11 Consult to Psychiatry [CONS] Routine Consulting Provider: Psychiatry Roseline Reason for Consult: Patient took overdose of meth to "off himself". Patient has history of previous suicide attempts and prior psychiatric hospitalizations. Patient reports abusing cocaine, meth, marijuana, and prescription drugs. Call Completed: Yes Discharging clinician: Johana Rogers Anticipated date of discharge: 02/07/17 (accepted at [facility]) - Patient Status Disposition: Transfer Psychiatric Hosp Condition: Fair Functional capacity at discharge: independent ambulation Overall status at discharge: patient is progressing back to baseline - Discharge Instructions Follow Up With: NONE,PCP [Primary Care Provider] - Additional Instructions: sending directly to [facility] - Diet and Activity Activity: increase activity as tolerated Diet: regular diet Hospital course: Mr. Jalloh is a 41 year old male with past medical history of hypertension, thyroid disease, cholecystectomy, and extensive psychiatric history including prior suicide attempt, multiple psychiatric hospitalizations, schizophrenia, bipolar, intermittent explosive disorder and polysubstance abuse of cocaine, marijuana, methamphetamine, prescription drugs. Patient is well known to this hospital with this being his 22nd visit since the beginning of this year. He presented to the emergency department with chief complaint of suicidal attempt. Patient stating that he took 2 g of methamphetamine in order to "off myself." In the emergency department, patient became agitated and aggressive and was given Geodon, Thorazine, and Ativan. Chest x-ray negative. Head CT negative. Patient was admitted to the hospitalist service for further evaluation and management. Patient was admitted and observed over the course of 2 nights. And during this admission, patient required the use of chemical and physical restraints twice due to aggressive behavior towards staff as well as continued suicidal ideations. He was on suicide precautions with a sitter in place during this admission. Patient had most recently been admitted to [facility] from 01/30/17 until 02/04/17. He had been discharged less than one day when he presented again to [facility]'s emergency Department. His psychiatric medications that were started at [facility] were continued during this admission with Neurontin 300 mg 3 times a day, Toprol-XL 50 mg daily, Tapazole 5 mg daily, Wellbutrin SR 150 mg twice a day, albuterol inhaler as needed, Mestinon 60 mg 3 times a day. Of note , the patient was not given any Klonopin which he has asked for several times while here. In an attempt to de-escalate the patient's behavior, he was allowed to use his phone briefly while admitted. After receiving his phone, he was noted to be telling people that he was calling his exact living number so his phone was again taken away from him and this exacerbated his anger and aggression and he again required chemical and physical restraints for patient and staff safety. Patient was tearful several times during this admission and he was also concerned about the [employer] that were running the city and who were after him. He remained alert and oriented x3 while admitted. He offered no insight or remorse during this admission. He was seen by psychiatry who agreed with plan to transfer him back to [facility]. [facility] accepted the patient back and he was transferred in stable condition. ITS Impressions Head CT 02/05/17 14:30 IMPRESSION: No acute intracranial abnormality. D/ / 02/05/2017 15:53:42 Mickey Centeno MD / garcia Interpreting Provider: Mickey Centeno MD Chest X-Ray 02/05/17 19:43 IMPRESSION: Negative portable supine expiratory chest. D/ / Riley Silva MD / Riley Silva MD Interpreting Provider: Riley Silva MD - Time Spent with Patient Total time spent providing and/or coordinating discharge services: - Constitutional Vitals: Temp Pulse Resp BP Pulse Ox 97.9 F 83 16 137/84 97 02/07/17 06:44 02/07/17 06:54 02/07/17 06:54 02/07/17 08:55 02/07/17 06:44 General appearance: Present: disheveled, A&O X 3, no acute distress, answers questions appropriately. Absent: cooperative, pleasant - Head Head exam: Present: atraumatic, normocephalic - Eye Eye exam: Present: PERRL, conjuntiva pink, sclera anicteric Pupils: Present: PERRL - Neck Neck exam general surgery: Present: supple, trachea midline. Absent: lymphadenopathy - Respiratory Respiratory exam: Present: CTAB. Absent: accessory muscle use, rales, respiratory distress, rhonchi, wheezes - Cardiovascular Cardiovascular exam: Present: RRR, +S1, +S2. Absent: diastolic murmur, gallop, rubs, systolic murmur - GI/Abdominal GI/Abdominal exam: Present: normal bowel sounds, soft, no peritoneal signs. Absent: distended, tenderness - Extremities Exam Extremities exam: Present: warm, radial pulses palpable and symmetrical. Absent : calf tenderness, cyanotic, pedal edema - Neurological Exam Neurological exam: Present: alert, CN II-XII intact, oriented X3, no focal deficits, strengths equal and symetr throughout. Absent: pronater drift, facial droop, speech deficit - Psychiatric Psychiatric exam: Present: agitated, homicidal ideation (threatening to harm staff and security), suicidal ideation - Expanded Psychiatric Exam Focused psych exam: Present: psychomotor agitation, restlessness - Skin Skin exam: Present: dry, intact, normal color, warm
[2017-02-07] MEDS: Pyridostigmine Br 60 MG TABLET PO SCH (10:06)
[2017-02-07] MEDS: Gabapentin 300 MG CAPSULE PO SCH (10:07)
[2017-02-07] MEDS: BuPROPion SR (12 HR) 150 MG TABLET PO SCH (10:07)
[2017-02-07] MEDS: Metoprolol XL (24 HR) Succ 50 MG TAB.ER.24H PO SCH (10:07)
[2017-02-07] MEDS: methIMAzole 5 MG TABLET PO SCH (10:07)
[2017-02-07] MEDS ORDERED: Ziprasidone injection 20 MG/ML VIAL IM PRN (10:23)
[2017-02-07] MEDS: Nicotine 21 MG PATCH.TD24 TD SCH (10:26)
[2017-02-07] MEDS: Pantoprazole 40 MG VIAL IVP SCH (10:26)
[2017-02-07 11:07] VITALS: BP 114/73
[2017-02-07 11:11] LABS: Hepatitis A Antibody IgM Nonreactive (Nonreactive)
[2017-02-07 11:18] LABS: Hepatitis B Core IgM Reactive (Nonreactive)
[2017-02-07 11:19] LABS: Hepatitis C Virus Antibody Reactive (Nonreactive)
== END 2017-02-07 10:50 ==
LOC: 2NENU 09:40 → EMEROO 09:40 → 3BNU 19:33
PROVIDERS: ADMIT Nurse Practitioner Family; ATTEND Internal Medicine

== ENCOUNTER 2017-10-24 20:21 | Inpatient (IN) ==
[2017-10-24 20:43] LABS: Basophils # 0.1 K/mcL (0.0-0.2); Basophils % 0.8 %; Eosinophils # 0.2 K/mcL (0.0-0.6); Eosinophils % 1.5 %; Hematocrit 38.8 % (37.5-50.1); Hemoglobin 14.3 g/dL (12.9-16.9); Immature Granulocytes % 0.3 % (0-4); Lymphocytes # 4.7 K/mcL (0.6-4.6); Lymphocytes % 40.2 %; Mean Corpuscular HGB Conc 36.9 g/dL (31.6-35.5); Mean Corpuscular Hemoglobin 30.6 pg (28.0-33.3); Mean Corpuscular Volume 83.1 fL (83.0-100.0); Mean Platelet Volume 11.3 fL (9.4-12.4); Monocytes % 8.7 %; Neutrophils # 5.7 K/mcL (1.6-8.9); Platelet Count 350 K/mcL (140-400); Red Blood Count 4.67 M/mcL (4.19-5.50); Red Cell Distribution Width 13.2 % (11.5-14.5); Segmented Neutrophils % 48.5 %
[2017-10-24] MEDS ORDERED: *HR* LORazepam 1 MG TABLET PO ONE (21:01)
[2017-10-24 21:04] LABS: Acetaminophen < 10 mcg/mL (10-20); BUN/Creatinine Ratio 14 (6-26); Blood Urea Nitrogen 14 mg/dL (6-20); Calcium 9.9 mg/dL (8.6-10.3); Carbon Dioxide 22 mEq/L (23-29); Chloride 104 mEq/L (98-107); Ethanol < 10 mg/dL (Less than 10); Glucose 102 mg/dL (70-105); Osmolality,Calculated 281 (280-300); Potassium 3.6 mEq/L (3.5-5.1); Salicylate < 2.5 mg/dL (15.0-30.0); Sodium 135 mEq/L (136-145); eGFR For African Americans > 60 (> 60); eGFR For Non-African Americans > 60 (> 60)
[2017-10-24 21:22] LABS: Amphetamine Screen,Urine Negative ng/mL (Cutoff=1000); Barbiturate Screen,Urine Negative ng/mL (Cutoff=200); Benzodiazepines Screen,Urine Negative ng/mL (Cutoff=200); Cannabinoid Screen,Urine Positive ng/mL (Cutoff = 50); Cocaine Screen,Urine Negative ng/mL (Cutoff= 300); Opiate Screen,Urine Negative ng/mL (Cutoff=300); Phencyclidine Screen,Urine Negative ng/mL (Cutoff=25)
[2017-10-24 21:39] LABS: Bilirubin,Urine Negative (Negative); Blood,Urine Negative (Negative); Clarity,Urine Clear (Clear); Color,Urine Yellow (Yellow); Glucose,Urine (UA) Normal (Normal); Ketones,Urine Negative (Negative); Protein,Urine Negative (Neg-Trace); Urobilinogen,Urine Normal (Normal)
[2017-10-24 21:40] LABS: Leukocyte Esterase,Urine Negative (Negative); Nitrite,Urine Negative (Negative)
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
--- NOTE | 2017-10-25 01:16 | Emergency Department Note ---
Disposition Clinical Impression: Acute anxiety, Suicidal ideation, Homicidal ideation Disposition: Admitted As Inpatient Condition: Fair Referrals: NONE,PCP [Primary Care Provider] - Forms: ED Satisfaction Letter Psych HPI - General Chief Complaint: ED Psychiatric Symptoms Stated Complaint: SI Time Seen by Provider: 10/24/17 20:24 Source: EMS Mode of arrival: EMS - Related Data Home Medications Medication Instructions Recorded Confirmed Metoprolol XL (24 HR) Succ [Toprol 50 mg PO DAILY 06/30/16 02/18/17 Xl] EPINEPHrine [Epipen] 0.3 mg IM ONCE PRN 09/16/16 02/18/17 Pantoprazole Sodium [Protonix] 40 mg PO DAILY 09/16/16 02/18/17 Fluticasone Propionate [Flovent 1 puff IH BID 11/27/16 02/18/17 Hfa] Albuterol Sulfate [Ventolin Hfa] 2 puff IH Q4-6H PRN 02/05/17 02/18/17 Gabapentin [Neurontin] 600 mg PO TID 02/05/17 02/18/17 Previous Rx's Medication Instructions Recorded Pyridostigmine Br [Mestinon] 60 mg PO Q8HR #90 tablet 02/24/16 methIMAzole [Tapazole] 5 mg PO DAILY #30 tablet 02/24/16 BuPROPion SR (12 HR) [Wellbutrin 150 mg PO 0900,1600 #60 tablet.er 12/01/16 SR] Ibuprofen [Motrin] 600 mg PO Q8HR PRN #28 tab 07/05/17 predniSONE [Prednisone] 50 mg PO DAILY #4 tablet 07/05/17 Allergies Allergy/AdvReac Type Severity Reaction Status Date / Time Penicillins Allergy Hives Verified 10/24/17 20:24 codeine AdvReac Vomiting Verified 10/24/17 20:24 Past Medical History - Past Medical History Medical history: Reports: hypertension, thyroid disease, other Surgical history: Reports: no surgical history (cannot be obtained due to patient;s mental status), cholecystectomy Psychiatric history: Reports: bipolar, prior suicide attempt, schizophrenia, previous psychiatric hospitalization, other - Social History Smoking Status: Former smoker Smokeless Tobacco Status: Yes Alcohol use: Reports: none, occasionally Drug use: Reports: cocaine, marijuana, methamphetamine, prescription drug abuse Physical Exam - General Limitations: no limitations General appearance: alert Course Course Narrative: This patient was signed out to me at shift change from Dr. Abisai Agustin. Please refer to his note for complete details of the history and physical examination. At shift change the patient has been medically cleared and is awaiting evaluation by the [address] psychiatry service. Patient was seen and evaluated in the emergency department by the psychiatry service and is being admitted to the [address] psychiatric unit. Vital Signs Temperature 98.5 F 10/24/17 20:25 Pulse Rate 135 10/24/17 20:25 Respiratory Rate 16 10/24/17 20:25 Blood Pressure 128/81 10/24/17 20:25 O2 Sat by Pulse Oximetry 97 10/24/17 20:25 Temperature 98.5 F 10/24/17 20:25 Pulse Rate 108 10/24/17 22:13 Respiratory Rate 16 10/24/17 20:25 Blood Pressure 128/81 10/24/17 20:25 O2 Sat by Pulse Oximetry 96 10/24/17 22:13 Oxygen Delivery Oxygen Delivery Room Air Psych - Lab Data Result diagrams: 10/24/17 20:33 10/24/17 20:33 Lab Results 10/24/17 10/24/17 10/24/17 Range/Units 20:24 20:33 20:33 WBC 11.6 H (4.3-11.1) K/mcL RBC 4.67 (4.19-5.50) M/mcL Hgb 14.3 (12.9-16.9) g/dL Hct 38.8 (37.5-50.1) % MCV 83.1 (83.0-100.0) fL MCH 30.6 (28.0-33.3) pg MCHC 36.9 H (31.6-35.5) g/dL RDW 13.2 (11.5-14.5) % Plt Count 350 (140-400) K/mcL MPV 11.3 (9.4-12.4) fL Immature Gran % 0.3 (0-4) % Seg Neutrophils % 48.5 % Lymphocytes % 40.2 % Monocytes % 8.7 % Eosinophils % 1.5 % Basophils % 0.8 % Neutrophils # 5.7 (1.6-8.9) K/mcL Lymphocytes # 4.7 H (0.6-4.6) K/mcL Monocytes # 1.0 (0.0-1.3) K/mcL Eosinophils # 0.2 (0.0-0.6) K/mcL Basophils # 0.1 (0.0-0.2) K/mcL Sodium 135 L (136-145) mEq/L Potassium 3.6 (3.5-5.1) mEq/L Chloride 104 (98-107) mEq/L Carbon Dioxide 22 L (23-29) mEq/L BUN 14 (6-20) mg/dL Creatinine 0.97 (0.70-1.30) mg/dL Est GFR ( Amer) > 60 (> 60) Est GFR (Non-Af Amer) > 60 (> 60) BUN/Creatinine Ratio 14 (6-26) Glucose 102 (70-105) mg/dL Calculated Osmolality 281 (280-300) Calcium 9.9 (8.6-10.3) mg/dL Urine Color (Yellow) Urine Clarity (Clear) Urine pH (5.0-8.0) pH Units Ur Specific [place] (1.010-1.025) Urine Protein (Neg-Trace) mg/dL Urine Glucose (UA) (Normal) mg/dL Urine Ketones (Negative) mg/dL Urine Blood (Negative) Urine Nitrite (Negative) Urine Bilirubin (Negative) Urine Urobilinogen (Normal) mg/dL Ur Leukocyte Esterase (Negative) Salicylates < 2.5 L (15.0-30.0) mg/dL Urine Opiates Screen Negative (Uyjoic=117) ng/mL Acetaminophen < 10 L (10-20) mcg/mL Ur Barbiturates Screen Negative (Kbmvlo=859) ng/mL Ur Phencyclidine Scrn Negative (Cutoff=25) ng/mL Ur Amphetamines Screen Negative (Zpkvax=6650) ng/mL U Benzodiazepines Scrn Negative (Sykzof=472) ng/mL Urine Cocaine Screen Negative (Cutoff= 300) ng/mL U Marijuana (THC) Screen Positive H (Cutoff = 50) ng/mL Ethyl Alcohol < 10 (Less than 10) mg/dL 10/24/17 Range/Units 20:49 WBC (4.3-11.1) K/mcL RBC (4.19-5.50) M/mcL Hgb (12.9-16.9) g/dL Hct (37.5-50.1) % MCV (83.0-100.0) fL MCH (28.0-33.3) pg MCHC (31.6-35.5) g/dL RDW (11.5-14.5) % Plt Count (140-400) K/mcL MPV (9.4-12.4) fL Immature Gran % (0-4) % Seg Neutrophils % % Lymphocytes % % Monocytes % % Eosinophils % % Basophils % % Neutrophils # (1.6-8.9) K/mcL Lymphocytes # (0.6-4.6) K/mcL Monocytes # (0.0-1.3) K/mcL Eosinophils # (0.0-0.6) K/mcL Basophils # (0.0-0.2) K/mcL Sodium (136-145) mEq/L Potassium (3.5-5.1) mEq/L Chloride (98-107) mEq/L Carbon Dioxide (23-29) mEq/L BUN (6-20) mg/dL Creatinine (0.70-1.30) mg/dL Est GFR ( Amer) (> 60) Est GFR (Non-Af Amer) (> 60) BUN/Creatinine Ratio (6-26) Glucose (70-105) mg/dL Calculated Osmolality (280-300) Calcium (8.6-10.3) mg/dL Urine Color Yellow (Yellow) Urine Clarity Clear (Clear) Urine pH 6.0 (5.0-8.0) pH Units Ur Specific [place] 1.020 (1.010-1.025) Urine Protein Negative (Neg-Trace) mg/dL Urine Glucose (UA) Normal (Normal) mg/dL Urine Ketones Negative (Negative) mg/dL Urine Blood Negative (Negative) Urine Nitrite Negative (Negative) Urine Bilirubin Negative (Negative) Urine Urobilinogen Normal (Normal) mg/dL Ur Leukocyte Esterase Negative (Negative) Salicylates (15.0-30.0) mg/dL Urine Opiates Screen (Pcpqqm=130) ng/mL Acetaminophen (10-20) mcg/mL Ur Barbiturates Screen (Ykgeqg=361) ng/mL Ur Phencyclidine Scrn (Cutoff=25) ng/mL Ur Amphetamines Screen (Zxdbek=7729) ng/mL U Benzodiazepines Scrn (Svuuje=915) ng/mL Urine Cocaine Screen (Cutoff= 300) ng/mL U Marijuana (THC) Screen (Cutoff = 50) ng/mL Ethyl Alcohol (Less than 10) mg/dL Psychiatric Medical Clearance - Medical Clearance Checklist Medical History: No Social History Section defined Current Vitals: Last Vital Signs Temp 98.5 F 10/24/17 20:25 Pulse 108 10/24/17 22:13 Resp 16 10/24/17 20:25 BP 128/81 10/24/17 20:25 Pulse Ox 96 10/24/17 22:13 Psychiatric Lab Panel: Drug Levels and Toxicity 10/24/17 10/24/17 20:24 20:33 Urine Opiates Screen Negative Acetaminophen < 10 L Ur Barbiturates Screen Negative Ur Phencyclidine Scrn Negative Ur Amphetamines Screen Negative U Benzodiazepines Scrn Negative Urine Cocaine Screen Negative U Marijuana (THC) Screen Positive H Ethyl Alcohol < 10 Abnormal Labs: Abnormal lab results WBC 11.6 K/mcL (4.3-11.1) H 10/24/17 20:33 MCHC 36.9 g/dL (31.6-35.5) H 10/24/17 20:33 Lymphocytes # 4.7 K/mcL (0.6-4.6) H 10/24/17 20:33 Sodium 135 mEq/L (136-145) L 10/24/17 20:33 Carbon Dioxide 22 mEq/L (23-29) L 10/24/17 20:33 Salicylates < 2.5 mg/dL (15.0-30.0) L 10/24/17 20:33 Acetaminophen < 10 mcg/mL (10-20) L 10/24/17 20:33 U Marijuana (THC) Screen Positive ng/mL (Cutoff = 50) H 10/24/17 20:24 Statement of Medical Clearance: I have evaluated the patient, reviewed diagnostic information, and certify that the patient's medical condition is sufficiently stable that transfer to the psychiatric unit does not pose a significant risk of deterioration.
[2017-10-25] MEDS ORDERED: Ibuprofen 400 MG TABLET PO PRN (03:05)
[2017-10-25] MEDS ORDERED: traZODone 50 MG TABLET PO PRN (03:05)
[2017-10-25] MEDS ORDERED: *HR* LORazepam 2 MG/ML VIAL IM PRN (03:05)
[2017-10-25] MEDS ORDERED: *HR* LORazepam 1 MG TABLET PO PRN (03:05)
[2017-10-25] MEDS ORDERED: Haloperidol Lactate 5 MG/ML VIAL IM PRN (03:05)
[2017-10-25] MEDS ORDERED: MOM Conc 10 ML UD.LIQ PO PRN (03:05)
[2017-10-25] MEDS ORDERED: Mag Hydrox/Al Hydrox/Simeth 30 ML UDC PO PRN (03:05)
[2017-10-25] MEDS ORDERED: hydrOXYzine pamoate 25 MG CAPSULE PO PRN (03:05)
[2017-10-25] MEDS: Nicotine 2 MG GUM BC PRN ×2 (10:42→17:22)
[2017-10-25] MEDS: Perphenazine 8 MG TABLET PO PRN ×2 (15:10→21:22)
[2017-10-25] MEDS: diazePAM 5 MG TABLET PO PRN ×2 (15:10→21:22)
[2017-10-25] MEDS: ARIPiprazole 10 MG TABLET PO SCH (16:00)
[2017-10-25] MEDS: Pyridostigmine Br 60 MG TABLET PO SCH (16:00)
[2017-10-25] MEDS: methIMAzole 5 MG TABLET PO SCH (16:01)
[2017-10-25] MEDS ORDERED: Gabapentin 400 MG CAPSULE PO STA (16:04)
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
[2017-10-25] MEDS: Gabapentin 400 MG CAPSULE PO SCH (21:21)
[2017-10-26] MEDS: Pyridostigmine Br 60 MG TABLET PO SCH ×4 (04:32→20:59)
[2017-10-26] MEDS: Gabapentin 400 MG CAPSULE PO SCH ×3 (09:06→20:59)
[2017-10-26] MEDS: Fluticasone Propionate Nasal 50 MCG/SPRAY BOTTLE NS SCH (09:07)
[2017-10-26] MEDS: ARIPiprazole 10 MG TABLET PO SCH (09:07)
[2017-10-26] MEDS: methIMAzole 5 MG TABLET PO SCH (09:07)
[2017-10-26] MEDS: Nicotine 2 MG GUM BC PRN (10:12)
[2017-10-26] MEDS: Perphenazine 8 MG TABLET PO PRN (11:21)
[2017-10-26] MEDS: diazePAM 5 MG TABLET PO PRN ×2 (11:21→21:15)
--- NOTE | 2017-10-26 14:38 | Psychiatry Progress Note ---
Date of Encounter: 10/26/17 Time of Encounter: 14:20 Subjective Interval history: Pt is a 42 yo ,, male, never with 2 daughters 21 and 16, who presents for Schizoaffective bipolar type, polysubstance abuse ( methamphetamine mainly), and personality D/O . PT again was educated why he cannot be on Adderall due to exacerbation of taye and his hx of methamphetamine use D/O. Pt denied any side effects to current medications. Pt noted he felt safe and comfortable on the unit. Pt was in agreement with current treatment plan. Pt noted that he is doing alright today. Pt noted he slept 7 hours last night. Pt noted his appetite is great. Pt rated his depression a 5, on a scale of zero to ten with ten being the worst and zero being none. Pt rate his anxiety a 5, on the same scale. Pt denied any auditory or visiual hallucinations. Pt denied any current thoughts to harm himself or anyone else. No TD noted, AIMS=0 MSE: Alert and Oriented x3 Appearance: appropriately groomed dressed in civilian attire Behavior: friendly, polite courteous Speech: elevated almost pressured, increase tone, increase rate Mood: upset Affect: mood congruent Thought content: no HI noted, no SI noted, hx of delusions noted Psychosis: questionable, currently does not appear to be responding to internal stimuli. Thought Process: linear logical. Judgment: questionable. Insight: questionable. Assessment/Plan 1.Interval hx 2.Continue current medications 3.Review current labs 4.Pt had an opportunity to ask questions and discuss current treatment plan. 5.Supportive therapy was provided 6.Pt encouraged to consider group or individual therapy 7.Pt was in agreement with treatment plan. 8.Pt was educated on the risks benefits and side effects of current medications. 9.Schedule trilifon 8 mg PO QHS for mood Results - Vital Signs Vital Signs: Temp Pulse Resp BP Pulse Ox 98.3 F 84 14 107/77 96 10/26/17 09:00 10/26/17 09:00 10/26/17 09:00 10/26/17 09:00 10/24/17 22:13 Assessment and Plan (1) Schizoaffective disorder, bipolar type Current visit: Yes Status: Acute (2) Acute psychosis Current visit: No Status: Acute (3) Methamphetamine abuse Current visit: No Status: Chronic (4) Personality disorder Current visit: No Status: Chronic (5) Intermittent explosive disorder Current visit: No Status: Chronic Consult Discharge Plan - Plan Referrals: NONE,PCP [Primary Care Provider] - Psychiatry Exam - Constitutional Vitals: Temp Pulse Resp BP Pulse Ox 98.3 F 84 14 107/77 96 10/26/17 09:00 10/26/17 09:00 10/26/17 09:00 10/26/17 09:00 10/24/17 22:13
[2017-10-26] MEDS: Perphenazine 8 MG TABLET PO SCH (20:59)
[2017-10-27] MEDS: Pyridostigmine Br 60 MG TABLET PO SCH (07:54)
[2017-10-27] MEDS: ARIPiprazole 10 MG TABLET PO SCH (09:23)
[2017-10-27] MEDS: Perphenazine 8 MG TABLET PO SCH (09:24)
[2017-10-27] MEDS: methIMAzole 5 MG TABLET PO SCH (09:24)
[2017-10-27] MEDS: Gabapentin 400 MG CAPSULE PO SCH (09:25)
[2017-10-27] MEDS: Fluticasone Propionate Nasal 50 MCG/SPRAY BOTTLE NS SCH (09:26)
[2017-10-27] MEDS: diazePAM 5 MG TABLET PO PRN (09:29)
[2017-10-27 10:16] VITALS: BP 118/83
--- NOTE | 2017-10-27 10:44 | Discharge Summary ---
Date of Encounter: 10/27/17 Time of Encounter: 10:30 Diagnosis - Discharge Diagnosis (1) Schizoaffective disorder, bipolar type Priority: Primary Status: Acute Comments: currently stable (2) Acute psychosis Priority: Primary Status: Acute Comments: resolved (3) Methamphetamine abuse Priority: Primary Status: Chronic Comments: currently sober (4) Personality disorder Priority: Secondary Status: Chronic (5) Intermittent explosive disorder Priority: Secondary Status: Chronic Medications - Discharge Medications Prescriptions: diazePAM [Valium] 5 mg PO Q6HR PRN 14 Days #14 tablet PRN Reason: Agitation ARIPiprazole [Abilify] 20 mg PO DAILY #30 tablet BuPROPion [Wellbutrin] 150 mg PO BID #60 tablet hydrOXYzine pamoate [HydrOXYzine Pamoate] 25 mg PO TID PRN #60 capsule PRN Reason: Anxiety Perphenazine [Trilafon] 8 mg PO BID #60 tablet Pyridostigmine Br [Mestinon] 60 mg PO Q8HR #90 tablet 02/24/16 [Rx] methIMAzole [Tapazole] 5 mg PO DAILY #30 tablet 02/24/16 [Rx] ARIPiprazole [Abilify] 20 mg PO DAILY #30 tablet 10/27/17 [Rx] BuPROPion [Wellbutrin] 150 mg PO BID #60 tablet 10/27/17 [Rx] Fluticasone Propionate Nasal [Flonase] 1 spr NS DAILY 10/27/17 [History] Gabapentin [Neurontin] 800 mg PO TID 10/27/17 [History] Metoprolol [Lopressor] 25 mg PO DAILY 10/27/17 [History] Perphenazine [Trilafon] 8 mg PO BID #60 tablet 10/27/17 [Rx] diazePAM [Valium] 5 mg PO Q6HR PRN 14 Days #14 tablet 10/27/17 [Rx] hydrOXYzine pamoate [HydrOXYzine Pamoate] 25 mg PO TID PRN #60 capsule 10/27/17 [Rx] 3 Allergy/AdvReac Type Severity Reaction Status Date / Time Penicillins Allergy Hives Verified 10/24/17 20:24 codeine AdvReac Vomiting Verified 10/24/17 20:24 Provider Date of admission: 10/25/17 01:19 Primary care physician: PCP NONE Discharging clinician: Sher Lim Psychiatry Exam - Constitutional Vitals: Temp Pulse Resp BP Pulse Ox 97.5 F L 76 18 118/83 96 10/27/17 09:00 10/27/17 09:00 10/27/17 09:00 10/27/17 09:00 10/24/17 22:13 General appearance: age & developmentally appropriate, well-groomed, well- nourished - Musculoskeletal Gait: normal Strength & Tone: normal for patient - Psychiatric Patient Orientation: Yes Person, Yes Time, Yes Place, Yes Circumstance Level of alertness: Alert Behavior: calm, cooperative Psychomotor activity: Normal Eye Contact: Maintains Eye Contact Mood Description: Euthymic/stable Affect description: congruent with mood Speech Volume: Normal Speech pattern: normal rate, normal rhythm, normal tone, fluent Language & Vocabulary: consistent with education Thought Process: Intact, Logical, Linear, Goal Oriented Thought Content: Yes Intact Attention Span Ability: Capable of Focused Attention, Capable of Sustained Attention Memory Description: Grossly Intact Patient Reliability: Reliable Historian Fund of knowledge: Yes average Intelligence Estimate: Average Judgment: Fair Insight: Full Hospital Course Hospital course: Pt is a 42 yo ,, male, never with 2 daughters 21 and 16, who presents for Schizoaffective bipolar type, polysubstance abuse ( methamphetamine mainly), and personality D/O . PT noted he is doing much better today. Pt noted he feels safe and comfortable for discharge home. Collateral was established. Ptd denies any access to guns or weapons. Pt was very polite and courteous during interview process. PT again was educated why he cannot be on Adderall due to exacerbation of taye and his hx of methamphetamine use D/O. Pt denied any side effects to current medications. Pt noted he felt safe and comfortable on the unit. Pt was in agreement with current treatment plan. Pt noted that he is doing alright today. Pt noted he slept 8 hours last night. Pt noted his appetite is great. Pt rated his depression a 2, on a scale of zero to ten with ten being the worst and zero being none. Pt rate his anxiety a 2, on the same scale. Pt denied any auditory or visiual hallucinations. Pt denied any current thoughts to harm himself or anyone else. No TD noted, AIMS=0 MSE: Alert and Oriented x3 Appearance: appropriately groomed dressed in civilian attire Behavior: friendly, polite courteous Speech: fluent, normal tone,normal rate Mood: good Affect: mood congruent Thought content: no HI noted, no SI noted, hx of delusions noted none current Psychosis: none noted, currently does not appear to be responding to internal stimuli. Thought Process: linear logical goal oriented. Judgment: fair. Insight: fair. Assessment/Plan 1.Interval hx 2.Continue current medications 3.Review current labs 4.Pt had an opportunity to ask questions and discuss current treatment plan. 5.Supportive therapy was provided 6.Pt encouraged to consider group or individual therapy 7.Pt was in agreement with treatment plan. 8.Pt was educated on the risks benefits and side effects of current medications including no medications. Pt was in agreement with current medications and treatment plan. 9. D/C pt home. 10. Follow up with all scheduled appointments. 11. Take all medications as prescribed 12. Abstain from any alcohol or illicit substances. - Time Spent with Patient Total time spent providing and/or coordinating discharge services: Assessment and Plan - Patient/Caregiver Discharge Instructions Activity: resume usual activities as tolerated Diet: regular diet - Follow up Plan Follow up with: NONE,PCP [Primary Care Provider] - Functional capacity at discharge: independent ambulation Overall status at discharge: Stable Disposition: Home, Self-Care Quality - Multiple Antipsychotics Patient discharged on 2 or more antipsychotic medications: Yes (pt was unstable on one antipsychotic, pt has tried 3 or more with failure) - Justification Documentation of: History 3 failed trials of monotherapy - Additional Details Additional Details: Pt has failed, risperidone, quetiapine, paliperidone, haloperidol independently pt is currently stable on two antipsychotics and continues to improve. Ariprazole and and trilifon.
== END 2017-10-27 11:37 | disposition home or self-care (01) | DRG 750 ==
LOC: EMEROO 20:21 → 1ANU 10-25 01:19 → SUATTDRO 10-25 01:19 → 1ANU 10-25 01:49
PROVIDERS: ADMIT Student in an Organized Health Care Education/Training Program; ATTEND General Practice

== ENCOUNTER 2018-02-21 17:44 | Observation (INO) ==
[2018-02-21] MEDS ORDERED: 0.9 % Sodium Chloride 1,000 ML IVC ONE (17:50)
--- NOTE | 2018-02-21 17:55 | Emergency Department Note ---
Disposition Clinical Impression: Methamphetamine abuse, Acute anxiety, Suicidal ideation Drug overdose Qualifiers: Encounter type: initial encounter Injury intent: intentional self-harm Qualified Code(s): T50.902A - Poisoning by unspecified drugs, medicaments and biological substances, intentional self-harm, initial encounter Disposition: Admitted As Inpatient Condition: Fair Referrals: NONE,PCP [Primary Care Provider] - Forms: ED Satisfaction Letter Psych HPI - General Chief Complaint: ED Psychiatric Symptoms Stated Complaint: SI Source: patient, EMS Nursing Notes Reviewed: Yes Vital Signs Reviewed: Yes - History of Present Illness HPI Narrative: 42-year-old male presents emergency Department chief complaint of anxiety and suicidal ideation. Patient took approximately 30 Adderall and some stackers he believes. Ingestion was intentional patient was trying to harm himself. He says that he has has people that are after him and they leave clues that they are coming to get him or something of that nature. Comes in shaking with chest pain radiating down his left arm making it numb. He also had a period of loss of consciousness. Denies homicidal ideation. No nausea or vomiting. Pt complaint: suicidal ideation, feels depressed Duration: constant Improves with: none Worsens with: none Context: recent drug abuse Alleged intoxication: No Associated Psychiatric Symptoms: depression Associated symptoms: Reports: other (Chest pain) Traumatic symptoms: denies traumatic injury Self harm or harm to others: admits thoughts of self harm - Related Data Home Medications Medication Instructions Recorded Confirmed Fluticasone Propionate Nasal 1 spr NS DAILY 10/27/17 12/22/17 [Flonase] Gabapentin [Neurontin] 800 mg PO TID 10/27/17 12/22/17 Metoprolol [Lopressor] 25 mg PO DAILY 10/27/17 12/22/17 Dextroamphetamine/Amphetamine 10 mg PO 12/22/17 12/22/17 [Adderall Xr 10 mg Capsule] Previous Rx's Medication Instructions Recorded Pyridostigmine Br [Mestinon] 60 mg PO Q8HR #90 tablet 02/24/16 methIMAzole [Tapazole] 5 mg PO DAILY #30 tablet 02/24/16 ARIPiprazole [Abilify] 20 mg PO DAILY #30 tablet 10/27/17 BuPROPion [Wellbutrin] 150 mg PO BID #60 tablet 10/27/17 Perphenazine [Trilafon] 8 mg PO BID #60 tablet 10/27/17 Nitrofurantoin Monohyd/M-Cryst 100 mg PO BID #20 capsule 02/19/18 [Macrobid 100 mg Capsule] Allergies Allergy/AdvReac Type Severity Reaction Status Date / Time Penicillins Allergy Hives Verified 10/24/17 20:24 codeine AdvReac Vomiting Verified 10/24/17 20:24 All systems ED: reviewed and negative except as stated. Constitutional: Reports: as per HPI Eyes: Reports: as per HPI ENT ED: Reports: as per HPI Cardiovascular: Reports: as per HPI Respiratory: Reports: as per HPI Gastrointestinal: Reports: as per HPI Past Medical History - Past Medical History Attestation: Yes The following information was validated with the patient. Medical history: Reports: hyperlipidemia, hypertension, thyroid disease Surgical history: Reports: cholecystectomy Psychiatric history: Reports: anxiety, bipolar, depression, PTSD, prior suicide attempt, schizophrenia, previous psychiatric hospitalization, other - Social History Smoking Status: Current every day smoker Smokeless Tobacco Status: Yes Alcohol use: Reports: rarely Drug use: Reports: methamphetamine Physical Exam - General Limitations: no limitations General appearance: alert, anxious - Head Head exam: atraumatic, normocephalic - Eye Eye exam: Present: normal appearance, PERRL - ENT ENT exam: normal exam, normal oropharynx - Neck Neck exam: Present: normal inspection - Chest Chest inspection: Present: normal inspection - Respiratory Respiratory exam: Present: normal lung sounds bilaterally - Cardiovascular Cardiovascular exam: Present: regular rate - Abdominal Exam Abdominal exam: Present: soft - Extremities Exam Extremities exam: Present: normal inspection - Neurological Exam Neurological exam: Present: alert, oriented X3 - Psychiatric Psychiatric exam: Present: normal affect, normal mood - Skin Skin exam: Present: warm, dry, intact Course Course Narrative: Patient was feeling better after Ativan dosing. A second EKG was obtained and this revealed a sinus rhythm with no acute ischemic changes the rate was 85 which is significantly improved from the first one. Patient continued to have some chest discomfort throughout his stay. Vital Signs Temperature 97.6 F 02/21/18 17:49 Pulse Rate 87 02/21/18 17:49 Respiratory Rate 20 02/21/18 17:49 Blood Pressure 140/105 02/21/18 17:49 O2 Sat by Pulse Oximetry 100 02/21/18 17:49 Temperature 97.6 F 02/21/18 17:49 Pulse Rate 84 02/21/18 20:27 Respiratory Rate 16 02/21/18 20:27 Blood Pressure 140/102 02/21/18 20:27 O2 Sat by Pulse Oximetry 100 02/21/18 20:27 Oxygen Delivery Oxygen Delivery Room Air Psych - MDM Narrative Medical decision making narrative: Shortly after the patient's arrival I spoke with poison control. They recommended benzodiazepines and observation in the hospital prior to psychiatric evaluation and admission. Patient initially was hypertensive with some tachycardia that resolved fairly rapidly once he got here. I will treat with benzodiazepines do the usual lab testing and likely admit to the medicine service. Patient's results were unremarkable. Patient was improved with benzodiazepine therapy his tremulousness stopped and he is feeling considerably better. We will communicate findings to poison control. I contacted the hospitalist service to arrange for admission. I spoke the hospitalist proximally 8:42 PM agreed to accept the patient for admission once his troponin came back normal. Troponin was normal. I also ordered a nonvoluntary admission status the time of the patient's initial evaluation, and a sitter for the next 24 hours for the hospital. - Lab Data Lab results reviewed: Yes I reviewed the patient's lab results. Result diagrams: 02/21/18 16:31 02/21/18 19:45 Lab Results 02/21/18 02/21/18 02/21/18 Range/Units 16:31 18:10 18:21 WBC 10.4 (4.3-11.1) K/mcL RBC 5.00 (4.19-5.50) M/mcL Hgb 14.4 (12.9-16.9) g/dL Hct 41.4 (37.5-50.1) % MCV 82.8 L (83.0-100.0) fL MCH 28.8 (28.0-33.3) pg MCHC 34.8 (31.6-35.5) g/dL RDW 13.2 (11.5-14.5) % Plt Count 281 (140-400) K/mcL MPV 10.9 (9.4-12.4) fL Immature Gran % 0.2 (0-4) % Seg Neutrophils % 56.9 % Lymphocytes % 31.9 % Monocytes % 7.7 % Eosinophils % 2.8 % Basophils % 0.5 % Neutrophils # 5.9 (1.6-8.9) K/mcL Lymphocytes # 3.3 (0.6-4.6) K/mcL Monocytes # 0.8 (0.0-1.3) K/mcL Eosinophils # 0.3 (0.0-0.6) K/mcL Basophils # 0.1 (0.0-0.2) K/mcL Sodium (136-145) mEq/L Potassium (3.5-5.1) mEq/L Chloride (98-107) mEq/L Carbon Dioxide (23-29) mEq/L BUN (6-20) mg/dL Creatinine (0.70-1.30) mg/dL Est GFR ( Amer) (> 60) Est GFR (Non-Af Amer) (> 60) BUN/Creatinine Ratio (6-26) Glucose (70-105) mg/dL Calculated Osmolality (280-300) Calcium (8.6-10.3) mg/dL Total Bilirubin (0.3-1.0) mg/dL Direct Bilirubin (0.0-0.2) mg/dL Indirect Bilirubin (0.0-1.2) mg/dL AST (13-39) Units/L ALT (7-52) Units/L Alkaline Phosphatase (34-104) Units/L Troponin I (< 0.04) ng/mL Serum Total Protein (6.4-8.9) g/dL Albumin (3.5-5.7) g/dL Globulin (2.4-3.5) g/dL Albumin/Globulin Ratio (1.1-2.2) TSH (0.340-5.600) mcIU/mL Urine Color Yellow (Yellow) Urine Clarity Clear (Clear) Urine pH 6.5 (5.0-8.0) pH Units Ur Specific [place] 1.008 L (1.010-1.025) Urine Protein Negative (Neg-Trace) mg/dL Urine Glucose (UA) Normal (Normal) mg/dL Urine Ketones Trace H (Negative) mg/dL Urine Blood Negative (Negative) Urine Nitrite Negative (Negative) Urine Bilirubin Negative (Negative) Urine Urobilinogen Normal (Normal) mg/dL Ur Leukocyte Esterase Negative (Negative) Salicylates (15.0-30.0) mg/dL Urine Opiates Screen (Iclwxx=691) ng/mL Acetaminophen (10-20) mcg/mL Ur Barbiturates Screen (Lwbxhd=638) ng/mL Ur Phencyclidine Scrn (Cutoff=25) ng/mL Ur Amphetamines Screen (Kuyboo=2141) ng/mL U Benzodiazepines Scrn (Wsafhf=756) ng/mL Urine Cocaine Screen (Cutoff= 300) ng/mL U Marijuana (THC) Screen (Cutoff = 50) ng/mL Ur Drug Screen Interp Ethyl Alcohol (Less than 10) mg/dL Specimen Rejected Hemolyzed 02/21/18 02/21/18 Range/Units 18:21 19:45 WBC (4.3-11.1) K/mcL RBC (4.19-5.50) M/mcL Hgb (12.9-16.9) g/dL Hct (37.5-50.1) % MCV (83.0-100.0) fL MCH (28.0-33.3) pg MCHC (31.6-35.5) g/dL RDW (11.5-14.5) % Plt Count (140-400) K/mcL MPV (9.4-12.4) fL Immature Gran % (0-4) % Seg Neutrophils % % Lymphocytes % % Monocytes % % Eosinophils % % Basophils % % Neutrophils # (1.6-8.9) K/mcL Lymphocytes # (0.6-4.6) K/mcL Monocytes # (0.0-1.3) K/mcL Eosinophils # (0.0-0.6) K/mcL Basophils # (0.0-0.2) K/mcL Sodium 135 L (136-145) mEq/L Potassium 3.5 (3.5-5.1) mEq/L Chloride 105 (98-107) mEq/L Carbon Dioxide 18 L (23-29) mEq/L BUN 9 (6-20) mg/dL Creatinine 0.76 (0.70-1.30) mg/dL Est GFR ( Amer) > 60 (> 60) Est GFR (Non-Af Amer) > 60 (> 60) BUN/Creatinine Ratio 12 (6-26) Glucose 96 (70-105) mg/dL Calculated Osmolality 279 L (280-300) Calcium 9.0 (8.6-10.3) mg/dL Total Bilirubin 1.1 H (0.3-1.0) mg/dL Direct Bilirubin 0.2 (0.0-0.2) mg/dL Indirect Bilirubin 0.9 (0.0-1.2) mg/dL AST 34 (13-39) Units/L ALT 39 (7-52) Units/L Alkaline Phosphatase 49 (34-104) Units/L Troponin I < 0.03 (< 0.04) ng/mL Serum Total Protein 6.7 (6.4-8.9) g/dL Albumin 4.1 (3.5-5.7) g/dL Globulin 2.6 (2.4-3.5) g/dL Albumin/Globulin Ratio 1.6 (1.1-2.2) TSH 1.379 (0.340-5.600) mcIU/mL Urine Color (Yellow) Urine Clarity (Clear) Urine pH (5.0-8.0) pH Units Ur Specific [place] (1.010-1.025) Urine Protein (Neg-Trace) mg/dL Urine Glucose (UA) (Normal) mg/dL Urine Ketones (Negative) mg/dL Urine Blood (Negative) Urine Nitrite (Negative) Urine Bilirubin (Negative) Urine Urobilinogen (Normal) mg/dL Ur Leukocyte Esterase (Negative) Salicylates < 2.5 L (15.0-30.0) mg/dL Urine Opiates Screen Negative (Uzbktq=531) ng/mL Acetaminophen < 10 L (10-20) mcg/mL Ur Barbiturates Screen Negative (Fmucrx=943) ng/mL Ur Phencyclidine Scrn Negative (Cutoff=25) ng/mL Ur Amphetamines Screen Positive H (Zquknb=6354) ng/mL U Benzodiazepines Scrn Negative (Lunxvt=450) ng/mL Urine Cocaine Screen Negative (Cutoff= 300) ng/mL U Marijuana (THC) Screen Negative (Cutoff = 50) ng/mL Ur Drug Screen Interp See Below Ethyl Alcohol < 10 (Less than 10) mg/dL Specimen Rejected - Radiology Data Radiology results reviewed: Yes I reviewed the patient's radiology results. - EKG Data EKG attestation: Yes I reviewed and interpreted this EKG. EKG shows normal: sinus rhythm Rate: tachycardia Rhythm: NSR Interpretation: no acute changes Psychiatric Medical Clearance - Medical Clearance Checklist Does the patient have a NEW psychiatric condition?: No Any abnormalities indicating possible medical illness?: No Any history of medical issues?: No Medical History: No Social History Section defined Current Vitals: Last Vital Signs Temp 97.6 F 02/21/18 17:49 Pulse 84 02/21/18 20:27 Resp 16 02/21/18 20:27 BP 140/102 02/21/18 20:27 Pulse Ox 100 02/21/18 20:27 Is the patient intoxicated or cognitively impaired?: No Psychiatric Lab Panel: Drug Levels and Toxicity 02/21/18 02/21/18 18:21 19:45 Urine Opiates Screen Negative Acetaminophen < 10 L Ur Barbiturates Screen Negative Ur Phencyclidine Scrn Negative Ur Amphetamines Screen Positive H U Benzodiazepines Scrn Negative Urine Cocaine Screen Negative U Marijuana (THC) Screen Negative Ethyl Alcohol < 10 Abnormal Labs: Abnormal lab results MCV 82.8 fL (83.0-100.0) L 02/21/18 16:31 Sodium 135 mEq/L (136-145) L 02/21/18 19:45 Carbon Dioxide 18 mEq/L (23-29) L 02/21/18 19:45 Calculated Osmolality 279 (280-300) L 02/21/18 19:45 Total Bilirubin 1.1 mg/dL (0.3-1.0) H 02/21/18 19:45 Ur Specific [place] 1.008 (1.010-1.025) L 02/21/18 18:21 Urine Ketones Trace mg/dL (Negative) H 02/21/18 18:21 Salicylates < 2.5 mg/dL (15.0-30.0) L 02/21/18 19:45 Acetaminophen < 10 mcg/mL (10-20) L 02/21/18 19:45 Ur Amphetamines Screen Positive ng/mL (Icntia=6287) H 02/21/18 18:21 Statement of Medical Clearance: I have evaluated the patient, reviewed diagnostic information, and certify that the patient's medical condition is sufficiently stable that transfer to the psychiatric unit does not pose a significant risk of deterioration. Critical Care Time Critical Care Time: Yes Total Critical Care Time: 35 Attestation: 35 minutes managing patient's acute Adderall ingestion with the resulting hypertension and tachycardia
[2018-02-21] MEDS ORDERED: *HR* LORazepam 2 MG/ML VIAL IVP ONE (18:05)
[2018-02-21 18:22] LABS: Basophils # 0.1 K/mcL (0.0-0.2); Basophils % 0.5 %; Eosinophils # 0.3 K/mcL (0.0-0.6); Eosinophils % 2.8 %; Hematocrit 41.4 % (37.5-50.1); Hemoglobin 14.4 g/dL (12.9-16.9); Immature Granulocytes % 0.2 % (0-4); Lymphocytes # 3.3 K/mcL (0.6-4.6); Lymphocytes % 31.9 %; Mean Corpuscular HGB Conc 34.8 g/dL (31.6-35.5); Mean Corpuscular Hemoglobin 28.8 pg (28.0-33.3); Mean Corpuscular Volume 82.8 fL (83.0-100.0); Mean Platelet Volume 10.9 fL (9.4-12.4); Monocytes # 0.8 K/mcL (0.0-1.3); Monocytes % 7.7 %; Neutrophils # 5.9 K/mcL (1.6-8.9); Platelet Count 281 K/mcL (140-400); Red Cell Distribution Width 13.2 % (11.5-14.5); Segmented Neutrophils % 56.9 %
[2018-02-21 18:32] LABS: Bilirubin,Urine Negative (Negative); Blood,Urine Negative (Negative); Clarity,Urine Clear (Clear); Color,Urine Yellow (Yellow); Glucose,Urine (UA) Normal (Normal); Ketones,Urine Trace mg/dL (Negative); Leukocyte Esterase,Urine Negative (Negative); Nitrite,Urine Negative (Negative); PH,Urine 6.5 pH Units (5.0-8.0); Protein,Urine Negative (Neg-Trace); Specific Gravity,Urine 1.008 (1.010-1.025); Urobilinogen,Urine Normal (Normal)
[2018-02-21 19:14] LABS: Amphetamine Screen,Urine Positive ng/mL (Cutoff=1000); Barbiturate Screen,Urine Negative ng/mL (Cutoff=200); Benzodiazepines Screen,Urine Negative ng/mL (Cutoff=200); Cannabinoid Screen,Urine Negative ng/mL (Cutoff = 50); Cocaine Screen,Urine Negative ng/mL (Cutoff= 300); Opiate Screen,Urine Negative ng/mL (Cutoff=300); Phencyclidine Screen,Urine Negative ng/mL (Cutoff=25)
[2018-02-21 21:04] LABS: Acetaminophen < 10 mcg/mL (10-20); Alanine Aminotransferase 39 Units/L (7-52); Albumin 4.1 g/dL (3.5-5.7); Albumin/Globulin Ratio 1.6 (1.1-2.2); Alkaline Phosphatase 49 Units/L (34-104); Aspartate Amino Transferase 34 Units/L (13-39); BUN/Creatinine Ratio 12 (6-26); Bilirubin,Direct 0.2 mg/dL (0.0-0.2); Bilirubin,Indirect 0.9 mg/dL (0.0-1.2); Bilirubin,Total 1.1 mg/dL (0.3-1.0); Blood Urea Nitrogen 9 mg/dL (6-20); Carbon Dioxide 18 mEq/L (23-29); Chloride 105 mEq/L (98-107); Ethanol < 10 mg/dL (Less than 10); Globulin 2.6 g/dL (2.4-3.5); Glucose 96 mg/dL (70-105); Osmolality,Calculated 279 (280-300); Potassium 3.5 mEq/L (3.5-5.1); Salicylate < 2.5 mg/dL (15.0-30.0); Sodium 135 mEq/L (136-145); Thyroid Stimulating Hormone 1.379 mcIU/mL (0.340-5.600); Total Protein 6.7 g/dL (6.4-8.9); Troponin I < 0.03 ng/mL (< 0.04); eGFR For Non-African Americans > 60 (> 60)
--- NOTE | 2018-02-21 21:31 | Internal Med History&Physical ---
<Kanwal Guthrie M - Last Filed: 02/22/18 02:19> Date of Encounter: 02/22/18 Time of Encounter: 21:28 Internal Medicine - H&P: HPI Chief complaint: suicide attempt Admitted From: Emergency Dept Plans for Post Hospital Care: Home History of present illness: Mr. Jalloh is a 42 year old male hx schizoaffective disorder presented to ED after suicide attempt with anxiety. He took over 30 of prescribed Adderal, 8 tablets of unknown muscle relaxer and 2.5 packs of stacks energy. He relapsed 3 days ago on meth and hoped that the combination of medications would be enough to end his life. He also complains of right sided chest pain that is tight and sharp worse with inspiration - unable to describe radiation. In ED, he was anxious and given 1mg Ativan. Vital 140/105 stablized to 122/99 with HR 87, RR 20 and O2 100%.EKG unchanged with no acute process. Troponin negative and UDS only showed amphetamines and minimal salicylates. He was pink slipped at 6 pm 02-21-18. He has slept one night in past 5 days and has not been eating or drinking. He has decreased urination with dark urine and doesn't know when last bowel movement was. He is paranoid that a free kelly he crossed is out to hurt him and he must protect his family. His worsening depression was triggered by rejection by his family when they assumed he had started drinking alcohol again- he denies EtOH consumption. A few days ago he was taken to detention when found stumbling around a small market and reports loss of consciousness. He also has lost memory of several periods of time. He attributed this to mediations possibly Trilafon or Wellbution and stopped taking it. He was in patient at [employer] [facility] a few months ago and staets his medication has not been right since but that he has only been taking Ablifiy and Adderal regularly. He has last admitted at [facility] on 10-25-17 for schizoaffective disorder and explosive disorder - has failed many medication treatment options. He stopped taking medication for hyperthyroid and myasthenia gravis about two weeks ago. He is having weakness in all extremities and reports leg cramps. He smokes less than one pack of cigarettes a day. He states that trachea nodule sometimes makes it difficult to breath. Past Med Surg Social Fam HX - Past Medical History Medical history: hyperlipidemia, hypertension, thyroid disease Additional medical history: [place] Psychiatric history: anxiety, bipolar, depression, PTSD, prior suicide attempt, schizophrenia, previous psychiatric hospitalization, other - Past Surgical History Surgical History: cholecystectomy Additional surgical history: Right knee surgery - Social History Smoking Status: Current every day smoker Smokeless Tobacco Status: Yes Alcohol use: rarely Drug use: methamphetamine - Family History Father Hx Family Cardiac Disorders: Yes Hx Family Endocrine Disorder: Yes (DM) Mother Adopted: No Family Member Ethnicity: Non- Living Status: Still Living Hx Family Cardiac Disorders: No Hx Family Respiratory Disorders: No Hx Family Cancer: Yes (family history of Skin cancer and thyroid cancer) Hx Family GI Disorders: No Hx Family Endocrine Disorder: Yes (Great-grandmother- DM) Hx Family Neuromuscular Disorders: No Hx Family Neurologic Disorders: No Hx Family HEENT Disorders: No Hx Family Autoimmune Disorders: No Internal Medicine - H&P: Meds Pyridostigmine Br [Mestinon] 60 mg PO Q8HR #90 tablet 02/24/16 [Rx] methIMAzole [Tapazole] 5 mg PO DAILY #30 tablet 02/24/16 [Rx] ARIPiprazole [Abilify] 20 mg PO DAILY #30 tablet 10/27/17 [Rx] BuPROPion [Wellbutrin] 150 mg PO BID #60 tablet 10/27/17 [Rx] Fluticasone Propionate Nasal [Flonase] 1 spr NS DAILY 10/27/17 [History] Gabapentin [Neurontin] 800 mg PO TID 10/27/17 [History] Metoprolol [Lopressor] 25 mg PO DAILY 10/27/17 [History] Perphenazine [Trilafon] 8 mg PO BID #60 tablet 10/27/17 [Rx] Dextroamphetamine/Amphetamine [Adderall Xr 10 mg Capsule] 10 mg PO 12/22/17 [ History] Nitrofurantoin Monohyd/M-Cryst [Macrobid 100 mg Capsule] 100 mg PO BID #20 capsule 02/19/18 [Rx] 3 Allergy/AdvReac Type Severity Reaction Status Date / Time Penicillins Allergy Hives Verified 10/24/17 20:24 codeine AdvReac Vomiting Verified 10/24/17 20:24 All Systems PM: A 10-system review of systems was performed and is negative for pertinent findings except as documented above in the HPI. - Constitutional Constitutional: fatigue, falls - Cardiovascular Cardiovascular ROS IM: chest pain, dyspnea on exertion, syncope, no edema - Respiratory Respiratory: pain on inspiration, no cough, no wheezing - Gastrointestinal Gastrointestinal: constipation, no abdominal pain, no diarrhea, no nausea - Genitourinary Genitourinary ROS male: no dysuria, no hematuria, no urinary frequency - Musculoskeletal Musculoskeletal ROS IM: muscle cramps, muscle weakness, tingling - Integumentary Integumentary IM: no rash - Neurological Neurological ROS: frequent falls, memory loss, no confusion - Psychiatric Psychiatric: abnormal sleep pattern, anxiety, behavioral changes, change in appetite, depression, hopelessness, paranoia, suicidal ideation - Constitutional Vitals: Temp Pulse Resp BP Pulse Ox 97.6 F 84 16 140/102 100 02/21/18 17:49 02/21/18 20:27 02/21/18 20:27 02/21/18 20:27 02/21/18 20:27 General appearance: Present: cooperative, disheveled, mild distress, A&O X 3, answers questions appropriately Exam: tearful and morose - Head Head exam: Present: atraumatic, normocephalic - Eye Eye exam: Present: EOMI Pupils: Present: mydriatic, normal accommodation - ENT ENT exam: Present: mucous membranes moist, normal oropharynx - Respiratory Respiratory exam: Present: CTAB - Cardiovascular Cardiovascular exam: Present: +S1, +S2, tachycardia. Absent: gallop, rubs - GI/Abdominal GI/Abdominal exam: Present: distended, hypoactive bowel sounds. Absent: tenderness - Extremities Exam Extremities exam: Present: full ROM, radial pulses palpable and symmetrical. Absent: pedal edema - Neurological Exam Neurological exam: Absent: strengths equal and symetr throughout Additional comments: bilateral lower extremity muscle weakness +4/5 proximal and distal upper extremity strength intact decrease sensation to left lower extremity - Psychiatric Psychiatric exam: Present: depressed, flat affect, suicidal ideation. Absent: agitated, anxious - Expanded Psychiatric Exam Focused psych exam: Present: delusional, perseverating Internal Med - H&P Results - Labs CBC & Chem 7: 02/21/18 16:31 02/21/18 19:45 Labs: Short CBC 02/21/18 Range/Units 16:31 WBC 10.4 (4.3-11.1) K/mcL Hgb 14.4 (12.9-16.9) g/dL Hct 41.4 (37.5-50.1) % Plt Count 281 (140-400) K/mcL Neutrophils # 5.9 (1.6-8.9) K/mcL BMP 02/21/18 19:45 Sodium 135 L Potassium 3.5 Chloride 105 Carbon Dioxide 18 L BUN 9 Creatinine 0.76 Glucose 96 Calcium 9.0 Cardiac Enzymes 02/21/18 Range/Units 19:45 Troponin I < 0.03 (< 0.04) ng/mL Liver Function 02/21/18 Range/Units 19:45 Total Bilirubin 1.1 H (0.3-1.0) mg/dL Direct Bilirubin 0.2 (0.0-0.2) mg/dL AST 34 (13-39) Units/L ALT 39 (7-52) Units/L Alkaline Phosphatase 49 (34-104) Units/L Albumin 4.1 (3.5-5.7) g/dL Urine 02/21/18 Range/Units 18:21 Urine Color Yellow (Yellow) Urine Clarity Clear (Clear) Urine pH 6.5 (5.0-8.0) pH Units Ur Specific [place] 1.008 L (1.010-1.025) Urine Protein Negative (Neg-Trace) mg/dL Urine Glucose (UA) Normal (Normal) mg/dL - Impressions ITS Impressions Chest X-Ray 02/21/18 17:51 IMPRESSION: No acute process. D/ / Aleks Robbins MD / Aleks Robbins MD Interpreting Provider: Aleks Robbins MD Head CT 02/21/18 17:51 IMPRESSION: No acute intracranial abnormality. D/ / Riley Silva MD / Riley Silva MD Interpreting Provider: Riley Silva MD - Assessment and plan (1) Drug overdose Current Visit: Yes Status: Acute Assessment and plan: Admits to intentional overdose with UDS positive for amphetamines - sitter -pink slip -ativan PRN for aggression -psychiatric consult Qualifiers: Encounter type: initial encounter Injury intent: intentional self-harm Qualified Code(s): T50.902A - Poisoning by unspecified drugs, medicaments and biological substances, intentional self-harm, initial encounter (2) Suicidal ideations Current Visit: Yes Status: Acute Assessment and plan: He wished to be DNR but until capacity is determined will be full code. - see overdose (3) Chest pain Current Visit: Yes Status: Acute Assessment and plan: no EKG changes and troponin negative; unlikely to be cardiac etiology - trend troponins: <0.03, Qualifiers: Chest pain type: unspecified Qualified Code(s): R07.9 - Chest pain, unspecified (4) Schizoaffective disorder, bipolar type Current Visit: No Status: Acute Assessment and plan: -consult psychiatry to consider restarting ablifiy and hydroxyzine - prn ativan He believes a medication was causing him to appear drunk and pass out so did not want to restart Trilafan or Wellbutrin. (5) Myasthenia gravis Current Visit: No Status: Chronic Assessment and plan: History of affecting legs, eyes, and diaphragm. I have concern for respiratory insufficiency due to diaphragm weakness in a myasthenia crisis and trachea nodule may make more difficult if intubate if needed. - restart Mestion - deonebs prn - neuro checks q 2 - cardiac monitoring (6) Thyroid disease Current Visit: No Status: Chronic Assessment and plan: Hyperthyroidism; TSH 1.379 - restart methimazole (7) Hyponatremia Current Visit: Yes Status: Acute Assessment and plan: Na 135 possibly due to not eating; received 1 L IVF in ED - monitor with serial labs - encourage regular diet and and oral hydration (8) HTN (hypertension) Current Visit: No Status: Chronic Assessment and plan: restart metoprolol Qualifiers: Hypertension type: essential hypertension Qualified Code(s): I10 - Essential (primary) hypertension (9) DVT prophylaxis Current Visit: No Status: Acute Assessment and plan: ambulation - Time Spent With Patient Total time spent is greater than 50% in coordination of care (as documented) at patient's floor/unit and/or counseling patient: 25 - 35 minutes <Catarino Cash - Last Filed: 02/22/18 07:15> Date of Encounter: 02/22/18 Time of Encounter: 02:00 - Constitutional Constitutional: fatigue - EENT Eyes: no change in vision - Cardiovascular Cardiovascular ROS IM: chest pain, dyspnea on exertion, syncope - Psychiatric Psychiatric: anxiety, depression, hopelessness, paranoia, suicidal ideation - Constitutional Vitals: Temp Pulse Resp BP Pulse Ox 97.5 F L 88 16 114/77 98 02/21/18 22:10 02/22/18 01:25 02/22/18 01:25 02/22/18 01:25 02/21/18 22:10 General appearance: Present: cooperative, A&O X 3 - Head Head exam: Present: normal inspection - Eye Eye exam: Present: PERRL. Absent: scleral icterus - ENT ENT exam: Present: mucous membranes moist - Neck Neck exam general surgery: Present: supple. Absent: tenderness, nuchal rigidity , thyromegaly - Respiratory Respiratory exam: Present: CTAB. Absent: chest wall tenderness, rales, rhonchi , wheezes - Cardiovascular Cardiovascular exam: Present: +S1, +S2, tachycardia. Absent: diastolic murmur, systolic murmur - GI/Abdominal GI/Abdominal exam: Present: normal bowel sounds, soft. Absent: hepatomegaly, mass, splenomegaly - Extremities Exam Extremities exam: Present: full ROM, warm, radial pulses palpable and symmetrical. Absent: calf tenderness - Back Exam Back exam: Absent: CVA tenderness (L), CVA tenderness (R) - Neurological Exam Neurological exam: Present: alert, CN II-XII intact, oriented X3. Absent: strengths equal and symetr throughout (chronic weakness in BLE compareed to BUE ~ 4/5 BLE strength) - Psychiatric Psychiatric exam: Present: agitated, flat affect, suicidal ideation - Skin Skin exam: Present: dry, intact, warm Additional comments: multiple tattoos throughout Internal Med - H&P Results - Labs CBC & Chem 7: 02/22/18 04:21 02/22/18 04:21 Labs: Short CBC 02/22/18 Range/Units 04:21 WBC 7.5 (4.3-11.1) K/mcL Hgb 13.0 (12.9-16.9) g/dL Hct 38.0 (37.5-50.1) % Plt Count 250 (140-400) K/mcL Neutrophils # 3.0 (1.6-8.9) K/mcL BMP 02/22/18 04:21 Sodium 136 Potassium 3.3 L Chloride 105 Carbon Dioxide 23 BUN 9 Creatinine 0.77 Glucose 88 Calcium 9.4 Cardiac Enzymes 02/22/18 Range/Units 04:21 Troponin I < 0.03 (< 0.04) ng/mL - Time Spent With Patient Total time spent is greater than 50% in coordination of care (as documented) at patient's floor/unit and/or counseling patient: - Attending Attestation I discussed the patient [place], past medical history, review of systems, lab data , and exam findings with Dr. Guthrie. I then saw and examined patient independently. Patient is suicidal and "hopes to ". He admits to recently relapsing on street drugs. He took several prescription medications in an effort to kill himself. He also stopped taking his regular medications 2 weeks ago including his Mestinon. He is complaining of more weakness and fatigue. He has a history of myasthenia gravis but has not had crisis and many years. I informed him we need to start his Mestinon, but he refuses to take his prescribed medications. He also refuses to eat. He appears to be quite manipulative towards nursing staff and to me. We will monitor with telemetry and hydrate him. We will have psychiatry see him in consultation. Based upon his actions above, I feel strongly that he needs inpatient psychiatry admission for stabilization and treatment after he is stabilized medically. Other than my comments above and noted physical findings, I agree with Dr. Guthrie' s assessment and plan.
[2018-02-21] MEDS ORDERED: Ipratropium/Albuterol Neb 3 ML IH PRN (21:37)
[2018-02-21] MEDS ORDERED: Naloxone 0.4 MG/ML INJ IVP PRN (22:05)
[2018-02-21] MEDS ORDERED: Acetaminophen 325 MG TABLET PO PRN (22:05)
[2018-02-22] MEDS: Pyridostigmine Br 60 MG TABLET PO SCH ×4 (00:41→23:49)
[2018-02-22] MEDS: Neosporin OINT 15 GM TUBE TP SCH ×3 (00:41→20:39)
[2018-02-22] MEDS ORDERED: Nitroglycerin 0.4 MG TAB.SUBL SL PRN (01:16)
[2018-02-22] MEDS ORDERED: Nitroglycerin 0.4 MG TAB.SUBL SL ONE (01:17)
[2018-02-22 05:26] LABS: Basophils % 0.5 %; Eosinophils # 0.4 K/mcL (0.0-0.6); Eosinophils % 5.3 %; Immature Granulocytes % 0.3 % (0-4); Lymphocytes # 3.5 K/mcL (0.6-4.6); Lymphocytes % 46.4 %; Mean Corpuscular HGB Conc 34.2 g/dL (31.6-35.5); Mean Corpuscular Hemoglobin 28.4 pg (28.0-33.3); Mean Corpuscular Volume 83.2 fL (83.0-100.0); Mean Platelet Volume 11.6 fL (9.4-12.4); Monocytes # 0.6 K/mcL (0.0-1.3); Monocytes % 8.1 %; Platelet Count 250 K/mcL (140-400); Red Blood Count 4.57 M/mcL (4.19-5.50); Red Cell Distribution Width 13.3 % (11.5-14.5); Segmented Neutrophils % 39.4 %
[2018-02-22 05:48] LABS: BUN/Creatinine Ratio 12 (6-26); Blood Urea Nitrogen 9 mg/dL (6-20); Calcium 9.4 mg/dL (8.6-10.3); Carbon Dioxide 23 mEq/L (23-29); Chloride 105 mEq/L (98-107); Glucose 88 mg/dL (70-105); Osmolality,Calculated 280 (280-300); Potassium 3.3 mEq/L (3.5-5.1); Sodium 136 mEq/L (136-145); eGFR For Non-African Americans > 60 (> 60)
[2018-02-22] MEDS: *HR* Heparin 5,000 UNIT/ML VIAL SQ SCH ×2 (08:36→16:48)
[2018-02-22] MEDS: methIMAzole 5 MG TABLET PO SCH (08:36)
[2018-02-22] MEDS: 0.9 % Sodium Chloride w KCl 20 MEQ/1,000 ML MLS IVC SCH ×3 (08:39→23:00)
[2018-02-22] MEDS: *HR* LORazepam 1 MG TABLET PO PRN (11:07)
--- NOTE | 2018-02-22 13:51 | Consult Note ---
Date of Encounter: 02/22/18 Time of Encounter: 13:47 Assessment & Recommendation (1) Personality disorder Current visit: No Status: Chronic Assessment & Recommendation: Client has a history of overdosing. Continues to endorse SI. Last admission to [facility]. Future admissions need to be at a state facility like [facility] given his propensity for acting out and past violent behaviors in the hospital. Would not change meds at this time. Today he is alert and oriented. Mentating fine. Thoughts are clear and organized. Capacity not a concern. Recommend referral to a state facility for inpatient care secondary to ongoing SI. (2) Intermittent explosive disorder Current visit: No Status: Chronic (3) Polysubstance dependence Current visit: No Status: Chronic History of Present Illness Requesting Physician: Catarino Cash MD Reason for consult: psychosis History of present illness: Mr. Jalloh is a 42 year old male who presented to the hospital following an overdose attempt. Well known to staff. Primary diagnoses are antisocial personality disorder and substance induced mood and psychotic symptoms. Per consult he was psychotic at time of presentation. Not psychotic today. Alert and oriented. However, client states he is still suicidal because no one in his family cares about him. Not agitated today although he has a history of acting out and being violent. Frequent legal involvement. Last hospitalized at [facility]. Will need to return there for mental health care. CC: Catarino Cash MD Past Med Surg Social Fam HX - Past Medical History Medical history: hyperlipidemia, hypertension, thyroid disease - Past Psychiatric History Psychiatric history: Reports: prior suicide attempt, previous psychiatric hospitalization Family psychiatric history: Unknown Family History of Suicide: Unknown - Past Surgical History Surgical History: cholecystectomy - Social History Smoking Status: Current every day smoker Smokeless Tobacco Status: Yes Alcohol use: rarely Drug use: methamphetamine - Family History Father Hx Family Cardiac Disorders: Yes Hx Family Endocrine Disorder: Yes (DM) Mother Adopted: No Family Member Ethnicity: Non- Living Status: Still Living Hx Family Cardiac Disorders: No Hx Family Respiratory Disorders: No Hx Family Cancer: Yes (family history of Skin cancer and thyroid cancer) Hx Family GI Disorders: No Hx Family Endocrine Disorder: Yes (Great-grandmother- DM) Hx Family Neuromuscular Disorders: No Hx Family Neurologic Disorders: No Hx Family HEENT Disorders: No Hx Family Autoimmune Disorders: No Medications & Allergies Pyridostigmine Br [Mestinon] 60 mg PO Q8HR #90 tablet 02/24/16 [Rx] methIMAzole [Tapazole] 5 mg PO DAILY #30 tablet 02/24/16 [Rx] ARIPiprazole [Abilify] 20 mg PO DAILY #30 tablet 10/27/17 [Rx] BuPROPion [Wellbutrin] 150 mg PO BID #60 tablet 10/27/17 [Rx] Fluticasone Propionate Nasal [Flonase] 1 spr NS DAILY 10/27/17 [History] Gabapentin [Neurontin] 800 mg PO TID 10/27/17 [History] Metoprolol [Lopressor] 25 mg PO DAILY 10/27/17 [History] Perphenazine [Trilafon] 8 mg PO BID #60 tablet 10/27/17 [Rx] Dextroamphetamine/Amphetamine [Adderall Xr 10 mg Capsule] 10 mg PO 12/22/17 [ History] Nitrofurantoin Monohyd/M-Cryst [Macrobid 100 mg Capsule] 100 mg PO BID #20 capsule 02/19/18 [Rx] 3 Allergy/AdvReac Type Severity Reaction Status Date / Time Penicillins Allergy Hives Verified 10/24/17 20:24 codeine AdvReac Vomiting Verified 10/24/17 20:24 Review of Systems Constitutional: Denies: fever, chills, weakness, weight change Eyes: Denies: eye pain, vision change Ears, Nose, Throat: Denies: ear pain, throat pain, dental pain, hearing loss, congestion Cardiovascular: Denies: chest pain, palpitations, dyspnea on exertion Respiratory: Denies: cough, dyspnea, wheezes Gastrointestinal: Denies: abdominal pain, nausea, vomiting, diarrhea, constipation Genitourinary male: Denies: urgency, dysuria, frequency, genital lesions Musculoskeletal: Denies: joint swelling, joint pain Integumentary: Denies: rash, lesions, pruritus Neurological: Denies: headache, weakness, numbness, memory loss Endocrine: Denies: fatigue, heat or cold intolerance Hematologic/Lymphatic: Denies: easy bruising, lymphadenopathy Allergic/Immunologic: Denies: urticaria, itchy eyes Psychiatry Exam - Constitutional Vitals: Temp Pulse Resp BP Pulse Ox 97.5 F L 59 20 114/73 100 02/22/18 09:24 02/22/18 11:36 02/22/18 11:36 02/22/18 11:36 02/22/18 11:36 General appearance: age & developmentally appropriate - Musculoskeletal Gait: normal Station: relaxed Strength & Tone: normal for patient - Psychiatric Patient Orientation: Yes Person, Yes Time, Yes Place Level of alertness: Alert Behavior: calm, cooperative Psychomotor activity: Normal Eye Contact: Maintains Eye Contact Mood Description: Depressed Affect description: congruent with mood Speech Volume: Normal Speech pattern: normal rate, normal rhythm, normal tone, fluent, spontaneous Language & Vocabulary: consistent with education Thought Process: Linear Thought Content: Yes Suicidal ideation, No Homicidal ideation, No Overt delusions Perceptual Disturbances: No Auditory hallucinations, No Visual hallucinations Attention Span Ability: Capable of Focused Attention Memory Description: Grossly Intact Patient Reliability: Not Reliable Historian Fund of knowledge: Yes abstraction ability, Yes aware of current events Intelligence Estimate: Average Judgment: Poor Insight: Partial Results - Labs Labs: Laboratory Last Values WBC 7.5 K/mcL (4.3-11.1) 02/22/18 04:21 RBC 4.57 M/mcL (4.19-5.50) 02/22/18 04:21 Hgb 13.0 g/dL (12.9-16.9) 02/22/18 04:21 Hct 38.0 % (37.5-50.1) 02/22/18 04:21 MCV 83.2 fL (83.0-100.0) 02/22/18 04:21 MCH 28.4 pg (28.0-33.3) 02/22/18 04:21 MCHC 34.2 g/dL (31.6-35.5) 02/22/18 04:21 RDW 13.3 % (11.5-14.5) 02/22/18 04:21 Plt Count 250 K/mcL (140-400) 02/22/18 04:21 MPV 11.6 fL (9.4-12.4) 02/22/18 04:21 Immature Gran % 0.3 % (0-4) 02/22/18 04:21 Seg Neutrophils % 39.4 % 02/22/18 04:21 Lymphocytes % 46.4 % 02/22/18 04:21 Monocytes % 8.1 % 02/22/18 04:21 Eosinophils % 5.3 % 02/22/18 04:21 Basophils % 0.5 % 02/22/18 04:21 Neutrophils # 3.0 K/mcL (1.6-8.9) 02/22/18 04:21 Lymphocytes # 3.5 K/mcL (0.6-4.6) 02/22/18 04:21 Monocytes # 0.6 K/mcL (0.0-1.3) 02/22/18 04:21 Eosinophils # 0.4 K/mcL (0.0-0.6) 02/22/18 04:21 Basophils # 0.0 K/mcL (0.0-0.2) 02/22/18 04:21 Sodium 136 mEq/L (136-145) 02/22/18 04:21 Potassium 3.3 mEq/L (3.5-5.1) L 02/22/18 04:21 Chloride 105 mEq/L (98-107) 02/22/18 04:21 Carbon Dioxide 23 mEq/L (23-29) 02/22/18 04:21 BUN 9 mg/dL (6-20) 02/22/18 04:21 Creatinine 0.77 mg/dL (0.70-1.30) 02/22/18 04:21 Est GFR ( Amer) > 60 (> 60) 02/22/18 04:21 Est GFR (Non-Af Amer) > 60 (> 60) 02/22/18 04:21 BUN/Creatinine Ratio 12 (6-26) 02/22/18 04:21 Glucose 88 mg/dL (70-105) 02/22/18 04:21 Calculated Osmolality 280 (280-300) 02/22/18 04:21 Calcium 9.4 mg/dL (8.6-10.3) 02/22/18 04:21 Total Bilirubin 1.1 mg/dL (0.3-1.0) H 02/21/18 19:45 Direct Bilirubin 0.2 mg/dL (0.0-0.2) 02/21/18 19:45 Indirect Bilirubin 0.9 mg/dL (0.0-1.2) 02/21/18 19:45 AST 34 Units/L (13-39) 02/21/18 19:45 ALT 39 Units/L (7-52) 02/21/18 19:45 Alkaline Phosphatase 49 Units/L (34-104) 02/21/18 19:45 Troponin I < 0.03 ng/mL (< 0.04) 02/22/18 09:47 Serum Total Protein 6.7 g/dL (6.4-8.9) 02/21/18 19:45 Albumin 4.1 g/dL (3.5-5.7) 02/21/18 19:45 Globulin 2.6 g/dL (2.4-3.5) 02/21/18 19:45 Albumin/Globulin Ratio 1.6 (1.1-2.2) 02/21/18 19:45 TSH 1.379 mcIU/mL (0.340-5.600) 02/21/18 19:45 Urine Color Yellow (Yellow) 02/21/18 18:21 Urine Clarity Clear (Clear) 02/21/18 18:21 Urine pH 6.5 pH Units (5.0-8.0) 02/21/18 18:21 Ur Specific [place] 1.008 (1.010-1.025) L 02/21/18 18:21 Urine Protein Negative mg/dL (Neg-Trace) 02/21/18 18:21 Urine Glucose (UA) Normal mg/dL (Normal) 02/21/18 18:21 Urine Ketones Trace mg/dL (Negative) H 02/21/18 18:21 Urine Blood Negative (Negative) 02/21/18 18:21 Urine Nitrite Negative (Negative) 02/21/18 18:21 Urine Bilirubin Negative (Negative) 02/21/18 18:21 Urine Urobilinogen Normal mg/dL (Normal) 02/21/18 18:21 Ur Leukocyte Esterase Negative (Negative) 02/21/18 18:21 Salicylates < 2.5 mg/dL (15.0-30.0) L 02/21/18 19:45 Urine Opiates Screen Negative ng/mL (Dgosmb=134) 02/21/18 18:21 Acetaminophen < 10 mcg/mL (10-20) L 02/21/18 19:45 Ur Barbiturates Screen Negative ng/mL (Nqfglr=074) 02/21/18 18:21 Ur Phencyclidine Scrn Negative ng/mL (Cutoff=25) 02/21/18 18:21 Ur Amphetamines Screen Positive ng/mL (Qibhwi=2468) H 02/21/18 18:21 U Benzodiazepines Scrn Negative ng/mL (Hhfkyb=803) 02/21/18 18:21 Urine Cocaine Screen Negative ng/mL (Cutoff= 300) 02/21/18 18:21 U Marijuana (THC) Screen Negative ng/mL (Cutoff = 50) 02/21/18 18:21 Ur Drug Screen Interp See Below 02/21/18 18:21 Ethyl Alcohol < 10 mg/dL (Less than 10) 02/21/18 19:45 Specimen Rejected Hemolyzed 02/21/18 18:10 Consult Discharge Plan - Plan Referrals: NONE,PCP [Primary Care Provider] -
[2018-02-22] MEDS ORDERED: *HR* LORazepam 2 MG/ML VIAL ONE (15:44)
--- NOTE | 2018-02-22 16:03 | Internal Med Progress Note ---
Hospitalist Progress Note - Encounter Date of Encounter: 02/22/18 Time of Encounter: 15:58 - Subjective Interval History: Patient admitted with suicidal ideation, attempted drug overdose, continues to endorse SI. During my time the patient continues to state that he wants to kill himself. He is even saying that he will use a pistol when he gets out of the hospital. Continues to be agitated. He is known to have a propensity for violent outbursts on prior admissions. - Exam Vitals: Temp Pulse Resp BP Pulse Ox 97.5 F L 59 20 114/73 100 02/22/18 09:24 02/22/18 11:36 02/22/18 11:36 02/22/18 11:36 02/22/18 11:36 Exam: PHYSICAL EXAMINATION: GENERAL: The patient is a well-developed, well-nourished male who appears to be anxious and agitated. He is alert and oriented 3 HEENT: Head is normocephalic and atraumatic. Extraocular muscles are intact. Pupils are equal, round, and reactive to light and accommodation. NECK: Supple. No carotid bruits. No lymphadenopathy or thyromegaly. LUNGS: Clear to auscultation. HEART: Regular rate and rhythm, S1, S2 without murmur. NEUROLOGIC: Cranial nerves II through XII are grossly intact. PSYCHIATRIC: Agitated, tearful, morose; continuing to have suicidal ideation expressing that when he discharges from the hospital he will commit suicide with a pistol. Denies any hallucinations - Assessment and Plan (1) Suicidal ideations Current Visit: Yes Status: Acute Assessment and Plan: Patient presents following an overdose attempt. Continues to endorse suicidal ideation. During my assessment he continues to state that he will commit suicide after he is discharged by using a pistol. The patient has a history of intermittent explosive disorder and polysubstance abuse. The patient admits that he went a 3 day binge of abuse of methamphetamines in order to kill himself. He has had multiple admissions at [facility] requiring restraints and security intervention. Patient displays violent behaviors often during his hospital stays. He was most recently hospitalized at [facility]. Currently he states that he is going to kill himself because he feels like nobody in his family cares about him. During my assessment the patient is agitated but not acting violent at this time. However, he has hinted at times that he will do whatever it takes an order for security to shoot him and kill him. Psychiatry has seen the patient throughout the stay and recommends return to [facility], [address] [place] [address]. Patient will need referral there for mental health. academic services professional seeing in consultation, nurse navigator sitting in consultation and will discuss referral. Currently the patient is pink slipped and unable to leave. He did receive 2 mg IV Ativan times 150s becoming agitated and threatening. He will ever, upon review of behavioral contract the patient is not supposed to have benzodiazepines instead he is only to receive Geodon or Zyprexa. He may have Vistaril for anxiety. Continue one-to-one sitter, continue suicide precautions, continue to closely monitor for worsening or agitated/violent behavior. (2) Drug overdose Current Visit: Yes Status: Acute Assessment and Plan: See above (3) Methamphetamine use Current Visit: Yes Status: Acute Assessment and Plan: See above (4) Intermittent explosive disorder Current Visit: No Status: Chronic Assessment and Plan: See above (5) Personality disorder Current Visit: No Status: Chronic Assessment and Plan: See above (6) Polysubstance abuse Current Visit: No Status: Chronic Assessment and Plan: History of polysubstance abuse Reports that he has just had a 3 day methamphetamine binge UDS positive for amphetamines He reports that he was attempting to overdose on methamphetamines DVT Prophylaxis: SC heparin - Time Spent with Patient Total time spent is greater than 50% in coordination of care (as documented) at patient's floor/unit and/or counseling patient: less than 15 minutes Plan of Care Discussed with: patient Internal Medicine: Result - Labs CBC & Chem 7: 02/22/18 04:21 02/22/18 04:21 Labs: Short CBC 02/22/18 Range/Units 04:21 WBC 7.5 (4.3-11.1) K/mcL Hgb 13.0 (12.9-16.9) g/dL Hct 38.0 (37.5-50.1) % Plt Count 250 (140-400) K/mcL Neutrophils # 3.0 (1.6-8.9) K/mcL BMP 02/22/18 04:21 Sodium 136 Potassium 3.3 L Chloride 105 Carbon Dioxide 23 BUN 9 Creatinine 0.77 Glucose 88 Calcium 9.4 Cardiac Enzymes 02/22/18 02/22/18 Range/Units 04:21 09:47 Troponin I < 0.03 < 0.03 (< 0.04) ng/mL Consult Discharge Plan - Plan Referrals: NONE,PCP [Primary Care Provider] - (2) Drug overdose Qualifiers: Encounter type: initial encounter Injury intent: intentional self-harm Qualified Code(s): T50.902A - Poisoning by unspecified drugs, medicaments and biological substances, intentional self-harm, initial encounter
[2018-02-22] MEDS ORDERED: *HR* LORazepam 2 MG/ML VIAL IVP ONE (16:32)
[2018-02-22] MEDS: Nicotine 21 MG PATCH.TD24 TD SCH (16:44)
[2018-02-23] MEDS: *HR* LORazepam 1 MG TABLET PO PRN (04:45)
[2018-02-23] MEDS: *HR* Heparin 5,000 UNIT/ML VIAL SQ SCH ×2 (04:50→16:59)
[2018-02-23] MEDS: 0.9 % Sodium Chloride w KCl 20 MEQ/1,000 ML MLS IVC SCH ×2 (06:05→15:11)
[2018-02-23] MEDS: Nicotine 21 MG PATCH.TD24 TD SCH (09:13)
[2018-02-23] MEDS: Neosporin OINT 15 GM TUBE TP SCH ×2 (09:20→21:37)
[2018-02-23] MEDS: methIMAzole 5 MG TABLET PO SCH (09:20)
[2018-02-23] MEDS: Pyridostigmine Br 60 MG TABLET PO SCH ×2 (09:20→15:05)
[2018-02-23] MEDS: Gabapentin 400 MG CAPSULE PO SCH ×3 (11:57→21:35)
[2018-02-23] MEDS: ARIPiprazole 10 MG TABLET PO SCH (11:58)
[2018-02-23] MEDS ORDERED: Haloperidol Lactate 5 MG/ML VIAL IVP ONE (14:13)
--- NOTE | 2018-02-23 17:59 | Internal Med Progress Note ---
Hospitalist Progress Note - Encounter Date of Encounter: 02/23/18 Time of Encounter: 17:57 - Subjective Interval History: Patient admitted with suicidal ideation, attempted drug overdose, continues to endorse SI. During my time the patient continues to state that he wants to kill himself. He is even saying that he will use a pistol when he gets out of the hospital. Continues to be agitated and is known to have a propensity for violent outbursts. - Exam Vitals: Temp Pulse Resp BP Pulse Ox 97.9 F 79 18 117/72 98 02/23/18 10:25 02/23/18 10:25 02/23/18 10:25 02/23/18 10:25 02/23/18 10:25 Exam: PHYSICAL EXAMINATION: GENERAL: The patient is a well-developed, well-nourished male who appears to be anxious and agitated. He is alert and oriented 3 HEENT: Head is normocephalic and atraumatic. Extraocular muscles are intact. Pupils are equal, round, and reactive to light and accommodation. NECK: Supple. No carotid bruits. No lymphadenopathy or thyromegaly. LUNGS: Clear to auscultation. HEART: Regular rate and rhythm, S1, S2 without murmur. NEUROLOGIC: Cranial nerves II through XII are grossly intact. PSYCHIATRIC: Agitated,morose, continuing to have suicidal ideation expressing that when he discharges from the hospital he will commit suicide with a pistol. Denies any hallucinations - Assessment and Plan (1) Suicidal ideations Current Visit: Yes Status: Acute Assessment and Plan: Patient presents following an overdose attempt. Continues to endorse suicidal ideation. During my assessment he continues to state that he will commit suicide after he is discharged by using a pistol. The patient has a history of intermittent explosive disorder and polysubstance abuse. The patient admits that he went a 3 day binge of abuse of methamphetamines in order to kill himself. He has had multiple admissions at [facility] requiring restraints and security intervention. Patient displays violent behaviors often during his hospital stays. He was most recently hospitalized at [facility]. Currently he states that he is going to kill himself because he feels like nobody in his family cares about him. During my assessment the patient is agitated but not acting violent at this time. However, he has hinted at times that he will do whatever it takes an order for security to shoot him and kill him. Psychiatry has seen the patient throughout the stay and recommends return to [facility], [address] [place] [address]. Patient will need referral there for mental health. student services dean seeing in consultation, nurse navigator sitting in consultation and will discuss referral. Currently the patient is pink slipped and unable to leave. He did receive 2 mg IV Ativan times 150s becoming agitated and threatening. He will ever, upon review of behavioral contract the patient is not supposed to have benzodiazepines instead he is only to receive Geodon or Zyprexa. He may have Vistaril for anxiety. Continue one-to-one sitter, continue suicide precautions, continue to closely monitor for worsening or agitated/violent behavior. 02/23--Agitation and SI persists. History of intermittent explosive disorder and polysubstance abuse. Patient is stable from a medical perspective and ready for discharge. Awaiting for [facility] traffic workforce representative to come in for evaluation of his discharge to [facility]. (2) Drug overdose Current Visit: Yes Status: Acute Assessment and Plan: See above (3) Methamphetamine use Current Visit: Yes Status: Acute Assessment and Plan: See above (4) Intermittent explosive disorder Current Visit: No Status: Chronic Assessment and Plan: See above (5) Personality disorder Current Visit: No Status: Chronic Assessment and Plan: See above (6) Polysubstance abuse Current Visit: No Status: Chronic Assessment and Plan: History of polysubstance abuse Reports that he has just had a 3 day methamphetamine binge UDS positive for amphetamines He reports that he was attempting to overdose on methamphetamines DVT Prophylaxis: SC heparin - Time Spent with Patient Total time spent is greater than 50% in coordination of care (as documented) at patient's floor/unit and/or counseling patient: less than 15 minutes Plan of Care Discussed with: patient Internal Medicine: Result - Labs CBC & Chem 7: 02/22/18 04:21 02/22/18 04:21 Consult Discharge Plan - Plan Referrals: NONE,PCP [Primary Care Provider] - (2) Drug overdose Qualifiers: Encounter type: initial encounter Injury intent: intentional self-harm Qualified Code(s): T50.902A - Poisoning by unspecified drugs, medicaments and biological substances, intentional self-harm, initial encounter
[2018-02-23] MEDS: Perphenazine 8 MG TABLET PO SCH (21:35)
[2018-02-24] MEDS: 0.9 % Sodium Chloride w KCl 20 MEQ/1,000 ML MLS IVC SCH ×4 (00:17→23:05)
[2018-02-24] MEDS: Pyridostigmine Br 60 MG TABLET PO SCH ×4 (00:19→23:05)
[2018-02-24] MEDS ORDERED: OLANZapine 10 MG TAB.RAPDIS PO PRN (00:48)
[2018-02-24] MEDS: *HR* Heparin 5,000 UNIT/ML VIAL SQ SCH ×2 (07:28→18:25)
[2018-02-24] MEDS: Perphenazine 8 MG TABLET PO SCH ×2 (11:21→19:38)
[2018-02-24] MEDS: methIMAzole 5 MG TABLET PO SCH (11:21)
[2018-02-24] MEDS: ARIPiprazole 10 MG TABLET PO SCH (11:22)
[2018-02-24] MEDS: Nicotine 21 MG PATCH.TD24 TD SCH (11:22)
[2018-02-24] MEDS: Gabapentin 400 MG CAPSULE PO SCH ×3 (11:22→19:38)
[2018-02-24] MEDS: Neosporin OINT 15 GM TUBE TP SCH ×2 (11:23→19:39)
--- NOTE | 2018-02-24 18:11 | Internal Med Progress Note ---
Hospitalist Progress Note - Encounter Date of Encounter: 02/24/18 Time of Encounter: 11:00 - Subjective Interval History: No issues or complaints overnight. Patient awaiting placement at inpatient psychiatric facility - Exam Vitals: Temp Pulse Resp BP Pulse Ox 97.9 F 70 16 117/71 97 02/24/18 15:20 02/24/18 15:20 02/24/18 15:20 02/24/18 15:20 02/24/18 15:20 Exam: Gen.: Nonacute distress, alert and oriented 3 ENT: Mucosal membranes moist Respiratory: Lungs are clear to auscultation bilaterally without any wheezing rhonchi or rales Cardiovascular: Normal S1 and S2 regular rate rhythm no murmurs rubs or gallops Abdomen: Soft, nontender and nondistended with positive bowel sounds Extremities: No lower extremity edema Skin: Normal color - Assessment and Plan (1) Suicidal ideations Current Visit: Yes Status: Acute Assessment and Plan: Patient presents following an overdose attempt. Psychiatry has seen the patient throughout the stay and recommends return to [facility], [address] [place] [address]. Patient will need referral there for mental health. human services worker seeing in consultation, nurse navigator sitting in consultation and will discuss referral. Currently the patient is pink slipped and unable to leave. Awaiting placement to [facility]. (2) Personality disorder Current Visit: No Status: Chronic Assessment and Plan: Psychiatry managing and appreciate recommendations (3) Intermittent explosive disorder Current Visit: No Status: Chronic Assessment and Plan: See above (4) Drug overdose Current Visit: Yes Status: Acute Assessment and Plan: Secondary to attempted suicide. Patient is pink slipped and recommendations for inpatient psychiatric placement as above. (5) Polysubstance abuse Current Visit: No Status: Chronic Assessment and Plan: History of polysubstance abuse Reports that he has just had a 3 day methamphetamine binge UDS positive for amphetamines He reports that he was attempting to overdose on methamphetamines (6) Methamphetamine use Current Visit: Yes Status: Acute Assessment and Plan: See above - Time Spent with Patient Total time spent is greater than 50% in coordination of care (as documented) at patient's floor/unit and/or counseling patient: Internal Medicine: Result - Labs CBC & Chem 7: 02/22/18 04:21 02/22/18 04:21 Consult Discharge Plan - Plan Referrals: NONE,PCP [Primary Care Provider] - (4) Drug overdose Qualifiers: Encounter type: initial encounter Injury intent: intentional self-harm Qualified Code(s): T50.902A - Poisoning by unspecified drugs, medicaments and biological substances, intentional self-harm, initial encounter
[2018-02-25] MEDS: *HR* Heparin 5,000 UNIT/ML VIAL SQ SCH (05:10)
[2018-02-25] MEDS: 0.9 % Sodium Chloride w KCl 20 MEQ/1,000 ML MLS IVC SCH (06:48)
[2018-02-25] MEDS: Pyridostigmine Br 60 MG TABLET PO SCH ×2 (08:14→15:05)
[2018-02-25] MEDS: Gabapentin 400 MG CAPSULE PO SCH ×2 (08:14→15:05)
[2018-02-25] MEDS: Nicotine 21 MG PATCH.TD24 TD SCH (08:14)
[2018-02-25] MEDS: methIMAzole 5 MG TABLET PO SCH (08:15)
[2018-02-25] MEDS: ARIPiprazole 10 MG TABLET PO SCH (08:15)
[2018-02-25] MEDS: Neosporin OINT 15 GM TUBE TP SCH (08:15)
[2018-02-25] MEDS: Perphenazine 8 MG TABLET PO SCH (08:15)
[2018-02-25 10:20] LABS: Basophils # 0.2 K/mcL (0.0-0.2); Basophils % 1.7 %; Eosinophils # 0.6 K/mcL (0.0-0.6); Eosinophils % 6.6 %; Hematocrit 43.5 % (37.5-50.1); Hemoglobin 14.5 g/dL (12.9-16.9); Immature Granulocytes % 4.6 % (0-4); Lymphocytes # 3.1 K/mcL (0.6-4.6); Lymphocytes % 32.1 %; Mean Corpuscular HGB Conc 33.3 g/dL (31.6-35.5); Mean Corpuscular Hemoglobin 28.8 pg (28.0-33.3); Mean Corpuscular Volume 86.3 fL (83.0-100.0); Mean Platelet Volume 11.9 fL (9.4-12.4); Monocytes # 0.8 K/mcL (0.0-1.3); Monocytes % 8.7 %; Nucleated Red Blood Cells 0.5 /100 WBC (0); Platelet Count 268 K/mcL (140-400); Red Blood Count 5.04 M/mcL (4.19-5.50); Red Cell Distribution Width 14.2 % (11.5-14.5); Segmented Neutrophils % 46.3 %
[2018-02-25 10:22] LABS: Neutrophils # 4.4 K/mcL (1.6-8.9)
[2018-02-25 10:52] LABS: BUN/Creatinine Ratio 6 (6-26); Blood Urea Nitrogen 5 mg/dL (6-20); Calcium 8.7 mg/dL (8.6-10.3); Carbon Dioxide 20 mEq/L (23-29); Chloride 111 mEq/L (98-107); Glucose 174 mg/dL (70-105); Osmolality,Calculated 287 (280-300); Sodium 138 mEq/L (136-145); eGFR For Non-African Americans > 60 (> 60)
[2018-02-25 11:03] LABS: Platelet Estimate Normal (Normal)
[2018-02-25] MEDS: *HR* LORazepam 1 MG TABLET PO PRN (11:50)
[2018-02-25 12:23] VITALS: BP 106/67
--- NOTE | 2018-02-25 15:56 | Consult Note ---
Date of Encounter: 02/25/18 Time of Encounter: 15:00 Assessment & Recommendation (1) Depression Current visit: No Status: Chronic Qualifiers: Depression Type: major depressive disorder Major depression recurrence: recurrent Active/Remission status: currently active Major depression episode severity: severe Psychotic features: without psychotic features Qualified Code(s): F33.2 - Major depressive disorder, recurrent severe without psychotic features (2) Methamphetamine abuse Current visit: No Status: Chronic (3) Intermittent explosive disorder Current visit: No Status: Chronic History of Present Illness Patient: known to practice within the last 3 years Requesting Physician: Mac Hardwick Reason for consult: SI History of present illness: Mr. Jalloh is a 42 year old male Chief complaints I took an overdose of a mixture of things. I no longer have thoughts of suicide. History of present illness. The patient has been diagnosed with a variety of conditions PTSD intermittent explosive disorder depressive disorder. He has used methamphetamine and has had psychosis related to that today he has no hallucinations or delusions the patient is followed by Rosa Maxwell US MARKETING DIRECTOR by Shreya ed case manager from [facility] clinic she saw him yesterday and saw no need for hospitalization. The patient had used methamphetamine 3 days before. The patient was discharged on medicines he cannot recall these but began having 2 episodes of falling and he was accused of being intoxicated in his hometown. A disorderly conduct was issued. But this was a simple charge. The patient denies intoxication but notes a side effect to his medicine. Currently the patient has no hallucinations or delusions. He has a plan to maintain sobriety and received sobriety education at [facility]. He notes that he was very upset with his family when they accused him of being drunk because his been clean for 5 years this was emotionally upsetting and he took an overdose. Patient has a history of stopping his medicines from time to time and using methamphetamine when advised by medical office receptionist not to. Past medical history significant for gallbladder right knee surgery it is knows operated on and he had football-related injuries but does not report concussions. Illnesses include myasthenia gravis thyroid disorder hepatitis C but is not getting treatment allergies include penicillin and codeine. Family history is significant for a third cousin that by suicide but negative for alcohol drugs social history. The patient will grow up in the [place] [facility] [facility] [place] area to 12th grade. After working out a bit he got in trouble. He then went back to work. My recommendation is that the patient be discharged to an outpatient setting he likes a regimen of Wellbutrin 150 mg twice a day. I am not familiar with his outpatient regimen for the discharge medications but we can pass this recommendation on to his mental health provider primary care provider and [facility]. CC: Mac Hardwick Past Med Surg Social Fam HX - Past Medical History Medical history: hyperlipidemia, hypertension, thyroid disease - Past Psychiatric History Psychiatric history: Reports: previous psychiatric hospitalization Family psychiatric history: No Family History of Suicide: Completed - Past Surgical History Surgical History: cholecystectomy - Social History Smoking Status: Current every day smoker Smokeless Tobacco Status: Yes Alcohol use: rarely Drug use: methamphetamine Occupational status: previously employed Current living situation: Home - Independent Activity Level: Independent ambulation Recent Out of Country Travel Within the Last 8 Weeks: No Exposure or Possible Exposure to Illness During Travel: No - Family History Father Hx Family Cardiac Disorders: Yes Hx Family Endocrine Disorder: Yes (DM) Mother Adopted: No Family Member Ethnicity: Non- Living Status: Still Living Hx Family Cardiac Disorders: No Hx Family Respiratory Disorders: No Hx Family Cancer: Yes (family history of Skin cancer and thyroid cancer) Hx Family GI Disorders: No Hx Family Endocrine Disorder: Yes (Great-grandmother- DM) Hx Family Neuromuscular Disorders: No Hx Family Neurologic Disorders: No Hx Family HEENT Disorders: No Hx Family Autoimmune Disorders: No Medications & Allergies methIMAzole [Tapazole] 5 mg PO DAILY #30 tablet 02/24/16 [Rx] Gabapentin [Neurontin] 800 mg PO Q6H 10/27/17 [History] Metoprolol [Lopressor] 12.5 mg PO BID 10/27/17 [History] Dextroamphetamine/Amphetamine [Adderall Xr 10 mg Capsule] 10 mg PO DAILY [History] Nitrofurantoin Monohyd/M-Cryst [Macrobid 100 mg Capsule] 100 mg PO BID #20 capsule 02/19/18 [Rx] ARIPiprazole [Abilify] 15 mg PO DAILY 02/25/18 [History] Pyridostigmine Br [Mestinon] 60 mg PO BID 02/25/18 [History] Ziprasidone HCl [Geodon] 40 mg PO BID 02/25/18 [History] 3 Allergy/AdvReac Type Severity Reaction Status Date / Time Penicillins Allergy Hives Verified 02/24/18 18:57 codeine AdvReac Vomiting Verified 02/24/18 18:57 Review of Systems Psychiatric: Reports: other Psychiatry Exam - Constitutional Vitals: Temp Pulse Resp BP Pulse Ox 97.8 F 65 16 106/67 96 02/25/18 12:19 02/25/18 12:19 02/25/18 12:19 02/25/18 12:19 02/25/18 12:19 General appearance: age & developmentally appropriate, well-groomed, well- nourished - Musculoskeletal Gait: normal Station: relaxed Strength & Tone: normal for patient - Psychiatric Patient Orientation: Yes Person, Yes Time, Yes Place Level of alertness: Alert Behavior: calm, cooperative Psychomotor activity: Normal Eye Contact: Maintains Eye Contact Mood Description: Euthymic/stable Affect description: congruent with mood, full range Speech Volume: Normal Speech pattern: normal rate, normal rhythm, normal tone, fluent, spontaneous Language & Vocabulary: consistent with education Thought Process: Linear, Goal Oriented Thought Content: No Suicidal ideation, No Homicidal ideation, No Overt delusions Perceptual Disturbances: No Auditory hallucinations, No Visual hallucinations Attention Span Ability: Capable of Focused Attention Memory Description: Grossly Intact Patient Reliability: Reliable Historian Fund of knowledge: Yes abstraction ability, Yes aware of current events Intelligence Estimate: Average Judgment: Fair Insight: Partial Results - Labs Labs: Laboratory Last Values WBC 9.6 K/mcL (4.3-11.1) 02/25/18 09:58 RBC 5.04 M/mcL (4.19-5.50) 02/25/18 09:58 Hgb 14.5 g/dL (12.9-16.9) D 02/25/18 09:58 Hct 43.5 % (37.5-50.1) 02/25/18 09:58 MCV 86.3 fL (83.0-100.0) 02/25/18 09:58 MCH 28.8 pg (28.0-33.3) 02/25/18 09:58 MCHC 33.3 g/dL (31.6-35.5) 02/25/18 09:58 RDW 14.2 % (11.5-14.5) 02/25/18 09:58 Plt Count 268 K/mcL (140-400) 02/25/18 09:58 MPV 11.9 fL (9.4-12.4) 02/25/18 09:58 Immature Gran % 4.6 % (0-4) H 02/25/18 09:58 Seg Neutrophils % 46.3 % 02/25/18 09:58 Lymphocytes % 32.1 % 02/25/18 09:58 Monocytes % 8.7 % 02/25/18 09:58 Eosinophils % 6.6 % 02/25/18 09:58 Basophils % 1.7 % 02/25/18 09:58 Neutrophils # 4.4 K/mcL (1.6-8.9) 02/25/18 09:58 Lymphocytes # 3.1 K/mcL (0.6-4.6) 02/25/18 09:58 Monocytes # 0.8 K/mcL (0.0-1.3) 02/25/18 09:58 Eosinophils # 0.6 K/mcL (0.0-0.6) 02/25/18 09:58 Basophils # 0.2 K/mcL (0.0-0.2) 02/25/18 09:58 Nucleated RBCs/100 WBC 0.5 /100 WBC (0) H 02/25/18 09:58 Platelet Estimate Normal (Normal) 02/25/18 09:58 Sodium 138 mEq/L (136-145) 02/25/18 08:49 Potassium 4.0 mEq/L (3.5-5.1) 02/25/18 08:49 Chloride 111 mEq/L (98-107) H 02/25/18 08:49 Carbon Dioxide 20 mEq/L (23-29) L 02/25/18 08:49 BUN 5 mg/dL (6-20) L 02/25/18 08:49 Creatinine 0.80 mg/dL (0.70-1.30) 02/25/18 08:49 Est GFR ( Amer) > 60 (> 60) 02/25/18 08:49 Est GFR (Non-Af Amer) > 60 (> 60) 02/25/18 08:49 BUN/Creatinine Ratio 6 (6-26) 02/25/18 08:49 Glucose 174 mg/dL (70-105) H 02/25/18 08:49 Calculated Osmolality 287 (280-300) 02/25/18 08:49 Calcium 8.7 mg/dL (8.6-10.3) 02/25/18 08:49 Total Bilirubin 1.1 mg/dL (0.3-1.0) H 02/21/18 19:45 Direct Bilirubin 0.2 mg/dL (0.0-0.2) 02/21/18 19:45 Indirect Bilirubin 0.9 mg/dL (0.0-1.2) 02/21/18 19:45 AST 34 Units/L (13-39) 02/21/18 19:45 ALT 39 Units/L (7-52) 02/21/18 19:45 Alkaline Phosphatase 49 Units/L (34-104) 02/21/18 19:45 Troponin I < 0.03 ng/mL (< 0.04) 02/22/18 09:47 Serum Total Protein 6.7 g/dL (6.4-8.9) 02/21/18 19:45 Albumin 4.1 g/dL (3.5-5.7) 02/21/18 19:45 Globulin 2.6 g/dL (2.4-3.5) 02/21/18 19:45 Albumin/Globulin Ratio 1.6 (1.1-2.2) 02/21/18 19:45 TSH 1.379 mcIU/mL (0.340-5.600) 02/21/18 19:45 Urine Color Yellow (Yellow) 02/21/18 18:21 Urine Clarity Clear (Clear) 02/21/18 18:21 Urine pH 6.5 pH Units (5.0-8.0) 02/21/18 18:21 Ur Specific [place] 1.008 (1.010-1.025) L 02/21/18 18:21 Urine Protein Negative mg/dL (Neg-Trace) 02/21/18 18:21 Urine Glucose (UA) Normal mg/dL (Normal) 02/21/18 18:21 Urine Ketones Trace mg/dL (Negative) H 02/21/18 18:21 Urine Blood Negative (Negative) 02/21/18 18:21 Urine Nitrite Negative (Negative) 02/21/18 18:21 Urine Bilirubin Negative (Negative) 02/21/18 18:21 Urine Urobilinogen Normal mg/dL (Normal) 02/21/18 18:21 Ur Leukocyte Esterase Negative (Negative) 02/21/18 18:21 Salicylates < 2.5 mg/dL (15.0-30.0) L 02/21/18 19:45 Urine Opiates Screen Negative ng/mL (Wtbwmh=695) 02/21/18 18:21 Acetaminophen < 10 mcg/mL (10-20) L 02/21/18 19:45 Ur Barbiturates Screen Negative ng/mL (Bzcafg=382) 02/21/18 18:21 Ur Phencyclidine Scrn Negative ng/mL (Cutoff=25) 02/21/18 18:21 Ur Amphetamines Screen Positive ng/mL (Feqqfv=8328) H 02/21/18 18:21 U Benzodiazepines Scrn Negative ng/mL (Ylkntj=780) 02/21/18 18:21 Urine Cocaine Screen Negative ng/mL (Cutoff= 300) 02/21/18 18:21 U Marijuana (THC) Screen Negative ng/mL (Cutoff = 50) 02/21/18 18:21 Ur Drug Screen Interp See Below 02/21/18 18:21 Ethyl Alcohol < 10 mg/dL (Less than 10) 02/21/18 19:45 Specimen Rejected Hemolyzed 02/21/18 18:10 Consult Discharge Plan - Plan Referrals: NONE,PCP [Primary Care Provider] -
--- NOTE | 2018-02-25 16:48 | Discharge Summary ---
- NOTES TO OUTPATIENT PROVIDER Notes to Outpatient Provider: Patient to follow-up with psychiatrist as an outpatient Date of Encounter: 02/25/18 Time of Encounter: 11:00 - Discharge Diagnosis (1) Suicidal ideations Priority: Primary Status: Acute (2) Personality disorder Priority: Secondary Status: Chronic (3) Intermittent explosive disorder Priority: Secondary Status: Chronic (4) Drug overdose Priority: Primary Status: Acute Qualifiers: Encounter type: initial encounter Injury intent: intentional self-harm Qualified Code(s): T50.902A - Poisoning by unspecified drugs, medicaments and biological substances, intentional self-harm, initial encounter (5) Polysubstance abuse Priority: Primary Status: Chronic (6) Methamphetamine use Priority: Primary Status: Acute Hospital course: Patient is a 42-year-old male with past medical history significant for schizoaffective disorder who presented to the ER on 02/21/18 due to overdose from an apparent suicide attempt. Patient took over 30 of prescribed Adderal, 8 tablets of unknown muscle relaxer and 2.5 packs of stacks energy. He relapsed 3 days ago on meth and hoped that the combination of medications would be enough to end his life. In the ER, UDS only showed amphetamines and minimal salicylates. He was pink slipped at 6 pm 02-21-18. During patients hospital stay psychiatry was consulted with recommendations that patient can be safely discharged home to follow-up with psychiatry as an outpatient and to restart patient on Wellbutrin. - Time Spent with Patient Total time spent providing and/or coordinating discharge services: Less than 30 minutes - Discharge Medications Prescriptions: BuPROPion SR (12 HR) [Wellbutrin SR] 150 mg PO BID #30 tablet.er Home Medications: methIMAzole [Tapazole] 5 mg PO DAILY #30 tablet 02/24/16 [Rx] Gabapentin [Neurontin] 800 mg PO Q6H 10/27/17 [History] Metoprolol [Lopressor] 12.5 mg PO BID 10/27/17 [History] Dextroamphetamine/Amphetamine [Adderall Xr 10 mg Capsule] 10 mg PO DAILY [History] Nitrofurantoin Monohyd/M-Cryst [Macrobid 100 mg Capsule] 100 mg PO BID #20 capsule 02/19/18 [Rx] ARIPiprazole [Abilify] 15 mg PO DAILY 02/25/18 [History] BuPROPion SR (12 HR) [Wellbutrin SR] 150 mg PO BID #30 tablet.er 02/25/18 [Rx] Pyridostigmine Br [Mestinon] 60 mg PO BID 02/25/18 [History] Ziprasidone HCl [Geodon] 40 mg PO BID 02/25/18 [History] Allergies/Adverse Reactions: 3 Allergy/AdvReac Type Severity Reaction Status Date / Time Penicillins Allergy Hives Verified 02/24/18 18:57 codeine AdvReac Vomiting Verified 02/24/18 18:57 Date of admission: 02/21/18 21:13 Primary care physician: PCP NONE Consults: 02/21/18 22:08 Consult to Prospecting Driller [CONS] Routine Reason for SW Consult: SI, referral to [facility] psycho facility 02/22/18 01:37 Consult to Psychiatry [CONS] Routine Consulting Provider: Psychiatry Kenney Reason consult: Psychosis Capacity assessment Medication recommendation [place] slip on chart Other reason and/or additional details: schizoaffective disorder, suicide attempt [place] Slip initiated date and time: 02-22-18 Call Completed: No 02/22/18 15:06 Consult to Nurse Navigator [CONS] Routine Comment: patient needs state psych facility - Constitutional Vitals: Temp Pulse Resp BP Pulse Ox 97.8 F 65 16 106/67 96 02/25/18 12:19 02/25/18 12:19 02/25/18 12:19 02/25/18 12:19 02/25/18 12:19 General appearance: Present: cooperative, A&O X 3 Exam: Gen.: Nonacute distress, alert and oriented 3 ENT: Mucosal membranes moist Respiratory: Lungs are clear to auscultation bilaterally without any wheezing rhonchi or rales Cardiovascular: Normal S1 and S2 regular rate rhythm no murmurs rubs or gallops Abdomen: Soft, nontender and nondistended with positive bowel sounds Extremities: No lower extremity edema Skin: Normal color - Patient Status Disposition: Home, Self-Care Condition: Fair - Discharge Instructions Instructions: Bupropion (By mouth) Follow Up With: [facility] [Outside] - 03/09/18 1:00 pm (The above appointment is with Shreya Yang for outpatient mental health and substance abuse counseling services. You will also see Rosa Maxwell for outpatient psychiatric assessment and medication management services on 03/24/2018 at 3:55pm.) Deloris Valdovinos [Advanced Practice Nurse] - 03/04/18 2:20 pm (The above appointment is with Deloris Valdovinos for primary healthcare and medication management services.)
--- NOTE | 2018-02-25 17:31 | Electrocardiograph Report ---
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
--- NOTE | 2018-02-26 14:37 | Electrocardiograph Report ---
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
--- NOTE | 2018-02-26 17:32 | Electrocardiograph Report ---
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
== END 2018-02-25 17:39 | disposition home or self-care (01) ==
LOC: EMEROOARM 17:44 → 3BNU 17:44 → SUATTDRO 21:13 → 3BNU 21:54
PROVIDERS: ADMIT Pediatrics; ATTEND Hospitalist

== ENCOUNTER 2018-04-13 22:58 | Observation (INO) ==
[2018-04-13] MEDS ORDERED: Ziprasidone injection 20 MG/ML VIAL IM ONE ×2 (23:04→23:05)
--- NOTE | 2018-04-13 23:04 | Emergency Department Note ---
Disposition Clinical Impression: Acute psychosis Disposition: Admitted As Inpatient Condition: Fair Referrals: NONE,PCP [Primary Care Provider] - General Adult HPI - General Stated complaint: "possible od"/psych Time Seen by Provider: 04/13/18 23:02 - Related Data Home Medications Medication Instructions Recorded Confirmed RX: Gabapentin [Neurontin] 800 mg PO Q6H 10/27/17 02/25/18 RX: Metoprolol [Lopressor] 12.5 mg PO BID 10/27/17 02/25/18 RX: Dextroamphetamine/Amphetamine 10 mg PO DAILY 12/22/17 02/25/18 [Adderall Xr 10 mg Capsule] RX: ARIPiprazole [Abilify] 15 mg PO DAILY 02/25/18 02/25/18 RX: Pyridostigmine Br [Mestinon] 60 mg PO BID 02/25/18 02/25/18 RX: Ziprasidone HCl [Geodon] 40 mg PO BID 02/25/18 02/25/18 Previous Rx's Medication Instructions Recorded RX: methIMAzole [Tapazole] 5 mg PO DAILY #30 tablet 02/24/16 RX: Nitrofurantoin Monohyd/M-Cryst 100 mg PO BID #20 capsule 02/19/18 [Macrobid 100 mg Capsule] BuPROPion SR (12 HR) [Wellbutrin 150 mg PO BID #30 tablet.er 02/25/18 SR] Allergies Allergy/AdvReac Type Severity Reaction Status Date / Time Penicillins Allergy Hives Verified 03/21/18 14:23 codeine AdvReac Vomiting Verified 03/21/18 14:23 Past Medical History - Past Medical History Medical history: Reports: hyperlipidemia, hypertension, thyroid disease Surgical history: Reports: cholecystectomy Psychiatric history: Reports: prior suicide attempt, previous psychiatric hospitalization - Social History Smoking Status: Never smoker Smokeless Tobacco Status: Yes Alcohol use: Reports: rarely Drug use: Reports: cocaine, methamphetamine Course Vital Signs Temperature 98.2 F 04/13/18 23:27 Pulse Rate 133 04/13/18 23:27 Respiratory Rate 24 04/13/18 23:27 Blood Pressure 143/85 04/13/18 23:27 O2 Sat by Pulse Oximetry 95 04/13/18 23:27 Temperature 97.7 F 04/14/18 06:43 Pulse Rate 83 04/14/18 06:43 Respiratory Rate 22 04/14/18 06:43 Blood Pressure 133/98 04/14/18 06:43 O2 Sat by Pulse Oximetry 96 04/14/18 06:43 Oxygen Delivery Oxygen Delivery Room Air Medical Decision Making - Lab Data Result diagrams: 04/13/18 23:23 04/13/18 23:23 Lab Results 04/13/18 04/13/18 04/13/18 Range/Units 23:23 23:23 23:25 WBC 18.3 H (4.3-11.1) K/mcL RBC 5.75 H (4.19-5.50) M/mcL Hgb 15.9 (12.9-16.9) g/dL Hct 47.9 (37.5-50.1) % MCV 83.3 (83.0-100.0) fL MCH 27.7 L (28.0-33.3) pg MCHC 33.2 (31.6-35.5) g/dL RDW 14.5 (11.5-14.5) % Plt Count 501 H (140-400) K/mcL MPV 11.0 (9.4-12.4) fL Immature Gran % 0.5 (0-4) % Seg Neutrophils % 70.5 % Lymphocytes % 22.7 % Monocytes % 5.5 % Eosinophils % 0.3 % Basophils % 0.5 % Neutrophils # 12.9 H (1.6-8.9) K/mcL Lymphocytes # 4.2 (0.6-4.6) K/mcL Monocytes # 1.0 (0.0-1.3) K/mcL Eosinophils # 0.1 (0.0-0.6) K/mcL Basophils # 0.1 (0.0-0.2) K/mcL Sodium 139 (136-145) mEq/L Potassium 4.4 (3.5-5.1) mEq/L Chloride 105 (98-107) mEq/L Carbon Dioxide 20 L (23-29) mEq/L BUN 9 (6-20) mg/dL Creatinine 1.06 (0.70-1.30) mg/dL Est GFR ( Amer) > 60 (> 60) Est GFR (Non-Af Amer) > 60 (> 60) BUN/Creatinine Ratio 8 (6-26) Glucose 115 H (70-105) mg/dL POC Glucose 117 H (70-99) mg/dL Calculated Osmolality 288 (280-300) Calcium 11.0 H (8.6-10.3) mg/dL Urine Color (Yellow) Urine Clarity (Clear) Urine pH (5.0-8.0) pH Units Ur Specific [place] (1.010-1.025) Urine Protein (Neg-Trace) mg/dL Urine Glucose (UA) (Normal) mg/dL Urine Ketones (Negative) mg/dL Urine Blood (Negative) Urine Nitrite (Negative) Urine Bilirubin (Negative) Urine Urobilinogen (Normal) mg/dL Ur Leukocyte Esterase (Negative) Salicylates < 2.5 L (15.0-30.0) mg/dL Urine Opiates Screen (Rvucul=141) ng/mL Acetaminophen < 10 L (10-20) mcg/mL Ur Barbiturates Screen (Tpejaq=394) ng/mL Ur Phencyclidine Scrn (Cutoff=25) ng/mL Ur Amphetamines Screen (Xfiutc=6418) ng/mL U Benzodiazepines Scrn (Qzsmje=664) ng/mL Urine Cocaine Screen (Cutoff= 300) ng/mL U Marijuana (THC) Screen (Cutoff = 50) ng/mL Ur Drug Screen Interp Ethyl Alcohol < 10 (Less than 10) mg/dL 04/13/18 04/13/18 Range/Units 23:34 23:34 WBC (4.3-11.1) K/mcL RBC (4.19-5.50) M/mcL Hgb (12.9-16.9) g/dL Hct (37.5-50.1) % MCV (83.0-100.0) fL MCH (28.0-33.3) pg MCHC (31.6-35.5) g/dL RDW (11.5-14.5) % Plt Count (140-400) K/mcL MPV (9.4-12.4) fL Immature Gran % (0-4) % Seg Neutrophils % % Lymphocytes % % Monocytes % % Eosinophils % % Basophils % % Neutrophils # (1.6-8.9) K/mcL Lymphocytes # (0.6-4.6) K/mcL Monocytes # (0.0-1.3) K/mcL Eosinophils # (0.0-0.6) K/mcL Basophils # (0.0-0.2) K/mcL Sodium (136-145) mEq/L Potassium (3.5-5.1) mEq/L Chloride (98-107) mEq/L Carbon Dioxide (23-29) mEq/L BUN (6-20) mg/dL Creatinine (0.70-1.30) mg/dL Est GFR ( Amer) (> 60) Est GFR (Non-Af Amer) (> 60) BUN/Creatinine Ratio (6-26) Glucose (70-105) mg/dL POC Glucose (70-99) mg/dL Calculated Osmolality (280-300) Calcium (8.6-10.3) mg/dL Urine Color Yellow (Yellow) Urine Clarity Clear (Clear) Urine pH 6.5 (5.0-8.0) pH Units Ur Specific [place] 1.007 L (1.010-1.025) Urine Protein Negative (Neg-Trace) mg/dL Urine Glucose (UA) Normal (Normal) mg/dL Urine Ketones Trace H (Negative) mg/dL Urine Blood Negative (Negative) Urine Nitrite Negative (Negative) Urine Bilirubin Negative (Negative) Urine Urobilinogen Normal (Normal) mg/dL Ur Leukocyte Esterase Negative (Negative) Salicylates (15.0-30.0) mg/dL Urine Opiates Screen Negative (Fxdwjn=844) ng/mL Acetaminophen (10-20) mcg/mL Ur Barbiturates Screen Negative (Wanjnk=304) ng/mL Ur Phencyclidine Scrn Negative (Cutoff=25) ng/mL Ur Amphetamines Screen Negative (Ftywuc=7296) ng/mL U Benzodiazepines Scrn Negative (Ezqomj=637) ng/mL Urine Cocaine Screen Negative (Cutoff= 300) ng/mL U Marijuana (THC) Screen Positive H (Cutoff = 50) ng/mL Ur Drug Screen Interp See Below Ethyl Alcohol (Less than 10) mg/dL Attestation Statement - Attestation Attestation: I examined this patient and my medical decision-making was reviewed with the Resident Physician. I agree with the documented findings, disposition and treatment plan as described except to the extent set forth below. Rlha-ae-mipv time provided Patient arrives by EMS from home. The patient has a known history of psychiatric and substance abuse disorders. His pupils are dilated on exam. He is mildly agitated but cooperative. Law enforcement at bedside. 06:30: Care endorsed to the oncoming physician Dr. Morris at 7 AM pending sobriety, reassessment, and behavioral consultation
--- NOTE | 2018-04-13 23:35 | Emergency Department Note ---
Disposition Clinical Impression: Acute psychosis Disposition: Admitted As Inpatient Condition: Fair Referrals: NONE,PCP [Primary Care Provider] - Time of Disposition: 06:39 General Adult HPI - General Chief complaint: ED Altered Mental Status Stated complaint: "possible od"/psych Time Seen by Provider: 04/13/18 23:02 Source: EMS, police Mode of arrival: EMS Limitations: altered mental status Nursing Notes Reviewed: Yes Vital Signs Reviewed: Yes - History of Present Illness HPI Narrative: Patient is a 42-year-old male brought to [facility] ED for altered mental status possibly secondarily to acute ingestion. Patient was brought to [facility] by EMS escorted by police, EMS states patient is known to them as being a opiate user but tonight may have taken methamphetamine. Upon initial exam, patient has dilated pupils, diaphoretic skin and is repeating the phrase "oh shit." Patient is largely uncooperative to nursing care and was either unwilling or unable to answer physician questioned. When asked review of systems as well as history of present illness patient answered all questions with "yes Sir". Patient began stating that he needed to urinate stating "I need to piss" and became otherwise nonreactive to questioning or redirection. Onset (ago): unknown - Related Data Home Medications Medication Instructions Recorded Confirmed RX: Gabapentin [Neurontin] 800 mg PO Q6H 10/27/17 02/25/18 RX: Metoprolol [Lopressor] 12.5 mg PO BID 10/27/17 02/25/18 RX: Dextroamphetamine/Amphetamine 10 mg PO DAILY 12/22/17 02/25/18 [Adderall Xr 10 mg Capsule] RX: ARIPiprazole [Abilify] 15 mg PO DAILY 02/25/18 02/25/18 RX: Pyridostigmine Br [Mestinon] 60 mg PO BID 02/25/18 02/25/18 RX: Ziprasidone HCl [Geodon] 40 mg PO BID 02/25/18 02/25/18 Previous Rx's Medication Instructions Recorded RX: methIMAzole [Tapazole] 5 mg PO DAILY #30 tablet 02/24/16 RX: Nitrofurantoin Monohyd/M-Cryst 100 mg PO BID #20 capsule 02/19/18 [Macrobid 100 mg Capsule] BuPROPion SR (12 HR) [Wellbutrin 150 mg PO BID #30 tablet.er 02/25/18 SR] Allergies Allergy/AdvReac Type Severity Reaction Status Date / Time Penicillins Allergy Hives Verified 03/21/18 14:23 codeine AdvReac Vomiting Verified 03/21/18 14:23 Limitations: ROS unobtainable due to patients medical condition Past Medical History - Past Medical History Medical history: Reports: hyperlipidemia, hypertension, thyroid disease Surgical history: Reports: cholecystectomy Psychiatric history: Reports: prior suicide attempt, previous psychiatric hospitalization - Social History Smoking Status: Never smoker Smokeless Tobacco Status: Yes Alcohol use: Reports: rarely Drug use: Reports: cocaine, methamphetamine Physical Exam - General Limitations: altered mental status General appearance: appears intoxicated, in distress - Head Head exam: atraumatic, normocephalic - Eye Eye exam: Present: mydriasis - Neck Neck exam: Present: trachea midline - Chest Chest inspection: Present: symmetric chest wall rise - Respiratory Respiratory exam: Absent: respiratory distress, wheezes, stridor, accessory muscle use, prolonged expiratory phase - Psychiatric Psychiatric exam: Present: other (Acute psychosis) - Skin Skin exam: Present: warm, normal color, diaphoresis. Absent: cyanosis Course Course Narrative: Patient history, and physical exam is a concerning for acute psychosis secondary to drug overdose. Patient medical clearance for psychiatric care will be initiated. EKG and Accu-Chek will be performed to rule out cardiac and metabolic pathology. Vital Signs Temperature 98.2 F 04/13/18 23:27 Pulse Rate 133 04/13/18 23:27 Respiratory Rate 24 04/13/18 23:27 Blood Pressure 143/85 04/13/18 23:27 O2 Sat by Pulse Oximetry 95 04/13/18 23:27 Temperature 98.2 F 04/13/18 23:27 Pulse Rate 98 04/14/18 01:32 Respiratory Rate 24 04/13/18 23:27 Blood Pressure 128/88 04/14/18 01:32 O2 Sat by Pulse Oximetry 96 04/14/18 01:32 Oxygen Delivery Oxygen Delivery Room Air Medical Decision Making - MDM Narrative Medical decision making narrative: Patient placed on emergency psychiatric hold due to acute psychosis. "[place] slip" on file. - Lab Data Result diagrams: 04/13/18 23:23 04/13/18 23:23 Lab Results 04/13/18 04/13/18 04/13/18 Range/Units 23:23 23:23 23:25 WBC 18.3 H (4.3-11.1) K/mcL RBC 5.75 H (4.19-5.50) M/mcL Hgb 15.9 (12.9-16.9) g/dL Hct 47.9 (37.5-50.1) % MCV 83.3 (83.0-100.0) fL MCH 27.7 L (28.0-33.3) pg MCHC 33.2 (31.6-35.5) g/dL RDW 14.5 (11.5-14.5) % Plt Count 501 H (140-400) K/mcL MPV 11.0 (9.4-12.4) fL Immature Gran % 0.5 (0-4) % Seg Neutrophils % 70.5 % Lymphocytes % 22.7 % Monocytes % 5.5 % Eosinophils % 0.3 % Basophils % 0.5 % Neutrophils # 12.9 H (1.6-8.9) K/mcL Lymphocytes # 4.2 (0.6-4.6) K/mcL Monocytes # 1.0 (0.0-1.3) K/mcL Eosinophils # 0.1 (0.0-0.6) K/mcL Basophils # 0.1 (0.0-0.2) K/mcL Sodium 139 (136-145) mEq/L Potassium 4.4 (3.5-5.1) mEq/L Chloride 105 (98-107) mEq/L Carbon Dioxide 20 L (23-29) mEq/L BUN 9 (6-20) mg/dL Creatinine 1.06 (0.70-1.30) mg/dL Est GFR ( Amer) > 60 (> 60) Est GFR (Non-Af Amer) > 60 (> 60) BUN/Creatinine Ratio 8 (6-26) Glucose 115 H (70-105) mg/dL POC Glucose 117 H (70-99) mg/dL Calculated Osmolality 288 (280-300) Calcium 11.0 H (8.6-10.3) mg/dL Urine Color (Yellow) Urine Clarity (Clear) Urine pH (5.0-8.0) pH Units Ur Specific [place] (1.010-1.025) Urine Protein (Neg-Trace) mg/dL Urine Glucose (UA) (Normal) mg/dL Urine Ketones (Negative) mg/dL Urine Blood (Negative) Urine Nitrite (Negative) Urine Bilirubin (Negative) Urine Urobilinogen (Normal) mg/dL Ur Leukocyte Esterase (Negative) Salicylates < 2.5 L (15.0-30.0) mg/dL Urine Opiates Screen (Mksaqq=130) ng/mL Acetaminophen < 10 L (10-20) mcg/mL Ur Barbiturates Screen (Zpirgy=594) ng/mL Ur Phencyclidine Scrn (Cutoff=25) ng/mL Ur Amphetamines Screen (Xqgvwo=0088) ng/mL U Benzodiazepines Scrn (Hyeqev=178) ng/mL Urine Cocaine Screen (Cutoff= 300) ng/mL U Marijuana (THC) Screen (Cutoff = 50) ng/mL Ur Drug Screen Interp Ethyl Alcohol < 10 (Less than 10) mg/dL 04/13/18 04/13/18 Range/Units 23:34 23:34 WBC (4.3-11.1) K/mcL RBC (4.19-5.50) M/mcL Hgb (12.9-16.9) g/dL Hct (37.5-50.1) % MCV (83.0-100.0) fL MCH (28.0-33.3) pg MCHC (31.6-35.5) g/dL RDW (11.5-14.5) % Plt Count (140-400) K/mcL MPV (9.4-12.4) fL Immature Gran % (0-4) % Seg Neutrophils % % Lymphocytes % % Monocytes % % Eosinophils % % Basophils % % Neutrophils # (1.6-8.9) K/mcL Lymphocytes # (0.6-4.6) K/mcL Monocytes # (0.0-1.3) K/mcL Eosinophils # (0.0-0.6) K/mcL Basophils # (0.0-0.2) K/mcL Sodium (136-145) mEq/L Potassium (3.5-5.1) mEq/L Chloride (98-107) mEq/L Carbon Dioxide (23-29) mEq/L BUN (6-20) mg/dL Creatinine (0.70-1.30) mg/dL Est GFR ( Amer) (> 60) Est GFR (Non-Af Amer) (> 60) BUN/Creatinine Ratio (6-26) Glucose (70-105) mg/dL POC Glucose (70-99) mg/dL Calculated Osmolality (280-300) Calcium (8.6-10.3) mg/dL Urine Color Yellow (Yellow) Urine Clarity Clear (Clear) Urine pH 6.5 (5.0-8.0) pH Units Ur Specific [place] 1.007 L (1.010-1.025) Urine Protein Negative (Neg-Trace) mg/dL Urine Glucose (UA) Normal (Normal) mg/dL Urine Ketones Trace H (Negative) mg/dL Urine Blood Negative (Negative) Urine Nitrite Negative (Negative) Urine Bilirubin Negative (Negative) Urine Urobilinogen Normal (Normal) mg/dL Ur Leukocyte Esterase Negative (Negative) Salicylates (15.0-30.0) mg/dL Urine Opiates Screen Negative (Tswggs=410) ng/mL Acetaminophen (10-20) mcg/mL Ur Barbiturates Screen Negative (Cxktfc=545) ng/mL Ur Phencyclidine Scrn Negative (Cutoff=25) ng/mL Ur Amphetamines Screen Negative (Ktrmhi=7307) ng/mL U Benzodiazepines Scrn Negative (Fnsbel=561) ng/mL Urine Cocaine Screen Negative (Cutoff= 300) ng/mL U Marijuana (THC) Screen Positive H (Cutoff = 50) ng/mL Ur Drug Screen Interp See Below Ethyl Alcohol (Less than 10) mg/dL - EKG Data EKG #1 EKG attestation: Yes I reviewed and interpreted this EKG. EKG results narrative: Patient EKG shows a sinus tachycardia with a ventricular rate of 113 bpm [place] interval of 132 ms, QRS duration of 84 ms, QT/QTc interval 310/425 ms, respectively. There is RSR' wave indicated in V2 that may be concerning for ventricular conduction defect. There are no ST segment elevations or depressions, pathologic Q waves, or any other signs of acute ischemic change. There are currently no previous EKG is available for comparison.
[2018-04-13 23:48] LABS: Bilirubin,Urine Negative (Negative); Blood,Urine Negative (Negative); Clarity,Urine Clear (Clear); Color,Urine Yellow (Yellow); Glucose,Urine (UA) Normal (Normal); Ketones,Urine Trace mg/dL (Negative); Leukocyte Esterase,Urine Negative (Negative); Nitrite,Urine Negative (Negative); PH,Urine 6.5 pH Units (5.0-8.0); Protein,Urine Negative (Neg-Trace); Specific Gravity,Urine 1.007 (1.010-1.025); Urobilinogen,Urine Normal (Normal)
[2018-04-13 23:52] LABS: Acetaminophen < 10 mcg/mL (10-20); BUN/Creatinine Ratio 8 (6-26); Blood Urea Nitrogen 9 mg/dL (6-20); Carbon Dioxide 20 mEq/L (23-29); Chloride 105 mEq/L (98-107); Ethanol < 10 mg/dL (Less than 10); Glucose 115 mg/dL (70-105); Osmolality,Calculated 288 (280-300); Potassium 4.4 mEq/L (3.5-5.1); Salicylate < 2.5 mg/dL (15.0-30.0); Sodium 139 mEq/L (136-145); eGFR For Non-African Americans > 60 (> 60)
[2018-04-13 23:56] LABS: Basophils # 0.1 K/mcL (0.0-0.2); Basophils % 0.5 %; Eosinophils # 0.1 K/mcL (0.0-0.6); Eosinophils % 0.3 %; Hematocrit 47.9 % (37.5-50.1); Hemoglobin 15.9 g/dL (12.9-16.9); Immature Granulocytes % 0.5 % (0-4); Lymphocytes # 4.2 K/mcL (0.6-4.6); Lymphocytes % 22.7 %; Mean Corpuscular HGB Conc 33.2 g/dL (31.6-35.5); Mean Corpuscular Hemoglobin 27.7 pg (28.0-33.3); Mean Corpuscular Volume 83.3 fL (83.0-100.0); Monocytes % 5.5 %; Neutrophils # 12.9 K/mcL (1.6-8.9); Platelet Count 501 K/mcL (140-400); Red Blood Count 5.75 M/mcL (4.19-5.50); Red Cell Distribution Width 14.5 % (11.5-14.5); Segmented Neutrophils % 70.5 %
[2018-04-13 23:59] LABS: Amphetamine Screen,Urine Negative ng/mL (Cutoff=1000); Barbiturate Screen,Urine Negative ng/mL (Cutoff=200); Benzodiazepines Screen,Urine Negative ng/mL (Cutoff=200); Cannabinoid Screen,Urine Positive ng/mL (Cutoff = 50); Cocaine Screen,Urine Negative ng/mL (Cutoff= 300); Opiate Screen,Urine Negative ng/mL (Cutoff=300); Phencyclidine Screen,Urine Negative ng/mL (Cutoff=25)
--- NOTE | 2018-04-14 10:23 | Emergency Department Note ---
Disposition Clinical Impression: Acute psychosis Disposition: Admitted As Inpatient Condition: Fair Referrals: NONE,PCP [Primary Care Provider] - General Adult HPI - General Chief complaint: ED General Medical Stated complaint: "possible od"/psych Time Seen by Provider: 04/13/18 23:02 Source: EMS, police Mode of arrival: EMS Limitations: altered mental status - History of Present Illness Pain Scale: 0 - Related Data Home Medications Medication Instructions Recorded Confirmed Gabapentin [Neurontin] 800 mg PO Q6H 10/27/17 02/25/18 Metoprolol [Lopressor] 12.5 mg PO BID 10/27/17 02/25/18 Dextroamphetamine/Amphetamine 10 mg PO DAILY 12/22/17 02/25/18 [Adderall Xr 10 mg Capsule] ARIPiprazole [Abilify] 15 mg PO DAILY 02/25/18 02/25/18 Pyridostigmine Br [Mestinon] 60 mg PO BID 02/25/18 02/25/18 Ziprasidone HCl [Geodon] 40 mg PO BID 02/25/18 02/25/18 Buprenorphine HCl/Naloxone HCl 1 each SL 04/14/18 [Buprenorphin-Naloxon 8-2 mg Sl] Bupropion HCl [Wellbutrin Xl] 300 mg PO 04/14/18 Hydrochlorothiazide [Microzide] 12.5 mg PO 04/14/18 04/14/18 Ibuprofen 800 mg PO 04/14/18 NALOXONE 4 MG Nasal [place] [Narcan] 4 mg PO AD PRN 04/14/18 04/14/18 Sertraline [Zoloft] 50 mg PO DAILY 04/14/18 04/14/18 hydrOXYzine pamoate [HydrOXYzine 50 mg PO 04/14/18 Pamoate] traZODone [TraZODone] 50 mg PO 04/14/18 Previous Rx's Medication Instructions Recorded methIMAzole [Tapazole] 5 mg PO DAILY #30 tablet 02/24/16 Nitrofurantoin Monohyd/M-Cryst 100 mg PO BID #20 capsule 02/19/18 [Macrobid 100 mg Capsule] Allergies Allergy/AdvReac Type Severity Reaction Status Date / Time Penicillins Allergy Hives Verified 03/21/18 14:23 codeine AdvReac Vomiting Verified 03/21/18 14:23 Past Medical History - Past Medical History Medical history: Reports: hyperlipidemia, hypertension, thyroid disease Surgical history: Reports: cholecystectomy Psychiatric history: Reports: prior suicide attempt, previous psychiatric hospitalization - Social History Smoking Status: Never smoker Smokeless Tobacco Status: Yes Alcohol use: Reports: rarely Drug use: Reports: cocaine, methamphetamine Physical Exam - General Limitations: altered mental status General appearance: appears intoxicated, in distress Course Course Narrative: Patient taken over at sign out from Dr. Pako Hernandez. The patient had initially presented with altered mental status and presumed polysubstance abuse. Patient is known to the emergency department for polysubstance abuse as well as requiring the needs of our mental health team. The patient had gotten agitated en route did receive Geodon. Patient was continuing to rest upon my arrival. I did check on the patient multiple times during his stay. Patient wakes up to physical stimuli but only perseverates on his name and by saying yes. He repeats these over and over again without further etiology of underlying cause. After several attempts for continuing to wake him up he did not improve. Patient did get a head CT to rule out intracranial pathology and it was negative. Patient received a chest x-ray to further evaluate his elevated leukocytes. Shortly after these return family from a another room asked about his well-being. This family was visiting another patient is going to the ICU intubated from overdose of presumed baclofen. This patient had been unresponsive with a GCS of 3 upon arrival. The intubated patient and this patient are significant others. Is unsure exactly what they have taken but is likely related to polysubstance abuse. The only objective finding was a OB and an empty bottle of baclofen tablets. At this time the patient does arouse more easily but is unable to give further information. After my observation of him for approximately 6 hours is clear that this is going to take a more prolonged observation to further differentiate. Patient will be admitted for further observation, evaluation, and treatment. Vital Signs Temperature 98.2 F 04/13/18 23:27 Pulse Rate 133 04/13/18 23:27 Respiratory Rate 24 04/13/18 23:27 Blood Pressure 143/85 04/13/18 23:27 O2 Sat by Pulse Oximetry 95 04/13/18 23:27 Temperature 97.7 F 04/14/18 11:37 Pulse Rate 90 04/14/18 11:37 Respiratory Rate 19 04/14/18 11:37 Blood Pressure 153/121 04/14/18 11:37 O2 Sat by Pulse Oximetry 96 04/14/18 11:37 Oxygen Delivery Oxygen Delivery Room Air Medical Decision Making - Lab Data Result diagrams: 04/13/18 23:23 04/13/18 23:23 Lab Results 04/13/18 04/13/18 04/13/18 Range/Units 23:23 23:23 23:25 WBC 18.3 H (4.3-11.1) K/mcL RBC 5.75 H (4.19-5.50) M/mcL Hgb 15.9 (12.9-16.9) g/dL Hct 47.9 (37.5-50.1) % MCV 83.3 (83.0-100.0) fL MCH 27.7 L (28.0-33.3) pg MCHC 33.2 (31.6-35.5) g/dL RDW 14.5 (11.5-14.5) % Plt Count 501 H (140-400) K/mcL MPV 11.0 (9.4-12.4) fL Immature Gran % 0.5 (0-4) % Seg Neutrophils % 70.5 % Lymphocytes % 22.7 % Monocytes % 5.5 % Eosinophils % 0.3 % Basophils % 0.5 % Neutrophils # 12.9 H (1.6-8.9) K/mcL Lymphocytes # 4.2 (0.6-4.6) K/mcL Monocytes # 1.0 (0.0-1.3) K/mcL Eosinophils # 0.1 (0.0-0.6) K/mcL Basophils # 0.1 (0.0-0.2) K/mcL Sodium 139 (136-145) mEq/L Potassium 4.4 (3.5-5.1) mEq/L Chloride 105 (98-107) mEq/L Carbon Dioxide 20 L (23-29) mEq/L BUN 9 (6-20) mg/dL Creatinine 1.06 (0.70-1.30) mg/dL Est GFR ( Amer) > 60 (> 60) Est GFR (Non-Af Amer) > 60 (> 60) BUN/Creatinine Ratio 8 (6-26) Glucose 115 H (70-105) mg/dL POC Glucose 117 H (70-99) mg/dL Calculated Osmolality 288 (280-300) Calcium 11.0 H (8.6-10.3) mg/dL Urine Color (Yellow) Urine Clarity (Clear) Urine pH (5.0-8.0) pH Units Ur Specific [place] (1.010-1.025) Urine Protein (Neg-Trace) mg/dL Urine Glucose (UA) (Normal) mg/dL Urine Ketones (Negative) mg/dL Urine Blood (Negative) Urine Nitrite (Negative) Urine Bilirubin (Negative) Urine Urobilinogen (Normal) mg/dL Ur Leukocyte Esterase (Negative) Salicylates < 2.5 L (15.0-30.0) mg/dL Urine Opiates Screen (Supitn=631) ng/mL Acetaminophen < 10 L (10-20) mcg/mL Ur Barbiturates Screen (Uuzrlm=854) ng/mL Ur Phencyclidine Scrn (Cutoff=25) ng/mL Ur Amphetamines Screen (Kxqehh=0217) ng/mL U Benzodiazepines Scrn (Mjvsrc=876) ng/mL Urine Cocaine Screen (Cutoff= 300) ng/mL U Marijuana (THC) Screen (Cutoff = 50) ng/mL Ur Drug Screen Interp Ethyl Alcohol < 10 (Less than 10) mg/dL 04/13/18 04/13/18 Range/Units 23:34 23:34 WBC (4.3-11.1) K/mcL RBC (4.19-5.50) M/mcL Hgb (12.9-16.9) g/dL Hct (37.5-50.1) % MCV (83.0-100.0) fL MCH (28.0-33.3) pg MCHC (31.6-35.5) g/dL RDW (11.5-14.5) % Plt Count (140-400) K/mcL MPV (9.4-12.4) fL Immature Gran % (0-4) % Seg Neutrophils % % Lymphocytes % % Monocytes % % Eosinophils % % Basophils % % Neutrophils # (1.6-8.9) K/mcL Lymphocytes # (0.6-4.6) K/mcL Monocytes # (0.0-1.3) K/mcL Eosinophils # (0.0-0.6) K/mcL Basophils # (0.0-0.2) K/mcL Sodium (136-145) mEq/L Potassium (3.5-5.1) mEq/L Chloride (98-107) mEq/L Carbon Dioxide (23-29) mEq/L BUN (6-20) mg/dL Creatinine (0.70-1.30) mg/dL Est GFR ( Amer) (> 60) Est GFR (Non-Af Amer) (> 60) BUN/Creatinine Ratio (6-26) Glucose (70-105) mg/dL POC Glucose (70-99) mg/dL Calculated Osmolality (280-300) Calcium (8.6-10.3) mg/dL Urine Color Yellow (Yellow) Urine Clarity Clear (Clear) Urine pH 6.5 (5.0-8.0) pH Units Ur Specific [place] 1.007 L (1.010-1.025) Urine Protein Negative (Neg-Trace) mg/dL Urine Glucose (UA) Normal (Normal) mg/dL Urine Ketones Trace H (Negative) mg/dL Urine Blood Negative (Negative) Urine Nitrite Negative (Negative) Urine Bilirubin Negative (Negative) Urine Urobilinogen Normal (Normal) mg/dL Ur Leukocyte Esterase Negative (Negative) Salicylates (15.0-30.0) mg/dL Urine Opiates Screen Negative (Izsuka=511) ng/mL Acetaminophen (10-20) mcg/mL Ur Barbiturates Screen Negative (Prqamj=276) ng/mL Ur Phencyclidine Scrn Negative (Cutoff=25) ng/mL Ur Amphetamines Screen Negative (Ockenw=8596) ng/mL U Benzodiazepines Scrn Negative (Rvphih=728) ng/mL Urine Cocaine Screen Negative (Cutoff= 300) ng/mL U Marijuana (THC) Screen Positive H (Cutoff = 50) ng/mL Ur Drug Screen Interp See Below Ethyl Alcohol (Less than 10) mg/dL
[2018-04-14] MEDS ORDERED: Ammonia Inhalant AMPUL ONE (12:45)
[2018-04-14] MEDS ORDERED: Naloxone 0.4 MG/ML INJ IVP PRN (14:51)
[2018-04-14] MEDS ORDERED: traMADol 50 MG TABLET PO PRN (14:51)
[2018-04-14] MEDS ORDERED: Ondansetron 4 MG/2 ML VIAL IVP PRN (14:54)
[2018-04-14] MEDS ORDERED: Loperamide 1 MG/5 ML UDC PO PRN (14:55)
[2018-04-14] MEDS ORDERED: SODIUM CHLORIDE IVC SCH (15:00)
[2018-04-14] MEDS ORDERED: *HR* Morphine 2 MG/ML SYRINGE IVP ONE (15:00)
[2018-04-14] MEDS: Gabapentin 400 MG CAPSULE PO SCH ×2 (15:34→20:15)
--- NOTE | 2018-04-14 16:17 | Internal Med History&Physical ---
Date of Encounter: 04/14/18 Time of Encounter: 15:43 Internal Medicine - H&P: HPI Admitted From: Home Plans for Post Hospital Care: Home History of present illness: Mr. Jalloh is a 42 year old male brought to [facility] ED for altered mental status possibly secondarily to acute drug ingestion. Patient was brought to [facility] by EMS escorted by police, EMS states patient is known to them as being a opiate user but tonight may have taken methamphetamine. Upon initial exam, patient has dilated pupils, diaphoretic skin and is repeating the phrase "oh shit." Patient is largely uncooperative to nursing care and was either unwilling or unable to answer physician questioned. When asked review of systems as well as history of present illness patient answered all questions with "yes Sir". Patient began stating that he needed to urinate stating "I need to piss" and became otherwise nonreactive to questioning or redirection. At the ED, his vital signs appear normal. A CXR and CT head were unremarkable. his symptoms are very concerning for drug overdose. He will be admitted for further evaluation and management. Past Med Surg Social Fam HX - Past Medical History Medical history: hyperlipidemia, hypertension, thyroid disease Additional medical history: MY GRAVIS Psychiatric history: prior suicide attempt, previous psychiatric hospitalization - Past Surgical History Surgical History: cholecystectomy Additional surgical history: Right knee surgery - Social History Smoking Status: Never smoker Smokeless Tobacco Status: Yes Alcohol use: rarely Drug use: cocaine, methamphetamine - Family History Father Hx Family Cardiac Disorders: Yes Hx Family Endocrine Disorder: Yes (DM) Mother Adopted: No Family Member Ethnicity: Non- Living Status: Still Living Hx Family Cardiac Disorders: No Hx Family Respiratory Disorders: No Hx Family Cancer: Yes (family history of Skin cancer and thyroid cancer) Hx Family GI Disorders: No Hx Family Endocrine Disorder: Yes (Great-grandmother- DM) Hx Family Neuromuscular Disorders: No Hx Family Neurologic Disorders: No Hx Family HEENT Disorders: No Hx Family Autoimmune Disorders: No Internal Medicine - H&P: Meds methIMAzole [Tapazole] 5 mg PO DAILY #30 tablet 02/24/16 [Rx] Gabapentin [Neurontin] 800 mg PO Q6H 10/27/17 [History] Metoprolol [Lopressor] 12.5 mg PO BID 10/27/17 [History] Dextroamphetamine/Amphetamine [Adderall Xr 10 mg Capsule] 10 mg PO DAILY 12/22/17 [History] ARIPiprazole [Abilify] 15 mg PO DAILY 02/25/18 [History] Pyridostigmine Br [Mestinon] 60 mg PO BID 02/25/18 [History] Ziprasidone HCl [Geodon] 40 mg PO BID 02/25/18 [History] Buprenorphine HCl/Naloxone HCl [Buprenorphin-Naloxon 8-2 mg Sl] 0.5 tab SL TID 04/14/18 [History] Bupropion HCl [Wellbutrin Xl] 300 mg PO DAILY 04/14/18 [History] Hydrochlorothiazide [Microzide] 12.5 mg PO DAILY 04/14/18 [History] Ibuprofen 800 mg PO 04/14/18 [History] NALOXONE 4 MG Nasal [place] [Narcan] 4 mg PO AD PRN 04/14/18 [History] Sertraline [Zoloft] 50 mg PO DAILY 04/14/18 [History] hydrOXYzine pamoate [HydrOXYzine Pamoate] 50 mg PO QID PRN 04/14/18 [History] traZODone [TraZODone] 50 mg PO 04/14/18 [History] Allergy/AdvReac Type Severity Reaction Status Date / Time Penicillins Allergy Hives Verified 03/21/18 14:23 codeine AdvReac Vomiting Verified 03/21/18 14:23 All Systems PM: A 10-system review of systems was performed and is negative for pertinent findings except as documented above in the HPI. Review of systems: unable to obtain due to mental status and distress. - Constitutional Vitals: Temp Pulse Resp BP Pulse Ox 97.7 F 95 16 124/96 97 04/14/18 11:37 04/14/18 14:01 04/14/18 14:01 04/14/18 14:01 04/14/18 15:07 General appearance: Present: A&O X 2, severe distress Exam: PHYSICAL EXAMINATION: GENERAL APPEARANCE: The patient is alert, oriented and in no acute distress. HEENT: Head is normocephalic. pupils are dilated. rhinorrhea and diaphoresis noted. NECK: Supple without lymphadenopathy. HEART: Regular rate and rhythm. LUNGS: No crackles or wheezes are heard. ABDOMEN: Soft, nontender, nondistended with good bowel sounds heard. Inguinal area is normal. EXTREMITIES: Without cyanosis, clubbing or edema. NEUROLOGICAL: Gross nonfocal. SKIN: Warm and dry without any rash. Internal Med - H&P Results - Labs CBC & Chem 7: 04/13/18 23:23 04/13/18 23:23 Labs: Short CBC 04/13/18 Range/Units 23:23 WBC 18.3 H (4.3-11.1) K/mcL Hgb 15.9 (12.9-16.9) g/dL Hct 47.9 (37.5-50.1) % Plt Count 501 H (140-400) K/mcL Neutrophils # 12.9 H (1.6-8.9) K/mcL BMP 04/13/18 23:23 Sodium 139 Potassium 4.4 Chloride 105 Carbon Dioxide 20 L BUN 9 Creatinine 1.06 Glucose 115 H Calcium 11.0 H Urine 04/13/18 Range/Units 23:34 Urine Color Yellow (Yellow) Urine Clarity Clear (Clear) Urine pH 6.5 (5.0-8.0) pH Units Ur Specific [place] 1.007 L (1.010-1.025) Urine Protein Negative (Neg-Trace) mg/dL Urine Glucose (UA) Normal (Normal) mg/dL - Impressions ITS Impressions Head CT 04/14/18 11:32 IMPRESSION: No acute intracranial abnormality. D/ / Sergio Davila / Sergio Davila Interpreting Provider: Sergio Davila Chest X-Ray 04/14/18 12:44 IMPRESSION: No acute cardiopulmonary disease. D/ / 04/14/2018 13:07:19 Rajeev Hernandez MD / douglas Interpreting Provider: Rajeev Hernandez MD - Assessment and plan (1) Mental status alteration Current Visit: Yes Status: Acute Assessment and plan: 42-year-old male with past medical history of polysubstance abuse presented with acute mental status change, associated with mydriasis, diaphoresis, and rhinorrhea. Family found a empty bottle for baclofen. Drug screen is positive for marijuana, negative for amphetamine and opioid. Patient's symptoms are likely due to baclofen overdose. But there is no anecdote for baclofen toxicity, management is mainly supportive care, we will continue monitoring and evaluation advisor, pain control, and seizure precaution. Qualifiers: Altered mental status type: disorientation Qualified Code(s): R41.0 - Disorientation, unspecified (2) Polysubstance dependence Current Visit: No Status: Chronic Assessment and plan: continue home meds for long-term management of opioid dependence. (3) HTN (hypertension) Current Visit: No Status: Chronic Assessment and plan: monitor BP, continue home meds. Qualifiers: Hypertension type: essential hypertension Qualified Code(s): I10 - Essential (primary) hypertension (4) Thyroid disease Current Visit: No Status: Chronic Assessment and plan: continue home meds. (5) DVT prophylaxis Current Visit: Yes Status: Acute Assessment and plan: Heparin subcutaneous and SCDs - Time Spent With Patient Total time spent is greater than 50% in coordination of care (as documented) at patient's floor/unit and/or counseling patient: Greater than 35 minutes
[2018-04-14] MEDS ORDERED: *HR* LORazepam 2 MG/ML VIAL IVP PRN (16:26)
[2018-04-14] MEDS: Buprenorphine Hcl/Naloxone Hcl [Buprenorphin-Naloxon SL SCH ×2 (17:59→20:22)
[2018-04-14] MEDS: *HR* Heparin 5,000 UNIT/ML VIAL SQ SCH (18:01)
--- NOTE | 2018-04-14 18:27 | Electrocardiograph Report ---
Reading [employer] Test Date: 2018-04-13 Pat Name: Jorge Jalloh Department: EXAM21 Room: Gender: M [employer]: : 1975 Requested By: Jonah Kim Order Number: [id number] Reading MD: Abelardo Canada Measurements Intervals [place] Rate: 113 P: 69 IA: 132 QRS: 12 QRSD: 84 T: 63 QT: 310 QTc: 425 Interpretive Statements Sinus tachycardia Atrial premature complex RSR' in V1 or V2, right VCD or RVH Electronically Signed On 04-14-2018 18:25:29 EDT by Abelardo Canada
[2018-04-14] MEDS: Pyridostigmine Br 60 MG TABLET PO SCH (20:16)
[2018-04-14] MEDS: Acetaminophen 325 MG TABLET PO PRN (20:16)
[2018-04-14] MEDS: Ziprasidone 20 MG CAPSULE PO SCH (20:16)
[2018-04-15] MEDS: Gabapentin 400 MG CAPSULE PO SCH ×4 (03:59→20:10)
[2018-04-15 04:11] LABS: Basophils # 0.1 K/mcL (0.0-0.2); Basophils % 0.8 %; Eosinophils # 0.5 K/mcL (0.0-0.6); Eosinophils % 4.9 %; Hematocrit 40.9 % (37.5-50.1); Immature Granulocytes % 0.3 % (0-4); Lymphocytes # 4.6 K/mcL (0.6-4.6); Lymphocytes % 44.6 %; Mean Corpuscular HGB Conc 33.3 g/dL (31.6-35.5); Mean Corpuscular Hemoglobin 27.8 pg (28.0-33.3); Mean Corpuscular Volume 83.5 fL (83.0-100.0); Mean Platelet Volume 10.7 fL (9.4-12.4); Monocytes # 0.7 K/mcL (0.0-1.3); Monocytes % 6.9 %; Neutrophils # 4.4 K/mcL (1.6-8.9); Platelet Count 400 K/mcL (140-400); Red Cell Distribution Width 14.8 % (11.5-14.5); Segmented Neutrophils % 42.5 %
[2018-04-15 04:23] LABS: Hemoglobin 13.6 g/dL (12.9-16.9)
[2018-04-15 04:28] LABS: BUN/Creatinine Ratio 15 (6-26); Blood Urea Nitrogen 11 mg/dL (6-20); Calcium 9.3 mg/dL (8.6-10.3); Carbon Dioxide 23 mEq/L (23-29); Chloride 107 mEq/L (98-107); Glucose 85 mg/dL (70-105); Osmolality,Calculated 285 (280-300); Potassium 3.5 mEq/L (3.5-5.1); Sodium 138 mEq/L (136-145); eGFR For Non-African Americans > 60 (> 60)
[2018-04-15] MEDS: Acetaminophen 325 MG TABLET PO PRN (04:39)
[2018-04-15] MEDS: *HR* Heparin 5,000 UNIT/ML VIAL SQ SCH ×2 (05:32→18:02)
[2018-04-15] MEDS ORDERED: *HR* LORazepam 2 MG/ML VIAL IM STA (09:37)
[2018-04-15] MEDS ORDERED: Haloperidol Lactate 5 MG/ML VIAL IM ONE (09:37)
[2018-04-15] MEDS: BuPROPion XL (24 HR) 150 MG TABLET PO SCH (10:07)
[2018-04-15] MEDS: Pyridostigmine Br 60 MG TABLET PO SCH ×2 (10:07→20:10)
[2018-04-15] MEDS: DEXTROAMPHETAMINE PO SCH (10:07)
[2018-04-15] MEDS: methIMAzole 5 MG TABLET PO SCH (10:07)
[2018-04-15] MEDS: Ziprasidone 20 MG CAPSULE PO SCH ×2 (10:07→19:52)
[2018-04-15] MEDS: Buprenorphine Hcl/Naloxone Hcl [Buprenorphin-Naloxon SL SCH ×3 (10:07→19:58)
[2018-04-15] MEDS: AMPHETAMINE PO SCH (10:07)
[2018-04-15] MEDS: ARIPiprazole 10 MG TABLET PO SCH (10:07)
--- NOTE | 2018-04-15 12:27 | Consult Note ---
Date of Encounter: 04/15/18 Time of Encounter: 08:45 Assessment & Recommendation (1) Suicidal ideation Current visit: No Status: Acute (2) Depression Current visit: No Status: Chronic Qualifiers: Depression Type: major depressive disorder Major depression recurrence: recurrent Active/Remission status: in partial remission Qualified Code(s): F33.41 - Major depressive disorder, recurrent, in partial remission (3) Methamphetamine abuse Current visit: No Status: Chronic (4) Cannabis abuse Current visit: No Status: Chronic (5) Personality disorder Current visit: No Status: Chronic (6) Intermittent explosive disorder Current visit: No Status: Chronic (7) Combative behavior Current visit: No Status: Chronic History of Present Illness Requesting Physician: Musa Dumas MD Reason for consult: agitation and aggression History of present illness: Mr. Jalloh is a 42 year old male ,, male, who presents for Polysubstance use D/O, depression and anxiety. PT presented for Overdose on muscle relaxer. Pt threatened to Overdose intentionally if discharged. Pt became violent and agressive with staff pulling out his IV and threating to fight using inappropriate vulgarities. Pt was given 5 mg Haloperidol IM, 2mg lorazepam IM and 50 mg Benadryl IM due to agitation and aggression. Pt took medication voluntarily. Assessment/Plan 1.Interval hx 2.Continue current medications 3.Review current labs 4.Pt had an opportunity to ask questions and discuss current treatment plan. 5.Supportive therapy was provided 6.Pt encouraged to consider group or individual therapy 7.Pt was in agreement with treatment plan. 8.Pt was educated on the risks benefits and side effects of current medications. 9. Transfer pt to in psychiatric facility that can handle violent patients. CC: Musa Dumas MD Past Med Surg Social Fam HX - Past Medical History Medical history: hyperlipidemia, hypertension, thyroid disease - Past Psychiatric History Psychiatric history: Reports: depression, prior suicide attempt, previous psychiatric hospitalization, other (polysubstance abuse) Family psychiatric history: Yes Family History of Suicide: Unknown - Past Surgical History Surgical History: cholecystectomy - Social History Smoking Status: Never smoker Smokeless Tobacco Status: Yes Alcohol use: rarely Drug use: cocaine, methamphetamine - Family History Father Hx Family Cardiac Disorders: Yes Hx Family Endocrine Disorder: Yes (DM) Mother Adopted: No Family Member Ethnicity: Non- Living Status: Still Living Hx Family Cardiac Disorders: No Hx Family Respiratory Disorders: No Hx Family Cancer: Yes (family history of Skin cancer and thyroid cancer) Hx Family GI Disorders: No Hx Family Endocrine Disorder: Yes (Great-grandmother- DM) Hx Family Neuromuscular Disorders: No Hx Family Neurologic Disorders: No Hx Family HEENT Disorders: No Hx Family Autoimmune Disorders: No Medications & Allergies methIMAzole [Tapazole] 5 mg PO DAILY #30 tablet 02/24/16 [Rx] Gabapentin [Neurontin] 800 mg PO Q6H 10/27/17 [History] Metoprolol [Lopressor] 12.5 mg PO BID 10/27/17 [History] Dextroamphetamine/Amphetamine [Adderall Xr 10 mg Capsule] 10 mg PO DAILY 12/22/17 [History] ARIPiprazole [Abilify] 15 mg PO DAILY 02/25/18 [History] Pyridostigmine Br [Mestinon] 60 mg PO BID 02/25/18 [History] Ziprasidone HCl [Geodon] 40 mg PO BID 02/25/18 [History] Buprenorphine HCl/Naloxone HCl [Buprenorphin-Naloxon 8-2 mg Sl] 0.5 tab SL TID 04/14/18 [History] Bupropion HCl [Wellbutrin Xl] 300 mg PO DAILY 04/14/18 [History] Hydrochlorothiazide [Microzide] 12.5 mg PO DAILY 04/14/18 [History] Ibuprofen 800 mg PO 04/14/18 [History] NALOXONE 4 MG Nasal [place] [Narcan] 4 mg PO AD PRN 04/14/18 [History] Sertraline [Zoloft] 50 mg PO DAILY 04/14/18 [History] hydrOXYzine pamoate [HydrOXYzine Pamoate] 50 mg PO QID PRN 04/14/18 [History] traZODone [TraZODone] 50 mg PO 04/14/18 [History] Allergy/AdvReac Type Severity Reaction Status Date / Time Penicillins Allergy Hives Verified 03/21/18 14:23 codeine AdvReac Vomiting Verified 03/21/18 14:23 Review of Systems Constitutional: Denies: fever, chills, weakness, weight change Eyes: Denies: eye pain, vision change Ears, Nose, Throat: Denies: ear pain, throat pain, dental pain, hearing loss, congestion Cardiovascular: Denies: chest pain, palpitations, dyspnea on exertion Respiratory: Denies: cough, dyspnea, wheezes Gastrointestinal: Denies: abdominal pain, nausea, vomiting, diarrhea, constipation Genitourinary male: Denies: urgency, dysuria, frequency, genital lesions Musculoskeletal: Denies: joint swelling, joint pain Integumentary: Denies: rash, lesions, pruritus Neurological: Denies: headache, weakness, numbness, memory loss Psychiatric: Reports: depression, suicidal ideation, irritability, other (agitation and aggression) Endocrine: Denies: fatigue, heat or cold intolerance Hematologic/Lymphatic: Denies: easy bruising, lymphadenopathy Allergic/Immunologic: Denies: urticaria, itchy eyes Psychiatry Exam - Constitutional Vitals: Temp Pulse Resp BP Pulse Ox 98.4 F 95 20 123/89 95 04/15/18 11:17 04/15/18 11:17 04/15/18 11:17 04/15/18 11:17 04/15/18 11:17 General appearance: age & developmentally appropriate, well-groomed, well- nourished - Musculoskeletal Gait: normal Station: relaxed Strength & Tone: normal for patient - Psychiatric Patient Orientation: Yes Person, Yes Time, Yes Place Level of alertness: Alert Behavior: anxious, agitated, aggressive, uncooperative Psychomotor activity: Agitated Eye Contact: Maintains Eye Contact Mood Description: Angry Affect description: inappropriate to situation Speech Volume: Normal Speech pattern: normal rate, normal rhythm, normal tone, fluent, spontaneous, Inappropriate to situation, other (loud aggressive) Language & Vocabulary: consistent with education Thought Process: Linear, Goal Oriented Thought Content: Yes Suicidal ideation, No Homicidal ideation, No Overt delusions Perceptual Disturbances: No Auditory hallucinations, No Visual hallucinations Attention Span Ability: Capable of Focused Attention Memory Description: Grossly Intact Patient Reliability: Questionable Historian Fund of knowledge: Yes abstraction ability, Yes aware of current events Intelligence Estimate: Average Judgment: Limited Insight: Partial Results - Labs Labs: Laboratory Last Values WBC 10.4 K/mcL (4.3-11.1) 04/15/18 03:34 RBC 4.90 M/mcL (4.19-5.50) 04/15/18 03:34 Hgb 13.6 g/dL (12.9-16.9) D 04/15/18 03:34 Hct 40.9 % (37.5-50.1) 04/15/18 03:34 MCV 83.5 fL (83.0-100.0) 04/15/18 03:34 MCH 27.8 pg (28.0-33.3) L 04/15/18 03:34 MCHC 33.3 g/dL (31.6-35.5) 04/15/18 03:34 RDW 14.8 % (11.5-14.5) H 04/15/18 03:34 Plt Count 400 K/mcL (140-400) 04/15/18 03:34 MPV 10.7 fL (9.4-12.4) 04/15/18 03:34 Immature Gran % 0.3 % (0-4) 04/15/18 03:34 Seg Neutrophils % 42.5 % 04/15/18 03:34 Lymphocytes % 44.6 % 04/15/18 03:34 Monocytes % 6.9 % 04/15/18 03:34 Eosinophils % 4.9 % 04/15/18 03:34 Basophils % 0.8 % 04/15/18 03:34 Neutrophils # 4.4 K/mcL (1.6-8.9) 04/15/18 03:34 Lymphocytes # 4.6 K/mcL (0.6-4.6) 04/15/18 03:34 Monocytes # 0.7 K/mcL (0.0-1.3) 04/15/18 03:34 Eosinophils # 0.5 K/mcL (0.0-0.6) 04/15/18 03:34 Basophils # 0.1 K/mcL (0.0-0.2) 04/15/18 03:34 Sodium 138 mEq/L (136-145) 04/15/18 03:34 Potassium 3.5 mEq/L (3.5-5.1) 04/15/18 03:34 Chloride 107 mEq/L (98-107) 04/15/18 03:34 Carbon Dioxide 23 mEq/L (23-29) 04/15/18 03:34 BUN 11 mg/dL (6-20) 04/15/18 03:34 Creatinine 0.75 mg/dL (0.70-1.30) 04/15/18 03:34 Est GFR ( Amer) > 60 (> 60) 04/15/18 03:34 Est GFR (Non-Af Amer) > 60 (> 60) 04/15/18 03:34 BUN/Creatinine Ratio 15 (6-26) 04/15/18 03:34 Glucose 85 mg/dL (70-105) 04/15/18 03:34 POC Glucose 117 mg/dL (70-99) H 04/13/18 23:25 Calculated Osmolality 285 (280-300) 04/15/18 03:34 Calcium 9.3 mg/dL (8.6-10.3) 04/15/18 03:34 Urine Color Yellow (Yellow) 04/13/18 23:34 Urine Clarity Clear (Clear) 04/13/18 23:34 Urine pH 6.5 pH Units (5.0-8.0) 04/13/18 23:34 Ur Specific Alexis 1.007 (1.010-1.025) L 04/13/18 23:34 Urine Protein Negative mg/dL (Neg-Trace) 04/13/18 23:34 Urine Glucose (UA) Normal mg/dL (Normal) 04/13/18 23:34 Urine Ketones Trace mg/dL (Negative) H 04/13/18 23:34 Urine Blood Negative (Negative) 04/13/18 23:34 Urine Nitrite Negative (Negative) 04/13/18 23:34 Urine Bilirubin Negative (Negative) 04/13/18 23:34 Urine Urobilinogen Normal mg/dL (Normal) 04/13/18 23:34 Ur Leukocyte Esterase Negative (Negative) 04/13/18 23:34 Salicylates < 2.5 mg/dL (15.0-30.0) L 04/13/18 23:23 Urine Opiates Screen Negative ng/mL (Yvsdkd=562) 04/13/18 23:34 Acetaminophen < 10 mcg/mL (10-20) L 04/13/18 23:23 Ur Barbiturates Screen Negative ng/mL (Apwohn=058) 04/13/18 23:34 Ur Phencyclidine Scrn Negative ng/mL (Cutoff=25) 04/13/18 23:34 Ur Amphetamines Screen Negative ng/mL (Sjpmns=0349) 04/13/18 23:34 U Benzodiazepines Scrn Negative ng/mL (Qthubg=790) 04/13/18 23:34 Urine Cocaine Screen Negative ng/mL (Cutoff= 300) 04/13/18 23:34 U Marijuana (THC) Screen Positive ng/mL (Cutoff = 50) H 04/13/18 23:34 Ur Drug Screen Interp See Below 04/13/18 23:34 Ethyl Alcohol < 10 mg/dL (Less than 10) 04/13/18 23:23 - Impressions Impressions Head CT 04/14/18 11:32 IMPRESSION: No acute intracranial abnormality. D/ / Sergio Davila / Sergio Davila Interpreting Provider: Sergio Davila Chest X-Ray 04/14/18 12:44 IMPRESSION: No acute cardiopulmonary disease. D/ / 04/14/2018 13:07:19 Rajeev Hernandez MD / douglas Interpreting Provider: Rajeev Hernandez MD Consult Discharge Plan - Plan Additional Instructions: transfer pt to inpt psychatric unit
[2018-04-15] MEDS ORDERED: *HR* LORazepam 1 MG TABLET PO PRN (17:00)
--- NOTE | 2018-04-15 17:17 | Internal Med Progress Note ---
Hospitalist Progress Note - Encounter Date of Encounter: 04/15/18 Time of Encounter: 17:13 - Subjective Interval History: Resting, had a violent outburst early today requiring Haldol IM. He is very sensitive about others calling him drug addict. He c/o sore throat and stated he had a MRI done recently and was told he has a ball in the neck. - Exam Vitals: Temp Pulse Resp BP Pulse Ox 98.0 F 103 20 127/83 95 04/15/18 16:58 04/15/18 16:58 04/15/18 16:58 04/15/18 16:58 04/15/18 16:58 Exam: PHYSICAL EXAMINATION: GENERAL APPEARANCE: The patient is alert, oriented and in no acute distress. HEENT: Head is normocephalic. pupils are dilated. rhinorrhea and diaphoresis noted. NECK: Supple without lymphadenopathy. HEART: Regular rate and rhythm. LUNGS: No crackles or wheezes are heard. ABDOMEN: Soft, nontender, nondistended with good bowel sounds heard. Inguinal area is normal. EXTREMITIES: Without cyanosis, clubbing or edema. NEUROLOGICAL: Gross nonfocal. SKIN: Warm and dry without any rash. - Assessment and Plan (1) Mental status alteration Current Visit: Yes Status: Acute Assessment and Plan: 42-year-old male with past medical history of polysubstance abuse presented with acute mental status change, associated with mydriasis, diaphoresis, and rhinorrhea. Family found a empty bottle for baclofen. 04/14 Drug screen is positive for marijuana, negative for amphetamine and opioid. Patient's symptoms are likely due to baclofen overdose. But there is no anecdote for baclofen toxicity, management is mainly supportive care, we will continue cafeteria monitor, pain control, and seizure precaution. 04/15 seems more alert and oriented today. Being violent. needs a sitter. Psych saw the pt and appreciate input and help. Continue supportive care, plan to transfer inpt psych unit for suicidal behavior and violent issue. (2) Polysubstance dependence Current Visit: No Status: Chronic Assessment and Plan: continue home meds for long-term management of opioid dependence. (3) HTN (hypertension) Current Visit: No Status: Chronic Assessment and Plan: monitor BP, continue home meds. (4) Thyroid disease Current Visit: No Status: Chronic Assessment and Plan: continue home meds. (5) DVT prophylaxis Current Visit: Yes Status: Acute Assessment and Plan: Heparin subcutaneous and SCDs - Time Spent with Patient Total time spent is greater than 50% in coordination of care (as documented) at patient's floor/unit and/or counseling patient: Greater than 35 minutes Plan of Care Discussed with: patient Internal Medicine: Result - Labs CBC & Chem 7: 04/15/18 03:34 04/15/18 03:34 Labs: Short CBC 04/15/18 Range/Units 03:34 WBC 10.4 (4.3-11.1) K/mcL Hgb 13.6 D (12.9-16.9) g/dL Hct 40.9 (37.5-50.1) % Plt Count 400 (140-400) K/mcL Neutrophils # 4.4 (1.6-8.9) K/mcL BMP 04/15/18 03:34 Sodium 138 Potassium 3.5 Chloride 107 Carbon Dioxide 23 BUN 11 Creatinine 0.75 Glucose 85 Calcium 9.3 Consult Discharge Plan - Plan Additional Instructions: transfer pt to inpt psychatric unit Referrals: NONE,PCP [Primary Care Provider] - (1) Mental status alteration Qualifiers: Altered mental status type: disorientation Qualified Code(s): R41.0 - Disorientation, unspecified (3) HTN (hypertension) Qualifiers: Hypertension type: essential hypertension Qualified Code(s): I10 - Essential (primary) hypertension
[2018-04-15] MEDS ORDERED: Haloperidol Lactate 5 MG/ML VIAL IM PRN (17:43)
[2018-04-15] MEDS: *HR* LORazepam 2 MG/ML VIAL IVP PRN (23:25)
[2018-04-16] MEDS ORDERED: Ketorolac 15 MG/ML VIAL IVP ONE (01:56)
[2018-04-16 02:31] VITALS: BP 127/87
[2018-04-16] MEDS: Gabapentin 400 MG CAPSULE PO SCH ×3 (03:05→16:56)
[2018-04-16] MEDS: *HR* LORazepam 2 MG/ML VIAL IVP PRN ×2 (05:48→12:21)
[2018-04-16] MEDS: *HR* Heparin 5,000 UNIT/ML VIAL SQ SCH (06:29)
[2018-04-16] MEDS: ARIPiprazole 10 MG TABLET PO SCH (09:07)
[2018-04-16] MEDS: Pyridostigmine Br 60 MG TABLET PO SCH (09:08)
[2018-04-16] MEDS: methIMAzole 5 MG TABLET PO SCH (09:08)
[2018-04-16] MEDS: Ziprasidone 20 MG CAPSULE PO SCH (09:10)
[2018-04-16] MEDS: Buprenorphine Hcl/Naloxone Hcl [Buprenorphin-Naloxon SL SCH ×2 (09:11→16:56)
[2018-04-16] MEDS: BuPROPion XL (24 HR) 150 MG TABLET PO SCH (09:11)
[2018-04-16] MEDS: DEXTROAMPHETAMINE PO SCH (09:11)
[2018-04-16] MEDS: AMPHETAMINE PO SCH (09:11)
--- NOTE | 2018-04-16 12:36 | Discharge Summary ---
- NOTES TO OUTPATIENT PROVIDER Notes to Outpatient Provider: f/u with PCP as needed. Date of Encounter: 04/16/18 Time of Encounter: 12:30 - Discharge Diagnosis (1) Mental status alteration Priority: Primary Status: Acute Qualifiers: Altered mental status type: disorientation Qualified Code(s): R41.0 - Disorientation, unspecified (2) Polysubstance dependence Priority: Secondary Status: Chronic (3) HTN (hypertension) Priority: Secondary Status: Chronic Qualifiers: Hypertension type: essential hypertension Qualified Code(s): I10 - Essential (primary) hypertension (4) Thyroid disease Priority: Secondary Status: Chronic (5) DVT prophylaxis Priority: Primary Status: Acute Hospital course: Mr. Jalloh is a 42-year-old male with past medical history of polysubstance abuse presented with acute mental status change, associated with mydriasis, diaphoresis, and rhinorrhea. Family found a empty bottle for baclofen. 04/14 Drug screen is positive for marijuana, negative for amphetamine and opioid. Patient's symptoms are likely due to baclofen overdose. But there is no anecdote for baclofen toxicity, management is mainly supportive care, we will continue clinical research monitor, pain control, and seizure precaution. 04/15 seems more alert and oriented today. Vital signs were stable, Telemetry no arrhythmia recorded. Being violent. needs a sitter. Psych saw the pt and appreciate input and help. Continue supportive care, plan to transfer inpt psych unit for suicidal behavior and violent issue. 04/16 Vital signs stable, No arrhythmia on tele. Has been episodic violent and c onstantly requesting pain meds. Will transfer pt to [facility] for further management. Discharge discussed with: patient Time spent discussing smoking cessation with patient: more than 10 minutes - Time Spent with Patient Total time spent providing and/or coordinating discharge services: Greater than 30 minutes - Discharge Medications Home Medications: methIMAzole [Tapazole] 5 mg PO DAILY #30 tablet 02/24/16 [Rx] Gabapentin [Neurontin] 800 mg PO Q6H 10/27/17 [History] Metoprolol [Lopressor] 12.5 mg PO BID 10/27/17 [History] Dextroamphetamine/Amphetamine [Adderall Xr 10 mg Capsule] 10 mg PO DAILY 12/22/17 [History] ARIPiprazole [Abilify] 15 mg PO DAILY 02/25/18 [History] Pyridostigmine Br [Mestinon] 60 mg PO BID 02/25/18 [History] Ziprasidone HCl [Geodon] 40 mg PO BID 02/25/18 [History] Buprenorphine HCl/Naloxone HCl [Buprenorphin-Naloxon 8-2 mg Sl] 0.5 tab SL TID 04/14/18 [History] Bupropion HCl [Wellbutrin Xl] 300 mg PO DAILY 04/14/18 [History] Hydrochlorothiazide [Microzide] 12.5 mg PO DAILY 04/14/18 [History] Ibuprofen 800 mg PO 04/14/18 [History] NALOXONE 4 MG Nasal [place] [Narcan] 4 mg PO AD PRN 04/14/18 [History] Sertraline [Zoloft] 50 mg PO DAILY 04/14/18 [History] hydrOXYzine pamoate [HydrOXYzine Pamoate] 50 mg PO QID PRN 04/14/18 [History] traZODone [TraZODone] 50 mg PO 04/14/18 [History] Acetaminophen [Tylenol] 650 mg PO Q6HR PRN tablet 04/16/18 [Rx] Benzocaine/Menthol Lanie [Cepacol Sore Throat Lozenge] 1 each MM Q2H PRN lozenge 04/16/18 [Rx] Haloperidol Lactate [Haldol] 5 mg IM Q4HR PRN vial 04/16/18 [Rx] LORazepam [Ativan] 2 mg IVP Q6HR PRN vial 04/16/18 [Rx] Loperamide [Imodium] 1 mg PO QID PRN udc 04/16/18 [Rx] Ondansetron [Zofran] 4 mg IVP Q6HR PRN vial 04/16/18 [Rx] Allergies/Adverse Reactions: Allergy/AdvReac Type Severity Reaction Status Date / Time Penicillins Allergy Hives Verified 03/21/18 14:23 codeine AdvReac Vomiting Verified 03/21/18 14:23 Date of admission: 04/14/18 13:43 Primary care physician: PCP NONE Consults: 04/15/18 07:38 Consult to Psychiatry [CONS] Routine Consulting Provider: Psychiatry Roseline Reason consult: Altered mental status Sitter/1:1 Ramireno slip on chart Psychosis Ramireno Slip initiated date and time: 04/14/2018 Time Notified: 07:39 Call Completed: Yes 04/15/18 10:16 Consult to Courtesy Driver [CONS] Routine Reason for SW Consult: PLACEMENT TO [facility]. [facility]A WILL NOT BE WORKING ON PLACEMENT. Anticipated date of discharge: 04/16/18 - Constitutional Vitals: Temp Pulse Resp BP Pulse Ox 97.7 F 95 16 127/87 97 04/16/18 02:30 04/16/18 02:30 04/16/18 02:30 04/16/18 02:30 04/16/18 02:30 General appearance: Present: A&O X 2, severe distress Exam: PHYSICAL EXAMINATION: GENERAL APPEARANCE: The patient is alert, oriented and in no acute distress. HEENT: Head is normocephalic. pupils are dilated. rhinorrhea and diaphoresis noted. NECK: Supple without lymphadenopathy. HEART: Regular rate and rhythm. LUNGS: No crackles or wheezes are heard. ABDOMEN: Soft, nontender, nondistended with good bowel sounds heard. Inguinal area is normal. EXTREMITIES: Without cyanosis, clubbing or edema. NEUROLOGICAL: Gross nonfocal. SKIN: Warm and dry without any rash. - Patient Status Disposition: Transfer Psychiatric Hosp Condition: Fair Functional capacity at discharge: independent ambulation Overall status at discharge: patient is progressing back to baseline - Discharge Instructions Instructions: Suicide Prevention for Adults (GEN), Depression, Medical Transcriptionist (GEN) Follow Up With: NONE,PCP [Primary Care Provider] - Forms: ED Satisfaction Letter, Work/School Release Additional Instructions: transfer pt to inpt psychatric unit - Diet and Activity Activity: increase activity as tolerated Diet: advance to your usual diet
--- NOTE | 2018-04-16 13:16 | Consult Note ---
Date of Encounter: 04/16/18 Time of Encounter: 11:45 Assessment & Recommendation (1) Suicidal ideation Current visit: No Status: Acute (2) Depression Current visit: No Status: Chronic Qualifiers: Depression Type: major depressive disorder Major depression recurrence: recurrent Active/Remission status: in partial remission Qualified Code(s): F33.41 - Major depressive disorder, recurrent, in partial remission (3) Methamphetamine abuse Current visit: No Status: Chronic (4) Cannabis abuse Current visit: No Status: Chronic (5) Personality disorder Current visit: No Status: Chronic (6) Intermittent explosive disorder Current visit: No Status: Chronic (7) Combative behavior Current visit: No Status: Chronic History of Present Illness Patient: known to practice within the last 3 years Requesting Physician: Musa Dumas MD Reason for consult: suicidality History of present illness: Mr. Jalloh is a 42 year old male ,, male, who presents for Polysubstance use D/O, depression and anxiety. PT presented for Overdose on muscle relaxer. Pt denied any side effects to current medications. Pt noted he felt safe and comfortable on the unit. Pt was in agreement with current treatment plan. Pt noted that he is doing alright today. Pt noted he slept alright last night. Pt noted his appetite is decreased. Pt rated his depression a 0, on a scale of zero to ten with ten being the worst and zero being none. Pt rate his anxiety a 0, on the same scale. Pt denied any visiual or auditory hallucinations. Pt denied any current thoughts to harm himself or anyone else. No TD noted, AIMS=0 Assessment/Plan 1.Interval hx 2.Continue current medications 3.Review current labs 4.Pt had an opportunity to ask questions and discuss current treatment plan. 5.Supportive therapy was provided 6.Pt encouraged to consider group or individual therapy 7.Pt was in agreement with treatment plan. 8.Pt was educated on the risks benefits and side effects of current medications. 9. Transfer pt to [facility]. CC: Musa Dumas MD Past Med Surg Social Fam HX - Past Medical History Medical history: hyperlipidemia, hypertension, thyroid disease - Past Psychiatric History Psychiatric history: Reports: depression, prior suicide attempt, previous psychi atric hospitalization Family psychiatric history: No Family History of Suicide: None - Past Surgical History Surgical History: cholecystectomy - Social History Smoking Status: Never smoker Smokeless Tobacco Status: Yes Alcohol use: rarely Drug use: cocaine, methamphetamine - Family History Father Hx Family Cardiac Disorders: Yes Hx Family Endocrine Disorder: Yes (DM) Mother Adopted: No Family Member Ethnicity: Non- Living Status: Still Living Hx Family Cardiac Disorders: No Hx Family Respiratory Disorders: No Hx Family Cancer: Yes (family history of Skin cancer and thyroid cancer) Hx Family GI Disorders: No Hx Family Endocrine Disorder: Yes (Great-grandmother- DM) Hx Family Neuromuscular Disorders: No Hx Family Neurologic Disorders: No Hx Family HEENT Disorders: No Hx Family Autoimmune Disorders: No Medications & Allergies methIMAzole [Tapazole] 5 mg PO DAILY #30 tablet 02/24/16 [Rx] Gabapentin [Neurontin] 800 mg PO Q6H 10/27/17 [History] Metoprolol [Lopressor] 12.5 mg PO BID 10/27/17 [History] Dextroamphetamine/Amphetamine [Adderall Xr 10 mg Capsule] 10 mg PO DAILY 12/22/17 [History] ARIPiprazole [Abilify] 15 mg PO DAILY 02/25/18 [History] Pyridostigmine Br [Mestinon] 60 mg PO BID 02/25/18 [History] Ziprasidone HCl [Geodon] 40 mg PO BID 02/25/18 [History] Buprenorphine HCl/Naloxone HCl [Buprenorphin-Naloxon 8-2 mg Sl] 0.5 tab SL TID 04/14/18 [History] Bupropion HCl [Wellbutrin Xl] 300 mg PO DAILY 04/14/18 [History] Hydrochlorothiazide [Microzide] 12.5 mg PO DAILY 04/14/18 [History] Ibuprofen 800 mg PO 04/14/18 [History] NALOXONE 4 MG Nasal [place] [Narcan] 4 mg PO AD PRN 04/14/18 [History] Sertraline [Zoloft] 50 mg PO DAILY 04/14/18 [History] hydrOXYzine pamoate [HydrOXYzine Pamoate] 50 mg PO QID PRN 04/14/18 [History] traZODone [TraZODone] 50 mg PO 04/14/18 [History] Acetaminophen [Tylenol] 650 mg PO Q6HR PRN tablet 04/16/18 [Rx] Benzocaine/Menthol Lanie [Cepacol Sore Throat Lozenge] 1 each MM Q2H PRN lozenge 04/16/18 [Rx] Haloperidol Lactate [Haldol] 5 mg IM Q4HR PRN vial 04/16/18 [Rx] LORazepam [Ativan] 2 mg IVP Q6HR PRN vial 04/16/18 [Rx] Loperamide [Imodium] 1 mg PO QID PRN udc 04/16/18 [Rx] Ondansetron [Zofran] 4 mg IVP Q6HR PRN vial 04/16/18 [Rx] Allergy/AdvReac Type Severity Reaction Status Date / Time Penicillins Allergy Hives Verified 03/21/18 14:23 codeine AdvReac Vomiting Verified 03/21/18 14:23 Review of Systems Constitutional: Denies: fever, chills, weakness, weight change Eyes: Denies: eye pain, vision change Ears, Nose, Throat: Denies: ear pain, throat pain, dental pain, hearing loss, congestion Cardiovascular: Denies: chest pain, palpitations, dyspnea on exertion Respiratory: Denies: cough, dyspnea, wheezes Gastrointestinal: Denies: abdominal pain, nausea, vomiting, diarrhea, constipati on Genitourinary male: Denies: urgency, dysuria, frequency, genital lesions Musculoskeletal: Denies: joint swelling, joint pain Integumentary: Denies: rash, lesions, pruritus Neurological: Denies: headache, weakness, numbness, memory loss Psychiatric: Reports: depression, suicidal ideation, irritability, other (agitation and aggression) Endocrine: Denies: fatigue, heat or cold intolerance Hematologic/Lymphatic: Denies: easy bruising, lymphadenopathy Allergic/Immunologic: Denies: urticaria, itchy eyes Psychiatry Exam - Constitutional Vitals: Temp Pulse Resp BP Pulse Ox 97.7 F 95 16 127/87 97 04/16/18 02:30 04/16/18 02:30 04/16/18 02:30 04/16/18 02:30 04/16/18 02:30 General appearance: age & developmentally appropriate, well-groomed, well- nourished - Musculoskeletal Gait: normal Station: relaxed Strength & Tone: normal for patient - Psychiatric Patient Orientation: Yes Person, Yes Time, Yes Place Level of alertness: Alert Behavior: agitated, aggressive Psychomotor activity: Normal Eye Contact: Maintains Eye Contact Mood Description: Euthymic/stable, Angry Affect description: congruent with mood, full range Speech Volume: Normal Speech pattern: normal rate, normal rhythm, normal tone, fluent, spontaneous Language & Vocabulary: consistent with education Thought Process: Linear, Goal Oriented Thought Content: No Suicidal ideation, No Homicidal ideation, No Overt delusions Perceptual Disturbances: No Auditory hallucinations, No Visual hallucinations Attention Span Ability: Capable of Focused Attention Memory Description: Grossly Intact Patient Reliability: Reliable Historian Fund of knowledge: Yes abstraction ability, Yes aware of current events Intelligence Estimate: Average Judgment: Limited Insight: Partial Results - Labs Labs: Laboratory Last Values WBC 10.4 K/mcL (4.3-11.1) 04/15/18 03:34 RBC 4.90 M/mcL (4.19-5.50) 04/15/18 03:34 Hgb 13.6 g/dL (12.9-16.9) D 04/15/18 03:34 Hct 40.9 % (37.5-50.1) 04/15/18 03:34 MCV 83.5 fL (83.0-100.0) 04/15/18 03:34 MCH 27.8 pg (28.0-33.3) L 04/15/18 03:34 MCHC 33.3 g/dL (31.6-35.5) 04/15/18 03:34 RDW 14.8 % (11.5-14.5) H 04/15/18 03:34 Plt Count 400 K/mcL (140-400) 04/15/18 03:34 MPV 10.7 fL (9.4-12.4) 04/15/18 03:34 Immature Gran % 0.3 % (0-4) 04/15/18 03:34 Seg Neutrophils % 42.5 % 04/15/18 03:34 Lymphocytes % 44.6 % 04/15/18 03:34 Monocytes % 6.9 % 04/15/18 03:34 Eosinophils % 4.9 % 04/15/18 03:34 Basophils % 0.8 % 04/15/18 03:34 Neutrophils # 4.4 K/mcL (1.6-8.9) 04/15/18 03:34 Lymphocytes # 4.6 K/mcL (0.6-4.6) 04/15/18 03:34 Monocytes # 0.7 K/mcL (0.0-1.3) 04/15/18 03:34 Eosinophils # 0.5 K/mcL (0.0-0.6) 04/15/18 03:34 Basophils # 0.1 K/mcL (0.0-0.2) 04/15/18 03:34 Sodium 138 mEq/L (136-145) 04/15/18 03:34 Potassium 3.5 mEq/L (3.5-5.1) 04/15/18 03:34 Chloride 107 mEq/L (98-107) 04/15/18 03:34 Carbon Dioxide 23 mEq/L (23-29) 04/15/18 03:34 BUN 11 mg/dL (6-20) 04/15/18 03:34 Creatinine 0.75 mg/dL (0.70-1.30) 04/15/18 03:34 Est GFR ( Amer) > 60 (> 60) 04/15/18 03:34 Est GFR (Non-Af Amer) > 60 (> 60) 04/15/18 03:34 BUN/Creatinine Ratio 15 (6-26) 04/15/18 03:34 Glucose 85 mg/dL (70-105) 04/15/18 03:34 POC Glucose 117 mg/dL (70-99) H 04/13/18 23:25 Calculated Osmolality 285 (280-300) 04/15/18 03:34 Calcium 9.3 mg/dL (8.6-10.3) 04/15/18 03:34 Urine Color Yellow (Yellow) 04/13/18 23:34 Urine Clarity Clear (Clear) 04/13/18 23:34 Urine pH 6.5 pH Units (5.0-8.0) 04/13/18 23:34 Ur Specific [place] 1.007 (1.010-1.025) L 04/13/18 23:34 Urine Protein Negative mg/dL (Neg-Trace) 04/13/18 23:34 Urine Glucose (UA) Normal mg/dL (Normal) 04/13/18 23:34 Urine Ketones Trace mg/dL (Negative) H 04/13/18 23:34 Urine Blood Negative (Negative) 04/13/18 23:34 Urine Nitrite Negative (Negative) 04/13/18 23:34 Urine Bilirubin Negative (Negative) 04/13/18 23:34 Urine Urobilinogen Normal mg/dL (Normal) 04/13/18 23:34 Ur Leukocyte Esterase Negative (Negative) 04/13/18 23:34 Salicylates < 2.5 mg/dL (15.0-30.0) L 04/13/18 23:23 Urine Opiates Screen Negative ng/mL (Kcnkty=437) 04/13/18 23:34 Acetaminophen < 10 mcg/mL (10-20) L 04/13/18 23:23 Ur Barbiturates Screen Negative ng/mL (Fimojd=219) 04/13/18 23:34 Ur Phencyclidine Scrn Negative ng/mL (Cutoff=25) 04/13/18 23:34 Ur Amphetamines Screen Negative ng/mL (Vlmrzi=9601) 04/13/18 23:34 U Benzodiazepines Scrn Negative ng/mL (Lokwvt=193) 04/13/18 23:34 Urine Cocaine Screen Negative ng/mL (Cutoff= 300) 04/13/18 23:34 U Marijuana (THC) Screen Positive ng/mL (Cutoff = 50) H 04/13/18 23:34 Ur Drug Screen Interp See Below 04/13/18 23:34 Ethyl Alcohol < 10 mg/dL (Less than 10) 04/13/18 23:23 Consult Discharge Plan - Plan Instructions: Suicide Prevention for Adults (GEN), Depression, Lopper (GEN) Additional Instructions: transfer pt to [facility] in psychatric unit Referrals: NONE,PCP [Primary Care Provider] -
== END 2018-04-16 18:04 ==
LOC: EMEROOARM 22:58 → 3BNU 22:58
PROVIDERS: ADMIT Internal Medicine; ATTEND Internal Medicine

== ENCOUNTER 2018-04-29 17:20 | Inpatient (IN) ==
--- NOTE | 2018-04-29 18:47 | Emergency Department Note ---
START Narrative - START START: This documentation is done with the assistance of Dragon dictation. Despite efforts made to ensure accuracy, there may be inaccuracies in dairy store manager or spelling and typographical errors. Patient seen here yesterday for cellulitis of the arm. Was worked up CT did not and then sent to orthopedics. Patient called orthopedics today and said that area look more red and worse today sent him in here to be seen. Medical student's here today sawing yesterday also and said this area does show further extension. No fevers here. Vertigo had and get labs on him and then sign him out to the evening ER physician for further management disposition. Patient's in agreement with this plan. He may need admission.
[2018-04-29] MEDS ORDERED: *HR* FentaNYL (PF) 100 MCG/2 ML VIAL IVP ONE (19:11)
[2018-04-29] MEDS ORDERED: cefTRIAXone 1,000 MG in Water for inj. (sterile) 20 ML 10 ML IVP ONE (19:12)
--- NOTE | 2018-04-29 19:18 | Emergency Department Note ---
Disposition Clinical Impression: Olecranon bursitis of left elbow Cellulitis Qualifiers: Site of cellulitis: extremity Site of cellulitis of extremity: upper extremity Laterality: left Qualified Code(s): L03.114 - Cellulitis of left upper limb Disposition: Admitted As Inpatient Condition: Fair Time of Disposition: 19:21 Extremity Problem HPI - General Chief complaint: ED Extremity Problem,Nontraumatic Stated complaint: ARM PAIN Time Seen by Provider: 04/29/18 18:38 Source: patient Limitations: no limitations Nursing Notes Reviewed: Yes Vital Signs Reviewed: Yes - History of Present Illness HPI Narrative: Patient presents with ongoing left upper extremity pain and swelling extending from his posterior left olecranon to his left forearm. He denies IV drug use. He was seen in the emergency department yesterday and had drainage of his olecranon bursa. He states the symptoms have worsened. No fevers Pt Subjective Complaint: extremity pain, extremity swelling Onset (ago): day(s) Consistency: constant Injury Location: left, upper extremity Pain Scale: 9 Quality: aching Radiation: distal Improves with: movement Worsens with: range of motion Associated symptoms: Reports: swelling, redness - Related Data Home Medications Medication Instructions Recorded Confirmed Gabapentin [Neurontin] 800 mg PO Q6H 10/27/17 04/14/18 Metoprolol [Lopressor] 12.5 mg PO BID 10/27/17 04/14/18 Dextroamphetamine/Amphetamine 10 mg PO DAILY 12/22/17 04/14/18 [Adderall Xr 10 mg Capsule] ARIPiprazole [Abilify] 15 mg PO DAILY 02/25/18 04/14/18 Pyridostigmine Br [Mestinon] 60 mg PO BID 02/25/18 04/14/18 Ziprasidone HCl [Geodon] 40 mg PO BID 02/25/18 04/14/18 Buprenorphine HCl/Naloxone HCl 0.5 tab SL TID 04/14/18 04/14/18 [Buprenorphin-Naloxon 8-2 mg Sl] Bupropion HCl [Wellbutrin Xl] 300 mg PO DAILY 04/14/18 04/14/18 Hydrochlorothiazide [Microzide] 12.5 mg PO DAILY 04/14/18 04/14/18 Ibuprofen 800 mg PO 04/14/18 NALOXONE 4 MG Nasal [place] [Narcan] 4 mg PO AD PRN 04/14/18 04/14/18 Sertraline [Zoloft] 50 mg PO DAILY 04/14/18 04/14/18 hydrOXYzine pamoate [HydrOXYzine 50 mg PO QID PRN 04/14/18 04/14/18 Pamoate] traZODone [TraZODone] 50 mg PO 04/14/18 Previous Rx's Medication Instructions Recorded methIMAzole [Tapazole] 5 mg PO DAILY #30 tablet 02/24/16 Acetaminophen [Tylenol] 650 mg PO Q6HR PRN tablet 04/16/18 Benzocaine/Menthol [place] [Cepacol 1 each MM Q2H PRN lozenge 04/16/18 Sore Throat Lozenge] Haloperidol Lactate [Haldol] 5 mg IM Q4HR PRN vial 04/16/18 LORazepam [Ativan] 2 mg IVP Q6HR PRN vial 04/16/18 Loperamide [Imodium] 1 mg PO QID PRN udc 04/16/18 Ondansetron [Zofran] 4 mg IVP Q6HR PRN vial 04/16/18 Clindamycin HCl 300 mg PO TID 7 Days capsule 04/27/18 Allergies Allergy/AdvReac Type Severity Reaction Status Date / Time Penicillins Allergy Hives Verified 04/29/18 17:36 codeine AdvReac Vomiting Verified 04/29/18 17:36 All systems ED: reviewed and negative except as stated. Constitutional: Reports: as per HPI Eyes: Reports: as per HPI ENT ED: Reports: as per HPI Cardiovascular: Reports: as per HPI Respiratory: Reports: as per HPI Gastrointestinal: Reports: as per HPI Genitourinary: Reports: as per HPI Musculoskeletal: Reports: other (Left upper extremity pain and swelling) Integumentary: Reports: other (Redness left forearm) Neurological: Reports: as per HPI Psychiatric: Reports: as per HPI Endocrine: Reports: as per HPI Hematological/Lymphatic: Reports: as per HPI Allergic/Immunologic: Reports: as per HPI Past Medical History - Past Medical History Source: patient Medical history: Reports: hyperlipidemia, hypertension, thyroid disease Surgical history: Reports: cholecystectomy Psychiatric history: Reports: depression, prior suicide attempt, previous psychiatric hospitalization - Social History Smoking Status: Never smoker Smokeless Tobacco Status: Yes Alcohol use: Reports: rarely Drug use: Reports: none Physical Exam - General Limitations: no limitations General appearance: alert - Head Head exam: atraumatic - Eye Eye exam: Present: normal appearance - ENT ENT exam: normal exam - Neck Neck exam: Present: normal inspection, full ROM - Chest Chest inspection: Present: normal inspection, symmetric chest wall rise - Respiratory Respiratory exam: Present: normal lung sounds bilaterally - Cardiovascular Cardiovascular exam: Present: regular rate, normal rhythm, normal heart sounds - Rectal Exam Rectal exam: Present: deferred - Expanded Upper Extremity Exam Shoulder exam: Present: full ROM Arm exam: Present: normal inspection, full ROM Elbow exam: Present: tenderness, swelling, erythema Forearm/Wrist exam: Present: tenderness, swelling, erythema, other (Erythema over the olecranon extending to forearm. Incision present at olecranon. No active drainage) Hand exam: Present: normal inspection Vascular exam: Normal: radial pulse - Neurological Exam Neurological exam: Present: alert, oriented X3, CN II-XII intact - Psychiatric Psychiatric exam: Present: normal affect, normal mood - Skin Skin exam: Present: warm, dry, intact Course Course Narrative: The patient presents with left upper extremity pain and swelling. This clinically appears to be olecranon bursitis. I did review the transcribed report from the CT left upper extremity ordered yesterday which does show an abscess versus olecranon bursitis. This case was discussed with the on-call orthopedic surgeon. Broad spectrum antibiotics initiated. The patient will require admission for possible operative washout - Reevaluation(s) Reevaluation #1: left elbow wound culture collected by me and sent to lab Vital Signs Temperature 98.0 F 04/29/18 17:35 Pulse Rate 76 04/29/18 17:35 Respiratory Rate 18 04/29/18 17:35 Blood Pressure 147/89 04/29/18 17:35 O2 Sat by Pulse Oximetry 99 04/29/18 17:35 Temperature 98.0 F 04/29/18 17:35 Pulse Rate 73 04/29/18 18:35 Respiratory Rate 22 04/29/18 18:35 Blood Pressure 138/97 04/29/18 18:35 O2 Sat by Pulse Oximetry 99 04/29/18 18:35 Oxygen Delivery Oxygen Delivery Room Air Extremity Problem, Nontraumati - Medical Records Medical records reviewed: Yes I reviewed the patient's medical records. - Lab Data Lab results reviewed: Yes I reviewed the patient's lab results. Result diagrams: 04/29/18 18:53 04/29/18 18:53 Lab Results 04/29/18 04/29/18 Range/Units 18:53 18:53 WBC 14.6 H (4.3-11.1) K/mcL RBC 4.60 (4.19-5.50) M/mcL Hgb 13.0 (12.9-16.9) g/dL Hct 37.5 (37.5-50.1) % MCV 81.5 L (83.0-100.0) fL MCH 28.3 (28.0-33.3) pg MCHC 34.7 (31.6-35.5) g/dL RDW 14.6 H (11.5-14.5) % Plt Count 314 (140-400) K/mcL MPV 11.1 (9.4-12.4) fL Immature Gran % 0.3 (0-4) % Seg Neutrophils % 66.7 % Lymphocytes % 21.3 % Monocytes % 8.1 % Eosinophils % 3.1 % Basophils % 0.5 % Neutrophils # 9.8 H (1.6-8.9) K/mcL Lymphocytes # 3.1 (0.6-4.6) K/mcL Monocytes # 1.2 (0.0-1.3) K/mcL Eosinophils # 0.5 (0.0-0.6) K/mcL Basophils # 0.1 (0.0-0.2) K/mcL Sodium 132 L (136-145) mEq/L Potassium 3.6 (3.5-5.1) mEq/L Chloride 101 (98-107) mEq/L Carbon Dioxide 23 (23-29) mEq/L BUN 10 (6-20) mg/dL Creatinine 0.73 (0.70-1.30) mg/dL Est GFR ( Amer) > 60 (> 60) Est GFR (Non-Af Amer) > 60 (> 60) BUN/Creatinine Ratio 14 (6-26) Glucose 136 H (70-105) mg/dL Calculated Osmolality 275 L (280-300) Calcium 9.4 (8.6-10.3) mg/dL - Radiology Data Radiology results reviewed: Yes I reviewed the patient's radiology results.
[2018-04-29 19:24] LABS: BUN/Creatinine Ratio 14 (6-26); Blood Urea Nitrogen 10 mg/dL (6-20); Calcium 9.4 mg/dL (8.6-10.3); Carbon Dioxide 23 mEq/L (23-29); Chloride 101 mEq/L (98-107); Glucose 136 mg/dL (70-105); Osmolality,Calculated 275 (280-300); Potassium 3.6 mEq/L (3.5-5.1); Sodium 132 mEq/L (136-145); eGFR For Non-African Americans > 60 (> 60)
[2018-04-29 19:25] LABS: Basophils # 0.1 K/mcL (0.0-0.2); Basophils % 0.5 %; Eosinophils # 0.5 K/mcL (0.0-0.6); Eosinophils % 3.1 %; Hematocrit 37.5 % (37.5-50.1); Immature Granulocytes % 0.3 % (0-4); Lymphocytes # 3.1 K/mcL (0.6-4.6); Lymphocytes % 21.3 %; Mean Corpuscular HGB Conc 34.7 g/dL (31.6-35.5); Mean Corpuscular Hemoglobin 28.3 pg (28.0-33.3); Mean Corpuscular Volume 81.5 fL (83.0-100.0); Mean Platelet Volume 11.1 fL (9.4-12.4); Monocytes # 1.2 K/mcL (0.0-1.3); Monocytes % 8.1 %; Neutrophils # 9.8 K/mcL (1.6-8.9); Platelet Count 314 K/mcL (140-400); Red Cell Distribution Width 14.6 % (11.5-14.5); Segmented Neutrophils % 66.7 %
[2018-04-29] MEDS ORDERED: Naloxone 0.4 MG/ML INJ IVP PRN (20:37)
[2018-04-29] MEDS ORDERED: Ibuprofen 400 MG TABLET PO PRN (20:37)
[2018-04-29] MEDS ORDERED: Levofloxacin 750 MG/150 ML 750 MG/150 ML BAG IVPB SCH (21:00)
--- NOTE | 2018-04-29 21:36 | Internal Med History&Physical ---
Date of Encounter: 04/29/18 Time of Encounter: 20:10 Internal Medicine - H&P: HPI Chief complaint: left elbow pain Admitted From: Emergency Dept Plans for Post Hospital Care: Home History of present illness: Mr. Jalloh is a 42 year old male who presents to the ER with worsening left elbow pain, bursitis, and likely abscess. He was seen in the ER twice in last 3 days and was treated with oral antibiotics for left elbow bursitis and possible abscess. He was trying to follow-up with orthopedist today for follow-up of this infection. He contacted the orthopedist office by telephone and was advised to come to the ER due to worsening signs and symptoms. He was seen and evaluated the ER and was admitted to hospitalist service for having failed outpatient treatment. He did have CT imaging of this elbow yesterday, which is concerning for an abscess of the olecranon area. Upon my assessment of the patient in the ER, he confirms the above history. He has had some subjective fevers and chills. He denies night sweats. He denies any chest pain, difficulty breathing, vomiting, or diarrhea. He has a history of IV drug use in the past, but he has been clean for over 2 years. He denies any injection to his left elbow. He used to inject into his left and right antecubital fossa in the past. He did relapse a few months ago and smoked/snorted methamphetamine. However, his last injection was over 2 years ago. He denies any other trauma or injury to his left elbow. Past Med Surg Social Fam HX - Past Medical History Attestation: Yes The following information was validated with the patient. Source: patient, old records reviewed Medical history: hyperlipidemia, hypertension, thyroid disease Additional medical history: Myasthenia Gravis Psychiatric history: depression, prior suicide attempt, previous psychiatric hospitalization - Past Surgical History Surgical History: cholecystectomy Additional surgical history: Right knee surgery - Social History Smoking Status: Never smoker Smokeless Tobacco Status: Yes Alcohol use: rarely Drug use: none Current living situation: Home, With Family Recent Out of Country Travel Within the Last 8 Weeks: No - Family History Father Hx Family Cardiac Disorders: Yes Hx Family Endocrine Disorder: Yes (DM) Mother Adopted: No Family Member Ethnicity: Non- Living Status: Still Living Hx Family Cardiac Disorders: No Hx Family Respiratory Disorders: No Hx Family Cancer: Yes (family history of Skin cancer and thyroid cancer) Hx Family GI Disorders: No Hx Family Endocrine Disorder: Yes (Great-grandmother- DM) Hx Family Neuromuscular Disorders: No Hx Family Neurologic Disorders: No Hx Family HEENT Disorders: No Hx Family Autoimmune Disorders: No Internal Medicine - H&P: Meds methIMAzole [Tapazole] 5 mg PO DAILY #30 tablet 02/24/16 [Rx] Gabapentin [Neurontin] 800 mg PO Q6H 10/27/17 [History] Metoprolol [Lopressor] 12.5 mg PO BID 10/27/17 [History] ARIPiprazole [Abilify] 15 mg PO DAILY 02/25/18 [History] Pyridostigmine Br [Mestinon] 60 mg PO BID 02/25/18 [History] Buprenorphine HCl/Naloxone HCl [Buprenorphin-Naloxon 8-2 mg Sl] 1 tab SL BID 04/14/18 [History] Bupropion HCl [Wellbutrin Xl] 300 mg PO DAILY 04/14/18 [History] Clindamycin HCl 300 mg PO TID 7 Days capsule 04/27/18 [Rx] Sertraline [Zoloft] 100 mg PO DAILY 04/29/18 [History] Allergy/AdvReac Type Severity Reaction Status Date / Time Penicillins Allergy Hives Verified 04/29/18 17:36 codeine AdvReac Vomiting Verified 04/29/18 17:36 - Constitutional Constitutional: chills, fever(s), no night sweats - EENT Eyes: no blurry vision, no change in vision Ears: no ear pain, no tinnitus Nose, mouth and throat: no nasal congestion, no sinus pressure, no sore throat - Cardiovascular Cardiovascular ROS IM: no chest pain, no dyspnea, no dyspnea on exertion - Respiratory Respiratory: no cough, no hemoptysis, no chest congestion, no excessive phlegm production, no change in phlegm color - Gastrointestinal Gastrointestinal: no abdominal pain, no diarrhea, no hematemesis, no mary alice tochezia, no melena, no nausea, no vomiting - Genitourinary Genitourinary ROS male: no dysuria, no flank pain, no hematuria - Musculoskeletal Musculoskeletal ROS IM: arthralgias (left elbow), joint swelling (left elbow), l imited range of motion (left elbow), no back pain, no numbness, no tingling - Integumentary Integumentary IM: erythema (left elbow), no rash, no jaundice - Neurological Neurological ROS: no dizziness, no focal weakness, no frequent falls, no headache(s) - Psychiatric Psychiatric: anxiety, no depression - Endocrine Endocrine IM: no polydipsia, no polyuria - Allergic/Immunologic Allergic/Immunologic: no GI upset with certain foods - Constitutional Vitals: Temp Pulse Resp BP Pulse Ox 98.0 F 76 16 189/85 100 04/29/18 17:35 04/29/18 20:49 04/29/18 20:49 04/29/18 20:49 04/29/18 20:49 General appearance: Present: cooperative, mild distress (due to left elbow pain), A&O X 3, pleasant, answers questions appropriately Exam: see below - Head Head exam: Present: atraumatic, normal inspection - Eye Eye exam: Present: EOMI, PERRL. Absent: scleral icterus Pupils: Present: normal accommodation - ENT ENT exam: Present: mucous membranes dry, normal exam, normal oropharynx - Neck Neck exam general surgery: Present: full ROM, supple. Absent: tenderness, nuchal rigidity, thyromegaly - Respiratory Respiratory exam: Present: CTAB. Absent: chest wall tenderness, rales, respiratory distress, rhonchi, wheezes - Cardiovascular Cardiovascular exam: Present: RRR, +S1, +S2. Absent: diastolic murmur, rubs, systolic murmur - GI/Abdominal GI/Abdominal exam: Present: normal bowel sounds, soft. Absent: hepatomegaly, mass, splenomegaly, tenderness - Extremities Exam Extremities exam: Present: joint swelling (left elbow), normal capillary refill, tenderness (left elow with limited ROM; elbow wrapped and dressed), warm, radial pulses palpable and symmetrical. Absent: calf tenderness, pedal edema Additional comments: neurovasculature intact LUE/left hand - Back Exam Back exam: Present: normal inspection. Absent: CVA tenderness (L), CVA tenderness (R) - Neurological Exam Neurological exam: Present: alert, CN II-XII intact, oriented X3, no focal deficits - Psychiatric Psychiatric exam: Present: normal affect, normal mood - Skin Skin exam: Present: dry, intact, warm Internal Med - H&P Results - Labs CBC & Chem 7: 04/29/18 18:53 04/29/18 18:53 Labs: Short CBC 04/29/18 Range/Units 18:53 WBC 14.6 H (4.3-11.1) K/mcL Hgb 13.0 (12.9-16.9) g/dL Hct 37.5 (37.5-50.1) % Plt Count 314 (140-400) K/mcL Neutrophils # 9.8 H (1.6-8.9) K/mcL BMP 04/29/18 18:53 Sodium 132 L Potassium 3.6 Chloride 101 Carbon Dioxide 23 BUN 10 Creatinine 0.73 Glucose 136 H Calcium 9.4 - Diagnostic Studies Other Images Additional comments: CT LUE report reviewed from yesterday and discussed with Dr. Mills. - Assessment and plan (1) Cellulitis Current Visit: Yes Status: Acute Assessment and plan: 1. Blood cultures obtained in ER. 2. Will continue IV Vancomycin and add Levaquin for broader coverage. 3. Monitor cellulitis and de-escalate antibiotics as clinically indicated. Qualifiers: Site of cellulitis: extremity Site of cellulitis of extremity: upper extremity Laterality: left Qualified Code(s): L03.114 - Cellulitis of left upper limb (2) Olecranon bursitis of left elbow Current Visit: Yes Status: Acute Assessment and plan: 1. Bursitis vs abscess -- called and discussed with Dr. Mills. 2. Antibiotics as above. He will see patient in consult tomorrow morning and possibly drain vs surgical intervention. (3) DVT prophylaxis Current Visit: Yes Status: Acute Assessment and plan: 1. Heparin SQ.
[2018-04-29] MEDS: 0.9 % Sodium Chloride w KCl 20 MEQ/1,000 ML MLS IVC SCH (23:22)
[2018-04-29] MEDS: Pyridostigmine Br 60 MG TABLET PO SCH (23:23)
[2018-04-29] MEDS: Buprenorphine Hcl/Naloxone Hcl 8-2 MG SL SCH (23:24)
[2018-04-29] MEDS: Gabapentin 400 MG CAPSULE PO SCH (23:24)
[2018-04-29] MEDS: Levofloxacin 750 MG/150 ML 750 MG/150 ML BAG IVPB SCH (23:36)
[2018-04-29] MEDS: traMADol 50 MG TABLET PO PRN (23:38)
[2018-04-30] MEDS: *HR* OxyCODONE/APAP 5/325 TABLET PO PRN ×2 (02:02→08:16)
[2018-04-30] MEDS: Gabapentin 400 MG CAPSULE PO SCH ×4 (05:08→21:07)
[2018-04-30] MEDS: traMADol 50 MG TABLET PO PRN ×2 (05:12→17:59)
[2018-04-30] MEDS: *HR* Heparin 5,000 UNIT/ML VIAL SQ SCH ×2 (05:12→17:54)
[2018-04-30] MEDS ORDERED: *HR* Promethazine 25 MG/ML VIAL IVP ONE (06:12)
[2018-04-30 06:35] LABS: Basophils # 0.1 K/mcL (0.0-0.2); Basophils % 0.6 %; Eosinophils # 0.7 K/mcL (0.0-0.6); Eosinophils % 5.6 %; Hematocrit 34.9 % (37.5-50.1); Hemoglobin 11.7 g/dL (12.9-16.9); Immature Granulocytes % 0.5 % (0-4); Lymphocytes # 3.9 K/mcL (0.6-4.6); Lymphocytes % 33.7 %; Mean Corpuscular HGB Conc 33.5 g/dL (31.6-35.5); Mean Corpuscular Hemoglobin 28.1 pg (28.0-33.3); Mean Corpuscular Volume 83.7 fL (83.0-100.0); Mean Platelet Volume 11.3 fL (9.4-12.4); Monocytes # 1.1 K/mcL (0.0-1.3); Monocytes % 9.3 %; Neutrophils # 5.9 K/mcL (1.6-8.9); Platelet Count 305 K/mcL (140-400); Red Blood Count 4.17 M/mcL (4.19-5.50); Red Cell Distribution Width 14.8 % (11.5-14.5); Segmented Neutrophils % 50.3 %
[2018-04-30 06:41] LABS: INR 1.4; Prothrombin Time 15.7 Seconds (9.4-12.1)
[2018-04-30 06:43] LABS: Activated Partial Thrombo Time 37.3 Seconds (26.0-36.0)
[2018-04-30 06:54] LABS: Alanine Aminotransferase 21 Units/L (7-52); Albumin 3.8 g/dL (3.5-5.7); Albumin/Globulin Ratio 1.5 (1.1-2.2); Alkaline Phosphatase 55 Units/L (34-104); Aspartate Amino Transferase 16 Units/L (13-39); BUN/Creatinine Ratio 13 (6-26); Bilirubin,Total 0.5 mg/dL (0.3-1.0); Blood Urea Nitrogen 8 mg/dL (6-20); Carbon Dioxide 23 mEq/L (23-29); Chloride 106 mEq/L (98-107); Globulin 2.5 g/dL (2.4-3.5); Glucose 83 mg/dL (70-105); Osmolality,Calculated 277 (280-300); Potassium 4.2 mEq/L (3.5-5.1); Sodium 135 mEq/L (136-145); Total Protein 6.3 g/dL (6.4-8.9); eGFR For Non-African Americans > 60 (> 60)
[2018-04-30] MEDS: BuPROPion XL (24 HR) 150 MG TABLET PO SCH (08:14)
[2018-04-30] MEDS: methIMAzole 5 MG TABLET PO SCH (08:14)
[2018-04-30] MEDS: ARIPiprazole 10 MG TABLET PO SCH (08:15)
[2018-04-30] MEDS: Pyridostigmine Br 60 MG TABLET PO SCH ×2 (08:16→21:07)
[2018-04-30] MEDS: Buprenorphine Hcl/Naloxone Hcl 8-2 MG SL SCH (08:17)
[2018-04-30] MEDS: 0.9 % Sodium Chloride w KCl 20 MEQ/1,000 ML MLS IVC SCH (09:44)
--- NOTE | 2018-04-30 10:26 | Internal Med Progress Note ---
Hospitalist Progress Note - Encounter Date of Encounter: 04/30/18 Time of Encounter: 10:24 - Subjective Interval History: Patient with history of depression, hypertension, high cholesterol, admitted with left elbow bursitis versus abscess patient is started on Levaquin and vancomycin orthopedic has seen patient and plan on surgery today ashley ent been complaining of pain from the site I will add Toradol - Exam Vitals: Temp Pulse Resp BP Pulse Ox 97.7 F 68 16 103/68 94 04/30/18 07:41 04/30/18 07:41 04/30/18 07:41 04/30/18 07:41 04/30/18 07:41 Exam: see below - Assessment and Plan (1) HTN (hypertension) Current Visit: No Status: Chronic Assessment and Plan: chronic and well controlled (2) Abscess Current Visit: No Status: Acute Assessment and Plan: ortho evaluation/consult pending plan on suregry I and D today (3) Cellulitis Current Visit: Yes Status: Acute Assessment and Plan: on vanco and levaquin (4) Olecranon bursitis of left elbow Current Visit: Yes Status: Acute - Time Spent with Patient Total time spent is greater than 50% in coordination of care (as documented) at patient's floor/unit and/or counseling patient: Internal Medicine: Result - Labs CBC & Chem 7: 04/30/18 05:23 04/30/18 05:23 Labs: Short CBC 04/29/18 04/30/18 Range/Units 18:53 05:23 WBC 14.6 H 11.6 H (4.3-11.1) K/mcL Hgb 13.0 11.7 L (12.9-16.9) g/dL Hct 37.5 34.9 L (37.5-50.1) % Plt Count 314 305 (140-400) K/mcL Neutrophils # 9.8 H 5.9 (1.6-8.9) K/mcL BMP 04/29/18 04/30/18 18:53 05:23 Sodium 132 L 135 L Potassium 3.6 4.2 Chloride 101 106 Carbon Dioxide 23 23 BUN 10 8 Creatinine 0.73 0.62 L Glucose 136 H 83 Calcium 9.4 9.0 Liver Function 04/30/18 Range/Units 05:23 Total Bilirubin 0.5 (0.3-1.0) mg/dL AST 16 (13-39) Units/L ALT 21 (7-52) Units/L Alkaline Phosphatase 55 (34-104) Units/L Albumin 3.8 (3.5-5.7) g/dL - ABG Interpretation ABG results: PT/INR, D-dimer PT 15.7 Seconds (9.4-12.1) H 04/30/18 05:23 Consult Discharge Plan - Plan (1) HTN (hypertension) Qualifiers: Hypertension type: essential hypertension Qualified Code(s): I10 - Essential (primary) hypertension (3) Cellulitis Qualifiers: Site of cellulitis: extremity Site of cellulitis of extremity: upper extremity Laterality: left Qualified Code(s): L03.114 - Cellulitis of left upper limb
[2018-04-30] MEDS ORDERED: *HR* Buprenorphine HCl 2 MG SUBLINGUAL TABLET SL SCH (11:00)
--- NOTE | 2018-04-30 12:25 | Anesthesia Evaluation PreOp ---
Date of Encounter: 04/30/18 Time of Encounter: 12:20 - Past History Planned Operation: I&D elbow Cardiac History: HTN, Hyperlipidemia Pulmonary History: Other [employer]ICAL [employer]OR History: Other (myesthenia gravis) Other Medical History: Hepatic (hepatitis C), Thyroid Anesthesia History: No Prior Anesthetic Complications, Past Anesthesia Alcohol Use: rarely Drug use: none, opiates, methamphetamine (Past history of opiate abuse has been clean for 2 years. Has used methamphetamine in the past two months.) Medications and Allergies methIMAzole [Tapazole] 5 mg PO DAILY #30 tablet 02/24/16 [Rx] Gabapentin [Neurontin] 800 mg PO Q6H 10/27/17 [History] Metoprolol [Lopressor] 12.5 mg PO BID 10/27/17 [History] ARIPiprazole [Abilify] 15 mg PO DAILY 02/25/18 [History] Pyridostigmine Br [Mestinon] 60 mg PO BID 02/25/18 [History] Buprenorphine HCl/Naloxone HCl [Buprenorphin-Naloxon 8-2 mg Sl] 1 tab SL BID 04/14/18 [History] Bupropion HCl [Wellbutrin Xl] 300 mg PO DAILY 04/14/18 [History] Clindamycin HCl 300 mg PO TID 7 Days capsule 04/27/18 [Rx] Sertraline [Zoloft] 100 mg PO DAILY 04/29/18 [History] Allergy/AdvReac Type Severity Reaction Status Date / Time Penicillins Allergy Hives Verified 04/29/18 17:36 codeine AdvReac Vomiting Verified 04/29/18 17:36 - Meds/Allergy Pre-op Review Medications Reviewed: Yes Allergies Reviewed: Yes Beta Blockers on Current Med List: Yes (at 0815) Anesthesia Results - Labs 04/30/18 05:23 04/30/18 05:23 - Imaging EKG: report reviewed (sinus rhythm) Anesthesia Exam Selected Entries 04/30/18 10:53 Temperature 97.4 F L Pulse Rate 63 Respiratory Rate 16 Blood Pressure 98/63 O2 Sat by Pulse Oximetry 97 Weight: 84 kg BMI 26 NPO (# of Hours): over 8 hours - HEENT Pupil (Motor): Pupils equal Mallampati: II Teeth: Normal, Poor dentition Oral Opening: Greater than 3 - Cardiac Rhythm: Regular Murmur: None - Pulmonary Breath Sounds: bilateral Clear Respiratory Effort: Symmetrical Anesthesia Assess/Plan ASA Score: 2 Level of consciousness: Cooperative Anesthetic Plan: General Monitoring Plan: Standard Monitors Recovery Plan: PACU (Discussed GA, risks. Agreed to proceed.)
[2018-04-30] MEDS ORDERED: KETAMINE HCL 50 MG/ML SYRINGE IV ONE (12:32)
[2018-04-30] MEDS ORDERED: Acetaminophen IV 1,000 MG/100 ML INFUS..BTL ONE (12:32)
[2018-04-30] MEDS ORDERED: *HR* Propofol 200 MG/20 ML VIAL IVP ONE ×2 (12:38→12:50)
[2018-04-30] MEDS ORDERED: *HR* FentaNYL (PF) 100 MCG/2 ML VIAL ONE (12:38)
--- NOTE | 2018-04-30 12:41 | Orthopedic Consult Note ---
Date of Encounter: 04/30/18 Time of Encounter: 12:38 Assessment and Plan (1) Olecranon bursitis of left elbow Current Visit: Yes Status: Acute The diagnosis and treatment options were discussed with the patient. His findings are consistent with septic bursitis of the left olecranon. After discussing the pros and cons of treatment options including non-operative and operative intervention, due to his failure of outpatient management the patient has elected to proceed with left olecranon bursal excision with I&D at this time. The risks and benefits of the procedure were fully explained in detail, including but not limited to the risk of infection, neurovascular injury, continued pain or stiffness, failure of surgery, reinjury, or need for additi onal surgery, DVT, PE, general risks of anesthesia and loss of limb or life. No guarantees were given or implied and all questions were answered. The patient understands all the risks and does wish to proceed with written consent. Surgery will be scheduled in a timely manner. History of Present Illness HPI: Mr. Jalloh is a 42 year old male admitted with left elbow pain and septic olecranon bursitis. Has presented to the ER multiple times with this and has failed outpatient treatment with oral antibiotics and also one I&D in the ER. He did have CT imaging of this elbow yesterday, which is concerning for an abscess of the olecranon area. Denies any chest pain or shortness of breath. Denies any numbness or tingling. He has had some fevers and chills. Has had some erythema over the area of the wound. Past Med Surg Social Fam HX - Past Medical History Medical history: hyperlipidemia, hypertension, thyroid disease Additional medical history: Myasthenia Gravis Psychiatric history: depression, prior suicide attempt, previous psychiatric hospitalization - Past Surgical History Surgical History: cholecystectomy Additional surgical history: Right knee surgery - Social History Smoking Status: Never smoker Smokeless Tobacco Status: Yes Alcohol use: rarely Drug use: none, opiates, methamphetamine (Past history of opiate abuse has been clean for 2 years. Has used methamphetamine in the past two months.) - Family History Father Hx Family Cardiac Disorders: Yes (heart disease) Hx Family Endocrine Disorder: Yes (DM) Mother Adopted: No Family Member Ethnicity: Non- Living Status: Still Living Hx Family Cardiac Disorders: No Hx Family Respiratory Disorders: No Hx Family Cancer: Yes (family history of Skin cancer and thyroid cancer) Hx Family GI Disorders: No Hx Family Endocrine Disorder: Yes (Great-grandmother- DM) Hx Family Neuromuscular Disorders: No Hx Family Neurologic Disorders: No Hx Family HEENT Disorders: No Hx Family Autoimmune Disorders: No Medications and Allergies methIMAzole [Tapazole] 5 mg PO DAILY #30 tablet 02/24/16 [Rx] Gabapentin [Neurontin] 800 mg PO Q6H 10/27/17 [History] Metoprolol [Lopressor] 12.5 mg PO BID 10/27/17 [History] ARIPiprazole [Abilify] 15 mg PO DAILY 02/25/18 [History] Pyridostigmine Br [Mestinon] 60 mg PO BID 02/25/18 [History] Buprenorphine HCl/Naloxone HCl [Buprenorphin-Naloxon 8-2 mg Sl] 1 tab SL BID 04/14/18 [History] Bupropion HCl [Wellbutrin Xl] 300 mg PO DAILY 04/14/18 [History] Clindamycin HCl 300 mg PO TID 7 Days capsule 04/27/18 [Rx] Sertraline [Zoloft] 100 mg PO DAILY 04/29/18 [History] Allergy/AdvReac Type Severity Reaction Status Date / Time Penicillins Allergy Hives Verified 04/29/18 17:36 codeine AdvReac Vomiting Verified 04/29/18 17:36 All Systems Reviewed: The remainder of the systems were reviewed and are negative except as noted in the HPI Physical Exam - Constitutional Vitals: Temp Pulse Resp BP Pulse Ox 97.4 F L 63 16 98/63 97 04/30/18 10:53 04/30/18 10:53 04/30/18 10:53 04/30/18 10:53 04/30/18 10:53 Exam: Consult Exam: Constitutional -Vitals reviewed -The patient is well developed and well nourished. -Mood is pleasant. -The patient is well groomed. Psychiatric -The patient is fully alert and oriented x 3. Respiratory: -Respiratory effort normal Abdomen: -Soft abdomen -Non tender -Non distended: Left upper extremity: -Open draining wound with fluctuance over olecranon bursa. TTP over bursa with s urrounding erythema. -No significant pain with passive motion of the shoulder, elbow, wrist, and fi ngers within the limits of the bed. -Able to make an "OK" sign, cross the index and long fingers, and extend the thumb. -Sensation grossly intact to light touch throughout the median, radial, and ulna r distributions. -Radial pulse is present; Fingers have good capillary refill. Right upper extremity: -No deformities. The overlying skin is intact. No obvious signs of acute trauma. -No tenderness to palpation throughout. -No significant pain with passive motion of the shoulder, elbow, wrist, and fingers within the limits of the bed. -Able to make an "OK" sign, cross the index and long fingers, and extend the thumb. -Sensation grossly intact to light touch throughout the median, radial, and ulnar distributions. -Radial pulse is present; Fingers have good capillary refill. Left lower extremity: -No deformities. The overlying skin is intact. No obvious signs of acute trauma. -No tenderness to palpation throughout. -No pain with passive motion of the hip, knee, ankle, and toes within the limits of the bed. -No pain with axial loading of the thigh. -Able to dorsiflex and plantarflex the ankle and toes. -Sensation is grossly intact to light touch throughout the sural, saphenous, brush perficial peroneal, and deep peroneal distributions. -Toes have good capillary refill. Right lower extremity: -No deformities. The overlying skin is intact. No obvious signs of acute trauma. -No tenderness to palpation throughout. -No pain with passive motion of the hip, knee, ankle, and toes within the limits of the bed. -No pain with axial loading of the thigh. -Able to dorsiflex and plantarflex the ankle and toes. -Sensation is grossly intact to light touch throughout the sural, saphenous, superficial peroneal, and deep peroneal distributions. -Toes have good capillary refill. Results - Labs Result Diagrams: 04/30/18 05:23 04/30/18 05:23 Labs: Abnormal lab results WBC 11.6 K/mcL (4.3-11.1) H 04/30/18 05:23 RBC 4.17 M/mcL (4.19-5.50) L 04/30/18 05:23 Hgb 11.7 g/dL (12.9-16.9) L 04/30/18 05:23 Hct 34.9 % (37.5-50.1) L 04/30/18 05:23 RDW 14.8 % (11.5-14.5) H 04/30/18 05:23 Eosinophils # 0.7 K/mcL (0.0-0.6) H 04/30/18 05:23 PT 15.7 Seconds (9.4-12.1) H 04/30/18 05:23 APTT 37.3 Seconds (26.0-36.0) H 04/30/18 05:23 Sodium 135 mEq/L (136-145) L 04/30/18 05:23 Creatinine 0.62 mg/dL (0.70-1.30) L 04/30/18 05:23 Calculated Osmolality 277 (280-300) L 04/30/18 05:23 Serum Total Protein 6.3 g/dL (6.4-8.9) L 04/30/18 05:23 H & H 04/29/18 04/30/18 Range/Units 18:53 05:23 Hgb 13.0 11.7 L (12.9-16.9) g/dL Hct 37.5 34.9 L (37.5-50.1) % All other labs normal. - Diagnostic results Elbow CT: report reviewed (Fluid collection concerning for abscess over dorsal left olecranon), image reviewed Consult Discharge Plan - Plan Referrals: Deloris Valdovinos [Primary Care Provider] -
[2018-04-30] MEDS ORDERED: Lidocaine -MPF 2% 2 ML VIAL ONE (12:46)
[2018-04-30] MEDS ORDERED: Dexamethasone 4 MG/ML VIAL ONE (12:50)
[2018-04-30] MEDS ORDERED: Ondansetron 4 MG/2 ML VIAL ONE (12:50)
[2018-04-30] MEDS ORDERED: *HR* OxyCODONE Immed Rel 5 MG TABLET PO PRN (13:11)
[2018-04-30] MEDS ORDERED: *HR* HYDROmorphone (PF) 1 MG/ML SYRINGE IVP PRN (13:11)
[2018-04-30] MEDS ORDERED: *HR* Promethazine 25 MG/ML VIAL IVP PRN (13:11)
--- NOTE | 2018-04-30 14:14 | Anesthesia Evaluation Post Op ---
Date of Encounter: 04/30/18 Time of Encounter: 14:13 - Vital Signs Vital Signs: Vital Signs/O2 Sat, Most Current Temp Pulse Resp BP Pulse Ox 98.6 F 71 14 116/73 95 04/30/18 14:05 04/30/18 14:05 04/30/18 14:05 04/30/18 14:05 04/30/18 14:05 - Lungs Lungs: Clear Ascult./Percussion - Airway Airway: Non-obstructed - Cardiovascular Regular Rate, Baseline Rhythm - Mental Status Mental Status: Alert & Oriented, Answers Appropriately - Pain Pain Scale: 0 Pain Scale used: Numeric (1 - 10) - Nausea Vomiting Nausea Vomiting: Not Present - Hydration Hydration: Tolerates oral liquids, Able to void Notes: 04/30/18 14:14 Vital Signs/O2 Sat, Most Current Temp Pulse Resp BP Pulse Ox 98.6 F 71 14 116/73 95 04/30/18 14:05 04/30/18 14:05 04/30/18 14:05 04/30/18 14:05 04/30/18 14:05 - Discharge PostOp Status: Transfer Patient to floor
[2018-04-30] MEDS: Ketorolac 30 MG/ML VIAL IVP PRN (21:08)
[2018-04-30] MEDS: *HR* Buprenorphine HCl 8 MG TAB.SUBL SL SCH (21:28)
[2018-04-30] MEDS: Nicotine 14 MG PATCH.TD24 TD SCH (23:34)
[2018-04-30] MEDS: Levofloxacin 750 MG/150 ML 750 MG/150 ML BAG IVPB SCH (23:35)
[2018-05-01] MEDS: Gabapentin 400 MG CAPSULE PO SCH ×4 (05:05→21:15)
[2018-05-01 05:29] LABS: Hematocrit 33.2 % (37.5-50.1); Hemoglobin 11.3 g/dL (12.9-16.9); Mean Corpuscular Hemoglobin 28.3 pg (28.0-33.3); Mean Platelet Volume 11.4 fL (9.4-12.4); Platelet Count 315 K/mcL (140-400); Red Cell Distribution Width 14.6 % (11.5-14.5)
[2018-05-01] MEDS: *HR* Heparin 5,000 UNIT/ML VIAL SQ SCH ×2 (06:10→17:25)
[2018-05-01] MEDS: traMADol 50 MG TABLET PO PRN ×3 (06:17→19:38)
--- NOTE | 2018-05-01 07:54 | Orthopedic Operative Note ---
Date of procedure: 04/30/18 Procedure: Procedure: 1. Left elbow deep abscess irrigation and debridement 2. Left elbow olecranon bursa excision Preoperative Diagnosis: Left elbow abscess with septic olecranon bursitis Postoperative Diagnosis: Same Surgeon: Riley Mills MD Arborer: None EBL: 20 cc Anesthesia: General Complications: None INDICATIONS: This is a 42-year-old male who was admitted to the hospital with a left elbow abscess and septic olecranon bursitis after failing outpatient management. Over several days he had developed pain and significant swelling over the elbow. He also developed significant erythema over the olecranon bursa. CT scan showed findings consistent with left elbow abscess with septic bursitis. He had continued pain and swelling despite nonoperative management with antibiotics and attempts at bedside I&D in the ED. Due to the continued pain, swelling and difficulty using the elbow the patient elected for operative management with left elbow bursal excision and irrigation and debridement. The risks and benefits of the procedure were fully explained. Those risks include but are not limited to, infection, neurovascular injury, continued pain, arthritis, stiffness, further injury, need for further surgery, DVT, PE, loss of limb, and loss of life. The patient understood all of these risks and wished to proceed. Informed consent was obtained. OPERATIVE REPORT: The patient was identified in the holding area. The left upper extremity was marked, the patient was taken to the operating room and placed in the supine position. All bony prominences were well padded. The anesthesiologist performed successful general anesthetic for the remainder of the case. Preoperative antibiotics were being given on the floor prior to the procedure. A surgical time out protocol was then performed. An incision was made over the posterior aspect of the left elbow, encompassing and excising the open draining area of the previous I&D. Bovie was used to coagulate any skin bleeders. A deep pocket of fluid overlying the bursa and bone was opened and cultured. There was no gross purulence. Necrotic tissue overyling the bursa with then debrided and irrigated with several liters of normal saline. Flaps were raised both medially and laterally and the bursa over the olecranon was excised. It was thickened and there was significant scarring of the bursa to the underlying tissue. There was no gross purulence within the bursa. The wound was then again thoroughly irrigated with normal saline. The incision was then closed with 3-0 Monocryl subcutaneous and then skin was closed with 2-0 nylon. Sterile dressing was placed. Patient was awoken by anesthesia and taken the PACU in stable condition. There were no complications Was there an staff assistant present: No Estimated blood loss (cc): 20
[2018-05-01] MEDS: *HR* Buprenorphine HCl 8 MG TAB.SUBL SL SCH ×2 (08:09→21:15)
[2018-05-01] MEDS: Pyridostigmine Br 60 MG TABLET PO SCH ×2 (08:10→21:15)
[2018-05-01] MEDS: ARIPiprazole 10 MG TABLET PO SCH (08:10)
[2018-05-01] MEDS: BuPROPion XL (24 HR) 150 MG TABLET PO SCH (08:11)
[2018-05-01] MEDS: methIMAzole 5 MG TABLET PO SCH (08:11)
--- NOTE | 2018-05-01 09:17 | Internal Med Progress Note ---
Hospitalist Progress Note - Encounter Date of Encounter: 05/01/18 Time of Encounter: 09:17 - Subjective Interval History: Patient with history of depression, hypertension, high cholesterol, admitted with left elbow bursitis versus abscess patient is started on Levaquin and vancomycin orthopedic has seen patient and plan on surgery today ashley ent been complaining of pain from the site I will add Toradol 05/01 Patient underwent surgery yesterday confirmimg w bursitis with abscess please see the orthopedic surgical procedure note culture is pending blood cultures so far is negative - Exam Vitals: Temp Pulse Resp BP Pulse Ox 97.7 F 79 15 101/71 96 05/01/18 04:40 05/01/18 04:40 05/01/18 04:40 05/01/18 04:40 05/01/18 04:40 Exam: see below - Assessment and Plan (1) HTN (hypertension) Current Visit: No Status: Chronic Assessment and Plan: well controlled (2) Abscess Current Visit: No Status: Acute Assessment and Plan: Status post I&D by orthopedic surgery will continue on current antibiotic (3) Cellulitis Current Visit: Yes Status: Acute (4) Olecranon bursitis of left elbow Current Visit: Yes Status: Acute Assessment and Plan: Status post surgery continue current care and orthopedic follow-up - Time Spent with Patient Total time spent is greater than 50% in coordination of care (as documented) at patient's floor/unit and/or counseling patient: Internal Medicine: Result - Labs CBC & Chem 7: 05/01/18 04:55 04/30/18 05:23 Labs: Short CBC 05/01/18 Range/Units 04:55 WBC 12.4 H (4.3-11.1) K/mcL Hgb 11.3 L (12.9-16.9) g/dL Hct 33.2 L (37.5-50.1) % Plt Count 315 (140-400) K/mcL - ABG Interpretation ABG results: PT/INR, D-dimer PT 15.7 Seconds (9.4-12.1) H 04/30/18 05:23 Consult Discharge Plan - Plan Referrals: Deloris Valdovinos [Primary Care Provider] - (1) HTN (hypertension) Qualifiers: Hypertension type: essential hypertension Qualified Code(s): I10 - Essential (primary) hypertension (3) Cellulitis Qualifiers: Site of cellulitis: extremity Site of cellulitis of extremity: upper extremity Laterality: left Qualified Code(s): L03.114 - Cellulitis of left upper limb
[2018-05-01] MEDS: Ketorolac 30 MG/ML VIAL IVP PRN (15:00)
[2018-05-01] MEDS: Nicotine 14 MG PATCH.TD24 TD SCH (21:15)
[2018-05-02] MEDS: Ketorolac 30 MG/ML VIAL IVP PRN (00:15)
[2018-05-02] MEDS ORDERED: Melatonin 3 MG TABLET PO STA (00:44)
[2018-05-02] MEDS: Gabapentin 400 MG CAPSULE PO SCH ×2 (05:14→08:08)
[2018-05-02] MEDS: *HR* Heparin 5,000 UNIT/ML VIAL SQ SCH (05:14)
[2018-05-02] MEDS: ARIPiprazole 10 MG TABLET PO SCH (07:27)
[2018-05-02] MEDS: *HR* Buprenorphine HCl 8 MG TAB.SUBL SL SCH (07:28)
[2018-05-02] MEDS: methIMAzole 5 MG TABLET PO SCH (07:30)
[2018-05-02] MEDS: BuPROPion XL (24 HR) 150 MG TABLET PO SCH (07:30)
[2018-05-02] MEDS: Pyridostigmine Br 60 MG TABLET PO SCH (07:34)
[2018-05-02] MEDS: traMADol 50 MG TABLET PO PRN ×2 (08:08→13:02)
[2018-05-02] MEDS ORDERED: Sennosides 8.6 MG TABLET PO SCH (10:15)
[2018-05-02] MEDS: Preparation H Ointment 30 GM TUBE TP SCH ×2 (11:50→15:01)
[2018-05-02 12:12] VITALS: BP 105/63
--- NOTE | 2018-05-02 12:34 | Orthopedics Progress Note ---
Date of Encounter: 05/02/18 Time of Encounter: 12:32 Subjective Interval history: S: Sitting up in in a bedside chair. Pain much improved to the left elbow. No new injuries or complaints. O: Afebrile on the vital signs are stable Left elbow wound with minimal redness Minimal swelling and tenderness No drainage Full motion of the elbow, wrist, and digits The patient can actively flex and extend all digits, extend the thumb, cross the index and long fingers, make an okay sign, and oppose the thumb. The fingertips are all grossly sensate and well-perfused, and the radial artery pulse is 2+. Cultures pending A: Post-debridement of the left elbow and olecranon bursectomy Improved clinically P: Resume antibiotics per the primary team Orthopedically stable for discharge Follow-up in the office with Dr. Mills within the next week for wound evaluation Objective Vital signs: Vital Signs Temp Pulse Resp BP Pulse Ox 05/02/18 12:08 97.7 F 100 16 105/63 92 05/02/18 07:00 97.7 F 58 16 99/63 94 05/02/18 03:29 97.8 F 59 14 97/61 97 05/01/18 19:31 97.8 F 72 12 134/73 95 Intake and Output 05/01/18 05/02/18 05/02/18 23:59 07:59 15:59 Intake Total 1330 / 1330 920 / 920 1450 / 1450 Output Total 1150 / 1150 925 / 925 250 / 250 Balance 180 / 180 -5 / -5 1200 / 1200 Intake: IV Fluids 250 / 250 250 / 250 Vancocin 1,500 MG In 0.9 % 250 / 250 250 / 250 Sodium Chloride 250 ML @ 167 mls/hr IVPB Q12H ERLINDA Rx#: [id number] Oral 1080 / 1080 920 / 920 1200 / 1200 Output: Urine 1150 / 1150 925 / 925 250 / 250 Other: Meal Dinner Breakfast Percent of Meal Consumed 45% 100% # Bowel Movements 0 0 Weight 86.7 kg Patient Weight 05/02/18 23:59 Weight 86.7 kg - Labs CBC & BMP: 05/01/18 04:55 04/30/18 05:23 Labs: Abnormal lab results WBC 12.4 K/mcL (4.3-11.1) H 05/01/18 04:55 RBC 4.00 M/mcL (4.19-5.50) L 05/01/18 04:55 Hgb 11.3 g/dL (12.9-16.9) L 05/01/18 04:55 Hct 33.2 % (37.5-50.1) L 05/01/18 04:55 RDW 14.6 % (11.5-14.5) H 05/01/18 04:55 Eosinophils # 0.7 K/mcL (0.0-0.6) H 04/30/18 05:23 PT 15.7 Seconds (9.4-12.1) H 04/30/18 05:23 APTT 37.3 Seconds (26.0-36.0) H 04/30/18 05:23 Sodium 135 mEq/L (136-145) L 04/30/18 05:23 Creatinine 0.62 mg/dL (0.70-1.30) L 04/30/18 05:23 Calculated Osmolality 277 (280-300) L 04/30/18 05:23 Serum Total Protein 6.3 g/dL (6.4-8.9) L 04/30/18 05:23 Consult Discharge Plan - Plan Referrals: Deloris Valdovinos [Primary Care Provider] -
--- NOTE | 2018-05-02 14:20 | Internal Med Progress Note ---
Hospitalist Progress Note - Encounter Date of Encounter: 05/02/18 Time of Encounter: 10:20 - Subjective Interval History: awake, denies fevers or chills, elbow pain improving rom wrist and shoulder intact. - Exam Vitals: Temp Pulse Resp BP Pulse Ox 97.7 F 100 16 105/63 92 05/02/18 12:08 05/02/18 12:08 05/02/18 12:08 05/02/18 12:08 05/02/18 12:08 Exam: gen- alert, awake,appears stated age cv- reg rate and rhythm, normal s1,s2, no murmurs appreciated lungs- ctabl, no wheezing, rhonchi or crackles msk- left elbow dressing c/d/i, left elbow wrist and shoulder rom intact, no hand/arm edema skin- no arm erythema neuro- AAOx3, sensation to light touch LUE intact - Assessment and Plan (1) Olecranon bursitis of left elbow Current Visit: Yes Status: Acute Assessment and Plan: s/p left elbow deep irrigation and debridement and olecranon bursa excision 04/30 -previously levaquin + vanc, then descalated as cx results began to speciate -ortho following and clear for dc to home with ortho fu in one week with Dr Mills -wound cx 04/30 has finalized and staph aureus, vega sensitive -bl cx ngtd -will dc to home with oral abx to complete 14 d course as d/w surgery (2) Cellulitis Current Visit: Yes Status: Acute Assessment and Plan: see above (3) DVT prophylaxis Current Visit: Yes Status: Acute Assessment and Plan: hep sq (4) Acute anemia Current Visit: Yes Status: Acute Assessment and Plan: most likely 2/2 post op and repeated lab draws -no active bleeding, no suspected joint hemarthrosis, asx and hemodynamically stable -he may have cbc checked with pcp at follow updc hgb 11.3 (5) Hyponatremia Current Visit: Yes Status: Chronic Assessment and Plan: onchart review he appears to have had hyponatremia intermittently this year na level 135 without any cognitive deficits -he should fu with pcp for further work up - Time Spent with Patient Total time spent is greater than 50% in coordination of care (as documented) at patient's floor/unit and/or counseling patient: 25 - 35 minutes Internal Medicine: Result - Labs CBC & Chem 7: 05/01/18 04:55 04/30/18 05:23 - ABG Interpretation ABG results: PT/INR, D-dimer PT 15.7 Seconds (9.4-12.1) H 04/30/18 05:23 Consult Discharge Plan - Plan Referrals: Deloris Valdovinos [Primary Care Provider] - (2) Cellulitis Qualifiers: Site of cellulitis: extremity Site of cellulitis of extremity: upper extremity Laterality: left Qualified Code(s): L03.114 - Cellulitis of left upper limb
--- NOTE | 2018-05-02 14:35 | Discharge Summary ---
- NOTES TO OUTPATIENT PROVIDER Notes to Outpatient Provider: fu with PCP for cbc recheck due to post op anemia, in the next week; appears to chroncially have mild hyponatremia, defer w/u to outpt team, follows up with dr Lina tariq with ortho in one week and dc on cipro to complete abx course. Orders not resulted at time of discharge: Pending orders 04/29/18 18:53 Culture,Blood [BC] Stat 04/30/18 13:15 Culture,Anaerobic [RM] Routine 05/02/18 18:00 Vancomycin,Trough Timed 05/03/18 04:00 CBC [Complete Blood Count] [HEME] AM 0400 Date of Encounter: 05/02/18 Time of Encounter: 10:20 - Discharge Diagnosis (1) Olecranon bursitis of left elbow Priority: Primary Status: Acute Assessment and Plan: s/p left elbow deep irrigation and debridement and olecranon bursa excision 04/30 -previously levaquin + vanc, then descalated as cx results began to speciate -ortho following and clear for dc to home with ortho fu in one week with Dr Silvia estevez -wound cx 04/30 has finalized and staph aureus, vega sensitive -bl cx ngtd -will dc to home with oral abx to complete 14 d course as d/w surgery (2) Cellulitis Priority: Primary Status: Acute Assessment and Plan: see above Qualifiers: Site of cellulitis: extremity Site of cellulitis of extremity: upper extremity Laterality: left Qualified Code(s): L03.114 - Cellulitis of left upper limb (3) DVT prophylaxis Priority: Secondary Status: Acute Assessment and Plan: hep sq (4) Acute anemia Priority: Secondary Status: Acute Assessment and Plan: most likely 2/2 post op and repeated lab draws -no active bleeding, no suspected joint hemarthrosis, asx and hemodynamically stable -he may have cbc checked with pcp at follow updc hgb 11.3 (5) Hyponatremia Priority: Secondary Status: Chronic Assessment and Plan: onchart review he appears to have had hyponatremia intermittently this year na level 135 without any cognitive deficits -he should fu with pcp for further work up Hospital course: Mr. Jalloh is a 42 year old male admitted to the hospital with left olecranon bursitis of the elbow, cellulitis of the elbow who was followed by ortho and is s/p left elbow deep irrigation and debridement and olecranon bursa excision 04/30. He was managed with iv abx and with cx results vega sensitive staph aureus, he is being dc to home with oral abx and ortho outpt fu. He was maintained on home bp meds, psychiatric meds and confirmed subutex. [facility] with further diagnoses and treatment as documented in a/p. Discharge discussed with: patient - Time Spent with Patient Total time spent providing and/or coordinating discharge services: Less than 30 minutes (25 minutes) - Discharge Medications Prescriptions: Ciprofloxacin [Cipro] 500 mg PO BID 11 Days #22 tablet Home Medications: methIMAzole [Tapazole] 5 mg PO DAILY #30 tablet 02/24/16 [Rx] Gabapentin [Neurontin] 800 mg PO Q6H 10/27/17 [History] Metoprolol [Lopressor] 12.5 mg PO BID 10/27/17 [History] ARIPiprazole [Abilify] 15 mg PO DAILY 02/25/18 [History] Pyridostigmine Br [Mestinon] 60 mg PO BID 02/25/18 [History] Buprenorphine HCl/Naloxone HCl [Buprenorphin-Naloxon 8-2 mg Sl] 1 tab SL BID 04/14/18 [History] Bupropion HCl [Wellbutrin Xl] 300 mg PO DAILY 04/14/18 [History] Sertraline [Zoloft] 100 mg PO DAILY 04/29/18 [History] Ciprofloxacin [Cipro] 500 mg PO BID 11 Days #22 tablet 05/02/18 [Rx] Allergies/Adverse Reactions: Allergy/AdvReac Type Severity Reaction Status Date / Time Penicillins Allergy Hives Verified 04/29/18 17:36 codeine AdvReac Vomiting Verified 04/29/18 17:36 Date of admission: 04/30/18 06:29 Primary care physician: Deloris Valdovinos Consults: 04/29/18 19:12 Consult to Orthopedic Surgery [CONS] Stat Consulting Provider: [facility] Reason for Consult: Arm pain Call Completed: Yes 04/29/18 20:43 Consult to Physician [CONS] Routine Consulting Provider: Riley Mills Reason for Consult: left elbow abscess Time Notified: 20:43 Call Completed: Yes Discharging clinician: Richa Adler - Constitutional Vitals: Temp Pulse Resp BP Pulse Ox 97.7 F 100 16 105/63 92 05/02/18 12:08 05/02/18 12:08 05/02/18 12:08 05/02/18 12:08 05/02/18 12:08 General appearance: Present: cooperative, mild distress (due to left elbow pain), A&O X 3, pleasant, answers questions appropriately Exam: gen- alert, awake,appears stated age cv- reg rate and rhythm, normal s1,s2, no murmurs appreciated lungs- ctabl, no wheezing, rhonchi or crackles msk- left elbow dressing c/d/i, left elbow wrist and shoulder rom intact, no hand/arm edema skin- no arm erythema neuro- AAOx3, sensation to light touch LUE intact - Patient Status Disposition: Home, Self-Care Condition: Good Overall status at discharge: patient is back to baseline - Discharge Instructions Follow Up With: Deloris Valdovinos [Primary Care Provider] - Riley Mills MD [Non-Partnered Physician] - (1 week) Forms: ED Satisfaction Letter - Diet and Activity Activity: increase activity as tolerated Diet: advance to your usual diet
[2018-05-02] MEDS ORDERED: Aminoglycoside Consult 1 EACH MC ONE (15:39)
== END 2018-05-02 15:40 | disposition home or self-care (01) | DRG 315 ==
LOC: EMEROOARM 17:20 → 3ANU 17:20
PROVIDERS: ADMIT Family Medicine; ATTEND Family Medicine